=== PATIENT | male | born 1950 | race Caucasian/White ===

== ENCOUNTER 2016-10-03 14:10 | Emergency (ER) | payer OTHER ==
[~2016-10-03] VITALS: Ht 177.8 cm; Wt 118.6 kg
[~2016-10-03 14:10] MED LIST: ASPI81TA28 PO; ATOR-26 PO; CLOP1TAB15 PO; HYDR25TA5 PO; LISI40TA PO; SERT50TA PO
[2016-10-03 14:20] VITALS: TEMP 36.5; Ht 177.8 cm; Wt 118.6 kg
--- NOTE | 2016-10-03 14:37 | EMERGENCY ROOM VISIT NOTE ---
History Report prepared by Jade: Kishore Leyva Under the Supervision of: Dr. Horacio Boss D.O. First contact with patient: 14:22 Chief Complaint: SWELLING TO EXTREMITY Stated Complaint: SWELLING IN LEFT ANKLE History of Present Illness The patient is a 66 year old male who presents to the Emergency Room with complaints of worsening swelling of the left ankle beginning 3-4 days prior to arrival. He currently rates her discomfort as a 6/10 in severity. The patient associates an itching rash on his right lower leg with today's symptoms. He notes he has a history of cellulitis and a blood clot in the left leg, but the cause of the clot was unknown. The patient states he experienced similar symptoms in the past, when he had cellulitis. He notes he was seen by [facility] and was referred to the ED for an ultrasound. The patient states he has a cardiac stent after a previous heart attack three years ago. He notes he takes a low dose of aspirin every day. The patient also states he fractured his left ankle twenty years ago. He denies a fever, chills, chest pain, shortness of breath, nausea, vomiting, and tobacco or alcohol use. 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 A total of 10 systems reviewed and were otherwise negative. Past Medical & Surgical Medical Problems: (1) Asthma (2) Bronchitis (3) Cellulitis of left lower leg (4) DVT (deep venous thrombosis) (5) Heart attack (6) Heart disease (7) Hypertension Surgical Problems: (1) H/O heart artery stent Family History Cancer Diabetes mellitus Lung disease Social History Smoking Status: Never Smoker Drug Use: none Marital Status: Occupation Status: employed Current/Historical Medications Scheduled Aspirin (Aspirin Ec), 81 MG PO DAILY Atorvastatin (Lipitor), 80 MG PO DAILY Carvedilol (Carvedilol), 1 TAB PO DAILY Cephalexin Monohydrate (Keflex), 500 MG PO QID Ferrous Sulfate (Kp Ferrous Sulfate), 1 TAB PO BID Folic Acid (Folvite), 1 MG PO DAILY Hydrochlorothiazide (Hydrochlorothiazide), 25 MG PO DAILY Lisinopril (Zestril), 40 MG PO DAILY Sertraline (Zoloft), 50 MG PO DAILY Sulfa/Trimethoprim (Bactrim Ds 800MG/160MG), 1 TAB PO BID Allergies Coded Allergies: Penicillins (Verified Allergy, Unknown, UNKNOWN, 10/03/16) Physical Exam Vital Signs Date Time Temp Pulse Resp B/P Pulse Ox O2 Delivery O2 Flow Rate FiO2 10/03/16 16:35 91 18 177/107 97 10/03/16 14:20 36.5 98 18 168/98 95 Room Air Physical Exam GENERAL: Patient is awake, alert, and in no acute distress. Patient is resting comfortably and showing no signs of anxiety EYES: The conjunctivae are clear. The pupils are round and reactive. EARS, NOSE, MOUTH AND THROAT: The nose is without any evidence of any deformity. Mucous membranes are moist tongue is midline NECK: The neck is nontender and supple. RESPIRATORY: Normal respiratory effort is noted there is no evidence of wheezing rhonchi or rales CARDIOVASCULAR: Regular rate and rhythm noted there no murmurs rubs or gallops normal S1 normal S2 GASTROINTESTINAL: The abdomen is soft. Bowel sounds are present in all quadrants. Abdomen is nontender MUSCULOSKELETAL/EXTREMITIES: There is no evidence of gross deformity full range of motion is noted in the hips and shoulders SKIN: Erythema and swelling to the left leg. There was calf tenderness noted in the left leg. Pulses symmetric in lower extremities. Skin is warm and dry. NEUROLOGIC: Patient is awake alert and oriented x3. Medical Decision & Procedures ER Provider Diagnostic Interpretation: US results as stated below per interpretation by me and the radiologist. LEFT LOWER EXTREMITY VENOUS DOPPLER CLINICAL HISTORY: Left lower extremity swelling. COMPARISON STUDY: Left lower extremity venous April 17, 2015. TECHNIQUE: Sonography of the deep venous system of the left lower extremity was performed. Compression and augmentation were evaluated. FINDINGS: There is linear echogenic thrombus within the left superficial femoral vein as well as wall thickening of the left popliteal vein. Similar findings were shown on exam of April 17, 2015. IMPRESSION: 1. No evidence of acute deep venous thrombus within the left lower extremity. 2. 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 Electronically signed by: Jeff Bolaños M.D. 10/03/2016 4:04 PM Laboratory Results 10/03/16 14:40 Red Blood Count 5.06, Mean Corpuscular Volume 78.9, Mean Corpuscular Hemoglobin 26.7, Mean Corpuscular Hemoglobin Concent 33.8, Mean Platelet Volume 9.0, Neutrophils (%) (Auto) 63.4, Lymphocytes (%) (Auto) 24.6, Monocytes (%) (Auto) 8.8, Eosinophils (%) (Auto) 2.3, Basophils (%) (Auto) 0.3, Neutrophils # (Auto) 6.15, Lymphocytes # (Auto) 2.39, Monocytes # (Auto) 0.85, Eosinophils # (Auto) 0.22, Basophils # (Auto) 0.03 10/03/16 14:40 Test 10/03/16 14:40 White Blood Count 9.70 K/uL (4.8-10.8) Red Blood Count 5.06 M/uL (4.7-6.1) Hemoglobin 13.5 g/dL (14.0-18.0) Hematocrit 39.9 % (42-52) Mean Corpuscular Volume 78.9 fL (80-100) Mean Corpuscular Hemoglobin 26.7 pg (25-34) Mean Corpuscular Hemoglobin Concent 33.8 g/dl (32-36) Platelet Count 215 K/uL (130-400) Mean Platelet Volume 9.0 fL (7.4-10.4) Neutrophils (%) (Auto) 63.4 % Lymphocytes (%) (Auto) 24.6 % Monocytes (%) (Auto) 8.8 % Eosinophils (%) (Auto) 2.3 % Basophils (%) (Auto) 0.3 % Neutrophils # (Auto) 6.15 K/uL (1.4-6.5) Lymphocytes # (Auto) 2.39 K/uL (1.2-3.4) Monocytes # (Auto) 0.85 K/uL (0.11-0.59) Eosinophils # (Auto) 0.22 K/uL (0-0.5) Basophils # (Auto) 0.03 K/uL (0-0.2) RDW Standard Deviation 46.6 fL (36.4-46.3) RDW Coefficient of Variation 16.3 % (11.5-14.5) Immature Granulocyte % (Auto) 0.6 % Immature Granulocyte # (Auto) 0.06 K/uL (0.00-0.02) Prothrombin Time 11.4 SECONDS (9.0-12.0) Prothromb Time International Ratio 1.1 (0.9-1.1) Activated Partial Thromboplast Time 27.1 SECONDS (21.0-31.0) Partial Thromboplastin Ratio 1.0 Anion Gap 3.0 mmol/L (3-11) Est Creatinine Clear Calc Drug Dose 85.2 ml/min Estimated GFR () 80.6 Estimated GFR (Non- 69.6 BUN/Creatinine Ratio 17.4 (10-20) Calcium Level 9.1 mg/dl (8.5-10.1) Total Bilirubin 0.4 mg/dl (0.2-1) Direct Bilirubin < 0.1 mg/dl (0-0.2) Aspartate Amino Transf (AST/SGOT) 16 U/L (15-37) Alanine Aminotransferase (ALT/SGPT) 37 U/L (12-78) Alkaline Phosphatase 55 U/L (45-117) Total Protein 7.8 gm/dl (6.4-8.2) Albumin 4.1 gm/dl (3.4-5.0) Laboratory results per my review. Medications Administered Medications (Trade) Dose Ordered Sig/Keenan Route Start Time Stop Time Status Last Admin Dose Admin Trimethoprim/ Sulfamethoxazole (Septra Ds 800/ 160MG Tab) 1 tab NOW STAT PO 10/03/16 16:14 10/03/16 16:16 DC 10/03/16 16:27 1 TAB Cephalexin Monohydrate (Keflex Cap) 500 mg NOW ONCE PO 10/03/16 16:15 10/03/16 16:16 DC 10/03/16 16:28 500 MG ED Course 1423: The patient was evaluated in room C2B. A complete history and physical examination were performed. 1614: Ordered Trimethoprim/Sulfamethoxazole 1 tab PO. 1615: Ordered Keflex Cap 500 mg PO. 1617: Upon reevaluation, the patient is doing well. I discussed the results and treatment plan with him. He verbalized agreement of the treatment plan. The patient was discharged home. Medical Decision Differential diagnosis: Etiologies such as DVT, musculoskeletal, infection, joint effusion, trauma, lymphedema, idiopathic, CHF, as well as others were entertained.. The patient is a 66-year-old male who presented to the emergency department for an evaluation of left lower extremity swelling. The patient noticed erythema. He thought it could be consistent with cellulitis but he has a history of DVT. The patient's ultrasound did not show an acute DVT but did show some areas of chronic DVT. At this time I do not feel he would benefit from restarting anticoagulation but I did start him on a course of antibiotics for cellulitis. He was encouraged to keep the leg elevated as much as possible. He was also encouraged to have a repeat ultrasound in 5-7 days if symptoms do not improve. Otherwise she was encouraged to return to the emergency department immediately if symptoms worsen or he develops other symptoms such as shortness of breath or severe chest pain. Impression Primary Impression: Cellulitis of left lower extremity Scribe Attestation The scribe's documentation has been prepared under my direction and personally reviewed by me in its entirety. I confirm that the note above accurately reflects all work, treatment, procedures, and medical decision making performed by me. Departure Information Dispostion Home / Self-Care Prescriptions Cephalexin Monohydrate (KEFLEX) 500 Mg Cap 500 MG PO QID, #28 CAP Prov: Horacio Boss, DO 10/03/16 Sulfa/Trimethoprim (Bactrim Ds 800MG/160MG) Tab 1 TAB PO BID, #14 TAB Prov: Horacio Boss, DO 10/03/16 Referrals Krish Nagel M.D. (PCP) Forms HOME CARE DOCUMENTATION FORM, IMPORTANT VISIT INFORMATION, WORK / SCHOOL INSTRUCTIONS Patient Instructions Cellulitis Raul, My [facility] Additional Instructions Keep your leg elevated as much as possible. Call your family to schedule a follow-up appointment. Continue all medications as prescribed. I would recommend a repeat ultrasound in 5-7 days if symptoms do not improve.
[2016-10-03 14:54] LABS: BASO % 0.3 %; BASO ABS # 0.03 K/uL (0-0.2); COMPLETE YES; EOS % 2.3 %; HEMATOCRIT 39.9 % (42-52); IG% 0.6 %; LYMPH % 24.6 %; LYMPH ABS # 2.39 K/uL (1.2-3.4); MEAN CELL VOLUME 78.9 fL (80-100); MEAN CORPUSCULAR HEMOGLOBIN 26.7 pg (25-34); MEAN CORPUSCULAR HGB CONC 33.8 g/dl (32-36); MONO % 8.8 %; NEUT % 63.4 %; PLATELET COUNT 215 K/uL (130-400); RED BLOOD COUNT 5.06 M/uL (4.7-6.1)
[2016-10-03] MEDS ORDERED: CRG25 PO (14:54)
[2016-10-03] MEDS ORDERED: FOLI1TAB7 PO (14:56)
[2016-10-03] MEDS ORDERED: FERR1TAB13 PO (14:57)
[2016-10-03 15:10] LABS: INR 1.1 (0.9-1.1); PROTHROMBIN TIME (PATIENT) 11.4 SECONDS (9.0-12.0)
[2016-10-03 15:12] LABS: ALT/SGPT 37 U/L (12-78); AST/SGOT 16 U/L (15-37); BLOOD UREA NITROGEN 19 mg/dl (7-18); BUN/CREATININE RATIO 17.4 (10-20); CALCIUM 9.1 mg/dl (8.5-10.1); CARBON DIOXIDE 31 mmol/L (21-32); CHLORIDE 107 mmol/L (98-107); GLUCOSE 90 mg/dl (70-99); POTASSIUM 3.8 mmol/L (3.5-5.1); SODIUM 141 mmol/L (136-145)
[2016-10-03 15:15] LABS: ALKALINE PHOSPHATASE 55 U/L (45-117)
--- NOTE | 2016-10-03 16:05 | DIAGNOSTIC IMAGING REPORT ---
LEFT LOWER EXTREMITY VENOUS DOPPLER CLINICAL HISTORY: Left lower extremity swelling. COMPARISON STUDY: Left lower extremity venous April 17, 2015. TECHNIQUE: Sonography of the deep venous system of the left lower extremity was performed. Compression and augmentation were evaluated. FINDINGS: There is linear echogenic thrombus within the left superficial femoral vein as well as wall thickening of the left popliteal vein. Similar findings were shown on exam of April 17, 2015. IMPRESSION: 1. No evidence of acute deep venous thrombus within the left lower extremity. 2. 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 Electronically signed by: Jeff Bolaños M.D. 10/03/2016 4:04 PM Dictated Date/Time: 10/03/2016 4:02 PM
[2016-10-03] MEDS ORDERED: SULFAMETHOXAZOLE/TRIMETHOPRIM DS 800/160MG TAB PO STA (16:14)
[2016-10-03] MEDS ORDERED: CEPHALEXIN MONOHYDRATE 250 MG CAP PO ONE (16:15)
[2016-10-03] MEDS ORDERED: CEPH500C2 PO (16:20)
[2016-10-03] MEDS ORDERED: SULF800T23 PO (16:20)
[2016-10-03 16:35] VITALS: BP 177/107; PULSE 91; O2SAT 97
[2017-06-01] MEDS ORDERED: NTRGSL/4 UT (08:08)
== END 2016-10-03 16:38 | disposition home or self-care (01) ==
LOC: C.EDB 14:11 → C.EDC 16:38
DX: L03.116 Cellulitis of left lower limb (principal); J45.909 Unspecified asthma, uncomplicated; I10 Essential (primary) hypertension; I25.2 Old myocardial infarction; Z83.3 Family history of diabetes mellitus; Z79.82 Long term (current) use of aspirin

== ENCOUNTER → 2016-12-02 | Outpatient (CLI) | payer OTHER ==
[~2016-12-02] MED LIST changes: +CEPH500C2 PO; -CLOP1TAB15 PO; +CRG25 PO; +FERR1TAB13 PO; +FOLI1TAB7 PO; +NTRGSL/4 UT; +SULF800T23 PO
[2016-12-02 12:23] LABS: BASO % 0.5 %; BASO ABS # 0.03 K/uL (0-0.2); COMPLETE YES; EOS % 4.2 %; HEMATOCRIT 41.1 % (42-52); IG% 0.2 %; LYMPH % 28.7 %; LYMPH ABS # 1.84 K/uL (1.2-3.4); MEAN CELL VOLUME 85.3 fL (80-100); MEAN CORPUSCULAR HEMOGLOBIN 27.6 pg (25-34); MEAN CORPUSCULAR HGB CONC 32.4 g/dl (32-36); MEAN PLATELET VOLUME 10.6 fL (7.4-10.4); MONO % 16.2 %; NEUT % 50.2 %; PLATELET COUNT 254 K/uL (130-400); RED BLOOD COUNT 4.82 M/uL (4.7-6.1); WHITE BLOOD COUNT 6.41 K/uL (4.8-10.8)
[2016-12-02 12:44] LABS: ESTIMATED AVERAGE GLUCOSE 120 mg/dl; HA1C FLAG Normal (Normal)
[2016-12-02 12:45] LABS: PROSTATE SPECIFIC ANTIGEN 2.11 ng/ml (0.000-4.000)
== END | disposition home or self-care (01) ==
LOC: C.LABBFT 07:48
PROVIDERS: ATTEND Internal Medicine
DX: Z12.5 Encounter for screening for malignant neoplasm of prostate (principal); R73.09 Other abnormal glucose; D64.9 Anemia, unspecified

== ENCOUNTER 2017-02-04 10:45 | Inpatient (IN) | payer OTHER ==
[~2017-02-04] VITALS: Ht 177.8 cm; Wt 119.0 kg
[~2017-02-04 10:45] MED LIST changes: -NTRGSL/4 UT
[2017-02-04 11:34] LABS: BASO % 0.1 %; BASO ABS # 0.03 K/uL (0-0.2); COMPLETE YES; EOS % 0.1 %; HEMATOCRIT 38.9 % (42-52); IG% 0.3 %; LYMPH % 12.8 %; LYMPH ABS # 2.76 K/uL (1.2-3.4); MEAN CELL VOLUME 82.1 fL (80-100); MEAN CORPUSCULAR HEMOGLOBIN 28.7 pg (25-34); MEAN PLATELET VOLUME 9.1 fL (7.4-10.4); NEUT % 79.7 %; PLATELET COUNT 227 K/uL (130-400); RED BLOOD COUNT 4.74 M/uL (4.7-6.1); WHITE BLOOD COUNT 21.55 K/uL (4.8-10.8)
[2017-02-04 11:41] LABS: ISTAT CREATININE 1.2 mg/dl (0.6-1.3); ISTAT HEMOGLOBIN 13.9 g/dl (14.0-18.0); ISTAT IONIZED CALCIUM 1.17 mmol/l (1.12-1.32)
[2017-02-04] MEDS ORDERED: OPTIRAY 320 IV PRN (11:45)
[2017-02-04 11:51] LABS: BUN/CREATININE RATIO 15.6 (10-20); CALCIUM 9.2 mg/dl (8.5-10.1); CREATININE 1.4 mg/dl (0.60-1.40); POTASSIUM 3.4 mmol/L (3.5-5.1)
--- NOTE | 2017-02-04 12:03 | DIAGNOSTIC IMAGING REPORT ---
ADDENDUM CORRECTION On further evaluation, multiple small bowel diverticula are noted including in the region of the previously described in the right anterior mid abdomen. This is consistent with diverticulitis of the small bowel with contained perforation. The report will be called/faxed according to standard departmental protocol. Electronically signed by: Junito Weinstein M.D. 02/04/2017 12:09 PM Dictated Date/Time: 02/04/2017 12:06 PM ADDENDUM 4. Hyperdense lesion in the left kidney. This may represent a hemorrhagic or pertinacious cysts, however, an enhancing lesion cannot be excluded. Further evaluation with ultrasound could be considered if clinically indicated. Electronically signed by: Junito Weinstein M.D. 02/04/2017 12:04 PM Dictated Date/Time: 02/04/2017 12:04 PM ORIGINAL REPORT ABD/PELVIS IV CONTRAST ONLY CLINICAL HISTORY: 67 years-old Male presenting with lower abdominal pain, fevers, nausea, h/o diverticulitis. TECHNIQUE: Multidetector CT of the abdomen and pelvis was performed after the administration of intravenous contrast. IV contrast: 119 mL of Optiray 320. A dose lowering technique was used consistent with the principles of ALARA (as low as reasonably achievable). COMPARISON: None. CT DOSE (mGy.cm): The estimated cumulative dose is 1091.74 mGycm. FINDINGS: Lift [employer] topogram: Cholecystectomy clips noted. Lung bases: Lung bases clear. No pericardial or pleural effusion. Liver: Somewhat macronodular morphology with expansion of the fat within the fissure and gallbladder fossa. Well-defined hypodensity in the right hepatic lobe likely hepatic cyst or hamartoma. Patent hepatic vasculature. Biliary: No intrahepatic or extrahepatic biliary ductal dilatation. Gallbladder surgically absent. Pancreas: Moderate parenchymal atrophy with scattered coarse parenchymal calcifications may suggest a history of chronic pancreatitis. Spleen: Normal. Adrenal glands: Normal. Kidneys and ureters: No nephrolithiasis. No hydronephrosis. Focal cortical irregularity with an associated relatively hypodense lesion along the posterior aspect of the interpolar region of the left kidney is not consistent with a simple cyst. Ureters normal. Gastrointestinal tract: Proximal sigmoid diverticulosis. No evidence of diverticulitis. Normal appendix. Focal mesenteric inflammatory change in the region of the distal ileum in the anterior right mid abdomen with apparent foci of extraluminal gas (series 2 image 51). This is immediately adjacent to the cecum. Both the adjacent small bowel loops and cecum do not demonstrate wall thickening or significant evidence of inflammation. Apparent intramural fat deposition within the cecum and terminal ileum, nonspecific but possibly indicating chronic inflammation. Two duodenal diverticula noted, one in the region of the pancreatic head and a second at the junction of the third and fourth portion of the duodenum. No bowel obstruction. Peritoneal cavity: Extraluminal gas appears isolated to the mesentery in the right mid abdomen. No lolita free intraperitoneal gas. Bladder: Incompletely evaluated secondary to underdistention. Pelvic organs: Prostate enlargement likely secondary to benign prostatic hyperplasia. Vasculature: Atherosclerosis of the normal caliber abdominal aorta. IVC patent. Lymph nodes: No enlarged lymph nodes in the abdomen or pelvis. Abdominal wall: Normal. Musculoskeletal: Degenerative changes of the spine. IMPRESSION: 1. Focal perienteric inflammatory change with apparent extraluminal gas in the mesentery of the distal ileum located in the right anterior mid abdomen. This may represent a contained perforation. No lolita free intraperitoneal gas. No significant diverticula are noted in this region, and no significant inflammatory change of the adjacent small bowel this present. This is of uncertain etiology. Evaluation is somewhat limited given the absence of oral contrast. Surgical consultation and close clinical and imaging follow-up recommended. 2. Possible chronic inflammatory changes of the cecum and terminal ileum. 3. Sigmoid diverticulosis. The report will be called/faxed according to standard departmental protocol. Electronically signed by: Junito Weinstein M.D. 02/04/2017 12:02 PM Dictated Date/Time: 02/04/2017 11:51 AM
[2017-02-04] MEDS ORDERED: CEFEPIME IV 2000 MG in DEXTROSE 5% 100ML IV ONE (12:30)
[2017-02-04] MEDS ORDERED: METRONIDAZOLE 500MG / NSS IV ONE (12:30)
[2017-02-04] MEDS ORDERED: ONDANSETRON INJ 2 MG/ML 2 ML VIAL IV PRN (15:45)
[2017-02-04] MEDS ORDERED: ACETAMINOPHEN 325 MG TAB PO PRN (15:45)
[2017-02-04] MEDS ORDERED: HydrALAZINE HCL 20 MG/ML VIAL IV. PRN (15:45)
--- NOTE | 2017-02-04 15:47 | EMERGENCY ROOM VISIT NOTE ---
History Report prepared by Jade: Tonja Cazares Under the Supervision of: Dr. Jayesh Judd M.D. First contact with patient: 10:53 Chief Complaint: ABDOMINAL PAIN Stated Complaint: STOMACH PAIN Nursing Triage Summary: Pt reports lower abd pain that started yesterday. Diarrhea. Pt also reports mid back pain, h/a and diaphoresis. Pt reports hx of diverticulitis. History of Present Illness The patient is a 67 year old male who presents to the Emergency Room with complaints of persistent lower abdominal pain starting yesterday. The patient has a history of diverticulitis. He was not doing anything when the pain started. He has never experienced this pain before. He has not taken any medications for his pain. He reports some black diarrhea, fever, and headache. He denies any rash, bloody stools, chest pain, SOB, nausea, or vomiting. He has had a colonoscopy in the past. He denies any history of kidney problems. He has had a cholecystectomy. Source of History: patient Onset: yesterday Position: abdomen (lower) Quality: other (pain) Timing: other (persistent) Associated Symptoms: + fevers, + headache, + diarrhea, No chest pain, No SOB , No nausea, No vomiting, No hematochezia, No rash Review of Systems See HPI for pertinent positives & negatives. A total of 10 systems reviewed and were otherwise negative. Past Medical & Surgical Medical Problems: (1) Asthma (2) Bronchitis (3) Cellulitis of left lower leg (4) Diverticulitis (5) DVT (deep venous thrombosis) (6) Heart attack (7) Heart disease (8) Hypertension Surgical Problems: (1) H/O heart artery stent Family History Cancer Diabetes mellitus Lung disease Social History Smoking Status: Never Smoker Drug Use: none Marital Status: Occupation Status: employed Current/Historical Medications Scheduled Aspirin (Aspirin Ec), 81 MG PO HS Atorvastatin (Lipitor), 80 MG PO HS Carvedilol (Carvedilol), 1 TAB PO HS Ferrous Sulfate (Kp Ferrous Sulfate), 1 TAB PO BID Folic Acid (Folvite), 1 MG PO HS Hydrochlorothiazide (Hydrochlorothiazide), 25 MG PO HS Lisinopril (Zestril), 40 MG PO HS Sertraline (Zoloft), 50 MG PO HS Allergies Coded Allergies: Penicillins (Verified Allergy, Unknown, UNKNOWN, 02/04/17) Physical Exam Vital Signs Date Time Temp Pulse Resp B/P (MAP) Pulse Ox O2 Delivery O2 Flow Rate FiO2 02/04/17 16:10 82 18 156/99 98 Room Air 02/04/17 14:13 79 20 112/73 96 Room Air 02/04/17 12:30 84 20 162/92 99 Room Air 02/04/17 10:49 36.6 90 18 140/86 95 Room Air Physical Exam GENERAL: Patient is uncomfortable appearing and in mild distress. HEENT: No acute trauma, normocephalic atraumatic, mucous membranes moist, no nasal congestion, no scleral icterus. NECK: No stridor, no adenopathy, no meningismus, trachea is midline. LUNGS: No dyspnea. Clear to auscultation and equal bilaterally. No wheeze, no rhonchi. HEART: Regular rate and rhythm. No murmurs, rubs, gallops appreciated. ABDOMEN: Soft, diffuse lower abdominal tenderness to palpation, bowel sounds positive, no masses appreciated, no peritonitis. BACK: No midline tenderness, no CVA tenderness EXTREMITIES: Normal motion all extremities, no cyanosis, no edema. NEUROLOGIC: Alert and oriented, no acute motor or sensory deficits, no focal weakness, cranial nerves grossly intact. SKIN: No rash, no jaundice, no diaphoresis. Medical Decision & Procedures ER Provider Diagnostic Interpretation: Radiology results and stated below per my review and radiologist interpretation: ADDENDUM CORRECTION On further evaluation, multiple small bowel diverticula are noted including in the region of the previously described in the right anterior mid abdomen. This is consistent with diverticulitis of the small bowel with contained perforation. The report will be called/faxed according to standard departmental protocol. Electronically signed by: Junito Weinstein M.D. 02/04/2017 12:09 PM Dictated Date/Time: 02/04/2017 12:06 PM ADDENDUM 4. Hyperdense lesion in the left kidney. This may represent a hemorrhagic or pertinacious cysts, however, an enhancing lesion cannot be excluded. Further evaluation with ultrasound could be considered if clinically indicated. Electronically signed by: Junito Weinstein M.D. 02/04/2017 12:04 PM Dictated Date/Time: 02/04/2017 12:04 PM ORIGINAL REPORT ABD/PELVIS IV CONTRAST ONLY CLINICAL HISTORY: 67 years-old Male presenting with lower abdominal pain, fevers, nausea, h/o diverticulitis. TECHNIQUE: Multidetector CT of the abdomen and pelvis was performed after the administration of intravenous contrast. IV contrast: 119 mL of Optiray 320. A dose lowering technique was used consistent with the principles of ALARA (as low as reasonably achievable). COMPARISON: None. CT DOSE (mGy.cm): The estimated cumulative dose is 1091.74 mGycm. FINDINGS: Penetration Tester topogram: Cholecystectomy clips noted. Lung bases: Lung bases clear. No pericardial or pleural effusion. Liver: Somewhat macronodular morphology with expansion of the fat within the fissure and gallbladder fossa. Well-defined hypodensity in the right hepatic lobe likely hepatic cyst or hamartoma. Patent hepatic vasculature. Biliary: No intrahepatic or extrahepatic biliary ductal dilatation. Gallbladder surgically absent. Pancreas: Moderate parenchymal atrophy with scattered coarse parenchymal calcifications may suggest a history of chronic pancreatitis. Spleen: Normal. Adrenal glands: Normal. Kidneys and ureters: No nephrolithiasis. No hydronephrosis. Focal cortical irregularity with an associated relatively hypodense lesion along the posterior aspect of the interpolar region of the left kidney is not consistent with a simple cyst. Ureters normal. Gastrointestinal tract: Proximal sigmoid diverticulosis. No evidence of diverticulitis. Normal appendix. Focal mesenteric inflammatory change in the region of the distal ileum in the anterior right mid abdomen with apparent foci of extraluminal gas (series 2 image 51). This is immediately adjacent to the cecum. Both the adjacent small bowel loops and cecum do not demonstrate wall thickening or significant evidence of inflammation. Apparent intramural fat deposition within the cecum and terminal ileum, nonspecific but possibly indicating chronic inflammation. Two duodenal diverticula noted, one in the region of the pancreatic head and a second at the junction of the third and fourth portion of the duodenum. No bowel obstruction. Peritoneal cavity: Extraluminal gas appears isolated to the mesentery in the right mid abdomen. No lolita free intraperitoneal gas. Bladder: Incompletely evaluated secondary to underdistention. Pelvic organs: Prostate enlargement likely secondary to benign prostatic hyperplasia. Vasculature: Atherosclerosis of the normal caliber abdominal aorta. IVC patent. Lymph nodes: No enlarged lymph nodes in the abdomen or pelvis. Abdominal wall: Normal. Musculoskeletal: Degenerative changes of the spine. IMPRESSION: 1. Focal perienteric inflammatory change with apparent extraluminal gas in the mesentery of the distal ileum located in the right anterior mid abdomen. This may represent a contained perforation. No lolita free intraperitoneal gas. No significant diverticula are noted in this region, and no significant inflammatory change of the adjacent small bowel this present. This is of uncertain etiology. Evaluation is somewhat limited given the absence of oral contrast. Surgical consultation and close clinical and imaging follow-up recommended. 2. Possible chronic inflammatory changes of the cecum and terminal ileum. 3. Sigmoid diverticulosis. The report will be called/faxed according to standard departmental protocol. Electronically signed by: Junito Weinstein M.D. 02/04/2017 12:02 PM Dictated Date/Time: 02/04/2017 11:51 AM Laboratory Results 02/04/17 11:10 Red Blood Count 4.74, Mean Corpuscular Volume 82.1, Mean Corpuscular Hemoglobin 28.7, Mean Corpuscular Hemoglobin Concent 35.0, Mean Platelet Volume 9.1, Neutrophils (%) (Auto) 79.7, Lymphocytes (%) (Auto) 12.8, Monocytes (%) (Auto) 7.0, Eosinophils (%) (Auto) 0.1, Basophils (%) (Auto) 0.1, Neutrophils # (Auto) 17.15, Lymphocytes # (Auto) 2.76, Monocytes # (Auto) 1.51, Eosinophils # (Auto) 0.03, Basophils # (Auto) 0.03 02/04/17 11:10 Test 02/04/17 00:00 02/04/17 11:10 02/04/17 11:18 Prothrombin Time 13.5 SECONDS (9.0-12.0) Prothromb Time International Ratio 1.3 (0.9-1.1) White Blood Count 21.55 K/uL (4.8-10.8) Red Blood Count 4.74 M/uL (4.7-6.1) Hemoglobin 13.6 g/dL (14.0-18.0) Hematocrit 38.9 % (42-52) Mean Corpuscular Volume 82.1 fL (80-100) Mean Corpuscular Hemoglobin 28.7 pg (25-34) Mean Corpuscular Hemoglobin Concent 35.0 g/dl (32-36) Platelet Count 227 K/uL (130-400) Mean Platelet Volume 9.1 fL (7.4-10.4) Neutrophils (%) (Auto) 79.7 % Lymphocytes (%) (Auto) 12.8 % Monocytes (%) (Auto) 7.0 % Eosinophils (%) (Auto) 0.1 % Basophils (%) (Auto) 0.1 % Neutrophils # (Auto) 17.15 K/uL (1.4-6.5) Lymphocytes # (Auto) 2.76 K/uL (1.2-3.4) Monocytes # (Auto) 1.51 K/uL (0.11-0.59) Eosinophils # (Auto) 0.03 K/uL (0-0.5) Basophils # (Auto) 0.03 K/uL (0-0.2) RDW Standard Deviation 43.8 fL (36.4-46.3) RDW Coefficient of Variation 14.7 % (11.5-14.5) Immature Granulocyte % (Auto) 0.3 % Immature Granulocyte # (Auto) 0.07 K/uL (0.00-0.02) Est Creatinine Clear Calc Drug Dose 66.1 ml/min Estimated GFR () 59.8 Estimated GFR (Non- 51.6 BUN/Creatinine Ratio 15.6 (10-20) Calcium Level 9.2 mg/dl (8.5-10.1) Total Bilirubin 0.9 mg/dl (0.2-1) Direct Bilirubin 0.2 mg/dl (0-0.2) Aspartate Amino Transf (AST/SGOT) 16 U/L (15-37) Alanine Aminotransferase (ALT/SGPT) 32 U/L (12-78) Alkaline Phosphatase 49 U/L (45-117) Total Protein 7.5 gm/dl (6.4-8.2) Albumin 3.6 gm/dl (3.4-5.0) Lipase 81 U/L (73-393) Bedside Hemoglobin 13.9 g/dl (14.0-18.0) Bedside Hematocrit 41 % (42-52) Bedside Sodium 136 mEq/L (135-144) Bedside Potassium 3.4 mEq/L (3.3-5.0) Bedside Chloride 99 mEq/L (101-112) Bedside Total CO2 24 mEq/l (24-31) Anion Gap 17.0 mmol/L (16-25) Bedside Blood Urea Nitrogen 22 mg/dl (7-18) Bedside Creatinine 1.2 mg/dl (0.6-1.3) Bedside Glucose (other) 109 mg/dl (70-99) Bedside Ionized Calcium (Bailey) 1.17 mmol/l (1.12-1.32) Laboratory results as reviewed by me. Medications Administered Medications (Trade) Dose Ordered Sig/Keenan Route Start Time Stop Time Status Last Admin Dose Admin Cefepime HCl 2000 mg/Dextrose 112.5 ml @ 225 mls/hr NOW ONCE IV 02/04/17 12:30 02/04/17 12:59 DC 02/04/17 12:29 225 MLS/HR Metronidazole 500 mg/Prmx 100 ml @ 100 mls/hr NOW ONCE IV 02/04/17 12:30 02/04/17 13:29 DC 02/04/17 12:29 100 MLS/HR ECG Indication: abdominal pain Rate (beats per minute): 82 Rhythm: normal sinus Findings: no acute ischemic change, no ectopy ED Course 1056: The patient was evaluated in room C9. A complete history and physical exam was performed. 1216: I discussed the patient's case with Dr. Newton, [facility]. He is in the OR and will be down NEM[facility]. 1218: I reevaluated the patient. I updated him on the results. He would not like any pain medications. 1230: Metronidazole 500 mg/Prmx 100 ml @ 100 mls/hr IV, Cefepime HCl 2000 mg/ Dextrose 112.5 ml @ 225 mls/hr IV. 1327: I reevaluated the patient. He is comfortable and waiting for surgery. 1452: I spoke with Dr. Newton. He has evaluated the patient. He recommends admission for IV antibiotics. 1455: Upon reevaluation, the patient is stable. I discussed results and treatment plan with the patient. He verbalized understanding and agreement with the treatment plan. The patient will be evaluated for further management. 1542: I discussed the patient's case with Dr. Charles, [facility] hospitalist. The patient will be evaluated for further treatment and disposition. Medical Decision Differential: Appendicitis, Diverticulitis, PUD/Gastritis, Biliary Pathology, UTI, Pyelonephritis, Renal Colic, Bowel Obstruction, Aortic Pathology, Acute Coronary Syndrome, amongst other pathologies entertained. 67 yr old male with bilateral lower abdominal pain bringing him in to ED. Minimal distress and declining pain mediations. Exam without peritonitis. He is not septic though WBC is 21. CT abdopelv consistent with perforated bowel of uncertain etiology. Surgery down to evaluation and request inpatient admission to hospitalist with IV abx for now. Patient stable on repeat evaluations. Medication Reconcilliation Current Medication List: was personally reviewed by me Blood Pressure Screening Patient's blood pressure: Normal blood pressure Blood pressure disposition: Did not require urgent referral Consults Time Called: 1208 Consulting Physician: Dr. Newton, [facility] Returned Call: [phone] I discussed the patient's case with him. He is in the OR and will be down NEMES[place]. Additional Consults: Time Called: 1455 Consulted Physician: Dr. Charles, [facility] hospitalist Returned Call: [phone] Additional Comments: Discussed the patient's case. The patient will be evaluated for further treatment and disposition. Impression Primary Impression: Perforated abdominal viscus Scribe Attestation The scribe's documentation has been prepared under my direction and personally reviewed by me in its entirety. I confirm that the note above accurately reflects all work, treatment, procedures, and medical decision making performed by me. Departure Information Dispostion Being Evaluated By Hospitalist Referrals Krish Nagel M.D. (PCP) Patient Instructions [facility]
--- NOTE | 2017-02-04 16:14 | Medical Student: [facility] ---
Med Student History & Physical Date & Time of Service: Feb 04, 2017 at 16:04 Chief Complaint: Stomach Pain Primary Care Physician: Krish Nagel M.D. History of Present Illness Source: patient, hospital records Mr. Davidson is a 67yo male with a history of OH s/p stenting, LLE DVT off anticoagulation, and diverticulitis who presented to the ED with a 1-day history of lower abdominal pain and diarrhea. Regarding his pain it is located across the lower abdomen and is constant 3/10. It is exacerbated with movement. He is able to pass gas. He has had 2 episodes of diarrhea, most recently this AM. He has not noted any lolita blood in his stool though he reports that his stool is normally black due to his iron supplements. His last colonoscopy was in 2013 at [facility] and was positive for polyps. He has a repeat colonoscopy scheduled for June 2017. Denies fever, chills, headache, dizziness, lightheadedness, cp, sob, nausea, vomiting, hematuria, hematochezia, calf pain. Past Medical/Surgical History Medical Problems: (1) Bronchitis Status: Resolved (2) Cellulitis of left lower extremity Status: Acute (3) Cellulitis of left lower leg Status: Resolved (4) DVT (deep venous thrombosis) Status: Resolved (5) Heart attack Status: Resolved (6) Perforated abdominal viscus Status: Acute Surgical Problems: (1) H/O heart artery stent Status: Resolved Family History pancreatic cancer (father) coronary artery disease diabetes Social History Smoking Status: Never Smoker Alcohol Use: occasionally Drug Use: none Marital Status: Housing status: lives with significant other Occupational Status: employed Allergies Coded Allergies: Penicillins (Verified Allergy, Unknown, UNKNOWN, 02/04/17) Medications Aspirin (Aspirin Ec), 81 MG PO HS Atorvastatin (Lipitor), 80 MG PO HS Carvedilol (Carvedilol), 1 TAB PO HS Ferrous Sulfate (Kp Ferrous Sulfate), 1 TAB PO BID Folic Acid (Folvite), 1 MG PO HS Hydrochlorothiazide (Hydrochlorothiazide), 25 MG PO HS Lisinopril (Zestril), 40 MG PO HS Sertraline (Zoloft), 50 MG PO HS Review of Systems Constitutional: No fever, No chills Eyes: No worsening of vision, No diplopia ENT: No hearing loss, No sore throat, No trouble swallowing Respiratory: No cough, No wheezing, No shortness of breath Cardiovascular: No chest pain, No palpitations Abdomen: + diarrhea, No pain, No nausea, No vomiting Musculoskeletal: No joint pain, No calf pain Neurologic: No paralysis, No weakness, No numbness/tingling Physical Exam Vital Signs (24 Hours) Date Time Temp Pulse Resp B/P (MAP) Pulse Ox O2 Delivery O2 Flow Rate FiO2 02/04/17 14:13 79 20 112/73 96 Room Air 02/04/17 12:30 84 20 162/92 99 Room Air 02/04/17 10:49 36.6 90 18 140/86 95 Room Air General Appearance: + mild distress, + obese Head: normocephalic, atraumatic Eyes: normal inspection, PERRL, EOMI ENT: normal ENT inspection, hearing grossly normal, pharynx normal Neck: supple, no adenopathy, no carotid bruits Respiratory/Chest: lungs clear, normal breath sounds, no respiratory distress, no accessory muscle use Cardiovascular: regular rate, rhythm, no gallop, no murmur, normal peripheral pulses Abdomen/GI: + tenderness (to palpation RLQ and LLQ), + abnormal bowel sounds ( hypoactive) Extremities/Musculoskelatal: no calf tenderness, normal capillary refill, + pedal edema (L>R foot edema) 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, no motor/sensory deficits, alert, oriented x 3 Diagnostics Laboratory Results Results Past 24 Hours Test 02/04/17 11:10 02/04/17 11:18 Range/Units White Blood Count 21.55 4.8-10.8 K/uL Red Blood Count 4.74 4.7-6.1 M/uL Hemoglobin 13.6 14.0-18.0 g/dL Hematocrit 38.9 42-52 % Mean Corpuscular Volume 82.1 80-100 fL Mean Corpuscular Hemoglobin 28.7 25-34 pg Mean Corpuscular Hemoglobin Concent 35.0 32-36 g/dl Platelet Count 227 130-400 K/uL Mean Platelet Volume 9.1 7.4-10.4 fL Neutrophils (%) (Auto) 79.7 % Lymphocytes (%) (Auto) 12.8 % Monocytes (%) (Auto) 7.0 % Eosinophils (%) (Auto) 0.1 % Basophils (%) (Auto) 0.1 % Neutrophils # (Auto) 17.15 1.4-6.5 K/uL Lymphocytes # (Auto) 2.76 1.2-3.4 K/uL Monocytes # (Auto) 1.51 0.11-0.59 K/uL Eosinophils # (Auto) 0.03 0-0.5 K/uL Basophils # (Auto) 0.03 0-0.2 K/uL RDW Standard Deviation 43.8 36.4-46.3 fL RDW Coefficient of Variation 14.7 11.5-14.5 % Immature Granulocyte % (Auto) 0.3 % Immature Granulocyte # (Auto) 0.07 0.00-0.02 K/uL Sodium Level 137 136-145 mmol/L Potassium Level 3.4 3.5-5.1 mmol/L Chloride Level 102 98-107 mmol/L Carbon Dioxide Level 27 21-32 mmol/L Anion Gap 8.0 17.0 16-25 mmol/L Blood Urea Nitrogen 22 7-18 mg/dl Creatinine 1.40 0.60-1.40 mg/dl Est Creatinine Clear Calc Drug Dose 66.1 ml/min Estimated GFR () 59.8 Estimated GFR (Non- 51.6 BUN/Creatinine Ratio 15.6 10-20 Random Glucose 104 70-99 mg/dl Calcium Level 9.2 8.5-10.1 mg/dl Total Bilirubin 0.9 0.2-1 mg/dl Direct Bilirubin 0.2 0-0.2 mg/dl Aspartate Amino Transf (AST/SGOT) 16 15-37 U/L Alanine Aminotransferase (ALT/SGPT) 32 12-78 U/L Alkaline Phosphatase 49 45-117 U/L Total Protein 7.5 6.4-8.2 gm/dl Albumin 3.6 3.4-5.0 gm/dl Lipase 81 73-393 U/L Bedside Hemoglobin 13.9 14.0-18.0 g/dl Bedside Hematocrit 41 42-52 % Bedside Sodium 136 135-144 mEq/L Bedside Potassium 3.4 3.3-5.0 mEq/L Bedside Chloride 99 101-112 mEq/L Bedside Total CO2 24 24-31 mEq/l Bedside Blood Urea Nitrogen 22 7-18 mg/dl Bedside Creatinine 1.2 0.6-1.3 mg/dl Bedside Glucose (other) 109 70-99 mg/dl Bedside Ionized Calcium (Bailey) 1.17 1.12-1.32 mmol/l Diagnostic Radiology ADDENDUM CORRECTION On further evaluation, multiple small bowel diverticula are noted including in the region of the previously described in the right anterior mid abdomen. This is consistent with diverticulitis of the small bowel with contained perforation. The report will be called/faxed according to standard departmental protocol. Electronically signed by: Junito Weinstein M.D. 02/04/2017 12:09 PM Dictated Date/Time: 02/04/2017 12:06 PM ADDENDUM 4. Hyperdense lesion in the left kidney. This may represent a hemorrhagic or pertinacious cysts, however, an enhancing lesion cannot be excluded. Further evaluation with ultrasound could be considered if clinically indicated. Electronically signed by: Junito Weinstein M.D. 02/04/2017 12:04 PM Dictated Date/Time: 02/04/2017 12:04 PM ORIGINAL REPORT ABD/PELVIS IV CONTRAST ONLY CLINICAL HISTORY: 67 years-old Male presenting with lower abdominal pain, fevers, nausea, h/o diverticulitis. TECHNIQUE: Multidetector CT of the abdomen and pelvis was performed after the administration of intravenous contrast. IV contrast: 119 mL of Optiray 320. A dose lowering technique was used consistent with the principles of ALARA (as low as reasonably achievable). COMPARISON: None. CT DOSE (mGy.cm): The estimated cumulative dose is 1091.74 mGycm. 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 Lung bases: Lung bases clear. No pericardial or pleural effusion. Liver: Somewhat macronodular morphology with expansion of the fat within the fissure and gallbladder fossa. Well-defined hypodensity in the right hepatic lobe likely hepatic cyst or hamartoma. Patent hepatic vasculature. Biliary: No intrahepatic or extrahepatic biliary ductal dilatation. Gallbladder surgically absent. Pancreas: Moderate parenchymal atrophy with scattered coarse parenchymal calcifications may suggest a history of chronic pancreatitis. Spleen: Normal. Adrenal glands: Normal. Kidneys and ureters: No nephrolithiasis. No hydronephrosis. Focal cortical irregularity with an associated relatively hypodense lesion along the posterior aspect of the interpolar region of the left kidney is not consistent with a simple cyst. Ureters normal. Gastrointestinal tract: Proximal sigmoid diverticulosis. No evidence of diverticulitis. Normal appendix. Focal mesenteric inflammatory change in the region of the distal ileum in the anterior right mid abdomen with apparent foci of extraluminal gas (series 2 image 51). This is immediately adjacent to the cecum. Both the adjacent small bowel loops and cecum do not demonstrate wall thickening or significant evidence of inflammation. Apparent intramural fat deposition within the cecum and terminal ileum, nonspecific but possibly indicating chronic inflammation. Two duodenal diverticula noted, one in the region of the pancreatic head and a second at the junction of the third and fourth portion of the duodenum. No bowel obstruction. Peritoneal cavity: Extraluminal gas appears isolated to the mesentery in the right mid abdomen. No lolita free intraperitoneal gas. Bladder: Incompletely evaluated secondary to underdistention. Pelvic organs: Prostate enlargement likely secondary to benign prostatic hyperplasia. Vasculature: Atherosclerosis of the normal caliber abdominal aorta. IVC patent. Lymph nodes: No enlarged lymph nodes in the abdomen or pelvis. Abdominal wall: Normal. Musculoskeletal: Degenerative changes of the spine. IMPRESSION: 1. Focal perienteric inflammatory change with apparent extraluminal gas in the mesentery of the distal ileum located in the right anterior mid abdomen. This may represent a contained perforation. No lolita free intraperitoneal gas. No significant diverticula are noted in this region, and no significant inflammatory change of the adjacent small bowel this present. This is of uncertain etiology. Evaluation is somewhat limited given the absence of oral contrast. Surgical consultation and close clinical and imaging follow-up recommended. 2. Possible chronic inflammatory changes of the cecum and terminal ileum. 3. Sigmoid diverticulosis. The report will be called/faxed according to standard departmental protocol. Electronically signed by: Junito Weinstein M.D. 02/04/2017 12:02 PM Dictated Date/Time: 02/04/2017 11:51 AM Impression Assessment and Plan This is a 67yo male with a history of OH s/p stent, LLE DVT off anticoagulation , and diverticulitis who presented to the ED with a 1-day history of lower abdominal pain and diarrhea. CT abdomen showed diverticulosis of the terminal ileum and a contained perforation of the sigmoid colon. No ileus. Patient was seen by surgery and the patient will be treated non-operatively. The patient will be admitted to med/surg for IV antibiotic therapy. Plan: Precautions: NPO 1. Diverticulosis with contained perforation of sigmoid colon -admit to med/surg -vitals qshift -OOB as tolerated -NPO today, reassess tomorrow AM -IV cipro/flagyl [id number] -IV D5 1/2 NS @ 125mls/hr -PRN acetaminophen 650mg PO q4h prn pain -AM CBC w/ diff -AM partial renal panel -AM magnesium level 2. CAD s/p stent -HOLD ASA 81mg PO HS -continue home atorvastatin 80mg PO HS -continue home carvedilol 25mg PO BID 3. HTN -HOLD home HCTZ 25mg PO HS -continue home lisinopril 40mg PO HS 4. Depression -continue home sertraline 50mg PO HS 5. FEN/GI -continue home folic acid 1mg PO daily -continue home ferrous sulfate 325 PO BID 6. Diet -keep NPO overnight in case of surgery 7. DVT prophylaxis -heparin 5000U SQ q12h -SCD 8. Disposition -Location: home -Date: TBD Level of Care Med/Surg DVT Prophylaxis unfractionated heparin SQ
--- NOTE | 2017-02-04 16:15 | History and Physical ---
History & Physical Date & Time of Service: Feb 04, 2017 at 16:07 Chief Complaint: Stomach Pain Primary Care Physician: Krish Nagel M.D. History of Present Illness Source: patient, hospital records This patient is a pleasant 67-year-old male that presents emergency department complaining of abdominal pain and diarrhea that started yesterday. The abdominal pain has been diffusely across his lower abdomen and constant. He denies any nausea or vomiting. No bright red blood in his stools. He says that he typically has dark stool because he takes iron. His last colonoscopy was in 2013 and showed polyps. He is unsure if he has had diverticulosis. CT scan in the emergency department is consistent with small bowel diverticulitis with a contained perforation. Past Medical/Surgical History Medical Problems: (1) Asthma Status: Chronic (2) Bronchitis Status: Resolved (3) Cellulitis of left lower leg Status: Resolved (4) DVT (deep venous thrombosis) Status: Resolved (5) Heart attack Status: Resolved (6) Heart disease Status: Chronic (7) Hypertension Status: Chronic Surgical Problems: (1) H/O heart artery stent Status: Resolved Family History Cancer Diabetes mellitus Lung disease Social History Smoking Status: Never Smoker Smokeless Tobacco Use: No Alcohol Use: none Drug Use: none Marital Status: Housing status: lives alone Occupational Status: employed Immunizations History of Influenza Vaccine: Unknown History of Tetanus Vaccine?: Unknown History of Pneumococcal: Unknown History of Hepatitis B Vaccine: Unknown Multi-Drug Resistant Organisms History of MDRO: No Allergies Coded Allergies: Penicillins (Verified Allergy, Unknown, UNKNOWN, 02/04/17) Home Medications Scheduled Aspirin (Aspirin Ec), 81 MG PO HS Atorvastatin (Lipitor), 80 MG PO HS Carvedilol (Carvedilol), 1 TAB PO HS Ferrous Sulfate (Kp Ferrous Sulfate), 1 TAB PO BID Folic Acid (Folvite), 1 MG PO HS Hydrochlorothiazide (Hydrochlorothiazide), 25 MG PO HS Lisinopril (Zestril), 40 MG PO HS Sertraline (Zoloft), 50 MG PO HS Review of Systems 10 system review performed and negative unless noted in HPI or below Physical Exam Vital Signs Date Time Temp Pulse Resp B/P (MAP) Pulse Ox O2 Delivery O2 Flow Rate FiO2 02/04/17 14:13 79 20 112/73 96 Room Air 02/04/17 12:30 84 20 162/92 99 Room Air 02/04/17 10:49 36.6 90 18 140/86 95 Room Air General Appearance: no apparent distress Head: normocephalic Eyes: EOMI Neck: no JVD Respiratory/Chest: normal breath sounds Cardiovascular: regular rate, rhythm Abdomen/GI: + tenderness (tenderness to palpation in the right lower and left lower quadrants.), + pertinent finding (fairly distended. Bowel sounds hypoactive. No guarding or rebound tenderness.) Extremities/Musculoskelatal: + pertinent finding (trace edema in the left lower extremity. No calf tenderness.) Neurologic/Psych: no motor/sensory deficits, oriented x 3 Skin: warm/dry Diagnostics Laboratory Results Results Past 24 Hours Test 02/04/17 11:10 02/04/17 11:18 Range/Units White Blood Count 21.55 4.8-10.8 K/uL Red Blood Count 4.74 4.7-6.1 M/uL Hemoglobin 13.6 14.0-18.0 g/dL Hematocrit 38.9 42-52 % Mean Corpuscular Volume 82.1 80-100 fL Mean Corpuscular Hemoglobin 28.7 25-34 pg Mean Corpuscular Hemoglobin Concent 35.0 32-36 g/dl Platelet Count 227 130-400 K/uL Mean Platelet Volume 9.1 7.4-10.4 fL Neutrophils (%) (Auto) 79.7 % Lymphocytes (%) (Auto) 12.8 % Monocytes (%) (Auto) 7.0 % Eosinophils (%) (Auto) 0.1 % Basophils (%) (Auto) 0.1 % Neutrophils # (Auto) 17.15 1.4-6.5 K/uL Lymphocytes # (Auto) 2.76 1.2-3.4 K/uL Monocytes # (Auto) 1.51 0.11-0.59 K/uL Eosinophils # (Auto) 0.03 0-0.5 K/uL Basophils # (Auto) 0.03 0-0.2 K/uL RDW Standard Deviation 43.8 36.4-46.3 fL RDW Coefficient of Variation 14.7 11.5-14.5 % Immature Granulocyte % (Auto) 0.3 % Immature Granulocyte # (Auto) 0.07 0.00-0.02 K/uL Sodium Level 137 136-145 mmol/L Potassium Level 3.4 3.5-5.1 mmol/L Chloride Level 102 98-107 mmol/L Carbon Dioxide Level 27 21-32 mmol/L Anion Gap 8.0 17.0 16-25 mmol/L Blood Urea Nitrogen 22 7-18 mg/dl Creatinine 1.40 0.60-1.40 mg/dl Est Creatinine Clear Calc Drug Dose 66.1 ml/min Estimated GFR () 59.8 Estimated GFR (Non- 51.6 BUN/Creatinine Ratio 15.6 10-20 Random Glucose 104 70-99 mg/dl Calcium Level 9.2 8.5-10.1 mg/dl Total Bilirubin 0.9 0.2-1 mg/dl Direct Bilirubin 0.2 0-0.2 mg/dl Aspartate Amino Transf (AST/SGOT) 16 15-37 U/L Alanine Aminotransferase (ALT/SGPT) 32 12-78 U/L Alkaline Phosphatase 49 45-117 U/L Total Protein 7.5 6.4-8.2 gm/dl Albumin 3.6 3.4-5.0 gm/dl Lipase 81 73-393 U/L Bedside Hemoglobin 13.9 14.0-18.0 g/dl Bedside Hematocrit 41 42-52 % Bedside Sodium 136 135-144 mEq/L Bedside Potassium 3.4 3.3-5.0 mEq/L Bedside Chloride 99 101-112 mEq/L Bedside Total CO2 24 24-31 mEq/l Bedside Blood Urea Nitrogen 22 7-18 mg/dl Bedside Creatinine 1.2 0.6-1.3 mg/dl Bedside Glucose (other) 109 70-99 mg/dl Bedside Ionized Calcium (Bailey) 1.17 1.12-1.32 mmol/l Diagnostic Radiology Patient Name: STANLEY IRVIN III Unit Number: [id number] Dictated: 02/04/171205 Transcribed: 02/04/171205 PBS Printed Date/Time: [~ rep prt dt]/[~ rep prt tm] [~ rep ct labl] - [~ rep ct ivnm] [facility] [place] [address] Dictated: 02/04/171205 Transcribed: 02/04/171205 PBS Printed Date/Time: [~ rep prt dt]/[~ rep prt tm] [~ rep ct labl] - [~ rep ct ivnm] Patient: STANLEY IRVIN III Address1: [address] [facility] Rec: [id number] Address2: Acct ID: [id number] [facility] Zip: [place] [id number] Date: 1950 Sex: M Room/Bed: Ref Phy: Krish Nagel M.D. SC: CHRISTA Att Phy: Report #: [id number] Blanca Phy: Krish Nagel M.D. Test: APIV Admit Phy: Meat Stuffer: SILVANO Interpreting Phy: Junito Weinstein MD Diagnosis: STOMACH PAIN Ordering Phy: Jayesh Judd M.D. Service Date: 02/04/17 Admit Date: 02/04/17 MNE: [id number] CONF: DICTATED BY: Junito Weinstein MD]] CC: Krish Nagel M.D. McKinley, Daniel F., M.D. Endcc: [~ rep ct add3]] ADDENDUM CORRECTION On further evaluation, multiple small bowel diverticula are noted including in the region of the previously described in the right anterior mid abdomen. This is consistent with diverticulitis of the small bowel with contained perforation. The report will be called/faxed according to standard departmental protocol. Electronically signed by: Junito Weinstein M.D. 02/04/2017 12:09 PM Dictated Date/Time: 02/04/2017 12:06 PM ADDENDUM 4. Hyperdense lesion in the left kidney. This may represent a hemorrhagic or pertinacious cysts, however, an enhancing lesion cannot be excluded. Further evaluation with ultrasound could be considered if clinically indicated. Electronically signed by: Junito Weinstein M.D. 02/04/2017 12:04 PM Dictated Date/Time: 02/04/2017 12:04 PM ORIGINAL REPORT ABD/PELVIS IV CONTRAST ONLY CLINICAL HISTORY: 67 years-old Male presenting with lower abdominal pain, fevers, nausea, h/o diverticulitis. TECHNIQUE: Multidetector CT of the abdomen and pelvis was performed after the administration of intravenous contrast. IV contrast: 119 mL of Optiray 320. A dose lowering technique was used consistent with the principles of ALARA (as low as reasonably achievable). COMPARISON: None. CT DOSE (mGy.cm): The estimated cumulative dose is 1091.74 mGycm. FINDINGS: Manager Mass topogram: Cholecystectomy clips noted. Lung bases: Lung bases clear. No pericardial or pleural effusion. Liver: Somewhat macronodular morphology with expansion of the fat within the fissure and gallbladder fossa. Well-defined hypodensity in the right hepatic lobe likely hepatic cyst or hamartoma. Patent hepatic vasculature. Biliary: No intrahepatic or extrahepatic biliary ductal dilatation. Gallbladder surgically absent. Pancreas: Moderate parenchymal atrophy with scattered coarse parenchymal calcifications may suggest a history of chronic pancreatitis. Spleen: Normal. Adrenal glands: Normal. Kidneys and ureters: No nephrolithiasis. No hydronephrosis. Focal cortical irregularity with an associated relatively hypodense lesion along the posterior aspect of the interpolar region of the left kidney is not consistent with a simple cyst. Ureters normal. Gastrointestinal tract: Proximal sigmoid diverticulosis. No evidence of diverticulitis. Normal appendix. Focal mesenteric inflammatory change in the region of the distal ileum in the anterior right mid abdomen with apparent foci of extraluminal gas (series 2 image 51). This is immediately adjacent to the cecum. Both the adjacent small bowel loops and cecum do not demonstrate wall thickening or significant evidence of inflammation. Apparent intramural fat deposition within the cecum and terminal ileum, nonspecific but possibly indicating chronic inflammation. Two duodenal diverticula noted, one in the region of the pancreatic head and a second at the junction of the third and fourth portion of the duodenum. No bowel obstruction. Peritoneal cavity: Extraluminal gas appears isolated to the mesentery in the right mid abdomen. No lolita free intraperitoneal gas. Bladder: Incompletely evaluated secondary to underdistention. Pelvic organs: Prostate enlargement likely secondary to benign prostatic hyperplasia. Vasculature: Atherosclerosis of the normal caliber abdominal aorta. IVC patent. Lymph nodes: No enlarged lymph nodes in the abdomen or pelvis. Abdominal wall: Normal. Musculoskeletal: Degenerative changes of the spine. IMPRESSION: 1. Focal perienteric inflammatory change with apparent extraluminal gas in the mesentery of the distal ileum located in the right anterior mid abdomen. This may represent a contained perforation. No lolita free intraperitoneal gas. No significant diverticula are noted in this region, and no significant inflammatory change of the adjacent small bowel this present. This is of uncertain etiology. Evaluation is somewhat limited given the absence of oral contrast. Surgical consultation and close clinical and imaging follow-up recommended. 2. Possible chronic inflammatory changes of the cecum and terminal ileum. 3. Sigmoid diverticulosis. The report will be called/faxed according to standard departmental protocol. Electronically signed by: Junito Weinstein M.D. 02/04/2017 12:02 PM Dictated Date/Time: 02/04/2017 11:51 AM The status of this report is Signed. Draft = Not yet reviewed or approved by Radiologist. Signed = Reviewed and approved by Radiologist. <AttendingPhy></AttendingPhy> <FamilyPhy>Krish Nagel M.D.</FamilyPhy > <PrimaryPhy>Krish Nagel M.D.</PrimaryPhy> <UnitNumber>[id number]</ UnitNumber> <VisitNumber>[id number]</VisitNumber> <PatientName>STANLEY IRVIN III< /PatientName> <DateOfBirth>1950</DateOfBirth> <Location>[facility]</Location> < ServiceDate>02/04/17</ServiceDate> <MNE>ESINDI</MNE> <OrderingPhy>Jayesh Judd M.D.</OrderingPhy> <OrderingPhyMNE>f rep ord dr jose</OrderingPhyMNE> < DictatingPhyMNE>f rep dict dr jose</DictatingPhyMNE> <CCListMNE>f rep ct damon</ CCListMNE> <AdmittingPhyMNE>f pt admit dr jose</AdmittingPhyMNE> <AttendingPhyMNE >f pt attend dr jose</AttendingPhyMNE> <ConsultingPhyMNE>f pt consult dr jose</ConsultingPhyMNE> <FamilyPhyMNE>f pt fam dr jose</FamilyPhyMNE> <OtherPhyMNE>f pt other dr jose</OtherPhyMNE> < PrimaryPhyMNE>f pt prim care dr jose</PrimaryPhyMNE> <ReferringPhyMNE>f pt referring dr jose</ReferringPhyMNE> Impression Assessment and Plan 67-year-old male presented to the ED with lower abdominal pain and diarrhea that started yesterday. CT CAT scan consistent with small bowel diverticulitis with contained perforation. Small bowel diverticulitis-seen by general surgery in the emergency department. No surgical intervention at this time. -Admit to medical floor -NPO -General surgery consult -IVF -Cipro and Flagyl IV -Serial abdominal exams CAD s/p DC and stent/HTN -Continue carvedilol 25 mg twice daily, atorvastatin 80 mg daily, lisinopril 40 mg daily. Hold ASA in case of need for OR -Hold hydrochlorothiazide DVT prophylaxis -Heparin 5000 u subQ BID -TEDS, SCDs CODE STATUS -LEVEL I FULL CODE Attending Addendum: I have physically seen and examined this patient, have directed the physician assistants medical activities, and agree with the H&P as noted above with the following exceptions: NONE The patient is awake, well-developed and adequately nourished, alert and oriented 3, normocephalic and atraumatic, lying in bed and in no acute distress. HEENT--PERRL, EOMI, mucous membranes and oropharynx dry. Neck--supple, no JVD or bruits, thyroid normal, trachea midline, no adenopathy. Heart--normal S1 and S2, no extra beats, no murmurs, rubs or gallops. Lungs--clear bilaterally with good air movement, no respiratory distress, no accessory muscle use. Abdomen--decreased bowel sounds and soft, right lower quadrant tenderness. Mildly distended, no hernias or masses, no organomegaly. Extremities--no cyanosis, clubbing. Trace to 1+ bilateral pretibial and pedal pitting edema. There are good distal pulses b/l. Dermatologic--normal skin turgor, normal color, warm and dry, no abnormal lymph nodes, no rash. Neurologic--cranial nerves II through XII grossly intact, motor and sensory examination normal. Rheumatologic--normal range of motion. Psychiatric--normal affect. Assessment and Plan: 1. Small bowel diverticulitis with contained perforation-- Admit to the medical surgical floor with nothing by mouth status. Cipro 400 mg IV every 12 hours and Flagyl 500 mg IV every 8 hours. Normal saline with KCl 20 mEq at 125 ML's per hour. Follow serial CBC with differential, chemistry profile and magnesium levels. Gen. dental surgery doctor saw the patient in the emergency department and has decided that no surgical intervention is immediately needed. 2. CAD/history of DC/coronary artery stents/hypertension--continue carvedilol 25 mg by mouth twice a day and lisinopril 40 mg by mouth daily. Hold aspirin and HCTZ. Level of Care Med/Surg Advanced Directives Existing Advance Directive: No Existing Living Will: No Existing Power of Systems Lead: No Resuscitation Status FULL RESUSCITATION VTE Prophylaxis VTE Risk Assessment Done? Y/N: Yes Risk Level: Low Given or contraindicated: Unfractionated heparin SQ, T.E.D. Stockings, SCD's Social Service Consult None Apply
[2017-02-04 17:00] VITALS: O2SAT 96
[2017-02-04 17:06] LABS: INR 1.3 (0.9-1.1); PROTHROMBIN TIME (PATIENT) 13.5 SECONDS (9.0-12.0)
--- NOTE | 2017-02-04 17:22 | Surgery Consultation ---
Consultation Date of Consultation: Feb 04, 2017. Attending Physician: Rosalio Charles M.D. Reason for Consultation: Abdominal pain History of Present Illness This is a 67-year-old male who presented to the emergency room with persistent abdominal pain that began last night. The onset of the discomfort was acute. He is never had pain like this before. It was initially throughout most of his abdomen but the right lower quadrant does predominate. He's had no fever but he had broken into a cold sweat. He has no nausea or vomiting. His bowels have been moving regularly only does have some diarrhea. There is no melena or hematochezia. He has no dysuria or hematuria. The pain is mild to moderate. It is not exacerbated by motion. Past Medical/Surgical History Medical Problems: (1) Cellulitis of left lower extremity Status: Acute (2) Perforated abdominal viscus Status: Acute PMH: Hypercholesterolemia CAD MS S/P stent placement 3 years ago on ASA HTN PSH: T@A Ankle surgery Family History Cancer Diabetes mellitus Lung disease Social History Smoking Status: Never Smoker Smokeless Tobacco Use: No Alcohol Use: occasionally Drug Use: none Marital Status: Occupation Status: employed Allergies Coded Allergies: Penicillins (Verified Allergy, Unknown, UNKNOWN, 02/04/17) Home Medications Scheduled Aspirin (Aspirin Ec), 81 MG PO HS Atorvastatin (Lipitor), 80 MG PO HS Carvedilol (Carvedilol), 1 TAB PO HS Ferrous Sulfate (Kp Ferrous Sulfate), 1 TAB PO BID Folic Acid (Folvite), 1 MG PO HS Hydrochlorothiazide (Hydrochlorothiazide), 25 MG PO HS Lisinopril (Zestril), 40 MG PO HS Sertraline (Zoloft), 50 MG PO HS Current Inpatient Medications Current Inpatient Medications Medications (Trade) Dose Ordered Sig/Keenan Route Start Time Stop Time Status Last Admin Dose Admin Ioversol (Optiray 320) 111 ml UD PRN IV 02/04/17 11:45 02/08/17 11:44 Ciprofloxacin/ Dextrose 400 mg/ Prmx 200 ml @ 100 mls/hr Q12 IV 02/04/17 21:00 02/14/17 20:59 UNV Metronidazole 500 mg/Prmx 100 ml @ 100 mls/hr Q8H IV 02/04/17 20:00 02/14/17 19:59 UNV Potassium Chloride/Sodium Chloride 1,000 ml @ 125 mls/hr Q8H IV 02/04/17 15:45 03/06/17 15:44 UNV Acetaminophen (Tylenol Tab) 650 mg Q4H PRN PO 02/04/17 15:45 03/06/17 15:44 Ondansetron HCl (Zofran Inj) 4 mg Q6H PRN IV 02/04/17 15:45 03/06/17 15:44 Heparin Sodium (Porcine) (Heparin Sq 5000 Unit/0.5ml) 5,000 unit Q12H SQ 02/04/17 15:45 03/06/17 15:44 UNV Atorvastatin Calcium (Lipitor Tab) 80 mg HS PO 02/04/17 21:00 03/06/17 20:59 Carvedilol (Coreg Tab) 25 mg HS PO 02/04/17 21:00 03/06/17 20:59 Folic Acid (Folvite Tab) 1 mg HS PO 02/04/17 21:00 03/06/17 20:59 Lisinopril (Zestril Tab) 40 mg HS PO 02/04/17 21:00 03/06/17 20:59 Sertraline HCl (Zoloft Tab) 50 mg HS PO 02/04/17 21:00 03/06/17 20:59 Hydralazine HCl (HydrALAZINE INJ) 10 mg Q6H PRN IV. 02/04/17 15:45 03/06/17 15:44 Morphine Sulfate (MoRPHine SULFATE INJ) 4 mg Q2H PRN IV 02/04/17 15:45 02/18/17 15:44 Review of Systems Constitutional: + chills Respiratory: No cough, No sputum Cardiovascular: No chest pain Abdomen: + problem reported (as per HPI) Genitourinary - Male: + problem reported (as per HPI) Endocrine: No fatigue Integumentary: No rash Physical Exam Date Time Temp Pulse Resp B/P (MAP) Pulse Ox O2 Delivery O2 Flow Rate FiO2 02/04/17 16:10 82 18 156/99 98 Room Air 02/04/17 14:13 79 20 112/73 96 Room Air 02/04/17 12:30 84 20 162/92 99 Room Air 02/04/17 10:49 36.6 90 18 140/86 95 Room Air General Appearance: no apparent distress, + obese Head: normocephalic Neck: supple, no adenopathy Respiratory/Chest: chest non-tender, lungs clear Abdomen/GI: normal bowel sounds, + tenderness (right side, lower > upper) Back: normal inspection, no CVA tenderness Skin: normal color Laboratory Results Last 24 Hours Test 02/04/17 00:00 02/04/17 11:10 02/04/17 11:18 Prothrombin Time 13.5 SECONDS Prothromb Time International Ratio 1.3 White Blood Count 21.55 K/uL Red Blood Count 4.74 M/uL Hemoglobin 13.6 g/dL Hematocrit 38.9 % Mean Corpuscular Volume 82.1 fL Mean Corpuscular Hemoglobin 28.7 pg Mean Corpuscular Hemoglobin Concent 35.0 g/dl Platelet Count 227 K/uL Mean Platelet Volume 9.1 fL Neutrophils (%) (Auto) 79.7 % Lymphocytes (%) (Auto) 12.8 % Monocytes (%) (Auto) 7.0 % Eosinophils (%) (Auto) 0.1 % Basophils (%) (Auto) 0.1 % Neutrophils # (Auto) 17.15 K/uL Lymphocytes # (Auto) 2.76 K/uL Monocytes # (Auto) 1.51 K/uL Eosinophils # (Auto) 0.03 K/uL Basophils # (Auto) 0.03 K/uL RDW Standard Deviation 43.8 fL RDW Coefficient of Variation 14.7 % Immature Granulocyte % (Auto) 0.3 % Immature Granulocyte # (Auto) 0.07 K/uL Sodium Level 137 mmol/L Potassium Level 3.4 mmol/L Chloride Level 102 mmol/L Carbon Dioxide Level 27 mmol/L Anion Gap 8.0 mmol/L 17.0 mmol/L Blood Urea Nitrogen 22 mg/dl Creatinine 1.40 mg/dl Est Creatinine Clear Calc Drug Dose 66.1 ml/min Estimated GFR () 59.8 Estimated GFR (Non- 51.6 BUN/Creatinine Ratio 15.6 Random Glucose 104 mg/dl Calcium Level 9.2 mg/dl Total Bilirubin 0.9 mg/dl Direct Bilirubin 0.2 mg/dl Aspartate Amino Transf (AST/SGOT) 16 U/L Alanine Aminotransferase (ALT/SGPT) 32 U/L Alkaline Phosphatase 49 U/L Total Protein 7.5 gm/dl Albumin 3.6 gm/dl Lipase 81 U/L Bedside Hemoglobin 13.9 g/dl Bedside Hematocrit 41 % Bedside Sodium 136 mEq/L Bedside Potassium 3.4 mEq/L Bedside Chloride 99 mEq/L Bedside Total CO2 24 mEq/l Bedside Blood Urea Nitrogen 22 mg/dl Bedside Creatinine 1.2 mg/dl Bedside Glucose (other) 109 mg/dl Bedside Ionized Calcium (Bailey) 1.17 mmol/l ADDENDUM CORRECTION On further evaluation, multiple small bowel diverticula are noted including in the region of the previously described in the right anterior mid abdomen. This is consistent with diverticulitis of the small bowel with contained perforation. The report will be called/faxed according to standard departmental protocol. Electronically signed by: Junito Weinstein M.D. 02/04/2017 12:09 PM Dictated Date/Time: 02/04/2017 12:06 PM ADDENDUM 4. Hyperdense lesion in the left kidney. This may represent a hemorrhagic or pertinacious cysts, however, an enhancing lesion cannot be excluded. Further evaluation with ultrasound could be considered if clinically indicated. Electronically signed by: Junito Weinstein M.D. 02/04/2017 12:04 PM Dictated Date/Time: 02/04/2017 12:04 PM ORIGINAL REPORT ABD/PELVIS IV CONTRAST ONLY CLINICAL HISTORY: 67 years-old Male presenting with lower abdominal pain, fevers, nausea, h/o diverticulitis. TECHNIQUE: Multidetector CT of the abdomen and pelvis was performed after the administration of intravenous contrast. IV contrast: 119 mL of Optiray 320. A dose lowering technique was used consistent with the principles of ALARA (as low as reasonably achievable). COMPARISON: None. CT DOSE (mGy.cm): The estimated cumulative dose is 1091.74 mGycm. 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 Lung bases: Lung bases clear. No pericardial or pleural effusion. Liver: Somewhat macronodular morphology with expansion of the fat within the fissure and gallbladder fossa. Well-defined hypodensity in the right hepatic lobe likely hepatic cyst or hamartoma. Patent hepatic vasculature. Biliary: No intrahepatic or extrahepatic biliary ductal dilatation. Gallbladder surgically absent. Pancreas: Moderate parenchymal atrophy with scattered coarse parenchymal calcifications may suggest a history of chronic pancreatitis. Spleen: Normal. Adrenal glands: Normal. Kidneys and ureters: No nephrolithiasis. No hydronephrosis. Focal cortical irregularity with an associated relatively hypodense lesion along the posterior aspect of the interpolar region of the left kidney is not consistent with a simple cyst. Ureters normal. Gastrointestinal tract: Proximal sigmoid diverticulosis. No evidence of diverticulitis. Normal appendix. Focal mesenteric inflammatory change in the region of the distal ileum in the anterior right mid abdomen with apparent foci of extraluminal gas (series 2 image 51). This is immediately adjacent to the cecum. Both the adjacent small bowel loops and cecum do not demonstrate wall thickening or significant evidence of inflammation. Apparent intramural fat deposition within the cecum and terminal ileum, nonspecific but possibly indicating chronic inflammation. Two duodenal diverticula noted, one in the region of the pancreatic head and a second at the junction of the third and fourth portion of the duodenum. No bowel obstruction. Peritoneal cavity: Extraluminal gas appears isolated to the mesentery in the right mid abdomen. No lloita free intraperitoneal gas. Bladder: Incompletely evaluated secondary to underdistention. Pelvic organs: Prostate enlargement likely secondary to benign prostatic hyperplasia. Vasculature: Atherosclerosis of the normal caliber abdominal aorta. IVC patent. Lymph nodes: No enlarged lymph nodes in the abdomen or pelvis. Abdominal wall: Normal. Musculoskeletal: Degenerative changes of the spine. IMPRESSION: 1. Focal perienteric inflammatory change with apparent extraluminal gas in the mesentery of the distal ileum located in the right anterior mid abdomen. This may represent a contained perforation. No lolita free intraperitoneal gas. No significant diverticula are noted in this region, and no significant inflammatory change of the adjacent small bowel this present. This is of uncertain etiology. Evaluation is somewhat limited given the absence of oral contrast. Surgical consultation and close clinical and imaging follow-up recommended. 2. Possible chronic inflammatory changes of the cecum and terminal ileum. 3. Sigmoid diverticulosis. The report will be called/faxed according to standard departmental protocol. Assessment & Plan This patient has abdominal pain with localized tenderness. There is no diffuse peritonitis. There is evidence of a possible contained leak in the mesentery near the terminal ileum. I would treat this conservatively at first with antibiotics. We'll keep him nothing by mouth. I will feel there is any need for immediate surgical intervention at this time. We will continue with serial exams and continuing evaluation. Agree with serial white blood cell count also to evaluate for efficacy of therapy. Thank you for allowing me to see this patient participate in his care
[2017-02-04 18:01] VITALS: BP 171/83; PULSE 92; TEMP 36.7; O2SAT 96; Ht 177.8 cm; Wt 119.0 kg
[2017-02-04] MEDS: NSS + 20MEQ KCL 1000ML 1,000 ML IV SCH (18:12)
[2017-02-04] MEDS: CIPROFLOXACIN / D5W 400 MG in PREMIXED IN D5W 200 ML IV SCH (18:12)
[2017-02-04] MEDS: MoRPHine SULFATE 4 MG/ML 1 ML CARP\\VIAL IV PRN (18:12)
[2017-02-04] MEDS: METRONIDAZOLE / NSS 500 MG in PREMIXED NSS 100 ML IV SCH (19:42)
[2017-02-04 19:48] VITALS: BP 145/79
[2017-02-04] MEDS: HEPARIN SOD 5000 UNIT/0.5 ML CARP SQ SCH (21:00)
[2017-02-04] MEDS ORDERED: CARVEDILOL 25 MG TAB PO SCH (21:00)
[2017-02-04] MEDS ORDERED: ATORVASTATIN 40 MG TAB PO SCH (21:00)
[2017-02-04] MEDS ORDERED: LISINOPRIL 40 MG TAB PO SCH (21:00)
[2017-02-04] MEDS: SERTRALINE HCL 50 MG TAB PO SCH (21:24)
[2017-02-04 21:57] LABS: URINE APPEARANCE CLEAR (CLEAR); URINE BILIRUBIN NEG (NEG); URINE COLOR DK YELLOW; URINE EPITHELIAL CELL AUTO 20-30 /lpf (0-5); URINE NITRITE NEG (NEG); URINE SPECIFIC GRAVITY > 1.045 (1.000-1.030); UROBILINOGEN NEG (NEG); ZZUR CULT IF INDIC CLEAN CATCH NO
[2017-02-04 21:58] LABS: MANUAL MICROSCOPIC REQUIRED? NO; REVIEW REQ? NO
[2017-02-04 23:43] VITALS: BP 117/77; PULSE 93; TEMP 36.3; O2SAT 92
[2017-02-05] VITALS (16 sets, daily range): BP systolic 76–145; BP diastolic 45–82; PULSE 60–73; TEMP 36.4–36.8; O2SAT 94–100
[2017-02-05] MEDS: NSS + 20MEQ KCL 1000ML 1,000 ML IV SCH ×2 (02:27→09:27)
[2017-02-05] MEDS: MoRPHine SULFATE 4 MG/ML 1 ML CARP\\VIAL IV PRN ×2 (02:30→18:30)
[2017-02-05] MEDS: METRONIDAZOLE / NSS 500 MG in PREMIXED NSS 100 ML IV SCH ×2 (04:04→11:32)
[2017-02-05 06:47] LABS: BASO % 0.1 %; BASO ABS # 0.02 K/uL (0-0.2); COMPLETE YES; EOS % 0.4 %; HEMATOCRIT 33.7 % (42-52); IG% 0.5 %; LYMPH % 10.2 %; LYMPH ABS # 1.86 K/uL (1.2-3.4); MEAN CELL VOLUME 83.8 fL (80-100); MEAN CORPUSCULAR HEMOGLOBIN 28.1 pg (25-34); MEAN CORPUSCULAR HGB CONC 33.5 g/dl (32-36); MEAN PLATELET VOLUME 9.1 fL (7.4-10.4); MONO % 7.8 %; PLATELET COUNT 209 K/uL (130-400); RED BLOOD COUNT 4.02 M/uL (4.7-6.1)
[2017-02-05 07:21] LABS: BUN/CREATININE RATIO 8.7 (10-20); CALCIUM 8.5 mg/dl (8.5-10.1); CREATININE 2.8 mg/dl (0.60-1.40); MAGNESIUM 1.3 mg/dl (1.8-2.4); POTASSIUM 3.7 mmol/L (3.5-5.1)
--- NOTE | 2017-02-05 07:26 | Surgery Progress Note ---
Surgery Progress Note Date of Service Feb 05, 2017. Subjective + bowel movement (diarrhea), No nausea, No vomiting Feels better Martine pain Objective Vital Signs: Date Time Temp Pulse Resp B/P (MAP) Pulse Ox O2 Delivery O2 Flow Rate FiO2 02/05/17 00:00 Room Air 02/04/17 23:43 36.3 93 18 117/77 (90) 92 Room Air 02/04/17 19:48 145/79 (101) 02/04/17 18:01 36.7 92 18 171/83 96 Room Air 02/04/17 17:00 96 Room Air 02/04/17 16:10 82 18 156/99 98 Room Air 02/04/17 14:13 79 20 112/73 96 Room Air 02/04/17 12:30 84 20 162/92 99 Room Air 02/04/17 10:49 36.6 90 18 140/86 95 Room Air Abdomen: normal bowel sounds, non distended, soft, + tenderness (Much less ) Laboratory Results: Results Past 24 Hours Test 02/04/17 11:10 02/04/17 11:18 02/04/17 21:20 02/05/17 05:59 Range/Units White Blood Count 21.55 18.30 4.8-10.8 K/uL Red Blood Count 4.74 4.02 4.7-6.1 M/uL Hemoglobin 13.6 11.3 14.0-18.0 g/dL Hematocrit 38.9 33.7 42-52 % Mean Corpuscular Volume 82.1 83.8 80-100 fL Mean Corpuscular Hemoglobin 28.7 28.1 25-34 pg Mean Corpuscular Hemoglobin Concent 35.0 33.5 32-36 g/dl Platelet Count 227 209 130-400 K/uL Mean Platelet Volume 9.1 9.1 7.4-10.4 fL Neutrophils (%) (Auto) 79.7 81.0 % Lymphocytes (%) (Auto) 12.8 10.2 % Monocytes (%) (Auto) 7.0 7.8 % Eosinophils (%) (Auto) 0.1 0.4 % Basophils (%) (Auto) 0.1 0.1 % Neutrophils # (Auto) 17.15 14.84 1.4-6.5 K/uL Lymphocytes # (Auto) 2.76 1.86 1.2-3.4 K/uL Monocytes # (Auto) 1.51 1.42 0.11-0.59 K/uL Eosinophils # (Auto) 0.03 0.07 0-0.5 K/uL Basophils # (Auto) 0.03 0.02 0-0.2 K/uL RDW Standard Deviation 43.8 47.3 36.4-46.3 fL RDW Coefficient of Variation 14.7 15.3 11.5-14.5 % Immature Granulocyte % (Auto) 0.3 0.5 % Immature Granulocyte # (Auto) 0.07 0.09 0.00-0.02 K/uL Sodium Level 137 138 136-145 mmol/L Potassium Level 3.4 3.7 3.5-5.1 mmol/L Chloride Level 102 103 98-107 mmol/L Carbon Dioxide Level 27 27 21-32 mmol/L Anion Gap 8.0 17.0 8.0 3-11 mmol/L Blood Urea Nitrogen 22 24 7-18 mg/dl Creatinine 1.40 2.80 0.60-1.40 mg/dl Est Creatinine Clear Calc Drug Dose 66.1 32.4 ml/min Estimated GFR () 59.8 25.9 Estimated GFR (Non- 51.6 22.3 BUN/Creatinine Ratio 15.6 8.7 10-20 Random Glucose 104 124 70-99 mg/dl Calcium Level 9.2 8.5 8.5-10.1 mg/dl Total Bilirubin 0.9 0.2-1 mg/dl Direct Bilirubin 0.2 0-0.2 mg/dl Aspartate Amino Transf (AST/SGOT) 16 15-37 U/L Alanine Aminotransferase (ALT/SGPT) 32 12-78 U/L Alkaline Phosphatase 49 45-117 U/L Total Protein 7.5 6.4-8.2 gm/dl Albumin 3.6 3.4-5.0 gm/dl Lipase 81 73-393 U/L Hepatitis C Antibody Screen NEG NEG Bedside Hemoglobin 13.9 14.0-18.0 g/dl Bedside Hematocrit 41 42-52 % Bedside Sodium 136 135-144 mEq/L Bedside Potassium 3.4 3.3-5.0 mEq/L Bedside Chloride 99 101-112 mEq/L Bedside Total CO2 24 24-31 mEq/l Bedside Blood Urea Nitrogen 22 7-18 mg/dl Bedside Creatinine 1.2 0.6-1.3 mg/dl Bedside Glucose (other) 109 70-99 mg/dl Bedside Ionized Calcium (Bailey) 1.17 1.12-1.32 mmol/l Urine Color DK YELLOW Urine Appearance CLEAR CLEAR Urine pH 5.0 4.5-7.5 Urine Specific Klemme > 1.045 1.000-1.030 Urine Protein 2+ NEG Urine Glucose (UA) NEG NEG Urine Ketones NEG NEG Urine Occult Blood TRACE NEG Urine Nitrite NEG NEG Urine Bilirubin NEG NEG Urine Urobilinogen NEG NEG Urine Leukocyte Esterase NEG NEG Urine WBC (Auto) 1-5 0-5 /hpf Urine RBC (Auto) 0-4 0-4 /hpf Urine Hyaline Casts (Auto) 1-5 0-5 /lpf Urine Epithelial Cells (Auto) 20-30 0-5 /lpf Urine Bacteria (Auto) NEG NEG Magnesium Level 1.3 1.8-2.4 mg/dl Assessment & Plan Possible small bowel diverticulitis with contained perforation Much improved today No peritonitis Continue IV antibiotics for at least one more day Continue conservative management
[2017-02-05] MEDS: CIPROFLOXACIN / D5W 400 MG in PREMIXED IN D5W 200 ML IV SCH (09:05)
[2017-02-05] MEDS: HEPARIN SOD 5000 UNIT/0.5 ML CARP SQ SCH ×2 (09:22→22:26)
[2017-02-05] MEDS ORDERED: SODIUM CHLORIDE 0.9% 1000ML 1,000 ML IV SCH ×3 (09:30→11:45)
[2017-02-05] MEDS ORDERED: GLUCAGON IV STA (10:14)
[2017-02-05] MEDS ORDERED: MAGNESIUM SULFATE 1GM / D5W 1 GM in PREMIXED IN D5W 100 ML IV ONE (10:15)
[2017-02-05] MEDS ORDERED: NOREPINEPHRINE BIT INJ 8 MG in DEXTROSE 5% 500ML 500 ML IV PRN (11:42)
[2017-02-05] MEDS ORDERED: VANCOMYCIN CONSULT ACTIVE PRN (12:15)
[2017-02-05] MEDS ORDERED: NORMOSOL R 1,000 ML IV SCH (12:15)
[2017-02-05] MEDS ORDERED: VANCOMYCIN INJ 2,000 MG in SODIUM CHLORIDE 0.9% 500ML 500 ML IV ONE (12:30)
[2017-02-05] MEDS: MAGNESIUM SULFATE 1GM / D5W 1 GM in PREMIXED IN D5W 100 ML IV SCH ×3 (12:32→15:13)
[2017-02-05 12:39] LABS: BASO % 0.1 %; BASO ABS # 0.02 K/uL (0-0.2); COMPLETE YES; EOS % 0.4 %; HEMATOCRIT 31.9 % (42-52); IG% 0.5 %; LYMPH % 10.1 %; LYMPH ABS # 1.63 K/uL (1.2-3.4); MEAN CELL VOLUME 83.9 fL (80-100); MEAN CORPUSCULAR HEMOGLOBIN 28.2 pg (25-34); MEAN CORPUSCULAR HGB CONC 33.5 g/dl (32-36); MEAN PLATELET VOLUME 8.9 fL (7.4-10.4); MONO % 7.9 %; PLATELET COUNT 178 K/uL (130-400); WHITE BLOOD COUNT 16.19 K/uL (4.8-10.8)
[2017-02-05 12:41] LABS: VEN BLOOD GAS BASE EXCESS -3.9 mEq/L; VENOUS BLOOD GAS PCO2 52 mmHg (38.0-50.0); VENOUS BLOOD GAS PO2 20 mmHg
[2017-02-05 12:43] LABS: VEN BLD GAS O2 SATURATION < 60.0 %
[2017-02-05 12:53] LABS: INR 1.1 (0.9-1.1); PARTIAL THROMBOPLASTIN RATIO 1.3; PROTHROMBIN TIME (PATIENT) 12.1 SECONDS (9.0-12.0)
[2017-02-05 13:03] LABS: BUN/CREATININE RATIO 10.1 (10-20); CALCIUM 8.1 mg/dl (8.5-10.1); POTASSIUM 3.6 mmol/L (3.5-5.1)
[2017-02-05 13:15] LABS: THYROID STIMULATING HORMONE 1.41 uIu/ml (0.300-4.500)
[2017-02-05] MEDS: ERTAPENEM IV 1 GM in SODIUM CHLOR 0.9% AD-VAN 50ML 50 ML IV SCH (13:36)
[2017-02-05] MEDS ORDERED: CASPOFUNGIN INJ 70 MG in SODIUM CHLORIDE 0.9% 250ML 250 ML IV ONE (14:30)
[2017-02-05] MEDS ORDERED: LIDOCAINE HCL 2% 2 ML VIAL (20MG/ML) ONE (14:53)
[2017-02-05] MEDS ORDERED: ONDANSETRON INJ 2 MG/ML 2 ML VIAL ONE (14:53)
[2017-02-05] MEDS ORDERED: GLYCOPYRROLATE INJ 0.2 MG/ML VIAL ONE (14:53)
[2017-02-05] MEDS ORDERED: MIDAZOLAM HCL 1 MG/ML 2ML VIAL ONE (14:53)
[2017-02-05] MEDS ORDERED: NEOSTIGMINE METHYLSULFATE 5 MG/5 ML SYR ONE (14:53)
[2017-02-05] MEDS ORDERED: DEXAMETHASONE SOD INJ 4 MG/ML VIAL ONE (14:53)
[2017-02-05] MEDS ORDERED: FENTANYL CITRATE INJ 50 MCG/1 ML 2 ML VIAL ONE (14:53)
[2017-02-05] MEDS ORDERED: PROPOFOL IV EMULSION 10 MG/ML 20 ML VIAL IV ONE (14:53)
[2017-02-05] MEDS ORDERED: ROCURONIUM BROMIDE 10 MG/ML 5 ML VIAL ONE (14:53)
--- NOTE | 2017-02-05 15:19 | Critical Care Consultation ---
Critical Care Consultation Date of Consultation: Feb 05, 2017. Attending Physician: Mike Garcia MD Reason for Consultation: Diverticulitis with perforation, perforated viscus, MARK, Severe Sepsis History of Present Illness Patient is a 67-year-old male who was admitted to our facility on 02/04 for acute diverticulitis with walled off perforation. The patient was admitted to [facility] to receive IV Cipro and Flagyl with close monitoring for possible need for surgical intervention. Reportedly, the patient was doing well overnight, however this morning, the patient became hypotensive. He had blood pressures in the 70s. He was provided glucagon for possible antihypertensive reaction. In addition, his creatinine did increase from 1.8 to 2.8 overnight. He has had decreased urine output as well. The patient's white blood cell count has decreased. Overall, the patient reports feeling much better and has had decreased abdominal pain since admission. He is brought to the ICU for further evaluation and management. Patient reports that he was enjoying his typical state of good health until Wednesday. He noticed that he developed some pain in the RIGHT lower quadrant. Yesterday, he presented to the emergency department after having worsening abdominal discomfort. He was found to have diverticulitis with perforation. Surgery was consult and conservative management with intravenous antibiotics for maximization was instituted. Patient reports that he had no issues over the night. He reports abdominal pain has greatly decreased. He describes pain and tenderness to palpation in the RIGHT lower quadrant rates his current discomfort a 2/10. He reports the last time he has urinated was yesterday. He has had nothing by mouth for possible impending surgery. He has had diarrhea since admission with multiple bowel movements. The patient reports a mild frontal headache which is not the worse headache of his life. He denies any dizziness, lightheadedness, blurry vision, double vision, slurred speech, facial droop, unilateral weakness/numbness, chest pain, palpitations, shortness of breath, nausea, vomiting, hematochezia, melena, hematuria, or dysuria. He reports a significant past medical history of hypertension, ID with subsequent PTCA with stenting 1. He also reports hypertension and remote history of DVT and lower externally cellulitis. The patient reports approximately one daily beer. He reports a remote history of smoking. He denies any other illicit drug use. The patient lives at home alone. He is from his . His daughter lives locally. Past Medical/Surgical History Hypertension Hyperlipidemia ID PTCA with stenting History of DVT Lower extremity cellulitis Family History Cancer Diabetes mellitus Lung disease Social History Smoking Status: Former Smoker Smokeless Tobacco Use: No Alcohol Use: occasionally Drug Use: none Marital Status: single, Occupation Status: employed Allergies Coded Allergies: Penicillins (Verified Allergy, Unknown, UNKNOWN, 02/04/17) Home Medications Scheduled Aspirin (Aspirin Ec), 81 MG PO HS Atorvastatin (Lipitor), 80 MG PO HS Carvedilol (Carvedilol), 1 TAB PO HS Ferrous Sulfate (Kp Ferrous Sulfate), 1 TAB PO BID Folic Acid (Folvite), 1 MG PO HS Hydrochlorothiazide (Hydrochlorothiazide), 25 MG PO HS Lisinopril (Zestril), 40 MG PO HS Sertraline (Zoloft), 50 MG PO HS Current Inpatient Medications Current Inpatient Medications Medications (Trade) Dose Ordered Sig/Ke[place] Route Start Time Stop Time Status Last Admin Dose Admin Acetaminophen (Tylenol Tab) 650 mg Q4H PRN PO 02/04/17 15:45 03/06/17 15:44 Ondansetron HCl (Zofran Inj) 4 mg Q6H PRN IV 02/04/17 15:45 03/06/17 15:44 Heparin Sodium (Porcine) (Heparin Sq 5000 Unit/0.5ml) 5,000 unit Q12 SQ 02/04/17 21:00 03/06/17 20:59 02/05/17 09:22 5,000 UNIT Atorvastatin Calcium (Lipitor Tab) 80 mg HS PO 02/04/17 21:00 03/06/17 20:59 02/04/17 21:24 80 MG Folic Acid (Folvite Tab) 1 mg HS PO 02/04/17 21:00 03/06/17 20:59 02/04/17 21:24 1 MG Sertraline HCl (Zoloft Tab) 50 mg HS PO 02/04/17 21:00 03/06/17 20:59 02/04/17 21:24 50 MG Morphine Sulfate (MoRPHine SULFATE INJ) 4 mg Q2H PRN IV 02/04/17 15:45 02/18/17 15:44 02/05/17 02:30 4 MG Ertapenem 1 gm/ Sodium Chloride 50 ml @ 120 mls/hr Q24H IV 02/05/17 11:45 02/15/17 11:44 UNV Vancomycin HCl 2000 mg/Sodium Chloride 540 ml @ 200 mls/hr NOW ONCE IV 02/05/17 12:30 02/05/17 15:11 Norepinephrine Bitartrate 8 mg/ Dextrose 508 ml @ 0 mls/hr Q0M PRN IV 02/05/17 11:42 03/07/17 11:41 Pantoprazole Sodium 40 mg/ Syringe 10 ml @ 5 mls/min DAILY IV 02/06/17 09:00 03/08/17 08:59 Magnesium Sulfate 1 gm/Prmx 100 ml @ 100 mls/hr Q1H IV 02/05/17 12:45 02/05/17 15:44 02/05/17 12:32 100 MLS/HR Parenteral Electrolyte Solution 1,000 ml @ 100 mls/hr Q10H IV 02/05/17 12:15 03/07/17 12:14 02/05/17 12:32 100 MLS/HR Vancomycin HCl (Consult) 1 ea UD PRN N/A 02/05/17 12:15 03/07/17 12:14 Review of Systems A complete 10-point Review of Systems was discussed with the patient, with pertinent positives and negatives listed in the History of Present Illness. All remaining Review of Systems questions can be considered negative unless otherwise specified. Physical Exam Date Time Temp Pulse Resp B/P (MAP) Pulse Ox O2 Delivery O2 Flow Rate FiO2 02/05/17 11:42 36.4 63 18 94 02/05/17 11:31 85/49 (61) 02/05/17 10:35 71 145/82 (103) 02/05/17 10:00 89/52 (64) 02/05/17 09:10 80/48 (59) 76/48 (57) 02/05/17 08:32 36.5 60 18 88/57 (67) 99 Room Air 02/05/17 07:10 Room Air 02/05/17 00:00 Room Air 02/04/17 23:43 36.3 93 18 117/77 (90) 92 Room Air 02/04/17 19:48 145/79 (101) 02/04/17 18:01 36.7 92 18 171/83 96 Room Air 02/04/17 17:00 96 Room Air 02/04/17 16:10 82 18 156/99 98 Room Air 02/04/17 14:13 79 20 112/73 96 Room Air VITAL SIGNS - Vital signs and nursing notes were reviewed. GENERAL - 67-year-old male appearing his stated age who is in no acute distress. Communicates well with provider and answers questions appropriately. HEAD - NC/AT. EYES - PERRL with EOMI bilaterally. Sclera anicteric. Palpebral conjunctiva pink and moist with no injection noted. EARS - No deformities of external structures noted on gross examination bilaterally. No pain elicited with palpation of the tragus bilaterally. External auditory canals without discharge or otorrhea. NOSE - Midline and without cyanosis. No epistaxis or purulent drainage noted. Septum midline without deviation or septal hematoma noted. MOUTH/OROPHARYNX - Without perioral cyanosis. Buccal mucosa pink and dry and without leukoplakia. Tongue midline with equal elevation of palate bilaterally. No tonsillar hypertrophy, erythema, or exudates noted. NECK - Neck with FROM. Supple to palpation. No nuchal rigidity. LUNGS - Chest wall symmetric without accessory muscle use, intercostals retractions, or central cyanosis. Normal vesicular breath sounds CTA B/L. No wheezes, rales, or rhonchi appreciated. CARDIAC - RRR with S1/S2. No murmur, rubs, or gallops appreciated. ABDOMEN - Abdominal contour protuberant and without pulsations or visible masses. BS hypoactive all four quadrants. Moderate tenderness to palpation appreciated in the RIGHT lower quadrat. Tympanic to percussion throughout. No Rebound Tenderness. Negative Rovsing's. Negative Trejo's. No palpable masses, hepatosplenomegaly, or ascites noted. EXTREMITIES - No clubbing or peripheral cyanosis. No pretibial edema present. +3 /5 radial and dorsalis pedis pulses palpated throughout. PSYCH - A&Ox3 and cooperates fully with examiner. Pt is very pleasant and interacts well with examiner. Laboratory Results Last 24 Hours Test 02/04/17 21:20 02/05/17 05:59 02/05/17 10:32 02/05/17 12:23 Urine Color DK YELLOW Urine Appearance CLEAR Urine pH 5.0 Urine Specific [place] > 1.045 Urine Protein 2+ Urine Glucose (UA) NEG Urine Ketones NEG Urine Occult Blood TRACE Urine Nitrite NEG Urine Bilirubin NEG Urine Urobilinogen NEG Urine Leukocyte Esterase NEG Urine WBC (Auto) 1-5 /hpf Urine RBC (Auto) 0-4 /hpf Urine Hyaline Casts (Auto) 1-5 /lpf Urine Epithelial Cells (Auto) 20-30 /lpf Urine Bacteria (Auto) NEG White Blood Count 18.30 K/uL Red Blood Count 4.02 M/uL Hemoglobin 11.3 g/dL Hematocrit 33.7 % Mean Corpuscular Volume 83.8 fL Mean Corpuscular Hemoglobin 28.1 pg Mean Corpuscular Hemoglobin Concent 33.5 g/dl Platelet Count 209 K/uL Mean Platelet Volume 9.1 fL Neutrophils (%) (Auto) 81.0 % Lymphocytes (%) (Auto) 10.2 % Monocytes (%) (Auto) 7.8 % Eosinophils (%) (Auto) 0.4 % Basophils (%) (Auto) 0.1 % Neutrophils # (Auto) 14.84 K/uL Lymphocytes # (Auto) 1.86 K/uL Monocytes # (Auto) 1.42 K/uL Eosinophils # (Auto) 0.07 K/uL Basophils # (Auto) 0.02 K/uL RDW Standard Deviation 47.3 fL RDW Coefficient of Variation 15.3 % Immature Granulocyte % (Auto) 0.5 % Immature Granulocyte # (Auto) 0.09 K/uL Sodium Level 138 mmol/L Potassium Level 3.7 mmol/L Chloride Level 103 mmol/L Carbon Dioxide Level 27 mmol/L Anion Gap 8.0 mmol/L Blood Urea Nitrogen 24 mg/dl Creatinine 2.80 mg/dl Est Creatinine Clear Calc Drug Dose 32.4 ml/min Estimated GFR () 25.9 Estimated GFR (Non- 22.3 BUN/Creatinine Ratio 8.7 Random Glucose 124 mg/dl Calcium Level 8.5 mg/dl Magnesium Level 1.3 mg/dl Lactic Acid Level 1.7 mmol/L Test 02/05/17 12:24 02/05/17 12:29 White Blood Count 16.19 K/uL Red Blood Count 3.80 M/uL Hemoglobin 10.7 g/dL Hematocrit 31.9 % Mean Corpuscular Volume 83.9 fL Mean Corpuscular Hemoglobin 28.2 pg Mean Corpuscular Hemoglobin Concent 33.5 g/dl Platelet Count 178 K/uL Mean Platelet Volume 8.9 fL Neutrophils (%) (Auto) 81.0 % Lymphocytes (%) (Auto) 10.1 % Monocytes (%) (Auto) 7.9 % Eosinophils (%) (Auto) 0.4 % Basophils (%) (Auto) 0.1 % Neutrophils # (Auto) 13.11 K/uL Lymphocytes # (Auto) 1.63 K/uL Monocytes # (Auto) 1.28 K/uL Eosinophils # (Auto) 0.07 K/uL Basophils # (Auto) 0.02 K/uL RDW Standard Deviation 48.3 fL RDW Coefficient of Variation 15.6 % Immature Granulocyte % (Auto) 0.5 % Immature Granulocyte # (Auto) 0.08 K/uL Venous Blood pH 7.27 Venous Blood Partial Pressure CO2 52 mmHg Venous Blood Partial Pressure O2 20 mmHg Venous Blood HCO3 23 mmol/L Venous Blood Oxygen Saturation < 60.0 % Venous Blood Base Excess -3.9 mEq/L Prothrombin Time 12.1 SECONDS Prothromb Time International Ratio 1.1 Activated Partial Thromboplast Time 34.6 SECONDS Partial Thromboplastin Ratio 1.3 Ionized Calcium 1.07 mmol/l Diagnostic Results Radiological imaging and reports were reviewed by myself. Radiologist's Interpretation as follows: ADDENDUM CORRECTION On further evaluation, multiple small bowel diverticula are noted including in the region of the previously described in the right anterior mid abdomen. This is consistent with diverticulitis of the small bowel with contained perforation. The report will be called/faxed according to standard departmental protocol. Electronically signed by: Junito Weinstein M.D. 02/04/2017 12:09 PM Dictated Date/Time: 02/04/2017 12:06 PM ADDENDUM 4. Hyperdense lesion in the left kidney. This may represent a hemorrhagic or pertinacious cysts, however, an enhancing lesion cannot be excluded. Further evaluation with ultrasound could be considered if clinically indicated. Electronically signed by: Junito Weinstein M.D. 02/04/2017 12:04 PM Dictated Date/Time: 02/04/2017 12:04 PM ORIGINAL REPORT ABD/PELVIS IV CONTRAST ONLY CLINICAL HISTORY: 67 years-old Male presenting with lower abdominal pain, fevers, nausea, h/o diverticulitis. TECHNIQUE: Multidetector CT of the abdomen and pelvis was performed after the administration of intravenous contrast. IV contrast: 119 mL of Optiray 320. A dose lowering technique was used consistent with the principles of ALARA (as low as reasonably achievable). COMPARISON: None. CT DOSE (mGy.cm): The estimated cumulative dose is 1091.74 mGycm. FINDINGS: Psychiatric Registered Nurse topogram: Cholecystectomy clips noted. Lung bases: Lung bases clear. No pericardial or pleural effusion. Liver: Somewhat macronodular morphology with expansion of the fat within the fissure and gallbladder fossa. Well-defined hypodensity in the right hepatic lobe likely hepatic cyst or hamartoma. Patent hepatic vasculature. Biliary: No intrahepatic or extrahepatic biliary ductal dilatation. Gallbladder surgically absent. Pancreas: Moderate parenchymal atrophy with scattered coarse parenchymal calcifications may suggest a history of chronic pancreatitis. Spleen: Normal. Adrenal glands: Normal. Kidneys and ureters: No nephrolithiasis. No hydronephrosis. Focal cortical irregularity with an associated relatively hypodense lesion along the posterior aspect of the interpolar region of the left kidney is not consistent with a simple cyst. Ureters normal. Gastrointestinal tract: Proximal sigmoid diverticulosis. No evidence of diverticulitis. Normal appendix. Focal mesenteric inflammatory change in the region of the distal ileum in the anterior right mid abdomen with apparent foci of extraluminal gas (series 2 image 51). This is immediately adjacent to the cecum. Both the adjacent small bowel loops and cecum do not demonstrate wall thickening or significant evidence of inflammation. Apparent intramural fat deposition within the cecum and terminal ileum, nonspecific but possibly indicating chronic inflammation. Two duodenal diverticula noted, one in the region of the pancreatic head and a second at the junction of the third and fourth portion of the duodenum. No bowel obstruction. Peritoneal cavity: Extraluminal gas appears isolated to the mesentery in the right mid abdomen. No lolita free intraperitoneal gas. Bladder: Incompletely evaluated secondary to underdistention. Pelvic organs: Prostate enlargement likely secondary to benign prostatic hyperplasia. Vasculature: Atherosclerosis of the normal caliber abdominal aorta. IVC patent. Lymph nodes: No enlarged lymph nodes in the abdomen or pelvis. Abdominal wall: Normal. Musculoskeletal: Degenerative changes of the spine. IMPRESSION: 1. Focal perienteric inflammatory change with apparent extraluminal gas in the mesentery of the distal ileum located in the right anterior mid abdomen. This may represent a contained perforation. No lolita free intraperitoneal gas. No significant diverticula are noted in this region, and no significant inflammatory change of the adjacent small bowel this present. This is of uncertain etiology. Evaluation is somewhat limited given the absence of oral contrast. Surgical consultation and close clinical and imaging follow-up recommended. 2. Possible chronic inflammatory changes of the cecum and terminal ileum. 3. Sigmoid diverticulosis. The report will be called/faxed according to standard departmental protocol. Assessment & Plan (1) MARK (acute kidney injury) (2) Hypotension (3) Severe sepsis (4) Perforated abdominal viscus (5) Diverticulitis Reason Critically Ill: Severe sepsis in the setting of perforated diverticulitis with abscess. MARK. Hypotension. Neuro - * Alert and oriented and without complaints of pain. * Address pain issues with morphine as scheduled. Cardiac - * History of ID. * PTCA w/ stenting to unknown vessel performed in [place] while visiting his sister. No reported complications since. He does follow [place] [facility] [place]. He is uncertain of his last Echo or results. No complaints of chest pain during this visit. * Hypertension. * Hold antihypertensive medications at this point until hypotension resolves. Reassess medications pending reassessment of renal function. * Monitor on telemetry throughout stay in ICU. * EKGs for complaints of chest pain. * Echo ordered at this time to assess cardiac status in the setting of hypotension and sepsis. * Hypotension. * Responded to IVF. * Add pressors if worsen. Respiratory - * No history of pulmonary disease. * Monitor pulse oximetry throughout intensive care stay. * Reassess after general anesthesia postoperatively. GI - * Diverticulitis of the distal small bowel with abscess formation and perforation. Extraluminal free air appreciated. * Initially managed with Intermedics alone. Patient developed acute kidney injury as well as hypotension. This is certainly concerning for severe sepsis in the setting of known source of infection. * In consultation with general surgery, the patient will be taken emergently to the operating room for surgical intervention. * Antibiotics have been broadened. * Appreciate General Surgery Consultation. RENAL/LYTES - * Acute kidney injury - Worsening renal function overnight despite IV fluids in the setting of no history of chronic kidney disease. * Discontinue renal toxic medications. * UA eosinophil pending. * Urine lytes pending. * Continue IVF - Normosol 100 mL/hr - * Khan Catheter in place for close monitoring of I&Os ENDO - * BSGs per protocol. * ISS if needed. HEME - * Stable H&H. * Continue to monitor. * Patient Type & Crossed prior to Surgery. ID - * Improving leukocytosis in the setting of intra-abdominal abscess with perforation formation. * Lactic acid found to be 1.3. * Procalcitonin elevated at 13.01 * Aggressive IV Antibiotics * Adding Vancomycin, Ertapenem, and Caspofungin. LINES/IV ACCESS - * PIVs x2 intact. * Khan Catheter in placed. * CVL/Arterial Line consents signed on the chart. DVT PROPHYLAXIS - * Will add 5,000 U Heparin SQ tid. Patient with history of LLE DVT. * Will add SCDs. I have personally spent 45 minutes of critical care time in the direct management of this patient. This is a life/limb threatening event. This includes time spent evaluating patient, direct bedside care, chart review, placing orders, interpretation of diagnostic studies, discussion with consultants, patient, and family members, as well as other required patient management activities. This time is exclusive of all separately billable procedures, and teaching time and separate from and in addition to any other critical care service time. Thank you for this consultation allow us to be part of this patient's care. Please refer to my attending physician's documentation for any further recommendations. I have personally evaluated and examined this patient. I agree with assessment and plan of Shania Carr PA-C. Discussed surgical findings with Dr. Figueroa, concern for possible Crohns disease. Will start steroids 40mg for 5 days. Problem Qualifiers (1) Hypotension: Hypotension type: unspecified hypotension type Qualified Codes: I95.9 - Hypotension, unspecified (2) Diverticulitis: Diverticulitis site: large intestine Diverticulitis bleeding: without bleeding Diverticulitis complication: with perforation and abscess Qualified Codes: K57.20 - Diverticulitis of large intestine with perforation and abscess without bleeding
--- NOTE | 2017-02-05 15:28 | Pharmacy Progress Note ---
Pharmacy Antibiotic Consult Date of Service: Feb 05, 2017. Pharmacy Dosing Scope Pharmacy is consulted to initiate Vancomycin IV dosing therapy, order appropriate labs and adjust drug dose/frequency. Subjective The patient is a 67 year old male admitted on Feb 04, 2017 at 16:21. Objective Height (Feet): 5 Height (Inches): 10.00 Weight (Kilograms): 114.400 Lab Results (24hrs): Test 02/04/17 21:20 02/05/17 05:59 02/05/17 10:32 02/05/17 12:23 Urine Color DK YELLOW Urine Appearance CLEAR (CLEAR) Urine pH 5.0 (4.5-7.5) Urine Specific [place] > 1.045 (1.000-1.030) Urine Protein 2+ (NEG) Urine Glucose (UA) NEG (NEG) Urine Ketones NEG (NEG) Urine Occult Blood TRACE (NEG) Urine Nitrite NEG (NEG) Urine Bilirubin NEG (NEG) Urine Urobilinogen NEG (NEG) Urine Leukocyte Esterase NEG (NEG) Urine WBC (Auto) 1-5 /hpf (0-5) Urine RBC (Auto) 0-4 /hpf (0-4) Urine Hyaline Casts (Auto) 1-5 /lpf (0-5) Urine Epithelial Cells (Auto) 20-30 /lpf (0-5) Urine Bacteria (Auto) NEG (NEG) White Blood Count 18.30 K/uL (4.8-10.8) Red Blood Count 4.02 M/uL (4.7-6.1) Hemoglobin 11.3 g/dL (14.0-18.0) Hematocrit 33.7 % (42-52) Mean Corpuscular Volume 83.8 fL (80-100) Mean Corpuscular Hemoglobin 28.1 pg (25-34) Mean Corpuscular Hemoglobin Concent 33.5 g/dl (32-36) Platelet Count 209 K/uL (130-400) Mean Platelet Volume 9.1 fL (7.4-10.4) Neutrophils (%) (Auto) 81.0 % Lymphocytes (%) (Auto) 10.2 % Monocytes (%) (Auto) 7.8 % Eosinophils (%) (Auto) 0.4 % Basophils (%) (Auto) 0.1 % Neutrophils # (Auto) 14.84 K/uL (1.4-6.5) Lymphocytes # (Auto) 1.86 K/uL (1.2-3.4) Monocytes # (Auto) 1.42 K/uL (0.11-0.59) Eosinophils # (Auto) 0.07 K/uL (0-0.5) Basophils # (Auto) 0.02 K/uL (0-0.2) RDW Standard Deviation 47.3 fL (36.4-46.3) RDW Coefficient of Variation 15.3 % (11.5-14.5) Immature Granulocyte % (Auto) 0.5 % Immature Granulocyte # (Auto) 0.09 K/uL (0.00-0.02) Sodium Level 138 mmol/L (136-145) 136 mmol/L (136-145) Potassium Level 3.7 mmol/L (3.5-5.1) 3.6 mmol/L (3.5-5.1) Chloride Level 103 mmol/L (98-107) 104 mmol/L (98-107) Carbon Dioxide Level 27 mmol/L (21-32) 26 mmol/L (21-32) Anion Gap 8.0 mmol/L (3-11) 6.0 mmol/L (3-11) Blood Urea Nitrogen 24 mg/dl (7-18) 30 mg/dl (7-18) Creatinine 2.80 mg/dl (0.60-1.40) 3.00 mg/dl (0.60-1.40) Est Creatinine Clear Calc Drug Dose 32.4 ml/min 30.3 ml/min Estimated GFR () 25.9 23.8 Estimated GFR (Non- 22.3 20.5 BUN/Creatinine Ratio 8.7 (10-20) 10.1 (10-20) Random Glucose 124 mg/dl (70-99) 145 mg/dl (70-99) Calcium Level 8.5 mg/dl (8.5-10.1) 8.1 mg/dl (8.5-10.1) Magnesium Level 1.3 mg/dl (1.8-2.4) Lactic Acid Level 1.7 mmol/L (0.4-2.0) Procalcitonin 13.01 ng/ml (0-0.5) Random Cortisol 34.66 mcg/dl Test 02/05/17 12:24 02/05/17 12:29 02/05/17 13:00 White Blood Count 16.19 K/uL (4.8-10.8) Red Blood Count 3.80 M/uL (4.7-6.1) Hemoglobin 10.7 g/dL (14.0-18.0) Hematocrit 31.9 % (42-52) Mean Corpuscular Volume 83.9 fL (80-100) Mean Corpuscular Hemoglobin 28.2 pg (25-34) Mean Corpuscular Hemoglobin Concent 33.5 g/dl (32-36) Platelet Count 178 K/uL (130-400) Mean Platelet Volume 8.9 fL (7.4-10.4) Neutrophils (%) (Auto) 81.0 % Lymphocytes (%) (Auto) 10.1 % Monocytes (%) (Auto) 7.9 % Eosinophils (%) (Auto) 0.4 % Basophils (%) (Auto) 0.1 % Neutrophils # (Auto) 13.11 K/uL (1.4-6.5) Lymphocytes # (Auto) 1.63 K/uL (1.2-3.4) Monocytes # (Auto) 1.28 K/uL (0.11-0.59) Eosinophils # (Auto) 0.07 K/uL (0-0.5) Basophils # (Auto) 0.02 K/uL (0-0.2) RDW Standard Deviation 48.3 fL (36.4-46.3) RDW Coefficient of Variation 15.6 % (11.5-14.5) Immature Granulocyte % (Auto) 0.5 % Immature Granulocyte # (Auto) 0.08 K/uL (0.00-0.02) Venous Blood pH 7.27 (7.36-7.41) Venous Blood Partial Pressure CO2 52 mmHg (38.0-50.0) Venous Blood Partial Pressure O2 20 mmHg Venous Blood HCO3 23 mmol/L Venous Blood Oxygen Saturation < 60.0 % Venous Blood Base Excess -3.9 mEq/L Lactic Acid Level 1.3 mmol/L (0.4-2.0) Prothrombin Time 12.1 SECONDS (9.0-12.0) Prothromb Time International Ratio 1.1 (0.9-1.1) Activated Partial Thromboplast Time 34.6 SECONDS (21.0-31.0) Partial Thromboplastin Ratio 1.3 Ionized Calcium 1.07 mmol/l (1.12-1.32) Thyroid Stimulating Hormone (TSH) 1.410 uIu/ml (0.300-4.500) Free Thyroxine 1.14 ng/dl (0.80-1.60) Free Triiodothyronine 2.84 pg/ml (2.30-4.20) Urine Random Sodium 21 mEq/L Urine Random Potassium 54.3 mEq/L Urine Random Chloride 45 mEq/L Micro Results: Item Value Date Time MRSA DNA Surveillance Screen Received 02/05/17 1300 Nasal Pending Blood Culture Received 02/05/17 1032 Blood Pending Blood Culture Received 02/05/17 1023 Blood Pending Assessment & Plan ASSESSMENT: * Mr Davidson is a 67yo male admitted with persistent abdominal pain. Possible small bowel diverticulitis with contained perforation. * Patient required transfer to ICU today 2/2 hypotension. * Antibiotics escalated upon transfer to provide broad-spectrum coverage. * Patient is afebrile, procalcitonin 13.01, WBC 16.2, lactic acid 1.7, BP 76/48 (responded to glucagon for ?beta-dave toxicity) PLAN: Vancomycin * Loading dose: Vancomycin 2000 mg IV X 1 dose * Will evaluate random level w/ am labs tomorrow to determine further dosing, in the setting of MARK * SCr 1.4 --> 2.8 --> 3.0 since admission * Goal trough level estimate: between 15 - 20 mcg/mL. Ertapenem 1gm IV q24h Caspofungin 70mg IV x1 dose, then 50mg IV q24h (Pt rec'd Cipro/Flagyl IV 02/04, 02/05) Pharmacy will continue to follow and will adjust dose/frequency as necessary. Thank you
--- NOTE | 2017-02-05 15:33 | History & Physical Bridge Note ---
H&P Re-Evaluation Bridge Note: I have examined the patient, reviewed the History & Physical and in the interval since the performance of the History & Physical I have noted the following changes of clinical significance: Called by Dr. Henning from ICU with pt status change. he has no new abdominal complaints but became hypotensive in the 70's/80's systolic, BUN increased to 3, urine op decreased as well...he felt pt was likely becoming septic and felt the OR would be necessary. I evaluated the pt. abdomen soft with R mid-abdominal tenderness. BP improved with fluids but urine op still down. discussed options with pt and his daughter. discussed options /risks ( bleeding/infection/dvt/pe/mi/leaks/ strictures/colostomy etc...). everyone agrees ex-lap would be the wisest option. will proceed yulissa. ECHO just completed shows EF of 55%. questions answered.
--- NOTE | 2017-02-05 15:56 | ECHOCARDIOGRAM REPORT ---
*NOTICE TO RECEIVING CONSTITUTION PARTY AGENCY This information is strictly Confidential and protected under [place] law. [place] law prohibits you from making any further disclosure of this information unless further disclosure is expressly permitted by the written consent of the person to whom it pertains or is authorized by law. A general authorization for the release of medical or other information is not sufficient for this purpose. Hospital accepts no responsibility if the information is made available to any other person, INCLUDING THE PATIENT. Interpretation Summary * Name: STANLEY IRVIN III Study Date: 02/05/2017 02:41 PM BP: 85/49 mmHg * Patient Location: .[facility]CCUP[facility]ER[facility]NA[facility]\S\W350\S\2 HR: 59 * : 1950 (M/d/yyy) Gender: Male Height: 70 in * Age: 67 yrs Ethnicity: CA Weight: 252 lb * Ordering Physician: Jorje Carr * Referring Physician: SASHA * Performed By: Seble Ash RDCS * * Reason For Study: ISCHEMIC CARDIOMYOPATHY * BSA: 2.3 m2 * -- Conclusions -- * 1. Technically limited study despite use of Definity ultrasound contrast. * 2. Normal LV size and wall thickness. * 3. Normal LV systolic function. LVEF 50-55%. Apical septal akinesis. * 4. Normal RV size and function. * 5. No significant valvular pathology. * 6. Normal estimated RA and PA pressures. * 7. No prior studies for comparison. Procedure Details * A contrast injection of Definity was performed to improve assessment of LV function. * Contrast was injected into an intravenous site in the right arm. * One vial of Definity ultrasound contrast was diluted in normal saline to a total volume of 10 ml. A total of '2' ml of solution was administered during imaging. * Lot # [id number] of Definity utilized for procedure. * Expiration date FEB 19. * The attending nurse who injected the contrast agent was SAMM LUJAN. Left Ventricle * The left ventricle is grossly normal size. * There is normal left ventricular wall thickness. * Ejection Fraction = 50-55%. * Apical septal akinesis Right Ventricle * The right ventricle is grossly normal size. * The right ventricular systolic function is normal as assessed by tricuspid annular plane systolic excursion (TAPSE) (normal >1.5 cm). Atria * The left atrial size is normal. * Right atrial size is normal. Mitral Valve * The mitral valve is grossly normal. * There is no mitral valve stenosis. * Significant mitral regurgitation is absent. Tricuspid Valve * There is trace tricuspid regurgitation. Aortic Valve * The aortic valve is trileaflet. * The aortic valve opens well. * No hemodynamically significant valvular aortic stenosis. * There is no significant aortic regurgitation. Pulmonic Valve * The pulmonary valve is inadequately visualized, but the Doppler data is adequate for interpretation. * Pulmonic stenosis is absent. * There is no significant pulmonary regurgitation. Great Vessels * The aortic root and proximal ascending aorta are normal sized. Pericardium/Pleural * There is no pericardial effusion. Great Vessels * There is no evidence of pulmonary hypertension. The PA systolic pressure is less than 36 mmHg. * Normal inferior vena cava size and collapsability with sniff indicates a normal right atrial pressure of 3 mmHg MMode 2D Measurements and Calculations IVSd 1.1 cm IVSs 1.7 cm LVIDd 5.6 cm LVIDs 4.1 cm LVPWd 1.0 cm LVPWs 1.4 cm IVS/LVPW 1.0 FS 25.9 % EDV(Teich) 152.4 ml ESV(Teich) 75.6 ml EF(Teich) 50.4 % EDV(cubed) 173.8 ml ESV(cubed) 70.6 ml EF(cubed) 59.4 % % IVS thick 59.8 % % LVPW thick 32.3 % LV mass(C)d 233.8 grams LV mass(C)dI 101.5 grams/m\S\2 LV mass(C)s 253.8 grams LV mass(C)sI 110.2 grams/m\S\2 SV(Teich) 76.8 ml SI(Teich) 33.4 ml/m\S\2 SV(cubed) 103.2 ml SI(cubed) 44.8 ml/m\S\2 LVAd ap4 27.5 cm\S\2 LVLd ap4 8.2 cm EDV(MOD-sp4) 72.9 ml EDV(sp4-el) 77.6 ml LVAs ap4 17.8 cm\S\2 LVLs ap4 7.0 cm ESV(MOD-sp4) 36.0 ml ESV(sp4-el) 38.3 ml EF(MOD-sp4) 50.6 % EF(sp4-el) 50.7 % LVAd ap2 29.3 cm\S\2 LVLd ap2 8.1 cm EDV(MOD-sp2) 85.8 ml EDV(sp2-el) 89.8 ml LVAs ap2 19.3 cm\S\2 LVLs ap2 8.0 cm ESV(MOD-sp2) 37.2 ml ESV(sp2-el) 39.7 ml EF(MOD-sp2) 56.6 % EF(sp2-el) 55.8 % LVLd %diff -1.29 % EDV(MOD-bp) 80.3 ml LVLs %diff 12.6 % ESV(MOD-bp) 38.9 ml EF(MOD-bp) 51.6 % SV(MOD-sp4) 36.9 ml SI(MOD-sp4) 16.0 ml/m\S\2 SV(MOD-sp2) 48.6 ml SI(MOD-sp2) 21.1 ml/m\S\2 SV(MOD-bp) 41.4 ml SI(MOD-bp) 18.0 ml/m\S\2 SV(sp4-el) 39.3 ml SI(sp4-el) 17.1 ml/m\S\2 SV(sp2-el) 50.1 ml SI(sp2-el) 21.8 ml/m\S\2 Doppler Measurements and Calculations MV E max mandy 95.6 cm/sec MV A max mandy 58.7 cm/sec MV E/A 1.6 MV dec time 0.25 sec Ao V2 max 175.5 cm/sec Ao max PG 12.3 mmHg Ao max PG (full) 8.2 mmHg LV V1 max PG 4.1 mmHg LV V1 max 101.4 cm/sec TR max mandy 234.1 cm/sec
[2017-02-05] MEDS ORDERED: ALBUMIN HUMAN 5% 12.5 GM/250 ML VIAL IV ONE (16:02)
[2017-02-05] MEDS ORDERED: HYDROmorphone INJ 1 MG/ML SYR IV PRN (16:30)
[2017-02-05] MEDS ORDERED: EpHEDrine SULFATE INJ 50 MG/ML AMP IV PRN (16:30)
[2017-02-05] MEDS ORDERED: FENTANYL CITRATE INJ 50 MCG/1 ML 2 ML VIAL IV PRN (16:30)
[2017-02-05] MEDS ORDERED: ATROPINE SULFATE 0.1 MG/ML 5ML SYR IV PRN (16:30)
[2017-02-05] MEDS ORDERED: ONDANSETRON INJ 2 MG/ML 2 ML VIAL IV PRN (16:30)
[2017-02-05] MEDS ORDERED: PHENYLEPHRINE 100MCG/ML 5ML SYR ONE (16:41)
[2017-02-05] MEDS ORDERED: VASOPRESSIN 20 UNIT/ML VIAL ONE (16:41)
[2017-02-05] MEDS ORDERED: EpHEDrine SULFATE 50MG/5ML SYR ONE (16:41)
--- NOTE | 2017-02-05 17:00 | [facility] Operative Report ---
Operative Report Operative Date Feb 05, 2017. Pre-Operative Diagnosis Perforated small bowel Post-Operative Diagnosis Same with small bowel inflammation, suspect crohn's Procedure(s) Performed Exploratory Laparotomy -Partial Small Bowel Resection Surgeon Dr Figueroa Manager Risk Surgeon(s) Uriel Roberts PA-C Estimated Blood Loss 10ML Findings contained small bowel perforation with diffuse mesenteric thickening/fat wrapping c/w crohn's disease. Specimens Culture and sensitivity #1 abdominal fluid for culture, sensitivity, aerobic, anaerobic and gram stain A. Portion of small bowel Anesthesia get Complication(s) None Disposition Surgical ICU Description of Procedure After informed consent was obtained the patient was brought directly from the intensive care unit to the operating suite. He was placed in the supine position with the arms extended. After successful intubation the abdomen was shaved sterilely prepped and draped in usual fashion. A midline incision was made from just above the umbilicus down around the umbilicus with a 10 blade scalpel. This was carried down through the soft tissue using electrocautery. Anterior rectus fascia was opened in the midline with electrocautery. Hemostats were used to elevate peritoneum which was then divided with Metzenbaum scissor. I Then used scalpel to open the incision to both poles. Once in the abdomen there was a small amount of murky fluid but there was not gross contamination. There was no foul smell and no feculent material. We did immediately find an inflamed ball of small bowel in the right mid abdomen. Appeared to have a contained perforation with a likely abscess in the mesentery. There is also some ischemia associated with the segment of bowel. There was some wrapping of the mesentery in that entire area that was thickened. However we were able to finger fractionate this. There is also a small area proximal to the perforation which appeared to be a small bowel stricture. The mesentery of the small bowel in general was thicker than normal and there was diffuse fat- wrapping that we see with Crohn's disease. We did run the small bowel from the ligament of Treitz all the way to the cecum. Appendix looked normal. Cecum was slightly thickened but not impressively so. No other abnormalities were identified. We transected the small bowel proximal to the previously mentioned stricture with a IRASEMA 60 millimeter rivas stapler. We transected in similar fashion with the same stapler distal to the inflamed area. Then used the LigaSure device to take down the mesentery and a portion small bowel passed off. We then performed a [id number]-yv-ossq anastomosis again with a rivas linear stapler 60 mm. We then closed the common enterotomy with a IRASEMA linear stapler as well. 3-0 silk sutures were used to oversew the staple lines in Lembert fashion. The mesentery was closed using 0 Vicryl in simple interrupted fashion. Then thoroughly irrigated the wound. I forgot to mention prior to doing the resection that we did culture some of the fluid. There was adequate hemostasis at the end of the procedure. I saw no other gross abnormalities. We irrigated the wound a final time. Because there was no gross contamination I did not see the need for any drain. We then closed the fascia starting at either pole with #1 PDS running them and securing them together in the midline. Soft tissue was irrigated and skin was closed using skin gurdeep. Silver dressing was applied. The patient was awakened extubated and transferred to intensive intensive care unit in guarded condition I attest to the content of the Intraoperative Record and any orders documented therein. Any exceptions are noted below.
[2017-02-05] MEDS ORDERED: NURSING VERBAL MED ORDER ONE (17:45)
--- NOTE | 2017-02-05 18:05 | Anesthesiology Progress Note ---
Anesthesia Post Op Note Date & Time Feb 05, 2017 at 18:05 Vital Signs Pain Intensity: 0 Vital Signs Past 12 Hours Date Time Temp Pulse Resp B/P (MAP) Pulse Ox O2 Delivery O2 Flow Rate FiO2 02/05/17 17:50 36.6 62 20 106/52 98 Nasal Cannula 4 02/05/17 17:47 61 15 02/05/17 17:47 61 15 95 02/05/17 17:46 106/52 02/05/17 17:42 61 16 95 02/05/17 17:42 61 16 02/05/17 17:41 100/51 02/05/17 17:37 68 14 02/05/17 17:37 68 14 95 02/05/17 17:36 115/51 02/05/17 17:32 71 19 98 02/05/17 17:32 69 19 02/05/17 17:31 99/47 02/05/17 17:27 62 17 02/05/17 17:27 62 17 98 02/05/17 17:25 112/54 02/05/17 17:22 68 16 02/05/17 17:22 66 16 100 02/05/17 17:21 92/58 02/05/17 17:20 64 18 98 02/05/17 17:20 64 18 02/05/17 17:16 116/45 02/05/17 17:15 67 19 100 02/05/17 17:15 69 19 02/05/17 17:10 36.2 70 20 111/42 98 Mask 15 02/05/17 17:10 65 17 111/42 97 02/05/17 17:10 65 17 02/05/17 12:00 Room Air 02/05/17 11:42 36.4 63 18 94 02/05/17 11:31 85/49 (61) 02/05/17 10:35 71 145/82 (103) 02/05/17 10:00 89/52 (64) 02/05/17 09:10 80/48 (59) 76/48 (57) 02/05/17 08:32 36.5 60 18 88/57 (67) 99 Room Air 02/05/17 07:10 Room Air Notes Mental Status: alert / awake / arousable, participated in evaluation Pt Amnestic to Procedure: Yes Nausea / Vomiting: adequately controlled Pain: adequately controlled Airway Patency, RR, SpO2: stable & adequate BP & HR: stable & adequate Hydration State: stable & adequate Anesthetic Complications: no major complications apparent
[2017-02-05] MEDS: ACETAMINOPHEN IV 1,000 MG in EMPTY BAG 0 ML IV SCH (18:29)
[2017-02-05] MEDS: NORMOSOL R 1,000 ML IV SCH (18:29)
[2017-02-05] MEDS: SERTRALINE HCL 50 MG TAB PO SCH (21:00)
--- NOTE | 2017-02-05 21:13 | Progress Note ---
Subjective Date of Service: Feb 05, 2017. Subjective Pt evaluation today including: conversation w/ patient, conversation w/ family (daughter, by phone), physical exam, chart review, lab review, review of studies (CT abd/pelvis, echo), conversation w/ customer care consultant (critical care), review of inpatient medication list Pain: abdomen PO Intake: npo I was called early this AM by staff that patient was hypotensive. I gave verbal order for NS bolus of 1 liter. Staff also informed me that he had very poor urine output overnight. Bladder scan showed <50cc apparently. Upon my arrival the patient was receiving his NS bolus; about 1/2 way through such there was no improvement in his BP. He reported that he felt better than yesterday but still had nausea. Diarrhea was improved. No emesis. No chest pain. No dyspnea. He complained of being thirsty. Records reviewed/med list reviewed - received lisinopril yesterday as well as coreg. Gave 2mg of glucagon in hopes of reversing his beta dave. He had a transient improvement in HR to about 70 and BP to about 140. He quickly became hypotensive again and 2nd saline bolus given. At that time blood cx's were obtained, lactate was ordered, and I contacted Dr. Henning from ICU about transferring Mr. Davidson. Antibiotics then changed to ertapenem and vancomycin. Problem List Medical Problems: (1) Cellulitis of left lower extremity Status: Acute (2) Perforated abdominal viscus Status: Acute Review of Systems Constitutional: No fever, No chills Respiratory: No shortness of breath Cardiac: No chest pain, No orthopnea Abdomen: + pain, + nausea, No vomiting, No diarrhea, No GI bleeding Objective Vital Signs Date Time Temp Pulse Resp B/P (MAP) Pulse Ox O2 Delivery O2 Flow Rate FiO2 02/05/17 11:31 85/49 (61) 02/05/17 10:35 71 145/82 (103) 02/05/17 10:00 89/52 (64) 02/05/17 09:10 80/48 (59) 76/48 (57) 02/05/17 08:32 36.5 60 18 88/57 (67) 99 Room Air 02/05/17 07:10 Room Air 02/05/17 00:00 Room Air 02/04/17 23:43 36.3 93 18 117/77 (90) 92 Room Air 02/04/17 19:48 145/79 (101) 02/04/17 18:01 36.7 92 18 171/83 96 Room Air 02/04/17 17:00 96 Room Air 02/04/17 16:10 82 18 156/99 98 Room Air 02/04/17 14:13 79 20 112/73 96 Room Air 02/04/17 12:30 84 20 162/92 99 Room Air Physical Exam General Appearance: no apparent distress (but looked ill) ENT: + pertinent finding (MM dry) Neck: no JVD Respiratory/Chest: lungs clear, no respiratory distress, no accessory muscle use Cardiovascular: regular rate, rhythm, no gallop, no murmur Abdomen: normal bowel sounds, no organomegaly, + distended, + tenderness Extremities: no pedal edema Neurologic/Psychiatric: alert, oriented x 3 Skin: + pallor Laboratory Results Last 24 Hours Test 02/04/17 21:20 02/05/17 05:59 02/05/17 10:32 Urine Color DK YELLOW Urine Appearance CLEAR Urine pH 5.0 Urine Specific [place] > 1.045 Urine Protein 2+ Urine Glucose (UA) NEG Urine Ketones NEG Urine Occult Blood TRACE Urine Nitrite NEG Urine Bilirubin NEG Urine Urobilinogen NEG Urine Leukocyte Esterase NEG Urine WBC (Auto) 1-5 /hpf Urine RBC (Auto) 0-4 /hpf Urine Hyaline Casts (Auto) 1-5 /lpf Urine Epithelial Cells (Auto) 20-30 /lpf Urine Bacteria (Auto) NEG White Blood Count 18.30 K/uL Red Blood Count 4.02 M/uL Hemoglobin 11.3 g/dL Hematocrit 33.7 % Mean Corpuscular Volume 83.8 fL Mean Corpuscular Hemoglobin 28.1 pg Mean Corpuscular Hemoglobin Concent 33.5 g/dl Platelet Count 209 K/uL Mean Platelet Volume 9.1 fL Neutrophils (%) (Auto) 81.0 % Lymphocytes (%) (Auto) 10.2 % Monocytes (%) (Auto) 7.8 % Eosinophils (%) (Auto) 0.4 % Basophils (%) (Auto) 0.1 % Neutrophils # (Auto) 14.84 K/uL Lymphocytes # (Auto) 1.86 K/uL Monocytes # (Auto) 1.42 K/uL Eosinophils # (Auto) 0.07 K/uL Basophils # (Auto) 0.02 K/uL RDW Standard Deviation 47.3 fL RDW Coefficient of Variation 15.3 % Immature Granulocyte % (Auto) 0.5 % Immature Granulocyte # (Auto) 0.09 K/uL Sodium Level 138 mmol/L Potassium Level 3.7 mmol/L Chloride Level 103 mmol/L Carbon Dioxide Level 27 mmol/L Anion Gap 8.0 mmol/L Blood Urea Nitrogen 24 mg/dl Creatinine 2.80 mg/dl Est Creatinine Clear Calc Drug Dose 32.4 ml/min Estimated GFR () 25.9 Estimated GFR (Non- 22.3 BUN/Creatinine Ratio 8.7 Random Glucose 124 mg/dl Calcium Level 8.5 mg/dl Magnesium Level 1.3 mg/dl Lactic Acid Level 1.7 mmol/L Assessment and Plan 67yo male: 1. shock, 2nd to abdominal sepsis from presumed diverticulitis with contained perforation (later found to be possible Crohn's with small bowel contained perforation); cannot rule out hypovolemic shock from severe dehydration; cannot rule out component of iatrogenic from BP meds - s/p fluid resuscitation this am. Defer ongoing management to critical care attending. Cardiogenic shock and adrenal insuff ruled out. Appreciate critical care team assistance. 2. suspected small bowel diverticulitis with contained perforation, s/p ex lap today done emergently by Dr. Fgiueroa - op report reviewed - grossly this may be Crohn's Disease. Appreciate surgical assistance. 3. acute kidney injury with oliguria - suspect sepsis-associated ATN - serial BMP, nephrology consultation if not improving with resuscitation and supportive care. 4. HTN - hold all BP meds. 5. h/o CAD - no ischemic symptoms at this time. 6. hyperlipidemia - hold statin. 7. DVT proph - heparin SC. 8. FEN - repeat BMP, lytes in am; fluid management per surgery/critical care. 9. asthma - controlled/not active at this time. 10. h/o DVT - noted. DVT proph, chemical means, to begin post-op if ok with gen surg. daughter updated by critical care MD and general surgery MD prior to his operation total critical care time this AM - about [address] [facility] stay due to: abnormal vital signs, inadequate po fluid intake, inadequate oral pain control, voiding difficulties, multiple IV medications needed
[2017-02-05] MEDS: METHYLPREDNISOLONE IV 15 MG in SYRINGE 0 ML IV SCH (22:30)
[2017-02-06] VITALS (20 sets, daily range): BP systolic 111–175; BP diastolic 62–87; PULSE 65–85; TEMP 36.4–36.7; O2SAT 91–97
[2017-02-06] MEDS: NORMOSOL R 1,000 ML IV SCH ×3 (00:22→18:25)
[2017-02-06] MEDS: ACETAMINOPHEN IV 1,000 MG in EMPTY BAG 0 ML IV SCH ×2 (02:21→09:04)
[2017-02-06] MEDS: MoRPHine SULFATE 4 MG/ML 1 ML CARP\\VIAL IV PRN (02:22)
[2017-02-06] MEDS ORDERED: FoLIC ACID INJ 1 MG in SYRINGE 9.8 ML IV ONE (03:00)
[2017-02-06] MEDS: HEPARIN SOD 5000 UNIT/0.5 ML CARP SQ SCH ×3 (05:48→21:54)
[2017-02-06 06:02] LABS: BASO % 0.1 %; BASO ABS # 0.01 K/uL (0-0.2); COMPLETE YES; HEMATOCRIT 34.7 % (42-52); IG% 0.3 %; LYMPH % 4.6 %; LYMPH ABS # 0.76 K/uL (1.2-3.4); MEAN CORPUSCULAR HEMOGLOBIN 28.2 pg (25-34); MEAN PLATELET VOLUME 9.3 fL (7.4-10.4); MONO % 4.4 %; NEUT % 90.6 %; PLATELET COUNT 197 K/uL (130-400); RED BLOOD COUNT 4.18 M/uL (4.7-6.1); WHITE BLOOD COUNT 16.35 K/uL (4.8-10.8)
[2017-02-06 06:43] LABS: BUN/CREATININE RATIO 16.9 (10-20); CALCIUM 7.7 mg/dl (8.5-10.1); CREATININE 1.7 mg/dl (0.60-1.40); MAGNESIUM 2.4 mg/dl (1.8-2.4); PHOSPHORUS 3.7 mg/dl (2.5-4.9); POTASSIUM 3.6 mmol/L (3.5-5.1)
[2017-02-06] MEDS: METHYLPREDNISOLONE IV 15 MG in SYRINGE 0 ML IV SCH ×2 (09:03→21:51)
[2017-02-06] MEDS: PANTOprazole INJ 40 MG in SYRINGE 0 ML IV SCH (09:03)
[2017-02-06] MEDS: POTASSIUM CHLR 10 MEQ / WTR 10 MEQ in PREMIXED WATER 100 ML IV SCH ×2 (11:05→11:43)
[2017-02-06] MEDS: CARVEDILOL 25 MG TAB PO SCH (11:05)
[2017-02-06] MEDS ORDERED: METOPROLOL TARTRATE 1 MG/ML VIAL IV. SCH (12:00)
[2017-02-06] MEDS: VANCOMYCIN INJ 1,500 MG in SODIUM CHLORIDE 0.9% 500ML 500 ML IV SCH ×2 (12:18→13:51)
--- NOTE | 2017-02-06 12:58 | Critical Care Progress Note ---
Critical Care Progress Note Date of Service Feb 06, 2017. ICU Day ICU Day Number: [address] Henning Subjective NO acute events overnight. He denies abdominal pain, n/v , fevers, chills. Objective GENERAL: alert, well no distress, non-toxic EYE EXAM: normal conjunctiva, PERRL and EOM's grossly intact NECK: supple, no nuchal rigidity, no adenopathy, non-tender LUNGS: Clear to auscultation. Normal chest wall mechanics HEART: no murmurs, S1 normal and S2 normal ABDOMEN TTP at incision, bandage in place no masses, no rebound or guarding. SKIN: no rashes and no bruising UPPER EXTREMITIES: upper extremities are grossly normal. LOWER EXTREMITIES: No pitting edema. NEURO EXAM: Normal sensorium, cranial nerves II-XII grossly intact, normal speech, no gross weakness of arms, no gross weakness of legs. Current SOFA Score SOFA Score Response (Comments) Value SaO2 / FIO2 221 - 301 1 Platelets (x10) < 150 1 Bilirubin (mg/dL) < 1.2 0 [place] Coma Score 15 0 Level of Hypotension No Hypotension 0 Creatinine (mg/dL) 1.2 - 1.9 1 Total 3 Assessment & Plan 67 yo M w/ hx of Diverticulitis complicated by bowel perforation admitted with severe sepsis in the setting of perforation [employer] TOOL/Neuro: GCS:15 Pain control: Tylenol q8 IV prn Respiratory: -Saturating well on 4 L NC -Encourage Incentive Spirometry Cardiovascular: Hx of ID s/p PTCA stenting, HTN, Hypotension CV drips: Not on vasoactive medications ECHO: Echo dated 02/05/17: Normal LV systolic function. LVEF 50-55% Normal LV size and wall thickness Normal RV size and function Fluids/Renal: MARK Cr improved with IV fluid IV Fluids: Fluids from intravenous medications Net Urine: Increased output today, aching at least half mL per kilo per hour Khan: Present GI/Nutrition: Diverticulitis of distal small bowel, with abscess formation with perforation s/p Small bowel resection progressing well Feeding: Start Clear liquid diet Prophylaxis: On PPI Endocrine: Last 24 hour glucose: Ranging 110's to 120's Hematology: Hemoglobin 11.8 DVT prophylaxis: Heparin 5000 3 times a day Infectious Disease/Immunology: Tmax: 36.5 CV Lines (date): Antimicrobials: day 2 Vancomycin Ertapenem Caspofungin Blood cx pending Fungal cx pending MRSA swab neg Cultures: Blood: No growth Disposition: Patient stable for transfer to floor Resident Physician Supervision Note: Dr. Roxanne Ann was resident physician during care of patient. I separately evaluated patient and did history and exam. I discussed the case with the resident and generally agree with the findings and plan. Significant improvement. Pathology pending, on steroids for possible crohns disease. D/W Dr. Garcia. Documented By: Bj Henning DO Consults & Procedures Consultants: N/A Procedures: Ex Lap, Small bowel resection Data Medications: Current Inpatient Medications Medications (Trade) Dose Ordered Sig/Keenan Route Start Time Stop Time Status Last Admin Dose Admin Ondansetron HCl (Zofran Inj) 4 mg Q6H PRN IV 02/04/17 15:45 03/06/17 15:44 Sertraline HCl (Zoloft Tab) 50 mg HS PO 02/04/17 21:00 03/06/17 20:59 02/04/17 21:24 50 MG Ertapenem 1 gm/ Sodium Chloride 50 ml @ 120 mls/hr Q24H IV 02/05/17 14:00 02/15/17 13:59 02/05/17 13:36 120 MLS/HR Norepinephrine Bitartrate 8 mg/ Dextrose 508 ml @ 0 mls/hr Q0M PRN IV 02/05/17 11:42 03/07/17 11:41 Pantoprazole Sodium 40 mg/ Syringe 10 ml @ 5 mls/min DAILY IV 02/06/17 09:00 03/08/17 08:59 02/06/17 09:03 5 MLS/MIN Vancomycin HCl (Consult) 1 ea UD PRN N/A 02/05/17 12:15 03/07/17 12:14 Caspofungin 50 mg/ Sodium Chloride 260 ml @ 250 mls/hr Q24H IV 02/06/17 14:00 03/08/17 13:59 Acetaminophen 100 ml @ 400 mls/hr Q8H PRN IV 02/06/17 18:00 03/08/17 17:59 Morphine Sulfate (MoRPHine SULFATE INJ) 4 mg Q1H PRN IV 02/05/17 17:00 02/19/17 16:59 02/06/17 02:22 4 MG Parenteral Electrolyte Solution 1,000 ml @ 125 mls/hr Q8H IV 02/05/17 17:30 03/07/17 16:59 02/06/17 09:03 125 MLS/HR Heparin Sodium (Porcine) (Heparin Sq 5000 Unit/0.5ml) 5,000 unit Q8 SQ 02/05/17 22:00 03/08/17 21:59 02/06/17 05:48 5,000 UNIT Methylprednisolone Sodium Succinate 15 mg/Syringe 0.375 ml @ 1.5 mls/min BID@0900,2100 IV 02/05/17 21:00 02/10/17 09:01 02/06/17 09:03 1.5 MLS/MIN Folic Acid 1 mg/ Syringe 10 ml @ 5 mls/min HS IV 02/06/17 21:00 03/08/17 20:59 Carvedilol (Coreg Tab) 25 mg DAILY PO 02/06/17 10:30 03/08/17 10:29 02/06/17 11:05 25 MG Vancomycin HCl 1500 mg/Sodium Chloride 530 ml @ 200 mls/hr TODAY@1100 IV 02/06/17 11:00 02/06/17 16:00 Vancomycin HCl 1500 mg/Sodium Chloride 530 ml @ 200 mls/hr Q18H IV 02/07/17 06:00 02/17/17 05:59 Vital Signs: Date Time Temp Pulse Resp B/P (MAP) Pulse Ox O2 Delivery O2 Flow Rate FiO2 02/06/17 11:20 36.4 80 22 96 4.0 02/06/17 10:00 74 12 146/70 (95) 95 150/80 (103) 02/06/17 08:00 Nasal Cannula 4.0 02/06/17 08:00 36.4 81 20 156/79 (104) 95 02/06/17 06:00 78 16 143/72 (95) 94 02/06/17 06:00 78 16 (98) 94 143/72 02/06/17 05:00 80 10 141/67 (79) 94 132/75 02/06/17 04:00 83 13 123/66 (104) 93 137/76 02/06/17 04:00 36.5 83 13 123/66 (85) 93 02/06/17 04:00 Nasal Cannula 4.0 02/06/17 03:59 85 11 (94) 92 128/73 8/5/17 03:30 85 9 122/62 (82) 92 117/72 02/06/17 03:27 85 11 123/65 (90) 91 122/70 02/06/17 03:00 82 11 123/65 (78) 92 111/68 02/06/17 02:59 84 11 (83) 92 113/66 02/06/17 02:00 75 20 157/77 (99) 94 153/85 02/06/17 02:00 75 20 157/77 (103) 94 02/06/17 01:59 75 20 (114) 94 158/87 02/06/17 01:30 70 16 129/86 (100) 94 02/06/17 01:00 70 16 145/77 (99) 95 02/06/17 01:00 70 16 145/77 (89) 95 150/79 02/06/17 00:30 65 15 141/75 (97) 94 02/06/17 00:00 67 17 134/64 (87) 94 02/06/17 00:00 36.7 67 17 134/64 (93) 94 142/77 02/05/17 23:59 Nasal Cannula 4.0 02/05/17 22:00 65 15 118/58 (78) 96 136/71 (92) 02/05/17 21:30 64 13 103/67 (79) 97 02/05/17 21:00 63 13 108/56 (73) 98 126/66 (86) 02/05/17 20:30 69 11 109/57 (74) 96 02/05/17 20:00 36.4 73 12 116/57 (76) 96 131/69 (89) 02/05/17 20:00 Nasal Cannula 4.0 02/05/17 19:00 63 14 97/51 (66) 96 Nasal Cannula 4.0 02/05/17 18:00 36.8 60 17 115/54 (74) 95 Nasal Cannula 4.0 101/45 (63) 02/05/17 17:50 36.6 62 20 106/52 98 Nasal Cannula 4 02/05/17 17:47 61 15 02/05/17 17:47 61 15 95 02/05/17 17:46 106/52 02/05/17 17:42 61 16 95 02/05/17 17:42 61 16 8/4/17 17:41 100/51 02/05/17 17:37 68 14 02/05/17 17:37 68 14 95 02/05/17 17:36 115/51 02/05/17 17:32 71 19 98 02/05/17 17:32 69 19 02/05/17 17:31 99/47 02/05/17 17:27 62 17 02/05/17 17:27 62 17 98 02/05/17 17:25 112/54 02/05/17 17:22 68 16 02/05/17 17:22 66 16 100 02/05/17 17:21 92/58 02/05/17 17:20 64 18 98 02/05/17 17:20 64 18 02/05/17 17:16 116/45 02/05/17 17:15 67 19 100 02/05/17 17:15 69 19 02/05/17 17:10 36.2 70 20 111/42 98 Mask 15 02/05/17 17:10 65 17 111/42 97 02/05/17 17:10 65 17 02/05/17 16:00 95 Nasal Cannula 4.0 02/05/17 14:00 36.8 62 18 111/60 (77) 97 02/05/17 12:00 Room Air 02/05/17 12:00 36.8 62 18 125/62 (83) 100 Room Air Laboratory Results: Last 24 Hours Test 02/05/17 12:23 02/05/17 12:24 02/05/17 12:29 02/05/17 13:00 Sodium Level 136 mmol/L Potassium Level 3.6 mmol/L Chloride Level 104 mmol/L Carbon Dioxide Level 26 mmol/L Anion Gap 6.0 mmol/L Blood Urea Nitrogen 30 mg/dl Creatinine 3.00 mg/dl Est Creatinine Clear Calc Drug Dose 30.3 ml/min Estimated GFR () 23.8 Estimated GFR (Non- 20.5 BUN/Creatinine Ratio 10.1 Random Glucose 145 mg/dl Calcium Level 8.1 mg/dl Procalcitonin 13.01 ng/ml Random Cortisol 34.66 mcg/dl White Blood Count 16.19 K/uL Red Blood Count 3.80 M/uL Hemoglobin 10.7 g/dL Hematocrit 31.9 % Mean Corpuscular Volume 83.9 fL Mean Corpuscular Hemoglobin 28.2 pg Mean Corpuscular Hemoglobin Concent 33.5 g/dl Platelet Count 178 K/uL Mean Platelet Volume 8.9 fL Neutrophils (%) (Auto) 81.0 % Lymphocytes (%) (Auto) 10.1 % Monocytes (%) (Auto) 7.9 % Eosinophils (%) (Auto) 0.4 % Basophils (%) (Auto) 0.1 % Neutrophils # (Auto) 13.11 K/uL Lymphocytes # (Auto) 1.63 K/uL Monocytes # (Auto) 1.28 K/uL Eosinophils # (Auto) 0.07 K/uL Basophils # (Auto) 0.02 K/uL RDW Standard Deviation 48.3 fL RDW Coefficient of Variation 15.6 % Immature Granulocyte % (Auto) 0.5 % Immature Granulocyte # (Auto) 0.08 K/uL Venous Blood pH 7.27 Venous Blood Partial Pressure CO2 52 mmHg Venous Blood Partial Pressure O2 20 mmHg Venous Blood HCO3 23 mmol/L Venous Blood Oxygen Saturation < 60.0 % Venous Blood Base Excess -3.9 mEq/L Lactic Acid Level 1.3 mmol/L Prothrombin Time 12.1 SECONDS Prothromb Time International Ratio 1.1 Activated Partial Thromboplast Time 34.6 SECONDS Partial Thromboplastin Ratio 1.3 Ionized Calcium 1.07 mmol/l Thyroid Stimulating Hormone (TSH) 1.410 uIu/ml Free Thyroxine 1.14 ng/dl Free Triiodothyronine 2.84 pg/ml Urine Random Sodium 21 mEq/L Urine Random Potassium 54.3 mEq/L Urine Random Chloride 45 mEq/L Test 02/05/17 18:05 02/05/17 18:46 02/06/17 00:39 02/06/17 05:14 Bedside Glucose 113 mg/dl 113 mg/dl White Blood Count 16.35 K/uL Red Blood Count 4.18 M/uL Hemoglobin 11.8 g/dL Hematocrit 34.7 % Mean Corpuscular Volume 83.0 fL Mean Corpuscular Hemoglobin 28.2 pg Mean Corpuscular Hemoglobin Concent 34.0 g/dl Platelet Count 197 K/uL Mean Platelet Volume 9.3 fL Neutrophils (%) (Auto) 90.6 % Lymphocytes (%) (Auto) 4.6 % Monocytes (%) (Auto) 4.4 % Eosinophils (%) (Auto) 0.0 % Basophils (%) (Auto) 0.1 % Neutrophils # (Auto) 14.81 K/uL Lymphocytes # (Auto) 0.76 K/uL Monocytes # (Auto) 0.72 K/uL Eosinophils # (Auto) 0.00 K/uL Basophils # (Auto) 0.01 K/uL RDW Standard Deviation 46.7 fL RDW Coefficient of Variation 15.3 % Immature Granulocyte % (Auto) 0.3 % Immature Granulocyte # (Auto) 0.05 K/uL Sodium Level 138 mmol/L Potassium Level 3.6 mmol/L Chloride Level 106 mmol/L Carbon Dioxide Level 21 mmol/L Anion Gap 11.0 mmol/L Blood Urea Nitrogen 29 mg/dl Creatinine 1.70 mg/dl Est Creatinine Clear Calc Drug Dose 54.5 ml/min Estimated GFR () 47.3 Estimated GFR (Non- 40.8 BUN/Creatinine Ratio 16.9 Random Glucose 123 mg/dl Calcium Level 7.7 mg/dl Phosphorus Level 3.7 mg/dl Magnesium Level 2.4 mg/dl Random Vancomycin Level 13.3 mcg/ml Test 02/06/17 05:57 Bedside Glucose 117 mg/dl Resident Tracking Resident Involvement: Resident Care Provided Care Provided: Adult Hospital Medicine
--- NOTE | 2017-02-06 15:00 | Surgery Progress Note ---
Surgery Progress Note Date of Service Feb 06, 2017. Subjective Post OP Day: 1 + feeling well doing much better than yesterday. pain control adequate. Objective Vital Signs: Date Time Temp Pulse Resp B/P (MAP) Pulse Ox O2 Delivery O2 Flow Rate FiO2 02/06/17 11:30 36.4 73 20 149/79 (102) 95 Room Air 02/06/17 11:30 Room Air 02/06/17 11:20 36.4 80 22 96 4.0 02/06/17 10:00 74 12 146/70 (95) 95 150/80 (103) 02/06/17 08:00 Nasal Cannula 4.0 02/06/17 08:00 36.4 81 20 156/79 (104) 95 02/06/17 06:00 78 16 143/72 (95) 94 02/06/17 06:00 78 16 (98) 94 143/72 02/06/17 05:00 80 10 141/67 (79) 94 132/75 02/06/17 04:00 83 13 123/66 (104) 93 137/76 02/06/17 04:00 36.5 83 13 123/66 (85) 93 02/06/17 04:00 Nasal Cannula 4.0 02/06/17 03:59 85 11 (94) 92 128/73 02/06/17 03:30 85 9 122/62 (82) 92 117/72 02/06/17 03:27 85 11 123/65 (90) 91 122/70 02/06/17 03:00 82 11 123/65 (78) 92 111/68 02/06/17 02:59 84 11 (83) 92 113/66 02/06/17 02:00 75 20 157/77 (99) 94 153/85 02/06/17 02:00 75 20 157/77 (103) 94 02/06/17 01:59 75 20 (114) 94 158/87 02/06/17 01:30 70 16 129/86 (100) 94 02/06/17 01:00 70 16 145/77 (99) 95 02/06/17 01:00 70 16 145/77 (89) 95 150/79 02/06/17 00:30 65 15 141/75 (97) 94 02/06/17 00:00 67 17 134/64 (87) 94 02/06/17 00:00 36.7 67 17 134/64 (93) 94 142/77 02/05/17 23:59 Nasal Cannula 4.0 02/05/17 22:00 65 15 118/58 (78) 96 136/71 (92) 02/05/17 21:30 64 13 103/67 (79) 97 02/05/17 21:00 63 13 108/56 (73) 98 126/66 (86) 02/05/17 20:30 69 11 109/57 (74) 96 02/05/17 20:00 36.4 73 12 116/57 (76) 96 131/69 (89) 02/05/17 20:00 Nasal Cannula 4.0 02/05/17 19:00 63 14 97/51 (66) 96 Nasal Cannula 4.0 02/05/17 18:00 36.8 60 17 115/54 (74) 95 Nasal Cannula 4.0 101/45 (63) 02/05/17 17:50 36.6 62 20 106/52 98 Nasal Cannula 4 02/05/17 17:47 61 15 02/05/17 17:47 61 15 95 02/05/17 17:46 106/52 02/05/17 17:42 61 16 95 02/05/17 17:42 61 16 02/05/17 17:41 100/51 02/05/17 17:37 68 14 02/05/17 17:37 68 14 95 02/05/17 17:36 115/51 02/05/17 17:32 71 19 98 02/05/17 17:32 69 19 02/05/17 17:31 99/47 02/05/17 17:27 62 17 02/05/17 17:27 62 17 98 02/05/17 17:25 112/54 02/05/17 17:22 68 16 02/05/17 17:22 66 16 100 02/05/17 17:21 92/58 02/05/17 17:20 64 18 98 02/05/17 17:20 64 18 02/05/17 17:16 116/45 02/05/17 17:15 67 19 100 02/05/17 17:15 69 19 02/05/17 17:10 36.2 70 20 111/42 98 Mask 15 8/4/17 17:10 65 17 111/42 97 02/05/17 17:10 65 17 02/05/17 16:00 95 Nasal Cannula 4.0 General Appearance: no apparent distress Respiratory/Chest: no respiratory distress, no accessory muscle use Abdomen: non distended, soft Incision(s): clean, dry, intact Laboratory Results: Results Past 24 Hours Test 02/05/17 18:05 02/05/17 18:46 02/06/17 00:39 02/06/17 05:14 Range/Units Bedside Glucose 113 113 70-99 mg/dl White Blood Count 16.35 4.8-10.8 K/uL Red Blood Count 4.18 4.7-6.1 M/uL Hemoglobin 11.8 14.0-18.0 g/dL Hematocrit 34.7 42-52 % Mean Corpuscular Volume 83.0 80-100 fL Mean Corpuscular Hemoglobin 28.2 25-34 pg Mean Corpuscular Hemoglobin Concent 34.0 32-36 g/dl Platelet Count 197 130-400 K/uL Mean Platelet Volume 9.3 7.4-10.4 fL Neutrophils (%) (Auto) 90.6 % Lymphocytes (%) (Auto) 4.6 % Monocytes (%) (Auto) 4.4 % Eosinophils (%) (Auto) 0.0 % Basophils (%) (Auto) 0.1 % Neutrophils # (Auto) 14.81 1.4-6.5 K/uL Lymphocytes # (Auto) 0.76 1.2-3.4 K/uL Monocytes # (Auto) 0.72 0.11-0.59 K/uL Eosinophils # (Auto) 0.00 0-0.5 K/uL Basophils # (Auto) 0.01 0-0.2 K/uL RDW Standard Deviation 46.7 36.4-46.3 fL RDW Coefficient of Variation 15.3 11.5-14.5 % Immature Granulocyte % (Auto) 0.3 % Immature Granulocyte # (Auto) 0.05 0.00-0.02 K/uL Sodium Level 138 136-145 mmol/L Potassium Level 3.6 3.5-5.1 mmol/L Chloride Level 106 98-107 mmol/L Carbon Dioxide Level 21 21-32 mmol/L Anion Gap 11.0 3-11 mmol/L Blood Urea Nitrogen 29 7-18 mg/dl Creatinine 1.70 0.60-1.40 mg/dl Est Creatinine Clear Calc Drug Dose 54.5 ml/min Estimated GFR () 47.3 Estimated GFR (Non- 40.8 BUN/Creatinine Ratio 16.9 10-20 Random Glucose 123 70-99 mg/dl Calcium Level 7.7 8.5-10.1 mg/dl Phosphorus Level 3.7 2.5-4.9 mg/dl Magnesium Level 2.4 1.8-2.4 mg/dl Random Vancomycin Level 13.3 mcg/ml Test 02/06/17 05:57 Range/Units Bedside Glucose 117 70-99 mg/dl Microbiology Results 02/05/17 Fungal Smear, Received Pending 02/05/17 Fungal Culture, Received Pending 02/05/17 Gram Stain - Final, Resulted 02/05/17 Bacterial Culture - Preliminary, Resulted PIN-POINT GROWTH PRESENT, REINCUBATING. Assessment & Plan POD 1 from small bowel resection looks much better today urine OP improved BP/HR improved labs all improved will start clears. increase activity
[2017-02-06] MEDS: CASPOFUNGIN INJ 50 MG in SODIUM CHLORIDE 0.9% 250ML 250 ML IV SCH (17:32)
[2017-02-06] MEDS ORDERED: ACETAMINOPHEN IV 100 ML IV PRN (18:00)
--- NOTE | 2017-02-06 20:06 | Progress Note ---
Subjective Date of Service: Feb 06, 2017. Subjective Pt evaluation today including: conversation w/ patient, conversation w/ family (daughter by phone), physical exam, chart review, lab review, conversation w/ websphere commerce consultant (critical care), review of inpatient medication list Pain: mild abdominal PO Intake: npo Voiding: walker catheter in place stable BPs overnight he reports feeling better than yesterday denies cp, sob, orthopnea no flatus yet tele stable UOP much improved Problem List Medical Problems: (1) MARK (acute kidney injury) Status: Acute (2) Cellulitis of left lower extremity Status: Acute (3) Diverticulitis Status: Acute (4) Perforated abdominal viscus Status: Acute (5) Severe sepsis Status: Acute Review of Systems Constitutional: No fever, No chills Respiratory: No cough Cardiac: No chest pain Abdomen: + see HPI, + pain Objective Vital Signs Date Time Temp Pulse Resp B/P (MAP) Pulse Ox O2 Delivery O2 Flow Rate FiO2 02/06/17 15:30 97 Room Air 02/06/17 15:18 36.4 66 18 133/77 (95) 97 Room Air 02/06/17 11:30 36.4 73 20 149/79 (102) 95 Room Air 02/06/17 11:30 Room Air 02/06/17 11:20 36.4 80 22 96 4.0 02/06/17 10:00 74 12 146/70 (95) 95 150/80 (103) 02/06/17 08:00 Nasal Cannula 4.0 02/06/17 08:00 36.4 81 20 156/79 (104) 95 02/06/17 06:00 78 16 143/72 (95) 94 02/06/17 06:00 78 16 (98) 94 143/72 02/06/17 05:00 80 10 141/67 (79) 94 132/75 02/06/17 04:00 83 13 123/66 (104) 93 137/76 02/06/17 04:00 36.5 83 13 123/66 (85) 93 02/06/17 04:00 Nasal Cannula 4.0 02/06/17 03:59 85 11 (94) 92 128/73 02/06/17 03:30 85 9 122/62 (82) 92 117/72 02/06/17 03:27 85 11 123/65 (90) 91 122/70 02/06/17 03:00 82 11 123/65 (78) 92 111/68 02/06/17 02:59 84 11 (83) 92 113/66 02/06/17 02:00 75 20 157/77 (99) 94 153/85 02/06/17 02:00 75 20 157/77 (103) 94 02/06/17 01:59 75 20 (114) 94 158/87 02/06/17 01:30 70 16 129/86 (100) 94 02/06/17 01:00 70 16 145/77 (99) 95 02/06/17 01:00 70 16 145/77 (89) 95 150/79 02/06/17 00:30 65 15 141/75 (97) 94 02/06/17 00:00 67 17 134/64 (87) 94 02/06/17 00:00 36.7 67 17 134/64 (93) 94 142/77 02/05/17 23:59 Nasal Cannula 4.0 02/05/17 22:00 65 15 118/58 (78) 96 136/71 (92) 02/05/17 21:30 64 13 103/67 (79) 97 02/05/17 21:00 63 13 108/56 (73) 98 126/66 (86) 02/05/17 20:30 69 11 109/57 (74) 96 02/05/17 20:00 36.4 73 12 116/57 (76) 96 131/69 (89) 02/05/17 20:00 Nasal Cannula 4.0 Physical Exam General Appearance: no apparent distress, + pertinent finding (looks much better than yesterday) ENT: pharynx normal (MMM) Neck: no JVD Respiratory/Chest: lungs clear, no respiratory distress, no accessory muscle use Cardiovascular: regular rate, rhythm, no gallop, no murmur Abdomen: no organomegaly, + abnormal bowel sounds (decreased), + distended, + tenderness (mild incisional tenderness) Extremities: no pedal edema Neurologic/Psychiatric: alert, oriented x 3 Laboratory Results Last 24 Hours Test 02/06/17 00:39 02/06/17 05:14 02/06/17 05:57 Bedside Glucose 113 mg/dl 117 mg/dl White Blood Count 16.35 K/uL Red Blood Count 4.18 M/uL Hemoglobin 11.8 g/dL Hematocrit 34.7 % Mean Corpuscular Volume 83.0 fL Mean Corpuscular Hemoglobin 28.2 pg Mean Corpuscular Hemoglobin Concent 34.0 g/dl Platelet Count 197 K/uL Mean Platelet Volume 9.3 fL Neutrophils (%) (Auto) 90.6 % Lymphocytes (%) (Auto) 4.6 % Monocytes (%) (Auto) 4.4 % Eosinophils (%) (Auto) 0.0 % Basophils (%) (Auto) 0.1 % Neutrophils # (Auto) 14.81 K/uL Lymphocytes # (Auto) 0.76 K/uL Monocytes # (Auto) 0.72 K/uL Eosinophils # (Auto) 0.00 K/uL Basophils # (Auto) 0.01 K/uL RDW Standard Deviation 46.7 fL RDW Coefficient of Variation 15.3 % Immature Granulocyte % (Auto) 0.3 % Immature Granulocyte # (Auto) 0.05 K/uL Sodium Level 138 mmol/L Potassium Level 3.6 mmol/L Chloride Level 106 mmol/L Carbon Dioxide Level 21 mmol/L Anion Gap 11.0 mmol/L Blood Urea Nitrogen 29 mg/dl Creatinine 1.70 mg/dl Est Creatinine Clear Calc Drug Dose 54.5 ml/min Estimated GFR () 47.3 Estimated GFR (Non- 40.8 BUN/Creatinine Ratio 16.9 Random Glucose 123 mg/dl Calcium Level 7.7 mg/dl Phosphorus Level 3.7 mg/dl Magnesium Level 2.4 mg/dl Random Vancomycin Level 13.3 mcg/ml Assessment and Plan 67yo male: 1. shock, 2nd to abdominal sepsis - resolved. 2. ileitis (?Crohn's) with contained perforation, s/p ex lap with ileal resection, POD#1 - doing well from surgical standpoint. Day #2 of ertapenem/vanco/caspofungin empirically until peritoneal fluid culture returns. Appreciate surgical assistance. 3. acute kidney injury with oliguria - suspect sepsis-associated ATN - improved; repeat BMP am. 4. HTN - resumed coreg. 5. h/o CAD - no ischemic symptoms at this time. 6. hyperlipidemia - hold statin. 7. DVT proph - heparin SC. 8. FEN - clear liquids per surgery, continue IVF, repeat BMP am. 9. asthma - controlled/not active at this time. 10. h/o DVT - noted. daughter updated by phone agree patient can leave ICU to surgical floor PT, OT consults Continued [facility] stay due to: inadequate po fluid intake, inadequate oral pain control, voiding difficulties, ambulation difficulties, multiple IV medications needed
[2017-02-06] MEDS: ERTAPENEM IV 1 GM in SODIUM CHLOR 0.9% AD-VAN 50ML 50 ML IV SCH (20:33)
[2017-02-06] MEDS: SERTRALINE HCL 50 MG TAB PO SCH (21:51)
[2017-02-06] MEDS: FoLIC ACID INJ 1 MG in SYRINGE 9.8 ML IV SCH (21:52)
[2017-02-07] VITALS (8 sets, daily range): BP systolic 127–171; BP diastolic 71–84; PULSE 67–92; TEMP 36.7; O2SAT 94–98
[2017-02-07] MEDS: HydrALAZINE HCL 20 MG/ML VIAL IV. PRN ×3 (00:27→23:29)
[2017-02-07] MEDS: NORMOSOL R 1,000 ML IV SCH ×2 (01:29→09:23)
[2017-02-07] MEDS: VANCOMYCIN INJ 1,500 MG in SODIUM CHLORIDE 0.9% 500ML 500 ML IV SCH (05:31)
[2017-02-07] MEDS: HEPARIN SOD 5000 UNIT/0.5 ML CARP SQ SCH ×3 (05:40→23:28)
[2017-02-07 06:26] LABS: BASO % 0.1 %; BASO ABS # 0.01 K/uL (0-0.2); COMPLETE YES; EOS % 0.1 %; HEMATOCRIT 36.7 % (42-52); LYMPH % 7.8 %; LYMPH ABS # 1.31 K/uL (1.2-3.4); MEAN CELL VOLUME 82.8 fL (80-100); MEAN CORPUSCULAR HGB CONC 33.8 g/dl (32-36); MEAN PLATELET VOLUME 9.1 fL (7.4-10.4); MONO % 6.8 %; NEUT % 84.2 %; PLATELET COUNT 263 K/uL (130-400); RED BLOOD COUNT 4.43 M/uL (4.7-6.1); WHITE BLOOD COUNT 16.81 K/uL (4.8-10.8)
[2017-02-07 07:00] LABS: BUN/CREATININE RATIO 19.7 (10-20); CALCIUM 8.5 mg/dl (8.5-10.1); CREATININE 1.3 mg/dl (0.60-1.40); POTASSIUM 3.8 mmol/L (3.5-5.1)
[2017-02-07] MEDS: CARVEDILOL 25 MG TAB PO SCH ×2 (07:49→21:51)
[2017-02-07] MEDS: PANTOprazole INJ 40 MG in SYRINGE 0 ML IV SCH (09:23)
[2017-02-07] MEDS: METHYLPREDNISOLONE IV 15 MG in SYRINGE 0 ML IV SCH ×2 (09:23→21:51)
--- NOTE | 2017-02-07 09:38 | Surgery Progress Note ---
Surgery Progress Note Date of Service Feb 07, 2017. Subjective Post OP Day: 2 + feeling well doing well. prior abdominal pain resolved. no bm yet. tolerating clears. Objective Vital Signs: Date Time Temp Pulse Resp B/P (MAP) Pulse Ox O2 Delivery O2 Flow Rate FiO2 02/07/17 07:46 36.7 91 20 155/80 (105) 97 Room Air 02/07/17 07:40 Room Air 02/07/17 03:45 92 161/84 (109) 02/07/17 00:15 Room Air 02/06/17 23:12 36.6 85 16 175/81 (112) 94 Room Air 02/06/17 15:30 97 Room Air 02/06/17 15:18 36.4 66 18 133/77 (95) 97 Room Air 02/06/17 11:30 36.4 73 20 149/79 (102) 95 Room Air 02/06/17 11:30 Room Air 02/06/17 11:20 36.4 80 22 96 4.0 02/06/17 10:00 74 12 146/70 (95) 95 150/80 (103) General Appearance: no apparent distress Respiratory/Chest: no respiratory distress, no accessory muscle use Abdomen: non tender, non distended, soft Incision(s): clean, dry, intact Laboratory Results: Results Past 24 Hours Test 02/07/17 06:01 Range/Units White Blood Count 16.81 4.8-10.8 K/uL Red Blood Count 4.43 4.7-6.1 M/uL Hemoglobin 12.4 14.0-18.0 g/dL Hematocrit 36.7 42-52 % Mean Corpuscular Volume 82.8 80-100 fL Mean Corpuscular Hemoglobin 28.0 25-34 pg Mean Corpuscular Hemoglobin Concent 33.8 32-36 g/dl Platelet Count 263 130-400 K/uL Mean Platelet Volume 9.1 7.4-10.4 fL Neutrophils (%) (Auto) 84.2 % Lymphocytes (%) (Auto) 7.8 % Monocytes (%) (Auto) 6.8 % Eosinophils (%) (Auto) 0.1 % Basophils (%) (Auto) 0.1 % Neutrophils # (Auto) 14.18 1.4-6.5 K/uL Lymphocytes # (Auto) 1.31 1.2-3.4 K/uL Monocytes # (Auto) 1.14 0.11-0.59 K/uL Eosinophils # (Auto) 0.01 0-0.5 K/uL Basophils # (Auto) 0.01 0-0.2 K/uL RDW Standard Deviation 46.1 36.4-46.3 fL RDW Coefficient of Variation 15.1 11.5-14.5 % Immature Granulocyte % (Auto) 1.0 % Immature Granulocyte # (Auto) 0.16 0.00-0.02 K/uL Sodium Level 138 136-145 mmol/L Potassium Level 3.8 3.5-5.1 mmol/L Chloride Level 105 98-107 mmol/L Carbon Dioxide Level 24 21-32 mmol/L Anion Gap 9.0 3-11 mmol/L Blood Urea Nitrogen 26 7-18 mg/dl Creatinine 1.30 0.60-1.40 mg/dl Est Creatinine Clear Calc Drug Dose 71.3 ml/min Estimated GFR () 65.4 Estimated GFR (Non- 56.5 BUN/Creatinine Ratio 19.7 10-20 Random Glucose 144 70-99 mg/dl Calcium Level 8.5 8.5-10.1 mg/dl Assessment & Plan 02/07/17 doing much better clinically will advance to full liquids awaiting bm wbc elevated but pt on steroids path pending. 02/06/17 POD 1 from small bowel resection looks much better today urine OP improved BP/HR improved labs all improved will start clears. increase activity POD 1 from small bowel resection looks much better today urine OP improved BP/HR improved labs all improved will start clears. increase activity
--- NOTE | 2017-02-07 12:26 | DIAGNOSTIC IMAGING REPORT ---
CHEST ONE VIEW PORTABLE HISTORY: Short of breath. eval for developing pulmonary edema COMPARISON: Chest 07/24/2013. FINDINGS: Low lung volumes. No pneumothorax. Stable blunting the right lateral costophrenic sulcus. No pleural effusions. The heart remains mildly enlarged. Mild central pulmonary vascular congestion without overt edema. No focal lung consolidations to suggest pneumonia. IMPRESSION: Cardiomegaly with mild central pulmonary vascular congestion without overt edema. Electronically signed by: Jian Denney M.D. 02/07/2017 12:24 PM Dictated Date/Time: 02/07/2017 12:23 PM
[2017-02-07] MEDS ORDERED: ALBUT/IPRATROP 3MG/0.5MG NEB 3 ML VIAL INH PRN (12:45)
[2017-02-07] MEDS ORDERED: FUROSEMIDE INJ 20 MG in SYRINGE 0 ML IV ONE (12:45)
[2017-02-07] MEDS: ALBUT/IPRATROP 3MG/0.5MG NEB 3 ML VIAL INH SCH ×3 (13:22→19:33)
--- NOTE | 2017-02-07 16:15 | Progress Note ---
Subjective Date of Service: Feb 07, 2017. Subjective Pt evaluation today including: conversation w/ patient, physical exam, chart review, lab review, review of studies (cxr), review of inpatient medication list Pain: scant abdominal discomfort; mainly just bloating PO Intake: tolerating diet thus far Voiding: walker catheter in place overnight the patient developed wheezing in the absence of cough he feels mildly dyspneic he states "I think it is my bronchitis" but typically has cough with such no flatus or bowel movement yet overall feeling MUCH better than previous Problem List Medical Problems: (1) MARK (acute kidney injury) Status: Acute (2) Cellulitis of left lower extremity Status: Acute (3) Diverticulitis Status: Acute (4) Perforated abdominal viscus Status: Acute (5) Severe sepsis Status: Acute Review of Systems Constitutional: No fever, No chills Respiratory: + wheezing, + dyspnea at rest, No cough, No sputum Cardiac: No chest pain Abdomen: No pain, No nausea, No vomiting, No diarrhea Objective Vital Signs Date Time Temp Pulse Resp B/P (MAP) Pulse Ox O2 Delivery O2 Flow Rate FiO2 02/07/17 15:29 36.7 68 18 127/71 (89) 98 Room Air 02/07/17 15:14 67 16 95 Room Air 02/07/17 13:22 68 16 95 Room Air 02/07/17 07:46 36.7 91 20 155/80 (105) 97 Room Air 02/07/17 07:40 Room Air 02/07/17 03:45 92 161/84 (109) 02/07/17 00:15 Room Air 02/06/17 23:12 36.6 85 16 175/81 (112) 94 Room Air Physical Exam General Appearance: + mild distress (tachypneic, audible wheezing, speech slightly pressured) ENT: pharynx normal (MMM) Neck: no JVD (nothing obvious/difficult to assess due to neck size) Respiratory/Chest: + respiratory distress, + wheezing (extensive b/l ) Cardiovascular: regular rate, rhythm, no gallop, no murmur Abdomen: non tender, no organomegaly, + abnormal bowel sounds (decreased), + distended, + pertinent finding (large dressing in place) Extremities: no pedal edema Neurologic/Psychiatric: alert, oriented x 3 Laboratory Results Last 24 Hours Test 02/07/17 06:01 White Blood Count 16.81 K/uL Red Blood Count 4.43 M/uL Hemoglobin 12.4 g/dL Hematocrit 36.7 % Mean Corpuscular Volume 82.8 fL Mean Corpuscular Hemoglobin 28.0 pg Mean Corpuscular Hemoglobin Concent 33.8 g/dl Platelet Count 263 K/uL Mean Platelet Volume 9.1 fL Neutrophils (%) (Auto) 84.2 % Lymphocytes (%) (Auto) 7.8 % Monocytes (%) (Auto) 6.8 % Eosinophils (%) (Auto) 0.1 % Basophils (%) (Auto) 0.1 % Neutrophils # (Auto) 14.18 K/uL Lymphocytes # (Auto) 1.31 K/uL Monocytes # (Auto) 1.14 K/uL Eosinophils # (Auto) 0.01 K/uL Basophils # (Auto) 0.01 K/uL RDW Standard Deviation 46.1 fL RDW Coefficient of Variation 15.1 % Immature Granulocyte % (Auto) 1.0 % Immature Granulocyte # (Auto) 0.16 K/uL Sodium Level 138 mmol/L Potassium Level 3.8 mmol/L Chloride Level 105 mmol/L Carbon Dioxide Level 24 mmol/L Anion Gap 9.0 mmol/L Blood Urea Nitrogen 26 mg/dl Creatinine 1.30 mg/dl Est Creatinine Clear Calc Drug Dose 71.3 ml/min Estimated GFR () 65.4 Estimated GFR (Non- 56.5 BUN/Creatinine Ratio 19.7 Random Glucose 144 mg/dl Calcium Level 8.5 mg/dl Assessment and Plan 67yo male: 1. shock, 2nd to abdominal sepsis - resolved. 2. ileitis (?Crohn's) with contained perforation, s/p ex lap with ileal resection, POD#2 - doing well from surgical standpoint. Day #3 of ertapenem/vanco/caspofungin empirically until peritoneal fluid culture returns. The culture thus far growing a GNR. Appreciate surgical assistance. 3. acute kidney injury with oliguria - suspect sepsis-associated ATN - resolved. 4. HTN - uncontrolled; resumed coreg but this was only once daily. Will increase to twice a day dosing. 5. h/o CAD - no ischemic symptoms at this time. 6. hyperlipidemia - hold statin. 7. DVT proph - heparin SC. 8. FEN - surgery again advanced diet today; lytes stable; d/c fluids (see below ). 9. asthma - with possible exacerbation - schedule nebs q6h. Pulmonary toilet. I think most of his wheezing may be "cardiac wheezing." (see below) The steroids he is currently on were begun in ICU for possible Crohn's. 10. h/o DVT - noted. 11. suspected acute diastolic CHF - echo this admission with EF 50-55%. thus likely diastolic in nature. stop fluids. lasix 20mg IV x 1 now. Better BP control. Follow UOP, weights, etc. repeat BMP, mag in am PT, OT consults appreciated Continued [facility] stay due to: inadequate po fluid intake, voiding difficulties, ambulation difficulties, multiple IV medications needed Discharge planning: uncertain
[2017-02-07] MEDS: ERTAPENEM IV 1 GM in SODIUM CHLOR 0.9% AD-VAN 50ML 50 ML IV SCH (16:26)
[2017-02-07] MEDS: CASPOFUNGIN INJ 50 MG in SODIUM CHLORIDE 0.9% 250ML 250 ML IV SCH (17:15)
[2017-02-07] MEDS: SERTRALINE HCL 50 MG TAB PO SCH (21:51)
[2017-02-07] MEDS: FoLIC ACID INJ 1 MG in SYRINGE 9.8 ML IV SCH (21:51)
[2017-02-07] MEDS ORDERED: VANCOMYCIN TROUGH SCH (23:30)
[2017-02-08] VITALS (9 sets, daily range): BP systolic 119–167; BP diastolic 68–85; PULSE 62–94; TEMP 36.3–36.9; O2SAT 92–96
[2017-02-08] MEDS: VANCOMYCIN INJ 1,500 MG in SODIUM CHLORIDE 0.9% 500ML 500 ML IV SCH (00:35)
--- NOTE | 2017-02-08 00:55 | Progress Note ---
Post ICU Progress Note Date & Time Feb 08, 2017 at 00:34 Vital Signs Vital Signs Past 12 Hours Date Time Temp Pulse Resp B/P (MAP) Pulse Ox O2 Delivery O2 Flow Rate FiO2 02/08/17 00:00 Room Air 02/07/17 22:50 36.7 71 20 171/84 (113) 98 Room Air 02/07/17 21:48 83 156/79 (104) 02/07/17 19:33 69 16 94 Room Air 02/07/17 15:40 Room Air 02/07/17 15:29 36.7 68 18 127/71 (89) 98 Room Air 02/07/17 15:14 67 16 95 Room Air 02/07/17 13:22 68 16 95 Room Air Notes Mental Status: alert / awake, participated in evaluation Nausea / Vomiting: adequately controlled Pain: adequately controlled Airway Patency, RR, SpO2: stable & adequate BP & HR: stable & adequate Jesi Davidson III is a 67yo male on February 04 for lower abdominal pain starting the day before that was updated by black diarrhea, mid back pain, headache and diaphoresis. Patient had a known history of diverticulitis. Patient underwent CT scan which demonstrated a focal perienteric inflammatory change with apparent extraluminal gas in the mesentery of the distal ileum located in the right anterior mid abdomen. In this general location it was no sign of lolita free intraperitoneal gas, significant diverticula, or inflammatory change. Patient was examined by Dr. Sixto Newton who felt that conservative treatment with antibiotics was first line. Patient was made nothing by mouth and was admitted to the MedSur unit. However, over the course of that evening into morning patient was noted to be hypotensive with systolic blood pressures in the 70s, decreased urinary output and increased creatinine. Dr. Figueroa, general surgery, at this time became involved and patient was consented for the operating room. There is suspicion of possible Crohn's. Patient underwent exploratory laparotomy with partial small bowel resection. Findings during the surgery were a contained small bowel perforation with diffuse mesenteric thickening/fat wrapping concerned with Crohn's disease. Patient return to the ICU for close monitoring, was placed on steroids for possible Crohn's disease and was made NPO. Patient was transferred from the ICU on postop day 1, February 06. Upon visiting the patient today, he is anxious about leaving. He feels that he has returned to his baseline and wishes to go home. Upon speaking with him, I get the general sense that this has more to do with his diet restriction. 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 He was in good spirits with me despite the irritants of his continued stay in the hospital. As of today's labs his acute kidney injury has resolved. He remains on clear liquids as he has had no flatulence or bowel movement. He has had return of bowel sounds and per medical record has been tolerating his diet. Patient with negative review of systems and no new acute findings on physical exam. Patient was saturating adequately on room air and appeared to be returning to his baseline of hypertension with recent blood pressure of 140's - 170's. He is afebrile and normal rhythm and rate. Patient is stable at this time. Consider outpatient follow up in 1 to 2 weeks after discharge: Dr. Krish Nagel Repeat imaging needed: Per general surgery Follow up cultures: Not indicated Reviewed progress notes, labs, and inpatient medication list Continue current management Additional recommendations: Not applicable No further critical care will sign off at this time; patient remains stable hemodynamically. Thank you for including us in the care of this patient and please feel free to reconsult as needed. Consults & Procedures Consultants: General surgery: Dr. Newton/ Dr. Figueroa Procedures: Ex Lap, Small bowel resection
[2017-02-08] MEDS: HydrALAZINE HCL 20 MG/ML VIAL IV. PRN (04:00)
[2017-02-08] MEDS: HEPARIN SOD 5000 UNIT/0.5 ML CARP SQ SCH ×3 (05:41→21:59)
[2017-02-08 07:06] LABS: BUN/CREATININE RATIO 26.1 (10-20); CREATININE 1.2 mg/dl (0.60-1.40); MAGNESIUM 2.1 mg/dl (1.8-2.4); POTASSIUM 3.5 mmol/L (3.5-5.1)
[2017-02-08] MEDS: ALBUT/IPRATROP 3MG/0.5MG NEB 3 ML VIAL INH SCH ×4 (07:12→20:00)
[2017-02-08] MEDS: METHYLPREDNISOLONE IV 15 MG in SYRINGE 0 ML IV SCH ×2 (08:32→21:55)
[2017-02-08] MEDS: PANTOprazole INJ 40 MG in SYRINGE 0 ML IV SCH (08:32)
[2017-02-08] MEDS: CARVEDILOL 25 MG TAB PO SCH ×2 (08:32→21:14)
--- NOTE | 2017-02-08 10:17 | Surgery Progress Note ---
Surgery Progress Note Date of Service Feb 08, 2017. Subjective Post OP Day: 4 + feeling well starting to get an appetite. denies pain. no nausea. no bm yet Objective Vital Signs: Date Time Temp Pulse Resp B/P (MAP) Pulse Ox O2 Delivery O2 Flow Rate FiO2 02/08/17 07:52 36.8 94 18 167/68 (101) 92 Room Air 02/08/17 07:50 Room Air 02/08/17 07:12 94 20 95 Room Air 02/08/17 03:58 88 164/85 (111) 02/08/17 00:00 Room Air 02/07/17 22:50 36.7 71 20 171/84 (113) 98 Room Air 02/07/17 21:48 83 156/79 (104) 02/07/17 19:33 69 16 94 Room Air 02/07/17 15:40 Room Air 02/07/17 15:29 36.7 68 18 127/71 (89) 98 Room Air 02/07/17 15:14 67 16 95 Room Air 02/07/17 13:22 68 16 95 Room Air General Appearance: no apparent distress Respiratory/Chest: no respiratory distress, no accessory muscle use Abdomen: non tender, non distended, soft Incision(s): clean, dry, intact, no erythema Laboratory Results: Results Past 24 Hours Test 02/07/17 23:47 02/08/17 06:05 Range/Units Vancomycin Level Trough 14.1 SEE COMMENT mcg/ml Sodium Level 139 136-145 mmol/L Potassium Level 3.5 3.5-5.1 mmol/L Chloride Level 105 98-107 mmol/L Carbon Dioxide Level 27 21-32 mmol/L Anion Gap 7.0 3-11 mmol/L Blood Urea Nitrogen 31 7-18 mg/dl Creatinine 1.20 0.60-1.40 mg/dl Est Creatinine Clear Calc Drug Dose 77.2 ml/min Estimated GFR () 72.1 Estimated GFR (Non- 62.2 BUN/Creatinine Ratio 26.1 10-20 Random Glucose 138 70-99 mg/dl Calcium Level 9.0 8.5-10.1 mg/dl Magnesium Level 2.1 1.8-2.4 mg/dl Assessment & Plan 02/08/17 doing well will slowly advance diet path pending. so far no post op issues. 02/07/17 doing much better clinically will advance to full liquids awaiting bm wbc elevated but pt on steroids path pending. 02/06/17 POD 1 from small bowel resection looks much better today urine OP improved BP/HR improved labs all improved will start clears. increase activity 02/07/17 doing much better clinically will advance to full liquids awaiting bm wbc elevated but pt on steroids path pending. 02/06/17 POD 1 from small bowel resection looks much better today urine OP improved BP/HR improved labs all improved will start clears. increase activity
[2017-02-08] MEDS: ERTAPENEM IV 1 GM in SODIUM CHLOR 0.9% AD-VAN 50ML 50 ML IV SCH (14:00)
--- NOTE | 2017-02-08 14:46 | Medical Student: [facility] ---
Med Student History & Physical Date & Time of Service: Feb 08, 2017 at 14:21 Chief Complaint: Diverticulitis Primary Care Physician: Krish Nagel M.D. History of Present Illness Source: patient Jesi is a 67 yo male with a history notable for asthma, prior UT, prior DVT and HTN who presented to the hospital last week for abdominal pain and loose stools. The pain is described as being diffuse across the lower abdomen and is constant. He denies n/v and constipation, denies blood in stool, denies watery stools, denies fevers, chills. When he was admitted, his WBC was 21.55 and he has been afebrile. Culture of peritoneal fluid grew Klebsiella. Past Medical/Surgical History Medical Problems: (1) MARK (acute kidney injury) Status: Acute (2) Bronchitis Status: Resolved (3) Cellulitis of left lower extremity Status: Acute (4) Cellulitis of left lower leg Status: Resolved (5) Diverticulitis Status: Acute (6) DVT (deep venous thrombosis) Status: Resolved (7) Heart attack Status: Resolved (8) Perforated abdominal viscus Status: Acute (9) Severe sepsis Status: Acute Surgical Problems: (1) H/O heart artery stent Status: Resolved Family History Diabetes Father: cancer (pancreatic) Mother: COPD Social History Smoking Status: Former Smoker Smokeless Tobacco Use: No Alcohol Use: none Drug Use: none Marital Status: single, Housing status: lives alone Occupational Status: employed Immunizations History of Influenza Vaccine: Unknown History of Tetanus Vaccine?: Unknown History of Pneumococcal: Unknown History of Hepatitis B Vaccine: Unknown Allergies Coded Allergies: Penicillins (Verified Allergy, Unknown, UNKNOWN, 02/04/17) Medications Aspirin (Aspirin Ec), 81 MG PO HS Atorvastatin (Lipitor), 80 MG PO HS Carvedilol (Carvedilol), 1 TAB PO HS Ferrous Sulfate (Kp Ferrous Sulfate), 1 TAB PO BID Folic Acid (Folvite), 1 MG PO HS Hydrochlorothiazide (Hydrochlorothiazide), 25 MG PO HS Lisinopril (Zestril), 40 MG PO HS Sertraline (Zoloft), 50 MG PO HS Review of Systems Constitutional: No fever, No chills, No sweats, No weight loss, No weakness, No fatigue, No problem reported Eyes: No worsening of vision, No eye pain, No redness, No discharge, No diplopia, No problem reported ENT: No hearing loss, No unusual epistaxis, No nasal symptoms, No sore throat, No tinnitus, No trouble swallowing, No problem reported Respiratory: + wheezing, No cough, No sputum, No shortness of breath, No dyspnea on exertion, No dyspnea at rest, No hemoptysis Cardiovascular: No chest pain, No orthopnea, No edema, No claudication, No palpitations, No problem reported Abdomen: + pain, + diarrhea, No nausea, No vomiting, No constipation, No GI bleeding Musculoskeletal: No joint pain, No muscle pain, No swelling, No calf pain, No problem reported Genitourinary - Male: No hematuria, No dysuria, No urinary frequency, No urinary urgency, No urinary hesitancy, No urinary retention, No urinary incontinence, No problem reported Neurologic: No memory loss, No paralysis, No weakness, No numbness/tingling, No vertigo, No balance problems, No problem reported Psychiatric: No depression symptoms, No anxiety, No insomnia, No problem reported Endocrine: No fatigue, No excessive thirst, No excessive urination, No problem reported Hematologic / Lymphatic: No abnormal bleeding/bruising, No clotting problems, No night sweats, No problem reported Physical Exam Vital Signs (24 Hours) Date Time Temp Pulse Resp B/P (MAP) Pulse Ox O2 Delivery O2 Flow Rate FiO2 02/08/17 11:09 67 16 96 Room Air 02/08/17 07:52 36.8 94 18 167/68 (101) 92 Room Air 02/08/17 07:50 Room Air 02/08/17 07:12 94 20 95 Room Air 02/08/17 03:58 88 164/85 (111) 02/08/17 00:00 Room Air 02/07/17 22:50 36.7 71 20 171/84 (113) 98 Room Air 02/07/17 21:48 83 156/79 (104) 02/07/17 19:33 69 16 94 Room Air 02/07/17 15:40 Room Air 02/07/17 15:29 36.7 68 18 127/71 (89) 98 Room Air 02/07/17 15:14 67 16 95 Room Air General Appearance: WD/WN, no apparent distress Head: normocephalic, atraumatic Eyes: sclerae normal ENT: hearing grossly normal Neck: supple, no JVD, no carotid bruits, trachea midline Respiratory/Chest: chest non-tender, lungs clear, no respiratory distress, no accessory muscle use, + wheezing (diffuse expiratory wheezing, loudest in right apex) Cardiovascular: regular rate, rhythm, no edema, no gallop, no JVD, no murmur, normal peripheral pulses Abdomen/GI: non tender, no organomegaly, no pulsatile mass, + abnormal bowel sounds (decreased bowel sounds), + distended (negative fluid wave, hyperresonant to percusion), + pertinent finding (Vertical, midline healing surgical incision, held closed with gurdeep) Neurologic/Psych: alert, normal mood/affect, oriented x 3 Diagnostics Laboratory Results Results Past 24 Hours Test 02/07/17 23:47 02/08/17 06:05 Range/Units Vancomycin Level Trough 14.1 SEE COMMENT mcg/ml Sodium Level 139 136-145 mmol/L Potassium Level 3.5 3.5-5.1 mmol/L Chloride Level 105 98-107 mmol/L Carbon Dioxide Level 27 21-32 mmol/L Anion Gap 7.0 3-11 mmol/L Blood Urea Nitrogen 31 7-18 mg/dl Creatinine 1.20 0.60-1.40 mg/dl Est Creatinine Clear Calc Drug Dose 77.2 ml/min Estimated GFR () 72.1 Estimated GFR (Non- 62.2 BUN/Creatinine Ratio 26.1 10-20 Random Glucose 138 70-99 mg/dl Calcium Level 9.0 8.5-10.1 mg/dl Magnesium Level 2.1 1.8-2.4 mg/dl Impression Assessment and Plan Jesi is a 67 yo male who presented with abdominal pain and diarrhea and was diagnosed with small bowel diverticulitis following CT of the abdomen. He underwent small bowel resection on 02/05 and is recovering well. WBC was elevated at 21.55 but has been trending down to 16.81 recently. He has been afebrile and today is being progressed to regular diet and tolerating well. When I spoke to him he appeared well and said he has not yet began to pass gas, but he is tolerating food well. Diverticulitis of small bowel: - Small bowel location is abnormal for diverticulitis, and rapid onset with no prior symptoms is abnormal for IBD. But should consider there being an underlying etiology such as IBD as the cause of this episode. - Advancing diet and tolerating well - No complaints of abdominal pain today - Recovering from surgery - Afebrile, WBC decreasing - Positive growth of Fleming-sensitive Klebsiella in peritoneal fluid - Being treated with vancomycin, caspofungin, and ertapenem - VBG showed pH of 7.27 and pCO2 of 52. - D/C current antibiotics and switch to Ciprofloxacin oral - Continue with progressing diet - Consult Surgical as needed - Daily CBC with differential - Methylprednisolone incase this is autoimmune flair up (i.e. IBD) Asthma: - Asymptomatic, but wheezing present on physical exam - Tolerating medications well - Continue with Duoneb treatments HTN: - Continues to be hypertensive - Continue with Carvedilol and hydralazine. - Consider adding lisinopril or other diuretic CAD: - Continue atorvastatin home medication Depression: - Continue home sertraline 50mg PO HS Anemia: - 12.4/36.7 most recently, asymptomatic - Continue home folic acid 1mg PO daily - Continue home ferrous sulfate 325 PO BID DVT prophylaxis: - Heparin 5000U SQ q12h - SCD Advanced Directives Existing Advance Directive: No Existing Living Will: No Existing Power of Recruitment And Outreach Assistant: No DVT Prophylaxis unfractionated heparin SQ
--- NOTE | 2017-02-08 15:09 | Progress Note ---
Subjective Date of Service: Feb 08, 2017. Subjective Pt evaluation today including: conversation w/ patient, physical exam, lab review, conversation w/ art sales consultant, review of inpatient medication list Pain: no pain today PO Intake: adequate, eating regular food Voiding: walker catheter in place (will be pulled today) passing flatus, no BM yet eating well, no N/V no dyspnea Problem List Medical Problems: (1) MARK (acute kidney injury) Status: Acute (2) Cellulitis of left lower extremity Status: Acute (3) Diverticulitis Status: Acute (4) Perforated abdominal viscus Status: Acute (5) Severe sepsis Status: Acute Review of Systems Constitutional: + weakness, + fatigue Abdomen: + constipation All Other Systems: Reviewed and Negative Medications Current Inpatient Medications Medications (Trade) Dose Ordered Sig/Keenan Route Start Time Stop Time Status Last Admin Dose Admin Ondansetron HCl (Zofran Inj) 4 mg Q6H PRN IV 02/04/17 15:45 03/06/17 15:44 Sertraline HCl (Zoloft Tab) 50 mg HS PO 02/04/17 21:00 03/06/17 20:59 02/07/17 21:51 50 MG Ertapenem 1 gm/ Sodium Chloride 50 ml @ 120 mls/hr Q24H IV 02/05/17 14:00 02/15/17 13:59 02/08/17 14:00 120 MLS/HR Pantoprazole Sodium 40 mg/ Syringe 10 ml @ 5 mls/min DAILY IV 02/06/17 09:00 03/08/17 08:59 02/08/17 08:32 5 MLS/MIN Morphine Sulfate (MoRPHine SULFATE INJ) 4 mg Q1H PRN IV 02/05/17 17:00 02/19/17 16:59 02/06/17 02:22 4 MG Heparin Sodium (Porcine) (Heparin Sq 5000 Unit/0.5ml) 5,000 unit Q8 SQ 02/05/17 22:00 03/08/17 21:59 02/08/17 14:42 5,000 UNIT Methylprednisolone Sodium Succinate 15 mg/Syringe 0.375 ml @ 1.5 mls/min BID@0900,2100 IV 02/05/17 21:00 02/10/17 09:01 02/08/17 08:32 1.5 MLS/MIN Folic Acid 1 mg/ Syringe 10 ml @ 5 mls/min HS IV 02/06/17 21:00 03/08/17 20:59 02/07/17 21:51 5 MLS/MIN Hydralazine HCl (HydrALAZINE INJ) 10 mg Q4H PRN IV. 02/07/17 00:15 03/09/17 00:14 02/08/17 04:00 10 MG Carvedilol (Coreg Tab) 25 mg BID PO 02/07/17 21:00 03/08/17 20:59 02/08/17 08:32 25 MG Albuterol/ Ipratropium (Duoneb) 3 ml QIDR INH 02/07/17 12:30 03/09/17 12:29 02/08/17 11:08 3 ML Albuterol/ Ipratropium (Duoneb) 3 ml Q2H PRN INH 02/07/17 12:45 03/09/17 12:44 Objective Vital Signs Date Time Temp Pulse Resp B/P (MAP) Pulse Ox O2 Delivery O2 Flow Rate FiO2 02/08/17 11:09 67 16 96 Room Air 02/08/17 07:52 36.8 94 18 167/68 (101) 92 Room Air 02/08/17 07:50 Room Air 02/08/17 07:12 94 20 95 Room Air 02/08/17 03:58 88 164/85 (111) 02/08/17 00:00 Room Air 02/07/17 22:50 36.7 71 20 171/84 (113) 98 Room Air 02/07/17 21:48 83 156/79 (104) 02/07/17 19:33 69 16 94 Room Air 02/07/17 15:40 Room Air 02/07/17 15:29 36.7 68 18 127/71 (89) 98 Room Air 02/07/17 15:14 67 16 95 Room Air Physical Exam General Appearance: WD/WN, no apparent distress Neck: supple, no adenopathy, no JVD, trachea midline Respiratory/Chest: chest non-tender, lungs clear, normal breath sounds, no respiratory distress, no accessory muscle use Cardiovascular: regular rate, rhythm, no edema, no gallop, no JVD, no murmur Abdomen: + abnormal bowel sounds (hypoactive), + distended, + tenderness ( incision site) Extremities: normal range of motion, non-tender, normal inspection, no pedal edema, no calf tenderness Neurologic/Psychiatric: 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1 mg/dl Assessment and Plan 67yo male: 1. shock, 2nd to abdominal sepsis - resolved completely 2. Ileitis with contained perforation, s/p ex lap with ileal resection, POD#3 - doing well from surgical standpoint. Day #4 of ertapenem, will stop Vancomycin and Caspofungin with Klebsiella growing in peritoneal culture can taper from Ertapenem tomorrow Appreciate surgical assistance. diet advanced to regular consistency, tolerating well, + flatus 3. acute kidney injury with oliguria - suspect sepsis-associated ATN - resolved. will pull walker today 4. HTN - uncontrolled; resumed coreg but this was only once daily. Will increase to twice a day dosing. 5. h/o CAD - no ischemic symptoms at this time. 6. hyperlipidemia - hold statin. 7. DVT proph - heparin SC. 8. FEN - surgery again advanced diet today; lytes stable; d/c fluids (see below ). 9. asthma - no wheezing today, improved, continue nebulizers 10. h/o DVT - noted. 11. suspected acute diastolic CHF - resolved today, lungs clear, breathing comfortably after lasix yesterday oral intake is adequate, no fluids planned repeat BMP, mag in am Continued [facility] stay due to: inadequate po fluid intake, voiding difficulties, ambulation difficulties, multiple IV medications needed Discharge planning: uncertain
[2017-02-08] MEDS: FoLIC ACID INJ 1 MG in SYRINGE 9.8 ML IV SCH (21:14)
[2017-02-08] MEDS: SERTRALINE HCL 50 MG TAB PO SCH (21:14)
[2017-02-09] VITALS (10 sets, daily range): BP systolic 146–186; BP diastolic 79–95; PULSE 58–74; TEMP 36.5–36.7; O2SAT 94–95
[2017-02-09] MEDS: HEPARIN SOD 5000 UNIT/0.5 ML CARP SQ SCH ×3 (05:35→21:47)
[2017-02-09 06:32] LABS: CREATININE 1.4 mg/dl (0.60-1.40)
[2017-02-09] MEDS: ALBUT/IPRATROP 3MG/0.5MG NEB 3 ML VIAL INH SCH ×4 (07:45→20:00)
--- NOTE | 2017-02-09 09:07 | Surgery Progress Note ---
Surgery Progress Note Date of Service Feb 09, 2017. Subjective Post OP Day: 4 + bowel movement (liquid this AM), + diet (regular), No complaints Objective Vital Signs: Date Time Temp Pulse Resp B/P (MAP) Pulse Ox O2 Delivery O2 Flow Rate FiO2 02/09/17 08:49 94 02/09/17 08:02 36.7 66 18 146/82 (103) 94 Room Air 02/09/17 07:50 Room Air 02/09/17 07:45 65 16 94 Room Air 02/09/17 00:00 Room Air 02/08/17 22:55 36.9 79 18 146/73 (97) 92 Room Air 02/08/17 21:12 80 146/74 (98) 02/08/17 20:34 67 16 95 Room Air 02/08/17 15:37 62 16 94 Room Air 02/08/17 15:37 96 Room Air 02/08/17 15:25 36.3 65 16 119/71 (87) 94 Room Air 02/08/17 11:09 67 16 96 Room Air Abdomen: soft, + distended (mildly) Incision(s): clean, dry Laboratory Results: Results Past 24 Hours Test 02/09/17 05:35 Range/Units Creatinine 1.40 0.60-1.40 mg/dl Est Creatinine Clear Calc Drug Dose 66.2 ml/min Estimated GFR () 59.8 Estimated GFR (Non- 51.6 Assessment & Plan s/p ex lap partial small bowel resection bowel function returning tolerating diet he is anxious to go home but would keep on IV abx and monitor bowels
[2017-02-09] MEDS: PANTOprazole INJ 40 MG in SYRINGE 0 ML IV SCH (09:23)
[2017-02-09] MEDS: METHYLPREDNISOLONE IV 15 MG in SYRINGE 0 ML IV SCH ×2 (09:24→21:04)
[2017-02-09] MEDS: CARVEDILOL 25 MG TAB PO SCH ×2 (09:24→21:04)
[2017-02-09] MEDS: ERTAPENEM IV 1 GM in SODIUM CHLOR 0.9% AD-VAN 50ML 50 ML IV SCH (13:51)
--- NOTE | 2017-02-09 15:25 | Progress Note ---
Subjective Date of Service: Feb 09, 2017. Subjective Pt evaluation today including: conversation w/ patient, physical exam, lab review, conversation w/ health consultant, review of inpatient medication list Pain: no pain today PO Intake: adequate Voiding: no voiding problems patient feeling well, no pain, liquid BM today reviewed surgery note, continue IV antibiotics today Problem List Medical Problems: (1) MARK (acute kidney injury) Status: Acute (2) Cellulitis of left lower extremity Status: Acute (3) Diverticulitis Status: Acute (4) Perforated abdominal viscus Status: Acute (5) Severe sepsis Status: Acute Review of Systems Abdomen: + diarrhea All Other Systems: Reviewed and Negative Medications Current Inpatient Medications Medications (Trade) Dose Ordered Sig/Keenan Route Start Time Stop Time Status Last Admin Dose Admin Ondansetron HCl (Zofran Inj) 4 mg Q6H PRN IV 02/04/17 15:45 03/06/17 15:44 Sertraline HCl (Zoloft Tab) 50 mg HS PO 02/04/17 21:00 03/06/17 20:59 02/08/17 21:14 50 MG Ertapenem 1 gm/ Sodium Chloride 50 ml @ 120 mls/hr Q24H IV 02/05/17 14:00 02/15/17 13:59 02/09/17 13:51 120 MLS/HR Pantoprazole Sodium 40 mg/ Syringe 10 ml @ 5 mls/min DAILY IV 02/06/17 09:00 03/08/17 08:59 02/09/17 09:23 5 MLS/MIN Morphine Sulfate (MoRPHine SULFATE INJ) 4 mg Q1H PRN IV 02/05/17 17:00 02/19/17 16:59 02/06/17 02:22 4 MG Heparin Sodium (Porcine) (Heparin Sq 5000 Unit/0.5ml) 5,000 unit Q8 SQ 02/05/17 22:00 03/08/17 21:59 02/09/17 13:53 5,000 UNIT Methylprednisolone Sodium Succinate 15 mg/Syringe 0.375 ml @ 1.5 mls/min BID@0900,2100 IV 02/05/17 21:00 02/10/17 09:01 02/09/17 09:24 1.5 MLS/MIN Folic Acid 1 mg/ Syringe 10 ml @ 5 mls/min HS IV 02/06/17 21:00 03/08/17 20:59 02/08/17 21:14 5 MLS/MIN Hydralazine HCl (HydrALAZINE INJ) 10 mg Q4H PRN IV. 02/07/17 00:15 03/09/17 00:14 02/08/17 04:00 10 MG Carvedilol (Coreg Tab) 25 mg BID PO 02/07/17 21:00 03/08/17 20:59 02/09/17 09:24 25 MG Albuterol/ Ipratropium (Duoneb) 3 ml QIDR INH 02/07/17 12:30 03/09/17 12:29 02/09/17 11:26 3 ML Albuterol/ Ipratropium (Duoneb) 3 ml Q2H PRN INH 02/07/17 12:45 03/09/17 12:44 Objective Vital Signs Date Time Temp Pulse Resp B/P (MAP) Pulse Ox O2 Delivery O2 Flow Rate FiO2 02/09/17 11:26 65 16 94 Room Air 02/09/17 08:49 94 Room Air 02/09/17 08:02 36.7 66 18 146/82 (103) 94 Room Air 02/09/17 07:50 Room Air 02/09/17 07:45 65 16 94 Room Air 02/09/17 00:00 Room Air 02/08/17 22:55 36.9 79 18 146/73 (97) 92 Room Air 02/08/17 21:12 80 146/74 (98) 02/08/17 20:34 67 16 95 Room Air 02/08/17 15:37 62 16 94 Room Air 02/08/17 15:37 96 Room Air 02/08/17 15:25 36.3 65 16 119/71 (87) 94 Room Air Physical Exam General Appearance: no apparent distress, + obese Neck: supple, no adenopathy, no JVD, trachea midline Respiratory/Chest: chest non-tender, lungs clear, normal breath sounds, no respiratory distress, no accessory muscle use Cardiovascular: regular rate, rhythm, no edema, no gallop, no JVD, no murmur Abdomen: normal bowel sounds, non tender, soft, no organomegaly Extremities: normal range of motion, non-tender, normal inspection, no pedal edema, no calf tenderness, pelvis stable 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 Day #5 of ertapenem, can transition per surgery, prefer IV antibiotics again today Appreciate surgical assistance. diet advanced to regular consistency, tolerating well, + flatus, liquid BM today - Acute kidney injury with oliguria - suspect sepsis-associated ATN - resolved. walker pulled yesterday, urinating well - HTN - uncontrolled; resumed coreg but this was only once daily. Will increase to twice a day dosing. - h/o CAD - no ischemic symptoms at this time. - hyperlipidemia - hold statin. - asthma - no wheezing today, improved, continue nebulizers - DVT prophylaxis: heparin Plan: IV antibiotics today, tolerating diet, d/c to home once okay from surgical standpoint Continued [facility] stay due to: inadequate po fluid intake, voiding difficulties, ambulation difficulties, multiple IV medications needed Discharge planning: uncertain
[2017-02-09] MEDS: FoLIC ACID INJ 1 MG in SYRINGE 9.8 ML IV SCH (21:04)
[2017-02-09] MEDS: SERTRALINE HCL 50 MG TAB PO SCH (21:04)
[2017-02-09] MEDS: HydrALAZINE HCL 20 MG/ML VIAL IV. PRN (22:07)
[2017-02-10] MEDS: HydrALAZINE HCL 20 MG/ML VIAL IV. PRN ×2 (02:05→05:47)
[2017-02-10 05:30] VITALS: BP 161/76; PULSE 66
[2017-02-10] MEDS: HEPARIN SOD 5000 UNIT/0.5 ML CARP SQ SCH (05:41)
[2017-02-10 06:58] LABS: HEMATOCRIT 36.9 % (42-52); MEAN CELL VOLUME 82.7 fL (80-100); MEAN CORPUSCULAR HEMOGLOBIN 28.3 pg (25-34); MEAN CORPUSCULAR HGB CONC 34.1 g/dl (32-36); PLATELET COUNT 319 K/uL (130-400); RED BLOOD COUNT 4.46 M/uL (4.7-6.1); WHITE BLOOD COUNT 13.77 K/uL (4.8-10.8)
[2017-02-10 07:09] VITALS: PULSE 74; O2SAT 94
[2017-02-10] MEDS: ALBUT/IPRATROP 3MG/0.5MG NEB 3 ML VIAL INH SCH ×2 (07:09→11:20)
[2017-02-10 07:26] LABS: BASO % 0.3 %; BASO ABS # 0.04 K/uL (0-0.2); BUN/CREATININE RATIO 25.6 (10-20); CALCIUM 8.8 mg/dl (8.5-10.1); COMPLETE YES; CREATININE 1.3 mg/dl (0.60-1.40); EOS % 0.1 %; HYPERSEGMENTED POLYS 1+; LYMPH % 16.3 %; LYMPH ABS # 2.25 K/uL (1.2-3.4); MAGNESIUM 1.7 mg/dl (1.8-2.4); MONO % 9.3 %; PHOSPHORUS 3.6 mg/dl (2.5-4.9); POTASSIUM 3.6 mmol/L (3.5-5.1)
[2017-02-10 08:07] VITALS: BP 152/66; PULSE 82; TEMP 36.5; O2SAT 96
[2017-02-10 08:11] VITALS: O2SAT 96
[2017-02-10] MEDS: PANTOprazole INJ 40 MG in SYRINGE 0 ML IV SCH (08:38)
[2017-02-10] MEDS: METHYLPREDNISOLONE IV 15 MG in SYRINGE 0 ML IV SCH (08:38)
[2017-02-10] MEDS: CARVEDILOL 25 MG TAB PO SCH (08:38)
[2017-02-10] MEDS: MAGNESIUM SULFATE 1GM / D5W 1 GM in PREMIXED IN D5W 100 ML IV SCH ×2 (08:41→09:56)
--- NOTE | 2017-02-10 09:12 | Surgery Progress Note ---
Surgery Progress Note Date of Service Feb 10, 2017. Subjective Post OP Day: 4 multiple BM yesterday but decreased appetite this AM Objective Vital Signs: Date Time Temp Pulse Resp B/P (MAP) Pulse Ox O2 Delivery O2 Flow Rate FiO2 02/10/17 08:11 96 Room Air 02/10/17 08:07 36.5 82 20 152/66 (94) 96 Room Air 02/10/17 07:35 Room Air 02/10/17 07:09 74 16 94 Room Air 02/10/17 05:30 66 161/76 (104) 02/09/17 23:15 Room Air 02/09/17 22:43 74 166/79 (108) 02/09/17 22:04 60 186/81 (116) 02/09/17 21:02 64 181/95 (123) 02/09/17 20:37 61 16 95 Room Air 02/09/17 16:00 36.5 58 18 160/81 (107) 94 Room Air 02/09/17 15:45 68 16 95 Room Air 02/09/17 15:45 95 Room Air 02/09/17 11:26 65 16 94 Room Air Abdomen: soft, + distended (slighlty) Laboratory Results: Results Past 24 Hours Test 02/10/17 06:38 Range/Units White Blood Count 13.77 4.8-10.8 K/uL Red Blood Count 4.46 4.7-6.1 M/uL Hemoglobin 12.6 14.0-18.0 g/dL Hematocrit 36.9 42-52 % Mean Corpuscular Volume 82.7 80-100 fL Mean Corpuscular Hemoglobin 28.3 25-34 pg Mean Corpuscular Hemoglobin Concent 34.1 32-36 g/dl Platelet Count 319 130-400 K/uL Mean Platelet Volume 9.0 7.4-10.4 fL Neutrophils (%) (Auto) 67.0 % Lymphocytes (%) (Auto) 16.3 % Monocytes (%) (Auto) 9.3 % Eosinophils (%) (Auto) 0.1 % Basophils (%) (Auto) 0.3 % Neutrophils # (Auto) 9.22 1.4-6.5 K/uL Lymphocytes # (Auto) 2.25 1.2-3.4 K/uL Monocytes # (Auto) 1.28 0.11-0.59 K/uL Eosinophils # (Auto) 0.01 0-0.5 K/uL Basophils # (Auto) 0.04 0-0.2 K/uL RDW Standard Deviation 44.6 36.4-46.3 fL RDW Coefficient of Variation 14.6 11.5-14.5 % Immature Granulocyte % (Auto) 7.0 % Immature Granulocyte # (Auto) 0.97 0.00-0.02 K/uL Hypersegmented Polys 1+ Sodium Level 140 136-145 mmol/L Potassium Level 3.6 3.5-5.1 mmol/L Chloride Level 104 98-107 mmol/L Carbon Dioxide Level 27 21-32 mmol/L Anion Gap 9.0 3-11 mmol/L Blood Urea Nitrogen 33 7-18 mg/dl Creatinine 1.30 0.60-1.40 mg/dl Est Creatinine Clear Calc Drug Dose 71.3 ml/min Estimated GFR () 65.4 Estimated GFR (Non- 56.5 BUN/Creatinine Ratio 25.6 10-20 Random Glucose 132 70-99 mg/dl Calcium Level 8.8 8.5-10.1 mg/dl Phosphorus Level 3.6 2.5-4.9 mg/dl Magnesium Level 1.7 1.8-2.4 mg/dl Assessment & Plan s/p ex lap, partial small bowel resection for mesenteric perf continue to monitor po intake, may have some anastomotic edema WBC improving path pending can probably d/c abx at discharge IV steroids reached stop date today, would prefer to minimize steroid use seen with Dr. Figueroa
[2017-02-10 11:20] VITALS: PULSE 77; O2SAT 94
--- NOTE | 2017-02-10 11:22 | Discharge Instructions ---
Discharge Instructions Date of Service Feb 10, 2017. Admission Reason for Admission: Ileitis with small contained perforation Discharge Discharge Diagnosis / Problem: Ileitis, contained perforation, s/p small bowel resection Discharge Goals Goal(s): Decrease discomfort, Improve function, Diagnostic testing (follow up on pathology report) Activity Recommendations Activity Limitations: resume your previous activity Lifting Limitations: until after follow-up appointment Exercise/Sports Limitations: until after follow-up appointment May Resume Sexual Activity: after follow-up appointment Shower/Bathe: no limitations (may shower, DO NOT BATHE OR SOAK WOUND) Driving or Machine Use: no limitations . Instructions / Follow-Up Instructions / Follow-Up Medications: no changes no need for antibiotics or steroids on discharge, complete course while hospitalized FOLLOW UP - Dr. Figueroa in one week, his office will contact you for appointment he will discuss pathology results, if suspected Crohn's disease is confirmed on pathology, he will refer you to rollout manager for management - Dr. Nagel in two weeks for hospital follow up, please call to make this appointment Current Hospital Diet Patient's current hospital diet: Low Fiber Diet Discharge Diet Recommended Diet: Low Fiber Diet (advance as tolerated) Procedures Procedures Performed: Exploratory Laparotomy -Partial Small Bowel Resection Pending Studies Studies pending at discharge: yes List of pending studies: pathology report from bowel resection Laboratory Results Hemoglobin A1c Test 12/02/16 07:56 Range/Units Estimated Average Glucose 120 mg/dl Hemoglobin A1c 5.8 H 4.5-5.6 % Medical Emergencies . Who to Call and When: Medical Emergencies: If at any time you feel your situation is an emergency, please call 911 immediately. . Non-Emergent Contact Non-Emergency issues call your: Surgeon Call Non-Emergent contact if: you have a fever, your pain is worsening, wound has increased drainage, wound has increased redness, wound has increased pain, you have any medication questions . . "Provider Documentation" section prepared by Roberto Carlos Small. . VTE Core Measure Inpt VTE Proph given/why not?: Unfractionated heparin SQ, T.ELuann Ford, SCD 's [place] Drug Monitoring Program Search Results: no issues identified
[2017-02-10 12:12] VITALS: BP 152/66; PULSE 77; TEMP 36.5; O2SAT 94
--- NOTE | 2017-02-11 07:24 | Discharge Summary ---
Discharge Summary Date of Service Feb 11, 2017. Discharge Summary Admission Date: Feb 04, 2017 at 16:21 Discharge Date: Feb 10, 2017 Discharge Disposition: Home Principal Diagnosis: neuroendocrine tumor of ileum with perforation, s/p small bowel resection Problems/Secondary Diagnoses: MARK Hypertension Immunizations: Have You Had Influenza Vaccine: Unknown History of Tetanus Vaccine?: Unknown History of Pneumococcal: Unknown History of Hepatitis B Vaccine: Unknown Procedures: Small bowel resection with primary anastomosis Consultations: General surgery Medication Reconciliation Continued Medications: Aspirin (Aspirin Ec) 81 Mg Tab 81 MG PO HS Atorvastatin (Lipitor) 80 Mg Tab 80 MG PO HS Carvedilol (Carvedilol) 25 Mg Tab 1 TAB PO HS Ferrous Sulfate (Kp Ferrous Sulfate) 325 Mg Tab 1 TAB PO BID Folic Acid (Folvite) 1 Mg Tab 1 MG PO HS Hydrochlorothiazide (Hydrochlorothiazide) 25 Mg Tab 25 MG PO HS Lisinopril (Zestril) 40 Mg Tab 40 MG PO HS Sertraline (Zoloft) 50 Mg Tab 50 MG PO HS Discharge Exam patient feeling well, eating well, moving bowels, no abdominal pain, no fevers. labs reviewed, stable. cleared for discharge by general surgery. plan to follow up with Dr. Figuerao, he will follow up on pathology results Review of Systems: Constitutional: No fever, No chills, No sweats, No weight loss, No weakness , No fatigue, No problem reported Eyes: No worsening of vision, No eye pain, No redness, No discharge, No diplopia, No problem reported ENT: No hearing loss, No unusual epistaxis, No nasal symptoms, No sore throat, No tinnitus, No dental problems, No trouble swallowing, No problem reported Respiratory: No cough, No sputum, No wheezing, No shortness of breath, No dyspnea on exertion, No dyspnea at rest, No hemoptysis, No problem reported Cardiovascular: No chest pain, No orthopnea, No PND, No edema, No claudication, No palpitations, No problem reported Abdomen: No pain, No nausea, No vomiting, No diarrhea, No constipation, No GI bleeding, No problem reported Musculoskeletal: No joint pain, No muscle pain, No swelling, No calf pain, No problem reported Genitourinary - Male: No hematuria, No dysuria, No urinary frequency, No urinary urgency Neurologic: No memory loss, No paralysis, No weakness, No numbness/tingling , No vertigo, No balance problems, No problem reported Psychiatric: No depression symptoms, No anhedonism, No anxiety, No insomnia , No substance abuse, No problem reported Endocrine: No fatigue, No excessive thirst, No excessive urination, No problem reported Hematologic / Lymphatic: No abnormal bleeding/bruising, No clotting problems , No swollen lymph nodes, No night sweats, No problem reported Integumentary: No rash, No itch, No new/changing skin lesions, No color change, No bleeding, No problem reported Physical Exam: General Appearance: no apparent distress, + obese Eyes: normal inspection, EOMI, sclerae normal ENT: normal ENT inspection, hearing grossly normal, pharynx normal Neck: supple, no adenopathy, no JVD, trachea midline Respiratory/Chest: chest non-tender, lungs clear, normal breath sounds, no respiratory distress, no accessory muscle use Cardiovascular: regular rate, rhythm, no edema, no gallop, no JVD, no murmur , normal peripheral pulses Abdomen / GI: normal bowel sounds, non tender, soft, no organomegaly Extremities: normal inspection, no calf tenderness, normal capillary refill , no pedal edema, normal range of motion, pelvis stable 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 treated with six days of IV antibiotics, no fever, soft and non-tender abdomen, surgery does not recommend antibiotics on discharge treated with Solu Medrol for 6 days as well with initial suspicion for ileitis and possible Crohn's, steroids stopped, now pathology shows that this was not inflammatory - Acute kidney injury with oliguria - suspect sepsis-associated ATN - resolved quickly walekr pulled 02/08, urinating well - HTN - controlled on Coreg, Lisinopril - h/o CAD - no ischemic symptoms at this time. - hyperlipidemia - hold statin. - asthma - continue nebulizers - DVT prophylaxis: heparin d/c to home with surgical follow up next week, will need oncology referral now based on pathology results of neuroendocrine tumor Total Time Spent: Greater than 30 minutes This includes examination of the patient, discharge planning, medication reconciliation, and communication with other providers. Discharge Instructions Please refer to the electronic Patient Visit Report (Discharge Instructions) for additional information. Follow-Up Dr. Figueroa next week Additional Copies To Andrea Figueroa D.O.; Krish Nagel M.D.
--- NOTE | 2017-02-17 17:35 | EDITING REQUIRED CODING QUERY ---
SEPSIS Dear Dr. Small, To promote full compliance with coding requirements relating to patient care, physician participation is requested in all cases of claim rep uncertainty. Please assist us with the question(s) below: In responding to this query, please exercise your independent professional judgement. The fact that a question is asked does not imply that any particular answer is desired or expected. We appreciate your clarification on this issue. Sepsis is documented throughout the medical record but not on the Discharge summary. Does the patient have? ( )Bacteremia (Nonspecific laboratory finding of bacteria in the blood) Specify Organism ( ) Present on Admission ( ) Not present on admission () Unable to clinically determine ( ) Septicemia (Systemic disease associated with the presence of pathogenic microorganisms in the blood): Specify Organism ( ) Present on Admission () Not present on admission () Unable to clinically determine ( ) Sepsis Specify Organism Specify Associated Condition/Diagnosis (x ) Present on Admission () Not present on admission () Unable to clinically determine Due to peritonitis, bowel perforation ( ) Severe Sepsis (Sepsis associated with acute organ dysfunction) Specify Organism Specify Associated Condition/Diagnosis ( ) Present on Admission () Not present on admission () Unable to clinically determine ( ) Septic Shock (Severe sepsis with acute circulatory failure, unexplained by other causes) () Present on Admission () Not present on admission () Unable to clinically determine ( ) Sepsis was ruled out () Other, patient has: Thank you for your time. Kiana Koehler, AD TERMINAL MAKEUP OPERATOR
--- NOTE | 2017-02-17 17:40 | EDITING REQUIRED CODING QUERY ---
CODING QUERY Dear Dr. Small, To promote full compliance with coding requirements relating to patient care, provider participation is requested in all cases of mill dresser uncertainty. Please assist us with the question(s) below: CHF is documented within the medical record but not on the Discharge summary. Coding Question(s): Did the patient have? ( ) CHF, Unspecified ( x ) Acute Diastolic CHF ( ) Chronic Diastolic CHF ( ) Acute on Chronic Diastolic CHF ( ) Acute Systolic CHF ( ) Chronic Systolic CHF ( ) Acute on Chronic Systolic CHF ( ) Acute combined Diastolic and Systolic CHF ( ) Chronic Combined Diastolic and Systolic CHF ( ) Acute on Chronic combined Diastolic and Systolic CHF ( ) Other: Please explain: ( ) Unable to determine ( ) CHF was ruled out Physician's Response(s): Thank you for your time. Kiana Koehler PSYCH COORDINATOR Principal Diagnosis: "_that condition established after study, to be chiefly responsible for occasioning the admission of the patient to the hospital for care." Co-Existing Principal Diagnosis: "_when two or more diagnoses equally meet the criteria for principal diagnosis as determined by the circumstances of admission, diagnostic work up, and/or therapy provided, and the Alphabetic Index, Tabular List, or another coding guideline does not provide sequencing direction, any one of the diagnoses may be sequenced first." "When the physician has documented what appears to be a current diagnosis in the body of the record, but has not included the diagnosis in the final diagnostic statement, the physician should be asked whether the diagnosis should be added." ([facility] 2 QTR90. p3-4)
--- NOTE | 2017-02-17 17:42 | EDITING REQUIRED CODING QUERY ---
CHRONIC KIDNEY DISEASE Dear Dr. Small, To promote full compliance with coding requirements relating to patient care, physician participation is requested in all cases of bull bucker uncertainty. Please assist us with the question(s) below: Coding Question(s): The record reflects the following clinical findings: Please specify the known or suspected type by placing an "X" within the parenthesis (x). If other, please document type. Please document Staging if known: ( ) Stage I >90 Kidney damage with normal or elevated GFR. ( x) Stage II 60-89 Kidney damage with mildly decreased kidney function ( ) Stage III 30-59 Moderately decreased kidney function ( ) Stage IV 15-29 Severely decreased kidney function ( ) Stage V <15 Renal failure (or dialysis) ( ) End Stage ( ) Unknown Thank you for your time. Kiana Koehler, ANNUAL GIVING MANAGER
--- NOTE | 2017-02-17 17:46 | EDITING REQUIRED CODING QUERY ---
CODING QUERY Dear Dr. Small, To promote full compliance with coding requirements relating to patient care, provider participation is requested in all cases of sprinkler driver uncertainty. Please assist us with the question(s) below: Coding Question(s): ATN is documented within the medical record but not on the Discharge Summary. Does the patient have: (x ) ATN ( ) ATN was ruled out ( ) UTI unspecified - Organism if known ( ) Other: Please explain ( ) Unable to determine Physician's Response(s): Thank you for your time. Kiana Koehler [facility] Principal Diagnosis: "_that condition established after study, to be chiefly responsible for occasioning the admission of the patient to the hospital for care." Co-Existing Principal Diagnosis: "_when two or more diagnoses equally meet the criteria for principal diagnosis as determined by the circumstances of admission, diagnostic work up, and/or therapy provided, and the Alphabetic Index, Tabular List, or another coding guideline does not provide sequencing direction, any one of the diagnoses may be sequenced first." "When the physician has documented what appears to be a current diagnosis in the body of the record, but has not included the diagnosis in the final diagnostic statement, the physician should be asked whether the diagnosis should be added." (Source [facility] 2 QTR90. p3-4)
== END 2017-02-10 13:33 | disposition home or self-care (01) | DRG 853 ==
LOC: C.EDB 10:46 → C.MSW 16:21 → ENRESERV 16:54 → C.MSICU 02-05 11:35 → ENRESERV 02-05 11:46 → C.MSW 02-06 11:30
PROVIDERS: ADMIT Hospitalist; ATTEND Internal Medicine
PROC: 0DB84ZZ Excision of Small Intestine, Percutaneous Endoscopic Approach (ICD-10-PCS; principal; 2017-02-05 17:15)
DX: A41.9 Sepsis, unspecified organism (principal); I50.31 Acute diastolic (congestive) heart failure; N17.0 Acute kidney failure with tubular necrosis; K57.00 Diverticulitis of small intestine with perforation and abscess without bleeding; I13.0 Hypertensive heart and chronic kidney disease with heart failure and stage 1 through stage 4 chronic kidney disease, or unspecified chronic kidney disease; D49.0 Neoplasm of unspecified behavior of digestive system; R34 Anuria and oliguria; N18.2 Chronic kidney disease, stage 2 (mild); D64.9 Anemia, unspecified; E78.5 Hyperlipidemia, unspecified; E78.00 Pure hypercholesterolemia, unspecified; G47.33 Obstructive sleep apnea (adult) (pediatric); I25.10 Atherosclerotic heart disease of native coronary artery without angina pectoris; E66.9 Obesity, unspecified; J45.909 Unspecified asthma, uncomplicated; F32.9 Major depressive disorder, single episode, unspecified; I95.9 Hypotension, unspecified; I25.2 Old myocardial infarction; Z95.5 Presence of coronary angioplasty implant and graft; Z87.891 Personal history of nicotine dependence; Z79.82 Long term (current) use of aspirin; Z79.899 Other long term (current) drug therapy; Z68.37 Body mass index [BMI] 37.0-37.9, adult; Z86.718 Personal history of other venous thrombosis and embolism

== ENCOUNTER 2017-02-12 14:59 | Emergency (ER) | payer OTHER ==
[~2017-02-12] VITALS: Ht 177.8 cm; Wt 123.6 kg
[~2017-02-12 14:59] MED LIST changes: -CEPH500C2 PO; -SULF800T23 PO
[2017-02-12 15:12] VITALS: TEMP 36.5; Ht 177.8 cm; Wt 123.6 kg
--- NOTE | 2017-02-12 15:54 | EMERGENCY ROOM VISIT NOTE ---
ED Visit Note First contact with patient: 15:32 The patient was seen and examined with Ismael Ames PA-C. I agree with the history, physical and findings. Patient was presenting status post recent partial colectomy was having worsening drainage than his incisional site. Drainage was serous sanguinous and patient did not complain of pain. Patient did have mild elevation his white count and lactate. Patient had a CT of the abdomen and pelvis which did not show any fluid collection or other concerning changes. Patient was able to tolerate by mouth. General surgery was spoken with by the PA who did not believe any additional intervention was needed. Please see the note for disposition and additional details.
[2017-02-12] MEDS ORDERED: CLINDAMYCIN 600 MG/54 ML D5W IV ONE (16:00)
[2017-02-12 16:22] LABS: HEMATOCRIT 35.9 % (42-52); MEAN CELL VOLUME 82.2 fL (80-100); MEAN CORPUSCULAR HEMOGLOBIN 28.1 pg (25-34); MEAN CORPUSCULAR HGB CONC 34.3 g/dl (32-36); MEAN PLATELET VOLUME 8.5 fL (7.4-10.4); PLATELET COUNT 300 K/uL (130-400); RED BLOOD COUNT 4.37 M/uL (4.7-6.1); WHITE BLOOD COUNT 14.88 K/uL (4.8-10.8)
[2017-02-12] MEDS ORDERED: OPTIRAY 320 IV PRN (16:45)
[2017-02-12 17:05] LABS: ALKALINE PHOSPHATASE 45 U/L (45-117); ALT/SGPT 63 U/L (12-78); AST/SGOT 27 U/L (15-37); BLOOD UREA NITROGEN 17 mg/dl (7-18); BUN/CREATININE RATIO 17.2 (10-20); CALCIUM 7.7 mg/dl (8.5-10.1); CARBON DIOXIDE 29 mmol/L (21-32); CHLORIDE 109 mmol/L (98-107); CREATININE 0.98 mg/dl (0.60-1.40); GLUCOSE 97 mg/dl (70-99); POTASSIUM 3.3 mmol/L (3.5-5.1); SODIUM 143 mmol/L (136-145)
[2017-02-12 17:36] LABS: COMPLETE YES; LYMPHOCYTE % 23.5 %; META ABS # 0.64 K/uL (0-0); METAMYELOCYTE % 4.3 %; MYELOCYTE % 0.9 %
--- NOTE | 2017-02-12 18:28 | DIAGNOSTIC IMAGING REPORT ---
CT OF THE ABDOMEN AND PELVIS WITH CONTRAST CLINICAL HISTORY: Status post partial colectomy with drainage from wound site. COMPARISON STUDY: CT of the abdomen and pelvis February 04, 2017. TECHNIQUE: Following IV administration of 116 mL of Optiray-320, axial images of the abdomen and pelvis were obtained from the lung bases to the proximal femurs. Images were reviewed in the axial, sagittal, and coronal planes. IV contrast was administered without complication. A dose lowering technique was utilized adhering to the principles of ALARA. CT DOSE: 1435.61 mGy.cm FINDINGS: A 6 mm hypodense right hepatic lobe lesion is too small to characterize but likely reflects a cyst. There is no biliary ductal dilatation status post cholecystectomy. Pancreatic parenchymal calcifications suggest chronic pancreatitis. There is no peripancreatic infiltrate patient. The spleen and adrenal glands as well as the kidneys are normal. There is no hydronephrosis. There are skin gurdeep from laparotomy. There is subcutaneous gas within the surgical site which is expected. There are post surgical findings consistent with a small bowel obstruction. There is no bowel obstruction. There is no fluid collection to suggest abscess. There is trace infiltration and fluid within the mesentery which is likely postsurgical. A few locules of extraluminal gas within the operative bed are not unexpected. There are numerous small bowel diverticula. There is gas within the bladder. Skeletal structures are unremarkable. There is no lymphadenopathy. IMPRESSION: 1. Findings consistent with a recent small bowel resection. No abscess or evidence of bowel obstruction. Minimal flow and infiltration within the mesentery/operative bed is likely postsurgical. A few locules of extraluminal gas are not unexpected in the early postoperative period 2. Gas within the bladder which is likely related to recent instrumentation. Electronically signed by: Jeff Bolaños M.D. 02/12/2017 6:26 PM Dictated Date/Time: 02/12/2017 6:13 PM
[2017-02-12 19:40] VITALS: BP 131/78; PULSE 99; O2SAT 95
--- NOTE | 2017-02-13 00:32 | EMERGENCY ROOM VISIT NOTE ---
ED Visit Note First contact with patient: 15:32 Chief Complaint: Wound seepage. History of Present Illness: Mr. Davidson is a 67-year-old white male who ambulates into the ED complaining of drainage from his surgical incision. Patient reports he was just discharged from the hospital approximately 1.5 days ago after repair of a small bowel perforation. 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 During his stay his course was complicated with postsurgical sepsis, acute kidney injury and hypotension. He was discharged home in stable condition with follow-up with his surgeon, Dr. Figueroa, in 2 weeks. Patient reports last evening he was taking a shower. He then over in the shower and noted drainage from his surgical site. He reports since that time he has been having a moderate amount of drainage from his surgical site with all movements; he reports he had a change his T-shirts and shortness at least 20 times because of the drainage. He contacted his surgeon who was not available to be seen and he was referred to the ED for further evaluation and care. Associated with his drainage patient is also reporting he has very minimal discomfort in the area of his incision. He is unable to describe his discomfort but rates his discomfort 1/10. The pain is nonradiating. The pain worsens with palpation. He has not identified any alleviating factors related to the pain. He has not taken any medications for pain prior to arrival at the hospital. He describes the drainage from his wound as initially slightly red like a diluted blood fluid and after that clear. He denies any associated symptoms including fevers, chills, sweats, surgical wound redness/swelling, puslike drainage, chest pain, shortness of breath, nausea/vomiting, decreased appetite, urinary symptoms, hematuria, diarrhea, constipation, rectal bleeding, black/tarry stools. Review of Systems: As noted above in history of present illness. All body systems were reviewed and found to be negative as noted above. Past Medical History: As previously noted, asthma, cellulitis, DVT, myocardial infarction, hypertension, coronary artery stent placement. Current Medications: Medications Dose Route/Sig Max Daily Dose Days Date Category Kp Ferrous Sulfate (Ferrous Sulfate) 325 Mg Tab 1 Tab PO BID 10/03/16 Reported Folvite (Folic Acid) 1 Mg Tab 1 Mg PO HS 10/03/16 Reported Carvedilol 25 Mg Tab 25 Mg PO BID 10/03/16 Reported Hydrochlorothiazide 25 Mg Tab 25 Mg PO HS 04/17/15 Reported Zoloft (Sertraline HCl) 50 Mg Tab 50 Mg PO HS 09/19/13 Reported Zestril (Lisinopril) 40 Mg Tab 40 Mg PO HS 09/19/13 Reported Lipitor (Atorvastatin Calcium) 80 Mg Tab 80 Mg PO HS 09/19/13 Reported Aspirin Ec (Aspirin) 81 Mg Tab 81 Mg PO HS 09/19/13 Reported Allergies to Medications: Penicillin. Social History: Patient is not currently employed; he feels safe in his home environment; he denies tobacco use. Physical Examination: Vital Signs: Date Time Temp Pulse Resp B/P (MAP) Pulse Ox O2 Delivery O2 Flow Rate FiO2 02/12/17 19:40 99 18 131/78 95 02/12/17 17:00 93 18 140/83 92 Room Air 02/12/17 15:12 36.5 99 20 180/89 96 Room Air GENERAL: 67-year-old male in mild distress due to symptoms, nontoxic-appearing, afebrile and hemodynamically stable. NEUROLOGICAL: Awake, alert and oriented to person, place and time. Answering questions appropriately and following commands. Normal gait. Good hand eye coordination. No focal motor or sensory deficits. SKIN: Warm, dry and pink. Abdomen: Surgical site is clean dry and intact without signs of infection. On palpation of the abdomen there is serosanguineous fluid just lateral to the umbilicus. HEENT: Atraumatic and normocephalic. PERRLA. Airway patent. Speech normal. Trachea midline. No jugular venous distention. BACK: No tenderness over the bony spine. No CVA tenderness. THORAX: Lungs sounds are clear to auscultation and equal bilaterally with symmetrical chest wall. No wheezing, rales or rhonchi. HEART: Regular rate and rhythm. No gallops, rubs or murmurs are appreciated. ABDOMEN: Protuberant, soft and nontender. Surgical site as noted above is clean dry and intact without signs of infection. He does have serous sanguinous drainage from the surgical site just lateral to the umbilicus on palpation. Positive bowel sounds in all quadrants. No guarding, rigidity or organomegaly. EXTREMITIES: Moves all extremities well on command and with purpose. All distal neurovascular statuses are intact and equal bilaterally. ED Course: Patient is assessed as noted above. Patient's medication list was reviewed. Laboratory Testing: Test 02/12/17 16:10 02/12/17 16:11 Range/Units White Blood Count 14.88 4.8-10.8 K/uL Red Blood Count 4.37 4.7-6.1 M/uL Hemoglobin 12.3 14.0-18.0 g/dL Hematocrit 35.9 42-52 % Mean Corpuscular Volume 82.2 80-100 fL Mean Corpuscular Hemoglobin 28.1 25-34 pg Mean Corpuscular Hemoglobin Concent 34.3 32-36 g/dl Platelet Count 300 130-400 K/uL Mean Platelet Volume 8.5 7.4-10.4 fL RDW Standard Deviation 44.2 36.4-46.3 fL RDW Coefficient of Variation 14.8 11.5-14.5 % Neutrophils % (Manual) 67.0 % Lymphocytes % (Manual) 23.5 % Monocytes % (Manual) 4.3 % Metamyelocytes % 4.3 % Myelocytes % 0.9 % Neutrophils # (Manual) 9.97 1.4-6.5 K/uL Total Absolute Neutrophils 9.97 1.4-6.5 K/uL Lymphocytes # (Manual) 3.50 1.2-3.4 K/uL Total Absolute Lymphocytes 3.50 1.2-3.4 K/uL Monocytes # (Manual) 0.64 0.11-0.59 K/uL Metamyelocytes # 0.64 0-0 K/uL Myelocytes # 0.13 0-0 K/uL Sodium Level 143 136-145 mmol/L Potassium Level 3.3 3.5-5.1 mmol/L Chloride Level 109 98-107 mmol/L Carbon Dioxide Level 29 21-32 mmol/L Anion Gap 5.0 3-11 mmol/L Blood Urea Nitrogen 17 7-18 mg/dl Creatinine 0.98 0.60-1.40 mg/dl Est Creatinine Clear Calc Drug Dose 96.5 ml/min Estimated GFR () 92.1 Estimated GFR (Non- 79.5 BUN/Creatinine Ratio 17.2 10-20 Random Glucose 97 70-99 mg/dl Calcium Level 7.7 8.5-10.1 mg/dl Total Bilirubin 0.3 0.2-1 mg/dl Direct Bilirubin < 0.1 0-0.2 mg/dl Aspartate Amino Transf (AST/SGOT) 27 15-37 U/L Alanine Aminotransferase (ALT/SGPT) 63 12-78 U/L Alkaline Phosphatase 45 45-117 U/L Total Protein 5.3 6.4-8.2 gm/dl Albumin 2.5 3.4-5.0 gm/dl Lipase 471 73-393 U/L Bedside Lactic Acid Venous 1.78 0.90-1.70 mmol/L Gram Stain and Wound Culture: Pending. IV Contrast Abdominal/Pelvic CT: Was reviewed by myself and read by the radiologist and shows findings consistent with small bowel resection. No evidence of abscess or bowel obstruction. Minimal flow and infiltration within the mesentery/operative bed. A few locules of extraluminal gas. Gas within the bladder. An abdominal pad was placed over patient's surgical site and secured with tape to collect his drainage. Patient's case was reviewed with my attending, Dr. Norman; he probably assessed the patient and we agreed on diagnostic approach, treatment, disposition and plan. During patient's stay patient received 600 mg of clindamycin IV that was given incorrectly and meant for another patient on my order. This was reviewed with my attending and nursing lower in supervisor's. PERT forms were completed. On multiple patient's reevaluation he had no adverse reactions to this medication administration. Patient's case was consulted with case management and Dr. Chaney, general surgery. Dr. Chaney did not feel based on patient's testing and CT scan that emergent surgical intervention was needed. I did have a lot of the conversation with the patient and he did not want to stay in the hospital but wanted to go home. I requested case management to set up an earlier appointment and instead of his current two-week follow-up. Patient was educated about tonight's findings and instructed on his treatment plan; he verbalizes understanding and agreement with this plan. Clinical Impression: Serosanguineous drainage from patient's surgical site. Elevated lipase. Decision-Making: Initially my differential diagnosis I considered per surgical infection, surgical perforation, abscess, pancreatitis, and other causes. Disposition: Patient discharged home in stable condition; prior to departure he was reassessed and reported he was feeling the same and was not having any pain or other symptoms. Patient was provided with additional abdominal dressings and tape to cover his wound. Plan: Patient was encouraged to continue his current medications as prescribed. Patient was told he was in a pool be notified by case management or his surgeon' s office for follow-up care and treatment. Patient was encouraged to come back to the emergency department for worsening seepage, puslike seepage, fevers, abdominal pain, surgical incision site signs of infection or any new/concerning symptoms.
== END 2017-02-12 19:41 | disposition home or self-care (01) ==
LOC: C.EDB 15:00 → C.EDD 19:41
DX: T81.89XA Other complications of procedures, not elsewhere classified, initial encounter (principal); Y83.8 Other surgical procedures as the cause of abnormal reaction of the patient, or of later complication, without mention of misadventure at the time of the procedure; Z90.49 Acquired absence of other specified parts of digestive tract; J45.909 Unspecified asthma, uncomplicated; Z86.718 Personal history of other venous thrombosis and embolism; I25.2 Old myocardial infarction; I10 Essential (primary) hypertension; Z95.5 Presence of coronary angioplasty implant and graft; Z79.82 Long term (current) use of aspirin; Z79.899 Other long term (current) drug therapy

== ENCOUNTER → 2017-09-17 | Outpatient (CLI) | payer OTHER ==
[~2017-09-17] MED LIST changes: -FOLI1TAB7 PO; +FOLI1TAB8 PO; +NTRGSL/4 UT
--- NOTE | 2017-09-17 12:42 | DIAGNOSTIC IMAGING REPORT ---
LEFT LOWER EXTREMITY VENOUS DOPPLER CLINICAL HISTORY: LEFT LEG SWELLING COMPARISON STUDY: Left lower extremity venous Doppler October 03, 2016. TECHNIQUE: Sonography of the deep venous system of the left lower extremity was performed. Compression and augmentation were evaluated. FINDINGS: Nonocclusive thrombus within the left superficial femoral and popliteal veins is similar to exam of October 03, 2016. No additional sites of deep venous thrombus were identified within the left lower extremity. The vessels are not expanded.. IMPRESSION: 1. No evidence of acute deep venous thrombus within the left lower extremity. 2. No change in chronic deep venous thrombus within the left superficial femoral and popliteal veins since exam of October 03, 2016. Electronically signed by: Jeff Bolaños M.D. 09/17/2017 12:40 PM Dictated Date/Time: 09/17/2017 12:38 PM
== END | disposition home or self-care (01) ==
LOC: C.ULTRBC 12:03
PROVIDERS: ATTEND Physician Assistant Medical
DX: M79.89 Other specified soft tissue disorders (principal)

== ENCOUNTER → 2018-01-21 | Outpatient (CLI) | payer OTHER ==
[2018-01-21 12:33] LABS: BASO % 0.4 %; BASO ABS # 0.04 K/uL (0-0.2); EOS % 2.2 %; EOS ABS # 0.21 K/uL (0-0.5); HEMATOCRIT 40.5 % (42-52); HEMOGLOBIN 13.3 g/dL (14.0-18.0); IG# 0.07 K/uL (0.00-0.02); LYMPH % 31.2 %; LYMPH ABS # 2.91 K/uL (1.2-3.4); MEAN CELL VOLUME 83.2 fL (80-100); MEAN CORPUSCULAR HEMOGLOBIN 27.3 pg (25-34); MEAN CORPUSCULAR HGB CONC 32.8 g/dl (32-36); MEAN PLATELET VOLUME 9.7 fL (7.4-10.4); MONO % 9.4 %; MONO ABS # 0.88 K/uL (0.11-0.59); NEUT % 56.1 %; NEUT ABS # 5.23 K/uL (1.4-6.5); PLATELET COUNT 189 K/uL (130-400); RED CELL DISTRIBUTION WIDTH SD 45.3 fL (36.4-46.3); WHITE BLOOD COUNT 9.34 K/uL (4.8-10.8)
[2018-01-21 12:43] LABS: HEMOGLOBIN A1C 6.2 % (4.5-5.6)
[2018-01-21 12:59] LABS: ALBUMIN 3.8 gm/dl (3.4-5.0); ALKALINE PHOSPHATASE 47 U/L (45-117); ALT/SGPT 46 U/L (12-78); AST/SGOT 25 U/L (15-37); BLOOD UREA NITROGEN 19 mg/dl (7-18); CALCIUM 9.4 mg/dl (8.5-10.1); CARBON DIOXIDE 31 mmol/L (21-32); CHOLESTEROL 126 mg/dl (0-200); CREATININE 1.08 mg/dl (0.60-1.40); GLUCOSE 103 mg/dl (70-99); LDL CHOLESTEROL CALCULATED 50 mg/dl; POTASSIUM 3.8 mmol/L (3.5-5.1); SODIUM 139 mmol/L (136-145); TOTAL PROTEIN 6.8 gm/dl (6.4-8.2)
== END | disposition home or self-care (01) ==
LOC: C.LABBFT 07:33
PROVIDERS: ATTEND Internal Medicine Cardiovascular Disease
DX: E78.5 Hyperlipidemia, unspecified (principal); I10 Essential (primary) hypertension; I25.10 Atherosclerotic heart disease of native coronary artery without angina pectoris; D64.9 Anemia, unspecified; R73.03 Prediabetes

== ENCOUNTER 2019-05-10 09:26 | Observation (INO) ==
--- NOTE | 2019-04-28 12:58 | Anesthesiology Consultation ---
Date of Service April 28, 2019 Assessment & Plan Chart Review Chart Review: Pending: Refer to Additional Notes / Consult section (awaiting more cardiac history) History Surgery Operation Date: 05/10/19 13:30 Proposed Procedures p Open Incisional Hernia Repair with Mesh - Andrea Figueroa DO Height/Weight Height: 5 ft 11 in Weight: 120.202 kg Allergies Allergy/AdvReac Type Severity Reaction Status Date / Time Penicillins Allergy Unknown "DOES NOT Verified 04/28/19 09:10 KNOW- A CHILD" Medications Home Medications Medication Instructions Recorded Confirmed Last Taken aspirin [Aspir-81] 81 mg PO QAM 07/31/18 04/28/19 Unknown atorvastatin 80 mg PO QAM 07/31/18 04/28/19 Unknown ferrous sulfate [iron] 325 mg PO QAM 07/31/18 04/28/19 Unknown folic acid 1 mg PO QAM 07/31/18 04/28/19 Unknown lisinopril 40 mg PO QAM 07/31/18 04/28/19 Unknown sertraline 50 mg PO QAM 07/31/18 04/28/19 Unknown nitroglycerin 0.4 mg sublingual 0.4 mg SL Q5M PRN #25 tab 04/14/19 04/28/19 Unknown tablet vitamin B complex tablet 1 tab PO QAM 04/14/19 04/28/19 Unknown carvedilol 25 mg tablet 25 mg PO BID #180 tab 04/17/19 04/28/19 Unknown hydrochlorothiazide 25 mg PO QAM 04/28/19 04/28/19 Unknown Past Medical History Medical History Left leg DVT (Acute) 2017 - POST OP BOWEL RESECTION - TREATED - NO ISSUES SINCE Hypertension (Chronic) Asthma (Chronic) A CHILD 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 PALACIOS History of cholecystectomy History of heart artery stent History of surgery on extremity LLE - Social History Smoking Status: Never smoker Do You Dip or Chew Tobacco: No Hx Alcohol Use: Yes Alcohol type: beer alcohol intake frequency: holidays/special occasions only Hx Substance Use: No substance use type: does not use Testing Electrocardiogram Date: 04/24/19 Findings: + NSR @ (82 bpm)
--- NOTE | 2019-04-28 13:24 | Anesthesiology Consultation ---
Date of Service April 28, 2019 Assessment & Plan (1) Encounter for pre-operative examination: Chart Review Chart Review: Acceptable Risk for Surgery and Patient NOT seen in Pre Admission Testing Consults Requested none History Surgery Operation Date: 05/10/19 13:30 Proposed Procedures p Open Incisional Hernia Repair with Mesh - Andrea Figueroa DO Height/Weight Height: 5 ft 11 in Weight: 120.202 kg Allergies Allergy/AdvReac Type Severity Reaction Status Date / Time Penicillins Allergy Unknown "DOES NOT Verified 04/28/19 09:10 KNOW- A CHILD" Medications Home Medications Medication Instructions Recorded Confirmed Last Taken aspirin [Aspir-81] 81 mg PO QAM 07/31/18 04/28/19 Unknown atorvastatin 80 mg PO QAM 07/31/18 04/28/19 Unknown ferrous sulfate [iron] 325 mg PO QAM 07/31/18 04/28/19 Unknown folic acid 1 mg PO QAM 07/31/18 04/28/19 Unknown lisinopril 40 mg PO QAM 07/31/18 04/28/19 Unknown sertraline 50 mg PO QAM 07/31/18 04/28/19 Unknown nitroglycerin 0.4 mg sublingual 0.4 mg SL Q5M PRN #25 tab 04/14/19 04/28/19 Unknown tablet vitamin B complex tablet 1 tab PO QAM 04/14/19 04/28/19 Unknown carvedilol 25 mg tablet 25 mg PO BID #180 tab 04/17/19 04/28/19 Unknown hydrochlorothiazide 25 mg PO QAM 04/28/19 04/28/19 Unknown Past Medical History Medical History Left leg DVT (Acute) 2017 - POST OP BOWEL RESECTION - TREATED - NO ISSUES SINCE Hypertension (Chronic) Asthma (Chronic) A CHILD 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 PALACIOS History of cholecystectomy History of heart artery stent History of surgery on extremity LLE - Social History Smoking Status: Never smoker Do You Dip or Chew Tobacco: No Hx Alcohol Use: Yes Alcohol type: beer alcohol intake frequency: holidays/special occasions only Hx Substance Use: No substance use type: does not use Testing Laboratory Results Laboratory Tests 04/17/19 04/17/19 14:00 14:00 WBC 8.64 Hgb 13.9 L Hct 40.4 L Plt Count 218 Sodium 138 Potassium 3.8 Chloride 103 Carbon Dioxide 29 BUN 16 Glucose 146 H Electrocardiogram Date: 04/26/19 Findings: + NSR @ (82 bpm) and + pertinent finding septal infarct Echocardiogram Date: 02/05/17 EF: 50-55% LV Function: normal apical septal akinesis
[~2019-05-10 09:26] MED LIST changes: -ASPI81TA28 PO; -ATOR-26 PO; +CLINDAMYCIN 900 MG in DEXTROSE 5% 50 ML IV SCH; -CRG25 PO; -FERR1TAB13 PO; -FOLI1TAB8 PO; -HYDR25TA5 PO; -LISI40TA PO; +LR 15ML/HR IV SCH; +MIDAZOLAM HCL 1 MG/ML 2ML VIAL ONE; -NTRGSL/4 UT; -SERT50TA PO; +fentaNYL citrate 100 MCG/2 ML VIAL ONE
[2019-05-10] MEDS ORDERED: ATROPINE SULFATE 0.1 MG/ML 10ML SYR IV PRN (10:18)
[2019-05-10] MEDS ORDERED: ePHEDrine sulfate 50 MG/ML AMP IV PRN (10:18)
[2019-05-10] MEDS ORDERED: fentaNYL citrate 100 MCG/2 ML VIAL IV PRN (10:18)
[2019-05-10] MEDS ORDERED: ONDANSETRON INJ 2 MG/ML 2 ML VIAL IV PRN ×2 (10:18→15:03)
[2019-05-10] MEDS ORDERED: BUPIVACAINE 0.5 % 5 MG/1 ML MPF 30ML VIAL ONE (10:22)
[2019-05-10] MEDS ORDERED: EPINEPHrine INJ 1 MG/ML AMP ONE (10:22)
[2019-05-10] MEDS ORDERED: ACETAMINOPHEN 1000 MG/100 ML IV IV ONE (11:16)
--- NOTE | 2019-05-10 11:32 | History & Physical Bridge Note ---
Date of Service May 10, 2019 History & Physical Bridge Note I have examined the patient, reviewed the History & Physical and in the interval since the performance of the History & Physical I have noted the following changes of clinical significance: no changes noted pt requesting a changing skin lesion on his right forearm be removed. raised, irregular border with multi-color. will add this to the procedure: excision of right forearm skin lesion.
[2019-05-10] MEDS ORDERED: ROCURONIUM BROMIDE 10 MG/ML 5 ML VIAL ONE (12:14)
[2019-05-10] MEDS ORDERED: PROPOFOL IV EMULSION 10 MG/ML 20 ML VIAL IV ONE (12:14)
[2019-05-10] MEDS ORDERED: LIDOCAINE HCL 2% 2 ML VIAL/AMP(20MG/ML) INFIL ONE (12:14)
[2019-05-10] MEDS ORDERED: GLYCOPYRROLATE 0.2 MG/ML VIAL ONE (12:14)
[2019-05-10] MEDS ORDERED: ONDANSETRON INJ 2 MG/ML 2 ML VIAL ONE (12:14)
[2019-05-10] MEDS ORDERED: NEOSTIGMINE METHYLSULFATE 5 MG/5 ML SYR ONE (12:14)
[2019-05-10] MEDS ORDERED: DEXAMETHASONE SOD INJ 4 MG/ML VIAL ONE (12:14)
[2019-05-10] MEDS ORDERED: PHENYLEPHRINE HCL 10 MG/ML VIAL ONE (12:26)
[2019-05-10] MEDS ORDERED: ePHEDrine sulfate 50 MG/ML SYR ONE (12:26)
[2019-05-10] MEDS ORDERED: LARYING-O-JET KIT (LTA) ONE (12:27)
[2019-05-10] MEDS ORDERED: fentaNYL citrate 100 MCG/2 ML VIAL ONE (12:34)
--- NOTE | 2019-05-10 13:53 | Operative Report ---
PG Post Operative Report Pre & Post Diagnosis Operation Date: 05/10/19 11:30 Pre-Op Diagnosis: Incisional Hernia, Right Arm Lesion Post-Op Diagnosis: Incisional Hernia, Right Arm Lesion;adhesions I identified the patient and participated in the time-out.: Yes Procedure Operation Date: 05/10/19 11:30 Actual Procedures p Open Incisional Hernia Repair with Mesh, Extensive Enterolysis, Repair of Enterotomy, Excision of Right Arm Lesion(Not Applicable) - Andrea Figueroa DO Surgeon Andrea Figueroa DO Field Adjuster mima Roberts Estimated Blood Loss 10 Findings Consistent with Post-Op Diagnosis Specimens right arm lesion Description of Procedure After informed consent was obtained the patient was taken to the operating room and placed in supine position. After successful intubation a Khan catheter was placed and the abdomen was sterilely prepped and draped in usual fashion after shaving it. There was an obvious infraumbilical and supraumbilical hernia. A midline incision through his old scar was made with 15 blade scalpel and carried down through the soft tissue using electrocautery. Immediately under the skin was incarcerated small bowel. During the process of taking this down an enterotomy had to be made to take it off of the fascia. This was done purposefully with scissors to free it. Next we immediately repaired it without spillage. It was oversewn with 3-0 Monocryl for the full thickness serosa /mucosal layers and 3-0 silk used in Lembert fashion to oversew as the serosal layer. We continued to tediously dissect small bowel away from the fascia and soft tissue. Eventually we able to free this up and dunk it back into the abdominal cavity. Freeing up the small bowel took at least 45 minutes and was extensive. The same process took place for the supra umbilical hernia. There was a fascial bridge between the 2 but I opted to take this down for better visualization for the repair. I took the fascial bridge down using cautery. Eventually we were able to free up all of the small bowel and reduce it completely. We grasped the fascial edges with Gianna clamps in 360 degrees. I skeletonized the fascia for several centimeters in all directions. Any small bleeding points were controlled using cautery. The fascia was relatively lax. I was able to use #1 Ethibond in simple interrupted fashion to primarily close the large defect. Once the defect was closed we thoroughly irrigated it. We then used a 20 cm x 20 cm piece of ovitex mesh. This was placed as an onlay. It was secured using 0 Ethibond in simple interrupted fashion in 360 degrees as well as over the central portion. It overlapped for several inches in all directions. It laid flat and tension-free. This was then irrigated as well. Tisseel sealant was sprayed over all the raw surfaces to help prevent hematoma and seroma formation. After this dried a 10 flat Fredrick-Maurice drain was placed into the wound bed brought out through a separate stab incision and secured to the skin using 2-0 nylon. A large wound was then closed in multiple layers using 2-0 Vicryl for deep layers 3-0 Vicryl for mid layers and 4-0 Monocryl for skin. A silver dressing gauze and tape were used as a dressing. An abdominal binder was also used. At this point I changed my gloves. We prepped out the right arm lesion with Betadine. A fresh scalpel was used to make an ellipse around it. It was removed full-thickness and sent to pathology. Measured about 1 cm. It was primarily closed using 3-0 nylon in simple interrupted fashion. A Band-Aid was used as a dressing. The patient was awakened, extubated and transferred to recovery in stable condition. My physician hospital medical assistant was present through the entire case. He helped prep the patient. He helped with retraction during my entire dissection. He helped with mesh placement wound closure and dressing placement. I attest to the content of the Intraoperative Record and any orders documented therein. Any exceptions are noted below.
--- NOTE | 2019-05-10 14:36 | Anesthesiology Progress Note ---
Date of Service May 10, 2019 Anesthesia Post Procedure Vital Signs Vital Signs: Temp Pulse Pulse Resp BP Pulse Ox 05/10/19 14:30 60 15 132/76 97 05/10/19 14:20 65 16 135/77 98 05/10/19 14:10 69 16 134/73 99 05/10/19 14:02 97.5 F L 80 16 124/70 98 05/10/19 09:54 97.5 F L 58 L 18 133/69 98 Transfer of Care Handoff Completed per policy Notes Mental Status: alert / awake / arousable and participated in evaluation Patient Amnestic to Procedure: Yes Nausea / Vomiting: adequately controlled Pain: adequately controlled Airway Patency, RR, SpO2: stable & adequate BP & HR: stable & adequate Hydration State: stable & adequate Anesthetic Complications: no major complications apparent and Pt Satisfied with anesthetic care
[2019-05-10] MEDS ORDERED: HYDROmorphone INJ 0.5 MG/0.5 ML SYR IV PRN (15:03)
[2019-05-10] MEDS ORDERED: ACETAMINOPHEN 1,000 MG/100 ML VIAL IV PRN (15:03)
[2019-05-10] MEDS ORDERED: HYDROmorphone INJ 1 MG/ML SYRINGE IV PRN (15:03)
[2019-05-10] MEDS ORDERED: NITROGLYCERIN SL 0.4 MG/TAB TAB SL PRN (15:03)
[2019-05-10] MEDS: LACTATED RINGER'S 1,000 ML IV SCH (15:42)
[2019-05-10] MEDS: CLINDAMYCIN 600 MG in DEXTROSE 5% 50 ML IV SCH (19:42)
[2019-05-10] MEDS: carvediloL 25 MG TAB PO SCH (19:51)
[2019-05-11] MEDS: LACTATED RINGER'S 1,000 ML IV SCH (01:40)
[2019-05-11] MEDS: CLINDAMYCIN 600 MG in DEXTROSE 5% 50 ML IV SCH (03:08)
--- NOTE | 2019-05-11 08:20 | Surgery Progress Note ---
Date of Service May 11, 2019 Assessment & Plan (1) Incisional hernia: doing great POD 1 no issues ok for d/c with drain. f/u next week for drain removal. instructions given Subjective pt oob. feeling well. pain control adequate. would like to go home Physical Exam Physical Exam: alert. nad. abd: soft. expected tenderness. DRU scant/serosanguinous. Results & Data Vital Signs (Past 12 Hours) Vital Signs Temp Pulse Resp BP Pulse Ox 05/11/19 06:57 36.3 C L 62 18 163/83 H 96 05/11/19 03:33 36.7 C 61 20 150/78 H 95 05/10/19 23:18 36.7 C 61 17 139/73 92 PG Care Time/CCT Total # of Minutes Spent Total Time Spent with Patient: Total time spent is greater than 50% in coordination of care (as documented) at patient's floor/unit and/or counseling patient:
[2019-05-11] MEDS: carvediloL 25 MG TAB PO SCH (08:50)
[2019-05-11] MEDS ORDERED: FERROUS SULFATE 325 MG TAB PO SCH (09:00)
[2019-05-11] MEDS ORDERED: FOLIC ACID 1 MG TAB PO SCH (09:00)
[2019-05-11] MEDS ORDERED: LISINOPRIL 40 MG TAB PO SCH (09:00)
[2019-05-11] MEDS ORDERED: SERTRALINE HCL 50 MG TABLET PO SCH (09:00)
[2019-05-11] MEDS ORDERED: ASPIRIN 81 MG ECTAB PO SCH (09:00)
[2019-05-11] MEDS ORDERED: ATORVASTATIN 40 MG TAB PO SCH (09:00)
--- NOTE | 2019-05-11 13:02 | Discharge Summary ---
Date of Service May 11, 2019 Principal Diagnosis 1. Incisional hernia 2. Right arm lesion Discharge Exam Gastrointestinal (Abdomen) Inspection/Auscultation: + abdominal surgical incision (clean, dry) and + abdominal surgical drain present (DRU 75 cc); abdomen not distended Percussion/Palpation: abdomen soft Discharge Data Allergies Allergy/AdvReac Type Severity Reaction Status Date / Time Penicillins Allergy Unknown "DOES NOT Verified 05/10/19 09:45 KNOW- A CHILD" Procedures Performed Operation Date: 05/10/19 11:30 Actual Procedures p Extensive Enterolysis, Repair of Enterotomy, (Not Applicable) - Andrea Figueroa DO s Excision of Right Arm Lesion(Not Applicable) - Andrea Figueroa DO s Open Incisional Hernia Repair with Mesh,, - Andrea Figueroa DO Hospital Course (1) Incisional hernia: 69 y/o male with history of small bowel resection for perforated neuroendocrine tumor now with incisional hernia taken to the OR for repair. He had extensive lysis of adhesions, repair of a small enterotomy and was transferred to the surgical floor for overnight observation. In the morning he was able to tolerate diet and oral analgesics. He was stable for discharge home with the DRU drain to be removed in the office next week. Total Time Total Time Spent Total Time Spent (In Minutes): 15 Discharge Plan Discharge Items Patient Disposition: Home - Self-Care Reason For Visit: Incisional Hernia Repair Discharge Diagnosis: incisional hernia repair Activity: Per Instructions section Lifting: No more than 10 pounds Bathing: Keep incision dry Bathing Comment: sponge bath until drain removed, or keep drain covered and dry Exercise/Sports: Wait until after follow-up appointment Driving/Machine Use: 1 week Non-emergency contact: Surgeon Call non-emergency contact if: you have any medication questions, your symptoms worsen, your pain is not controlled, your pain is unusual for you, you have a fever, your temperature is above 101.5, your wound has increased redness, your wound has increased drainage and your wound pain has increased Follow-up/Referrals: Saurabh Nagel MD [Primary Care Provider] - Andrea Figueroa DO [Surgeon] - (Please call the office to schedule follow up in clinic next week to have the drain removed. You may call sooner if you have any questions/concerns.) Diet: Regular Addtl Attending Provider Instructions: Empty drain 2-3 times daily Pending Studies at Discharge: No Stand-Alone Forms: My [facility] Medications and DC Order Prescriptions: New hydrocodone-acetaminophen [[place]] 5-325 mg tablet 1 - 2 tab PO .every 4-6 hours PRN (Reason: pain, for initial therapy. Max 8 per day) Qty: 15 RF: 0 Continued nitroglycerin 0.4 mg tablet, sublingual 0.4 mg SL Q5M PRN (Reason: chest pain) Qty: 25 RF: 0 vitamin B complex [B Complex-Vitamin B12] tablet 1 tab PO QAM RF: 0 carvedilol 25 mg tablet 25 mg PO BID Qty: 180 RF: 3 atorvastatin 80 mg tablet 80 mg PO QAM RF: 0 aspirin [Aspir-81] 81 mg Tablet,Delayed Release (Dr/Ec) 81 mg PO QAM RF: 0 ferrous sulfate [iron] 325 mg (65 mg iron) Tablet 325 mg PO QAM RF: 0 folic acid 1 mg Tablet 1 mg PO QAM RF: 0 lisinopril 40 mg tablet 40 mg PO QAM RF: 0 sertraline 50 mg tablet 50 mg PO QAM RF: 0 hydrochlorothiazide 25 mg tablet 25 mg PO QAM RF: 0 Discharge Orders: Discharge Order (Routine); Ordered 05/11/19 Ordered By: Uriel Tran/Other Patient Handouts: Tube Fredrick Maurice Drainage Care Admission Data Admit Date/Time: 05/10/19 14:07 Attending Provider: Andrea Figueroa Admit Provider: Andrea Figueroa Primary Care Provider: Saurabh Nagel Other Interventions: Discharge Summary Assessment (RN) Last Done: 05/11/19 10:25 DC Date/Time DO NOT enter until pt leaves facility: 05/11/19 11:23
== END 2019-05-11 11:23 | disposition home or self-care (01) ==
LOC: ASU 09:26 → 3N 09:26

== ENCOUNTER 2022-06-19 14:49 | Inpatient (IN) ==
[2022-06-19] MEDS: METOPROLOL TARTRATE 1 MG/ML VIAL IV PRN ×3 (15:22→15:47)
--- NOTE | 2022-06-19 15:22 | Emergency Department Note ---
History of Present Illness General Chief complaint: Referred by Doctor Stated complaint: LEG PAIN, SOB, AFIB, ELEVATED HR Time Seen by Provider: 06/19/22 15:06 History of Present Illness 72-year-old male presents to the ED with a chief complaint rapid atrial fibrillation. The patient states that he was seen by his PCP today and an EKG showed that he was in rapid A. fib. The patient states that he went to his PCP because of some leg swelling and shortness of breath worse at night over the past week. History of [place] 8 years ago. Has 1 stent. He also reports COVID illness about 3 weeks ago. 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 Palacios Home Medications Medication Instructions Recorded Confirmed Type atorvastatin 80 mg tablet 80 mg PO QAM 07/31/18 06/19/22 History ferrous sulfate 325 mg (65 mg 325 mg PO QAM 07/31/18 06/19/22 History iron) tablet (iron) folic acid 1 mg tablet 1 mg PO QAM 07/31/18 06/19/22 History nitroglycerin 0.4 mg sublingual 0.4 mg sublingual Q5M PRN chest 04/14/19 06/19/22 History tablet pain #25 tabs vitamin B complex (B 1 tab PO QAM 04/14/19 06/19/22 History Complex-Vitamin B12 tablet) magnesium oxide 250 mg PO BID #60 tabs 04/09/20 06/19/22 Rx blood sugar diagnostic (OneTouch #25 ea 12/16/20 06/19/22 Rx Verio test strips) lancets 28 gauge #100 ea 12/16/20 06/19/22 Rx tamsulosin 0.4 mg capsule 0.4 mg PO DAILY #90 caps 12/16/20 06/19/22 Rx lisinopril 40 mg tablet 40 mg PO QAM #90 tabs 06/11/21 06/19/22 Rx metformin 500 mg tablet 1,000 mg PO BID #120 tabs 09/24/21 06/19/22 Rx rivaroxaban 20 mg tablet (Xarelto) 20 mg PO DAILY #90 tabs 11/05/21 06/19/22 Rx carvedilol 25 mg tablet 25 mg PO BID #180 tabs 12/24/21 06/19/22 Rx benzonatate 100 mg capsule 100 mg PO TID PRN cough #30 caps 05/21/22 06/19/22 Rx aspirin 81 mg tablet,delayed 81 mg PO QAM 06/19/22 06/19/22 History release furosemide 20 mg tablet 20 mg PO DAILY #30 tabs 06/19/22 06/19/22 Rx nystatin 100,000 unit/gram topical 1 applic topical BID PRN Rash 06/19/22 06/19/22 History powder Allergies Allergy/AdvReac Type Severity Reaction Status Date / Time Penicillins Allergy Unknown "DOES NOT Verified 06/19/22 13:25 KNOW- A CHILD" Past Med/Surg History Medical History Asthma A CHILD 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 PALACIOS History of cholecystectomy History of heart artery stent History of surgery on extremity LLE - Hx of inguinal hernia surgery (05/10/19) Open Incisional Hernia Repair with Mesh, Extensive Enterolysis, Repair of Enterotomy, Excision of Right Arm Lesion Dr. Figueroa 05/10/19 Family History Uncle Diabetes Mother Coronary heart disease Father Coronary heart disease Other Heart disease Denies family history of Ovarian cancer Prostate cancer Breast cancer Colorectal cancer Social History Smoking Status: Never smoker Second Hand Exposure: No; Hx Alcohol Use: Yes Alcohol type: beer Hx Substance Use: No Preferred Language: Ivorian Communication Ability: Effective Hearing Ability: Normal Monorail Car Operator Required: No Beliefs That Will Affect Care: None marital status: Current Living Situation: Alone current occupational status: retired Feels Safe at Home: Yes Childhood Exposure to Second-Hand Smoke: No caffeine: Yes (soda) Dental Care, Regularly: Yes Physical Activity Frequency: Does not Exercise Seatbelt Use: sometimes Sunscreen Use: Yes Assistive Devices: None Review of Systems A total of 10 systems reviewed and were otherwise negative Physical Exam Vital Signs Vital Signs - 24 hr 06/19/22 15:01 06/19/22 15:22 06/19/22 15:29 Temperature 36.3 C L Temperature Source Temporal Artery Scan Pulse Rate 142 H 119 H 122 H Respiratory Rate 18 Respiratory Effort / Characteristics Non-Labored Respiratory Depth Normal Blood Pressure 153/86 H 146/94 H 146/94 H Blood Pressure Mean 108 Pulse Oximetry 98 Oxygen Delivery Method Room Air Sepsis Recent Fever Within 48 Hours No Sepsis New/Unexplained Change in Mental Status No Sepsis Action Taken by Nursing No Action Required 06/19/22 15:47 Temperature Temperature Source Pulse Rate 135 H Respiratory Rate Respiratory Effort / Characteristics Respiratory Depth Blood Pressure 108/87 Blood Pressure Mean Pulse Oximetry Oxygen Delivery Method Sepsis Recent Fever Within 48 Hours Sepsis New/Unexplained Change in Mental Status Sepsis Action Taken by Nursing CONSTITUTIONAL/VITAL SIGNS: Reviewed / noted above. GENERAL: Non-toxic in appearance. INTEGUMENTARY: Warm, dry, and [place]. HEAD: Normocephalic. EYES: without scleral icterus or trauma. ENT/OROPHARYNX: clear and moist. LYMPHADENOPATHY/NECK: Is supple without lymphadenopathy or meningismus. RESPIRATORY: Diminishedto auscultation bilaterally. No increased work of breathing. CARDIOVASCULAR: Rapid and irregular GI/ABDOMEN: Soft and nontender. No organomegaly or pulsatile mass. EXTREMITIES: Warm and well perfused.Pedal edema. BACK: No CVA tenderness. NEUROLOGICAL: Intact without focal deficits. PSYCHIATRIC: normal affect. MUSCULOSKELETAL: Normally developed with good muscle tone. TRIAGE NURSING DOCUMENTATION REVIEWED. Course Administered Medications Metoprolol Tartrate (Metoprolol Tartrate 1 Mg/Ml Vial) 5 mg IV Q5M PRN PRN Reason: Tachycardia Stop: 07/19/22 15:11 Last Admin: 06/19/22 15:47 Dose: 5 mg Documented By: Admin: 06/19/22 15:29 Dose: 5 mg Documented By: Admin: 06/19/22 15:22 Dose: 5 mg Documented By: KT Discontinued Medications Diltiazem HCl (Diltiazem Hcl 5 Mg/Ml 5 Ml Vial) 20 mg IV NOW STA Stop: 06/19/22 15:53 Last Admin: 06/19/22 15:58 Dose: 20 mg Documented By: ARABELLA Co-signed By: JEREMIE Critical Care Time Critical Care Time: Yes Total Critical Care Time: 35 I have personally spent 35 minutes of critical care time in the direct management of this patient. This includes bedside care, interpretation of diagnostic studies, and testing, discussion with consultants, patient, and family members, and other required patient management activities. This 35 minutes is in excess of all separately billable procedures. Medical Decision Making Differential Diagnosis The differential that was considered includes acute myocardial infarction, acute coronary syndrome, myocarditis, pericarditis, pericardial effusions /tamponade, esophageal perforation, thoracic aortic dissection, pulmonary embolism, pneumonia, pneumothorax, pancreatitis, shingles, acute cholecystitis, perforated abdominal viscus. Medical Records Attestation: I reviewed the patient's medical records. Home Medications Current Medication List: was personally reviewed by me Laboratory Data Attestation: I reviewed the patient's lab results. Result diagrams: 06/19/22 15:19 06/19/22 15:19 Lab Results 06/19/22 06/19/22 06/19/22 Range/Units 15:19 15:19 15:19 WBC 13.94 H (4.8-10.8) K/ul RBC 5.03 (4.63-6.08) M/uL Hgb 13.3 L (14.0-18.0) g/dl Hct 40.2 (40.1-51.0) % MCV 79.9 L (80.0-100.0) fL MCH 26.4 (25.0-34.0) pg MCHC 33.1 (32.0-36.0) g/dL RDW Std Deviation 45.0 (36.4-46.3) fL RDW Coeff of Sveta 15.9 H (11.5-14.5) % Plt Count 274 (130-400) K/uL MPV 10.1 (9.4-12.4) fL Immature Gran % (Auto) 0.9 % Neut % (Auto) 64.7 % Lymph % (Auto) 23.9 % [place] % (Auto) 8.2 % Eos % (Auto) 1.7 % Baso % (Auto) 0.6 % Neut # (Auto) 9.00 H (1.4-6.5) K/uL Lymph # (Auto) 3.33 (1.2-3.4) K/uL [place] # (Auto) 1.15 H (0.24-0.82) K/uL Eos # (Auto) 0.24 (0-0.50) K/uL Baso # (Auto) 0.09 (0-0.2) K/uL Immature Gran # (Auto) 0.13 H (0.00-0.02) K/uL PT 11.7 (9.0-12.0) Seconds INR 1.1 (0.9-1.1) APTT 25.5 (21.0-31.0) Seconds PTT Ratio 0.9 Sodium 139 (136-145) mmol/L Potassium 4.0 (3.5-5.1) mmol/L Chloride 105 (98-107) mmol/L Carbon Dioxide 26 (21-32) mmol/L Anion Gap 8 (3-11) BUN 21 (6-23) mg/dl Creatinine 1.24 (0.6-1.4) mg/dl Est Cr Clr Drug Dosing 69.0 ml/min Est GFR ( Amer) 66.9 ml/min Est GFR (Non-Af Amer) 57.7 ml/min BUN/Creatinine Ratio 16.9 (10-20) Glucose 221 H (70-99(Fasting)) mg/dl Calcium 9.5 (8.5-10.1) mg/dl Magnesium 1.4 L (1.7-2.4) mg/dl Total Bilirubin 0.5 (0.2-1.0) mg/dl AST 17 (13-39) U/L ALT 22 (7-52) U/L Alkaline Phosphatase 45 (34-104) U/L Troponin I High Sens 191.6 H* (0-20) pg/ml Total Protein 7.1 (6.0-8.3) gm/dl Albumin 4.4 (3.4-5.0) gm/dl Globulin 2.7 (2.5-4.0) gm/dl Albumin/Globulin Ratio 1.6 (0.9-2) TSH (0.300-4.500) uIu/ml 06/19/22 Range/Units 15:19 WBC (4.8-10.8) K/ul RBC (4.63-6.08) M/uL Hgb (14.0-18.0) g/dl Hct (40.1-51.0) % MCV (80.0-100.0) fL MCH (25.0-34.0) pg MCHC (32.0-36.0) g/dL RDW Std Deviation (36.4-46.3) fL RDW Coeff of Sveta (11.5-14.5) % Plt Count (130-400) K/uL MPV (9.4-12.4) fL Immature Gran % (Auto) % Neut % (Auto) % Lymph % (Auto) % [place] % (Auto) % Eos % (Auto) % Baso % (Auto) % Neut # (Auto) (1.4-6.5) K/uL Lymph # (Auto) (1.2-3.4) K/uL [place] # (Auto) (0.24-0.82) K/uL Eos # (Auto) (0-0.50) K/uL Baso # (Auto) (0-0.2) K/uL Immature Gran # (Auto) (0.00-0.02) K/uL PT (9.0-12.0) Seconds INR (0.9-1.1) APTT (21.0-31.0) Seconds PTT Ratio Sodium (136-145) mmol/L Potassium (3.5-5.1) mmol/L Chloride (98-107) mmol/L Carbon Dioxide (21-32) mmol/L Anion Gap (3-11) BUN (6-23) mg/dl Creatinine (0.6-1.4) mg/dl Est Cr Clr Drug Dosing ml/min Est GFR ( Amer) ml/min Est GFR (Non-Af Amer) ml/min BUN/Creatinine Ratio (10-20) Glucose (70-99(Fasting)) mg/dl Calcium (8.5-10.1) mg/dl Magnesium (1.7-2.4) mg/dl Total Bilirubin (0.2-1.0) mg/dl AST (13-39) U/L ALT (7-52) U/L Alkaline Phosphatase (34-104) U/L Troponin I High Sens (0-20) pg/ml Total Protein (6.0-8.3) gm/dl Albumin (3.4-5.0) gm/dl Globulin (2.5-4.0) gm/dl Albumin/Globulin Ratio (0.9-2) TSH 0.749 (0.300-4.500) uIu/ml Imaging Data Radiologist's Impression: Chest X-Ray 06/19/22 15:12 XR chest 1V portable HISTORY: 72 years-old Male Dysrhythmia COMPARISON: Chest radiograph 02/07/2017 TECHNIQUE: AP view of the chest FINDINGS: Cardiac silhouette is enlarged. No pneumothorax, pleural effusion, airspace consolidation or overt pulmonary edema. Degenerative changes of the shoulders and spine. IMPRESSION: No acute process. ACT 112: Negative or not required by law. The above report was generated using voice recognition software. It may contain grammatical, syntax or spelling errors. Electronically signed by: Jordan Nguyen M.D. 06/19/2022 3:32 PM ECG Data Attestation: I personally reviewed and interpreted this ECG as follows: Additional Comments: Twelve-lead EKG: Per my interpretation shows A. fib at a rate of 143. No ST elevation. Occasional PVC. Normal QTC. A. fib is new. MDM Narrative 72-year-old male with a complaint of shortness of breath and leg swelling over the past week. EKG at the PCPs office that showed new onset A. fib. EKG shows an A. fib at a rate of 143 with occasional PVC here. Exam reveals some pedal edema and diminished breath sounds. Chest x-ray was negative for acute disease. White blood cell count was 13.9. Troponin was elevated at 191.TSH is normal. Chest x-ray was negative for acute disease. The patient was treated with IV Lop ressor 15 mg. This did not seem to affect his heart rate much. He was then given 20 mg of IV Cardizem. This did improve his heart rate below 100. IV heparin was ordered. The patient will be seen by the hospitalist, with whom I spoke, for further evaluation and care. Impression & Plan Atrial fibrillation, new onset, Atrial fibrillation with RVR, Elevated troponin Discharge Plan Visit Data Chief Complaint: Referred by Doctor Stated Complaint: LEG PAIN, SOB, AFIB, ELEVATED HR ED Provider: Trey Obrien Discharge Problem: Atrial fibrillation, new onset, Atrial fibrillation with RVR, Elevated troponin Patient Disposition: Being Evaluated by Hospitalist Forms Stand Alone Forms: My [facility] Prescriptions Prescriptions: No Action Xarelto 20 mg tablet 20 mg PO DAILY Qty: 90 3RF Rx Instructions: must administer with evening meal nitroglycerin 0.4 mg tablet, sublingual 0.4 mg SL Q5M PRN (Reason: chest pain) Qty: 25 vitamin B complex [B Complex-Vitamin B12] tablet 1 tab PO QAM magnesium oxide 250 mg magnesium tablet 250 mg PO BID Qty: 60 0RF carvedilol 25 mg tablet 25 mg PO BID Qty: 180 3RF furosemide 20 mg tablet 20 mg PO DAILY Qty: 30 5RF tamsulosin 0.4 mg capsule 0.4 mg PO DAILY Qty: 90 3RF (DME) lancets 28 gauge misc See Rx Instructions .ROUTE .MEDSUPPLY Qty: 100 0RF Rx Instructions: test once daily (DME) OneTouch Verio test strips Strip See Rx Instructions .ROUTE .MEDSUPPLY Qty: 25 5RF Rx Instructions: test once daily lisinopril 40 mg tablet 40 mg PO QAM Qty: 90 3RF benzonatate 100 mg capsule 100 mg PO TID PRN (Reason: cough) Qty: 30 1RF metformin 500 mg tablet 1,000 mg PO BID Qty: 120 11RF atorvastatin 80 mg tablet 80 mg PO QAM ferrous sulfate [iron] 325 mg (65 mg iron) Tablet 325 mg PO QAM folic acid 1 mg Tablet 1 mg PO QAM aspirin [Aspirin Low-Strength] 81 mg Tablet,Delayed Release (Dr/Ec) 81 mg PO QAM nystatin 100,000 unit/gram powder 1 applic topical BID PRN (Reason: Rash) Referrals Referrals: Krish Nagel MD [Primary Care Provider] -
--- NOTE | 2022-06-19 15:33 | XRay Report ---
XR chest 1V portable HISTORY: 72 years-old Male Dysrhythmia COMPARISON: Chest radiograph 02/07/2017 TECHNIQUE: AP view of the chest FINDINGS: Cardiac silhouette is enlarged. No pneumothorax, pleural effusion, airspace consolidation or overt pu lmonary edema. Degenerative changes of the shoulders and spine. IMPRESSION: No acute process. ACT 112: Negative or not required by law. The above report was generated using voice recognition software. It may contain grammatical, syntax o r spelling errors. Electronically signed by: Jordan Nguyen M.D. 06/19/2022 3:32 PM
[2022-06-19 15:39] LABS: Basophils # (auto) 0.09 K/uL (0-0.2); Basophils % (auto) 0.6 %; Eosinophils # (auto) 0.24 K/uL (0-0.50); Eosinophils % (auto) 1.7 %; Hematocrit (blood only) 40.2 % (40.1-51.0); Hemoglobin 13.3 g/dl (14.0-18.0); Immature Granulocytes # (auto) 0.13 K/uL (0.00-0.02); Immature Granulocytes % (auto) 0.9 %; Lymphocytes # (auto) 3.33 K/uL (1.2-3.4); Lymphocytes % (auto) 23.9 %; Mean Corpuscular Hemoglobin 26.4 pg (25.0-34.0); Mean Corpuscular Hgb Conc 33.1 g/dL (32.0-36.0); Mean Corpuscular Volume 79.9 fL (80.0-100.0); Mean Platelet Volume 10.1 fL (9.4-12.4); Monocytes # (auto) 1.15 K/uL (0.24-0.82); Monocytes % (auto) 8.2 %; Neutrophils % (auto) 64.7 %; Platelet Count 274 K/uL (130-400); RDW Coefficient of Variation 15.9 % (11.5-14.5); Red Blood Count 5.03 M/uL (4.63-6.08); White Blood Count 13.94 K/ul (4.8-10.8)
[2022-06-19 15:50] LABS: INR 1.1 (0.9-1.1); Partial Thromboplastin Ratio 0.9; Partial Thromboplastin Time 25.5 Seconds (21.0-31.0); Prothrombin Time 11.7 Seconds (9.0-12.0)
[2022-06-19] MEDS ORDERED: dilTIAZem HCl 5 MG/ML 5 ML VIAL IV STA (15:52)
[2022-06-19 16:00] LABS: Albumin Globulin Ratio 1.6 (0.9-2); Albumin Level 4.4 gm/dl (3.4-5.0); BUN Creatinine Ratio 16.9 (10-20); Bilirubin,Total 0.5 mg/dl (0.2-1.0); Calcium 9.5 mg/dl (8.5-10.1); Est GFR (African American) 66.9 ml/min; Est GFR (Non-African American) 57.7 ml/min; Globulin 2.7 gm/dl (2.5-4.0); Magnesium 1.4 mg/dl (1.7-2.4); Total Protein 7.1 gm/dl (6.0-8.3)
[2022-06-19 16:07] LABS: Troponin I High Sensitivity 191.6 pg/ml (0-20)
[2022-06-19] MEDS ORDERED: Heparin IV Adult Wt-Based Standard WITH Bolus Protocol IV STA (16:23)
[2022-06-19] MEDS ORDERED: dilTIAZem HCl 5 MG/ML 5 ML VIAL IV PRN (16:27)
[2022-06-19] MEDS ORDERED: GLUCOSE 10 TAB/TUBE PO PRN (16:31)
[2022-06-19] MEDS ORDERED: DEXTROSE 50% 50 ML SYRINGE IV PRN (16:31)
[2022-06-19] MEDS ORDERED: GLUCAGON FOR INJ 1 MG VIAL SQ PRN (16:31)
[2022-06-19] MEDS ORDERED: CARBOHYDRATES FOR HYPOGLYCEMIA PO PRN (16:31)
[2022-06-19] MEDS ORDERED: GLUCOSE 40% GEL 15 GM TUBE PO PRN (16:31)
--- NOTE | 2022-06-19 16:37 | History & Physical Report ---
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 Has a long history of DVT's, noted to be SOB with new onset Afib RVR, will obtain CTA of the chest with PE protocol to rule out PE -Will start him on 30 mg PO diltiazem q6h with prn IV diltiazem for HR > 120 BPM -Will also continue his carvedilol for now but may need to adjust dosing based on hemodynamics while admitted -Will restart his Xarelto now, will also obtain BL venous dopplers of the LE's to monitor for DVT's -Will obtain TTE, monitor on tele and pulse oximetry -AM CBC, CMP, and mag (2) Elevated troponin: Plan: -Initial trop elevated at 191, repeat trop has been ordered -Patient has been without chest pain, continue to monitor on tele -Will repeat another ECG now that his HR is better controlled -Will monitor trop q6h overnight until it trends down (3) Hypomagnesemia: Plan: -Noted to be 1.4 today -Has a history and was not taking his vitamins this week due to being too busy -Will give 2g IV mag sulfate now -Continue home mag daily -Monitor AM mag level (4) Lower extremity edema: Plan: -Appears to have venous stasis on exam -Will start patient on 20 mg PO lasix and order TYRELL stockings (5) Hypertension: Plan: -Continue carvedilol -Will hold lisinopril for now to monitor his hemodynamics with starting diltiazem and restarting lasix (6) Type 2 diabetes mellitus: Plan: -BSG elevated today at 221 -Patient had previously been prescribed metformin and Trulicity but has been non-compliant -Will start with BID lantus at 5 units, correction factor of 40 with carb ratio of 13 -start consistent carb diet -Will obtain am A1C (7) CAD in [place] artery: Plan: -Continue aspirin and statin (8) BPH associated with nocturia: Plan: -continue flomax (9) Hyperlipidemia: Plan: -Continue statin Plan The patient was discussed with Dr. 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 Per chart review, the patient was last seen by his PCP on 06/17/22 for lower extremity edema and request for additional antibiotics for recent lower extremity cellulitis. The patient was first seen on 06/02/22 for his lower extremity swelling and discomfort. Per the note, his exam was more consistent with venous stasis but they prescribed him a 10 day course of Levaquin. At his FU visit on 06/17/22 he was noted to be in an irregular rhythm, ECG was performed and showed afib RVR. It was recommended that he go to the ED for further evaluation, ambulance was offered but he declined with a plan for his daughter to take him. Today in the ED the patient was found to be afebrile, hemodynamically stable, stable on RA but tachycardic with HR in the 140's. Labs were remarkable for a leukocytosis of 13.94 with left shift of 9, stable Hgb and platelets, stable renal function, magnesium of 1.4 otherwise stable electrolytes, glucose of 221, initial high sensitivity trop of 191, and TSH of 0.749. Chest xray was negative for acute findings. Initial ECG obtained in the ED showed afib rvr with ST and T-wave abnormalities in the lateral leads. The patient was initially given a total of 15 mg IV lopressor without resolution, he was then given 20 mg IV diltiazem and his HR came back down into the 70's. At the time of the exam the patient was resting comfortably in bed in no acute distress. His HR was in the 70's-90's during my exam. He states that he went to the PCP's office today, not on the , he explains that he called their office on the . He explains that he had his daughter bring him right to the ED from the PCP's office today. He explains that he has had a lot fo stress this week due to issues with his basement flooding. He ran out of his Xarelto 4 days ago and has not had a chance to pick it up from the pharmacy yet. He states that he went to his PCP's office today for his lower extremity swelling and SOB x 2 days. He denies recent fevers or chills, chest pain, abdominal pain, nausea, vomiting, diarrhea, dysuria, hematuria, and blood bowel movements. He has noted a non-productive cough and states that his BL legs are swollen and he feels pins and needles in them. When asked, he states that he has not been on a water pill for some time and that his PCP told him she wanted to restart one for his lower extremity swelling. He confirms that he does not have a previous history of afib. He states that he has not been taking his metformin because he didn't know what it was for. I spoke to him regarding code status, he wishes to be a DNR/DNI. Please refer to Dr. Emery's attestation for any changes to the treatment plan. Allergies Allergy/AdvReac Type Severity Reaction Status Date / Time Penicillins Allergy Unknown "DOES NOT Verified 06/19/22 13:25 KNOW- A CHILD" Home Medications Medication Instructions Recorded Confirmed Type atorvastatin 80 mg tablet 80 mg PO QAM 07/31/18 06/19/22 History ferrous sulfate 325 mg (65 mg 325 mg PO QAM 07/31/18 06/19/22 History iron) tablet (iron) folic acid 1 mg tablet 1 mg PO QAM 07/31/18 06/19/22 History nitroglycerin 0.4 mg sublingual 0.4 mg sublingual Q5M PRN chest 04/14/19 06/19/22 History tablet pain #25 tabs vitamin B complex (B 1 tab PO QAM 04/14/19 06/19/22 History Complex-Vitamin B12 tablet) magnesium oxide 250 mg PO BID #60 tabs 04/09/20 06/19/22 Rx blood sugar diagnostic (OneTouch #25 ea 12/16/20 06/19/22 Rx Verio test strips) lancets 28 gauge #100 ea 12/16/20 06/19/22 Rx tamsulosin 0.4 mg capsule 0.4 mg PO DAILY #90 caps 12/16/20 06/19/22 Rx lisinopril 40 mg tablet 40 mg PO QAM #90 tabs 06/11/21 06/19/22 Rx metformin 500 mg tablet 1,000 mg PO BID #120 tabs 09/24/21 06/19/22 Rx rivaroxaban 20 mg tablet (Xarelto) 20 mg PO DAILY #90 tabs 11/05/21 06/19/22 Rx carvedilol 25 mg tablet 25 mg PO BID #180 tabs 12/24/21 06/19/22 Rx benzonatate 100 mg capsule 100 mg PO TID PRN cough #30 caps 05/21/22 06/19/22 Rx aspirin 81 mg tablet,delayed 81 mg PO QAM 06/19/22 06/19/22 History release furosemide 20 mg tablet 20 mg PO DAILY #30 tabs 06/19/22 06/19/22 Rx nystatin 100,000 unit/gram topical 1 applic topical BID PRN Rash 06/19/22 06/19/22 History powder Past Med/Surg History Medical History Asthma A CHILD 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 - STENT - FOLLOWS W/ DR. PALACIOS History of cholecystectomy History of heart artery stent History of surgery on extremity LLE - Hx of inguinal hernia surgery (05/10/19) Open Incisional Hernia Repair with Mesh, Extensive Enterolysis, Repair of Enterotomy, Excision of Right Arm Lesion Dr. 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 All systems have been reviewed and are otherwise negative. Physical Exam Physical Exam: Physical Exam: General: In no acute distress, stated age, chronically ill-appearing HEENT: Normocephalic, atraumatic, no scleral icterus, pupils around round, symmetrical, and reactive to light, moist mucus membranes, trachea midline, no thyromegaly Chest/Pulm: No respiratory distress, symmetrical chest expansion, clear breath sounds throughout Cardiac: irregular rate and rhythm, no murmurs noted Abdomen: Negative for ascites and bruising, normoactive bowel sounds, soft, non-tender to palpation throughout Musculoskeletal: Symmetrical and without signs of acute trauma, upper and lower extremities with full ROM, no atrophy, spasticity, or flaccidity Extremities: Radial, dorsalis pedis, and posterior tibial pulses are intact and symmetrical, +1-2 pitting edema noted in the BL LE's, no signs of erythema or unilateral swelling Skin: Warm, dry, no rashes , lesions, or scars noted Neuro: Alert and oriented to person, place, month, year, and president, no focal defects, CN II-XII tested and intact, finger to nose test negative, no oumar mors noted Psych: No acute distress, calm and cooperative during the exam Results & Data Results & Data ([facility]) Vital Signs (Past 12 Hours) Vital Signs Temp Pulse Resp BP Pulse Ox O2 Del Method 06/19/22 15:47 135 H 108/87 06/19/22 15:29 122 H 146/94 H 06/19/22 15:22 119 H 146/94 H 06/19/22 15:01 36.3 C L 142 H 18 153/86 H 98 Room Air Laboratory Results Abnormal lab results 06/19/22 06/19/22 Range/Units 15:19 15:19 WBC 13.94 H (4.8-10.8) K/ul Hgb 13.3 L (14.0-18.0) g/dl MCV 79.9 L (80.0-100.0) fL RDW Coeff of Sveta 15.9 H (11.5-14.5) % Neut # (Auto) 9.00 H (1.4-6.5) K/uL Stanton # (Auto) 1.15 H (0.24-0.82) K/uL Immature Gran # (Auto) 0.13 H (0.00-0.02) K/uL Glucose 221 H (70-99(Fasting)) mg/dl Magnesium 1.4 L (1.7-2.4) mg/dl Troponin I High Sens 191.6 H* (0-20) pg/ml Diagnostic Findings Chest X-Ray 06/19/22 15:12 XR chest 1V portable HISTORY: 72 years-old Male Dysrhythmia COMPARISON: Chest radiograph 02/07/2017 TECHNIQUE: AP view of the chest FINDINGS: Cardiac silhouette is enlarged. No pneumothorax, pleural effusion, airspace consolidation or overt pulmonary edema. Degenerative changes of the shoulders and spine. IMPRESSION: No acute process. ACT 112: Negative or not required by law. The above report was generated using voice recognition software. It may contain grammatical, syntax or spelling errors. Electronically signed by: Jordan Nguyen M.D. 06/19/2022 3:32 PM ECG Additional Comments: Atrial fibrillation with rapid ventricular response with premature ventricular or aberrantly conducted complexes Left axis deviation Possible Inferior infarct (cited on or before 26-APR-2019) ST & T wave abnormality, consider lateral ischemia Abnormal ECG When compared with ECG of 26-APR-2019 12:38, Atrial fibrillation has replaced Sinus rhythm Vent. rate has increased BY 61 BPM Criteria for Septal infarct are no longer Present ST now depressed in Lateral leads Code Status & VTE Plan Code Status DNR/DNI VTE Prophylaxis Plan VTE Prophylaxis will be ordered: Yes Supervising Physician Co-Signing Physician Notes Patient was seen and examined independently I discussed the case with Trey DEWEY I reviewed pertinent past medical social family history and also the plan of care and agree with the plan of care. Pt presents with Afiob rvr , was at doctors office and noticed same ran out of xarelto for last few days typically takes for DVT chronic prevention pt did experience palpitations but no chest pain chest pressure or shortness of breath Patient slowed his rate down after IV diltiazem but did previous to that had no response to IV metoprolol Patient is not exhibiting signs of heart failure at this time there is no acute current of injury and EKG but troponins are mildly elevated these will be trended Examination finds his heart to be irregular but rate controlled his lungs are decreased at the base but likely atelectatic he has trace pretibial edema bilaterally A. fib RVR patient will be started on oral short acting diltiazem and if stays controlled may convert to long-acting diltiazem in 1 day Elave backup as needed diltiazem as needed restarting his Xarelto and CT angiography is pending Any exceptions will be noted below PG Care Time/CCT Total # of Minutes Spent Total Time Spent with Patient: Total time spent is greater than 50% in coordination of care (as documented) at patient's floor/unit and/or counseling patient: [place] [address] Initial Inpt Care Lvl 3 Patient Type Established Medical Decision Making High Complexity Diagnoses Atrial fibrillation with RVR I48.91 Elevated troponin R77.8 Hypomagnesemia E83.42 Lower extremity edema R60.0 Hypertension I10 Type 2 diabetes mellitus E11.9 CAD in [place] artery I25.10 BPH associated with nocturia N40.1; R35.1 Hyperlipidemia E78.5
[2022-06-19] MEDS ORDERED: HEPARIN SOD (PORCINE) 1000 UNIT/ML IV ONE (16:38)
[2022-06-19] MEDS ORDERED: HEPARIN SODIUM/DEXTROSE 25,000 UNITS/500 ML BAG IV SCH (16:45)
[2022-06-19] MEDS: MAGNESIUM SULFATE / D5W 1 GM/100 ML BAG IV SCH ×2 (17:17→19:45)
[2022-06-19] MEDS: Heparin IV Adult Wt-Based Standard WITH Bolus Protocol IV SCH (17:18)
[2022-06-19] MEDS ORDERED: OPTIRAY 320 500ml IV ONE (18:19)
--- NOTE | 2022-06-19 18:38 | CT Scan Report ---
CT ANGIOGRAM OF THE CHEST CLINICAL HISTORY: Atrial fibrillation. COMPARISON STUDY: Chest x-ray dated 06/19/2022. TECHNIQUE: Following the IV administration of 115 cc of Optiray 320, CT angiogram of the chest was pe rformed from the upper abdomen to the thoracic inlet utilizing the pulmonary embolus protocol. Images are reviewed in the axial, sagittal, and coronal planes. 3-D MIPS images are created and assessed. I V contrast was administered without complication. A dose lowering technique was utilized adhering to the principles of ALARA. CT DOSE: 757.88 mGy.cm FINDINGS: Thyroid: Imaged portions of the thyroid gland are normal in size and attenuation. Thoracic aorta: There is mild atherosclerotic calcification of the thoracic aorta, with is normal in caliber and demonstrates bovine variant arch anatomy. The aorta is not well opacified. Pulmonary vasculature: The pulmonary trunk is normal in caliber. There are no filling defects identif ied in main, lobar, or segmental pulmonary branches to suggest acute pulmonary embolus. Question trac e chronic thrombus within branches of the right lower lobe pulmonary artery (axial images #136 and #1 69). Heart: The heart is enlarged and without pericardial effusion. There is evidence of previous left simran tricular ischemia. The coronary arteries are densely calcified. Lungs and pleural spaces: Evaluation of the lung parenchyma is significantly degraded by motion artif act. No airspace consolidation or pleural effusion is identified. The trachea and central airways are clear. Foci of parenchymal scarring are seen throughout both lungs. There are numerous tiny calcifie d granulomas. Mediastinum: There is no mediastinal lymphadenopathy. Adia: Clear. Axillae: There is no axillary lymphadenopathy. Upper abdomen: Cholecystectomy clips are noted. There is a small hiatal hernia. Parenchymal calcifica tions are seen throughout the imaged pancreas suggesting chronic hepatitis. Skeletal structures: The skeletal structures are osteopenic. Degenerative change is seen throughout t he thoracic spine. No lytic or blastic bony lesions are seen. There are healed right posterior rib fr actures. IMPRESSION: 1 There is no evidence of acute pulmonary embolus in the main, lobar, or segmental pulmonary arteries . 2. Question trace chronic thrombus within branches of the right lower lobe pulmonary artery. 3. There is no airspace consolidation or pleural effusion. 4. Cardiomegaly. 5. Additional findings as above. ACT 112: Negative or not required by law. Electronically signed by: Chino Stack M.D. 06/19/2022 6:35 PM
[2022-06-19] MEDS: dilTIAZem HCL 30 MG TAB PO SCH ×2 (19:45→21:35)
--- NOTE | 2022-06-19 19:57 | Ultrasound Report ---
ULTRASOUND BILATERAL LOWER EXTREMITY VENOUS CLINICAL HISTORY: Lower extremity edema. History deep venous thrombosis COMPARISON STUDY: Right lower extremity venous ultrasound dated 03/15/2020. Left lower extremity venou s ultrasound dated 09/17/2017 TECHNIQUE: Real-time, grayscale, and color Doppler sonography of the deep veins of the right and left lower extremity was performed from the inguinal crease to the calf. Compression and augmentation wer e utilized. FINDINGS: Right lower extremity: There is nonocclusive deep venous thrombosis in the popliteal vein. There is a lso thrombus within the posterior tibial and peroneal veins within the calf. This is age indeterminan t and may be chronic. The common femoral and superficial femoral veins are patent and normally compre ssible. The greater saphenous vein and the profunda femoris vein at the junction with the common femo ral vein are clear. 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 There is deep venous thro mbosis within one of the 2 superficial femora and distally, the popliteal vein, and in the calf and t he peroneal veins. This is nonocclusive and may be chronic. The remaining calf vessels are patent. Th e common femoral vein in the proximal and mid portions of the superficial femoral veins are patent an d normally compressible. The greater saphenous vein and the profunda femoris vein at the junction wit h the common femoral vein are clear. IMPRESSION: Age-indeterminate nonocclusive and possibly chronic deep venous thrombosis is seen within both legs as above. ACT 112: Negative or not required by law. Electronically signed by: Chino Stack M.D. 06/19/2022 7:55 PM
[2022-06-19] MEDS ORDERED: BENZONATATE 100 MG CAPSULE PO PRN (20:11)
[2022-06-19] MEDS: RIVAROXABAN 20 MG TAB PO SCH (20:58)
[2022-06-19] MEDS: MAGNESIUM OXIDE 400 MG TAB PO SCH (20:59)
[2022-06-19] MEDS: carvediloL 25 MG TAB PO SCH (20:59)
[2022-06-19] MEDS: INSULIN ASPART PER UNIT SC SCH (21:41)
[2022-06-19] MEDS: LANTUS PER UNIT CHARGE SQ SCH (21:41)
[2022-06-20] MEDS: dilTIAZem HCL 30 MG TAB PO SCH ×4 (04:13→20:52)
[2022-06-20] MEDS ORDERED: PERFLUTREN LIPID MICROSPHERE (DEFINITY) IV ONE (06:59)
[2022-06-20 07:54] LABS: Hematocrit (blood only) 37.6 % (40.1-51.0); Hemoglobin 12.3 g/dl (14.0-18.0); Mean Corpuscular Hemoglobin 26.2 pg (25.0-34.0); Mean Corpuscular Hgb Conc 32.7 g/dL (32.0-36.0); Mean Platelet Volume 9.7 fL (9.4-12.4); Platelet Count 191 K/uL (130-400); RDW Coefficient of Variation 15.9 % (11.5-14.5); RDW Standard Deviation 45.1 fL (36.4-46.3); White Blood Count 10.49 K/ul (4.8-10.8)
[2022-06-20 08:03] LABS: INR 1.4 (0.9-1.1); Prothrombin Time 14.9 Seconds (9.0-12.0)
[2022-06-20] MEDS: INSULIN ASPART PER UNIT SC SCH ×4 (08:20→21:01)
[2022-06-20] MEDS: LANTUS PER UNIT CHARGE SQ SCH ×2 (08:22→21:02)
[2022-06-20 08:38] LABS: Albumin Globulin Ratio 1.6 (0.9-2); BUN Creatinine Ratio 17.9 (10-20); Bilirubin,Total 0.7 mg/dl (0.2-1.0); Calcium 8.8 mg/dl (8.5-10.1); Creatinine Clr Calc Pharmacy 75.7 ml/min; Est GFR (African American) 75.7 ml/min; Est GFR (Non-African American) 65.3 ml/min; Globulin 2.5 gm/dl (2.5-4.0); Magnesium 1.7 mg/dl (1.7-2.4); Potassium 4.2 mmol/L (3.5-5.1); Total Protein 6.5 gm/dl (6.0-8.3)
[2022-06-20 08:40] LABS: Troponin I High Sensitivity 194.9 pg/ml (0-20)
[2022-06-20] MEDS: VITAMIN B COMPLEX TAB PO SCH (08:53)
[2022-06-20] MEDS: TAMSULOSIN HCL 0.4 MG CAP PO SCH (08:53)
[2022-06-20] MEDS: MAGNESIUM OXIDE 400 MG TAB PO SCH ×2 (08:53→20:52)
[2022-06-20] MEDS: carvediloL 25 MG TAB PO SCH ×2 (08:54→20:51)
[2022-06-20] MEDS: FOLIC ACID 1 MG TAB PO SCH (08:54)
[2022-06-20] MEDS: FERROUS SULFATE 325 MG TAB PO SCH (08:54)
[2022-06-20] MEDS ORDERED: FUROSEMIDE 20 MG TAB PO SCH (09:00)
[2022-06-20 09:42] LABS: Estimated Average Glucose 214 mg/dl; Hemoglobin A1C 9.1 % (4.5-5.6)
--- NOTE | 2022-06-20 10:13 | Cardiology Consultation ---
Date of Consultation June 20, 2022 Assessment & Plan (1) Atrial fibrillation, new onset: (2) CAD (coronary artery disease): (3) Anticoagulant long-term use: (4) Hypertension: (5) Edema: Plan 1. Atrial fibrillation: He had relatively recent onset of atrial fibrillation, although I cannot determine a time. It is perhaps COVID-related although certainly with his age and risk factors he has a high likelihood of having atrial fibrillation without COVID. That may be hard to figure out in the future. In the meantime we need to continue anticoagulation and my recommendation would be to see him in the office (with Dr. Palacios) in 1 month and if he remains in atrial fibrillation to plan cardioversion. We will need rate control in the meantime which is probably adequate at the moment although it is a little bit high and since his blood pressure is also high I would pr obably increase his diltiazem and switch to a long-acting preparation. 2. Coronary disease: He does not have any symptoms to suggest ischemia was involved. 3. Anticoagulation: I would continue Xarelto, it is unfortunate that he went several days without it but since he is asymptomatic in atrial fibrillation it would give us the opportunity to see whether he converts on his own, it is possible the arrhythmia is paroxysmal. 4. Hypertension: Reviewing his prior blood pressure measurements his blood pressure seems to be very labile. I would be a little cautious and going up too high on his blood pressure medications, especially in view of the new arrhythmia, and we can adjust them as an outpatient in the near future. 5. Edema: This is most likely due to the onset of atrial fibrillation with diminished renal perfusion and fluid retention, rather than a specific cardiac insult. I would just treat with diuresis. From my standpoint I do not have any further evaluation that I would recommend, he probably can be handled as an outpatient at this point. History of Present Illness Reason for Consultation: Atrial fibrillation with rapid ventricular response Attending Physician: Saundra Jasmine MD History of Present Illness This is a 72-year-old male with a history of diabetes mellitus, dyslipidemia and coronary artery disease including anterior CO and stent placement in the LAD in 2011 and [address] follows [address] Palacios in our office. He has a lower extremity DVT in April 2015 as well as a right lower extremity DVT in March 2020. 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 He has maintained on Xarelto for his DVT. Perhaps unrelated he did have COVID diagnosed in early May 2022. He presents now to the emergency room having developed lower extremity edema as well as shortness of breath and presenting to his PCP where he was found to be in atrial fibrillation with rapid ventricular response. I believe this is a new diagnosis. He presented to the emergency room on June 19, 2022. I believe he is unaware of his atrial fibrillation. Unfortunately he ran out 4 days before presentation therefore was not an anticoagulants on admission. A chest CTA showed no evidence of pulmonary embolism. He was admitted, started on intravenous diltiazem as well as oral and he is maintained on carvedilol. He is feeling better this morning, he has no awareness of his arrhythmia, his breathing is better and he feels that his edema has improved. He is sitting at his bedside and is anxious to go home. Allergies Allergy/AdvReac Type Severity Reaction Status Date / Time Penicillins Allergy Unknown "DOES NOT Verified 06/19/22 13:25 KNOW- A CHILD" Home Medications Medication Instructions Recorded Confirmed Type atorvastatin 80 mg tablet 80 mg PO QAM 07/31/18 06/19/22 History ferrous sulfate 325 mg (65 mg 325 mg PO QAM 07/31/18 06/19/22 History iron) tablet (iron) folic acid 1 mg tablet 1 mg PO QAM 07/31/18 06/19/22 History nitroglycerin 0.4 mg sublingual 0.4 mg sublingual Q5M PRN chest 04/14/19 06/19/22 History tablet pain #25 tabs vitamin B complex (B 1 tab PO QAM 04/14/19 06/19/22 History Complex-Vitamin B12 tablet) magnesium oxide 250 mg PO BID #60 tabs 04/09/20 06/19/22 Rx blood sugar diagnostic (OneTouch #25 ea 12/16/20 06/19/22 Rx Verio test strips) lancets 28 gauge #100 ea 12/16/20 06/19/22 Rx tamsulosin 0.4 mg capsule 0.4 mg PO DAILY #90 caps 12/16/20 06/19/22 Rx lisinopril 40 mg tablet 40 mg PO QAM #90 tabs 06/11/21 06/19/22 Rx metformin 500 mg tablet 1,000 mg PO BID #120 tabs 09/24/21 06/19/22 Rx rivaroxaban 20 mg tablet (Xarelto) 20 mg PO DAILY #90 tabs 11/05/21 06/19/22 Rx carvedilol 25 mg tablet 25 mg PO BID #180 tabs 12/24/21 06/19/22 Rx benzonatate 100 mg capsule 100 mg PO TID PRN cough #30 caps 05/21/22 06/19/22 Rx aspirin 81 mg tablet,delayed 81 mg PO QAM 06/19/22 06/19/22 History release furosemide 20 mg tablet 20 mg PO DAILY #30 tabs 06/19/22 06/19/22 Rx nystatin 100,000 unit/gram topical 1 applic topical BID PRN Rash 06/19/22 06/19/22 History powder Patient History Medical History (Updated 06/20/22 @ 22:55 by Saundra Jasmine MD) (HFpEF) heart failure with preserved ejection fraction Asthma A CHILD Benign neuroendocrine tumor of small intestine S/P BOWEL RESECTION CAD in [place] artery Diverticular disease Hyperlipidemia Hypertension Left leg DVT 2014 - POST OP BOWEL RESECTION - TREATED - NO ISSUES SINCE Myocardial Infarction 2013 Osteoarthritis Poor historian Post traumatic stress disorder Right leg DVT Right leg swelling Type 2 diabetes mellitus Surgical History History of bowel resection History of cardiac cath 2013 - [place] [id number] STENT - FOLLOWS W/ DR. PALACIOS History of cholecystectomy History of heart artery stent History of surgery on extremity LLE - Hx of inguinal hernia surgery (05/10/19) Open Incisional Hernia Repair with Mesh, Extensive Enterolysis, Repair of Enterotomy, Excision of Right Arm Lesion Dr. Figueroa 05/10/19 Family History Uncle Diabetes Mother Coronary heart disease Father Coronary heart disease Other Heart disease Denies family history of Ovarian cancer Prostate cancer Breast cancer Colorectal cancer Social History Smoking Status: Never smoker Second Hand Exposure: No; Hx Alcohol Use: No Hx Substance Use: No Preferred Language: Occitan Communication Ability: Effective Hearing Ability: Normal Heavy Threader Required: No Beliefs That Will Affect Care: None marital status: Current Living Situation: Alone current occupational status: retired Feels Safe at Home: Yes Safety Concerns: Feels Safe At This Time Childhood Exposure to Second-Hand Smoke: No caffeine: Yes (soda) Dental Care, Regularly: Yes Physical Activity Frequency: Does not Exercise Seatbelt Use: sometimes Sunscreen Use: Yes Assistive Devices: None Physical Exam Physical Exam: Constitutional: Alert, cooperative and in no distress. HEENT: Unremarkable Neck: No jugular venous distention, carotid pulses are irregular but otherwise normal and equal bilaterally without bruits. Pulmonary: Clear to auscultation bilaterally. Cardiac: Irregular rhythm with no murmur, gallop or rub. Abdomen: Soft, nontender with normal bowel sounds. Extremities: +2 bilateral pretibial edema. Distal pulses intact. Neurologic: No focal findings. Gait is steady. Skin: No rash, ecchymoses or petechiae. Results & Data ([facility]) Vital Signs (Past 12 Hours) Vital Signs Temp Pulse Resp BP BP Pulse Ox O2 Del Method 06/20/22 07:33 36.6 C 89 17 153/92 H 97 Room Air 06/20/22 04:24 36.4 C L 90 16 163/77 H 97 Room Air 06/19/22 22:29 36.3 C L 94 H 18 108/63 96 Room Air 06/19/22 22:20 Room Air Laboratory Results Cardiac Enzymes 06/19/22 06/19/22 06/19/22 Range/Units 15:19 18:40 22:35 AST 17 (13-39) U/L Troponin I High Sens 191.6 H* 212.3 H* 222.6 H* (0-20) pg/ml 06/20/22 06/20/22 Range/Units 07:40 09:52 AST 16 (13-39) U/L Troponin I High Sens 194.9 H* 191.9 H* (0-20) pg/ml Coagulation 06/19/22 06/20/22 Range/Units 15:19 07:40 PT 11.7 14.9 H (9.0-12.0) Seconds APTT 25.5 (21.0-31.0) Seconds CBC 06/19/22 06/20/22 Range/Units 15:19 07:40 WBC 13.94 H 10.49 (4.8-10.8) K/ul RBC 5.03 4.70 (4.63-6.08) M/uL Hgb 13.3 L 12.3 L (14.0-18.0) g/dl Hct 40.2 37.6 L (40.1-51.0) % Plt Count 274 191 (130-400) K/uL Neut # (Auto) 9.00 H (1.4-6.5) K/uL Lymph # (Auto) 3.33 (1.2-3.4) K/uL [place] # (Auto) 1.15 H (0.24-0.82) K/uL Eos # (Auto) 0.24 (0-0.50) K/uL Baso # (Auto) 0.09 (0-0.2) K/uL Comprehensive Metabolic Panel 06/19/22 06/20/22 Range/Units 15:19 07:40 Sodium 139 137 (136-145) mmol/L Potassium 4.0 4.2 (3.5-5.1) mmol/L Chloride 105 105 (98-107) mmol/L Carbon Dioxide 26 26 (21-32) mmol/L BUN 21 20 (6-23) mg/dl Creatinine 1.24 1.12 (0.6-1.4) mg/dl Glucose 221 H 190 H (70-99(Fasting)) mg/dl Calcium 9.5 8.8 (8.5-10.1) mg/dl AST 17 16 (13-39) U/L ALT 22 21 (7-52) U/L Alkaline Phosphatase 45 46 (34-104) U/L Total Protein 7.1 6.5 (6.0-8.3) gm/dl Albumin 4.4 4.0 (3.4-5.0) gm/dl Intake and Output 06/19/22 06/20/22 06/20/22 22:59 06:59 14:59 Intake Total 350 / 600 250 / 600 Balance 350 / 600 250 / 600 Intake: IV 100 / 200 100 / 200 Magnesium Sulfate / D5w 1 gm In 100 / 200 100 / 200 100 ml @ 50 mls/hr IV Q2H ЕЛЕНА Rx#:[id number] Oral 250 / 400 150 / 400 Other: # Unmeasured Voids 1 2 Weight 116.9 kg 115 kg Weight Measurement Method Chair Scale Standing Scale Diagnostic Findings Telemetry: Atrial fibrillation, initially the rate is fast, currently his rate is quite well controlled. Echocardiogram: Overall acceptable left ventricular function, apical akinesis. Similar to prior echocardiograms. PG Care Time/CCT Total # of Minutes Spent Total Time Spent with Patient: Total time spent is greater than 50% in coordination of care (as documented) at patient's floor/unit and/or counseling patient: Coding Level of Care Code 05052 Initial Inpt Care Lvl 3 Diagnoses Atrial fibrillation, new onset I48.91 CAD (coronary artery disease) I25.10 Anticoagulant long-term use Z79.01 Hypertension I10 Edema R60.9
[2022-06-20] MEDS: ATORVASTATIN 40 MG TAB PO SCH (10:27)
[2022-06-20] MEDS: ASPIRIN 81 MG ECTAB PO SCH (10:27)
[2022-06-20] MEDS: MAGNESIUM SULFATE / D5W 1 GM/100 ML BAG IV SCH ×2 (10:28→12:33)
--- NOTE | 2022-06-20 13:26 | XCELERA ---
[id number] \\[id number]
[2022-06-20] MEDS: RIVAROXABAN 20 MG TAB PO SCH (17:00)
[2022-06-20] MEDS ORDERED: FUROSEMIDE INJ 20 MG/2 ML VIAL IV ONE (17:15)
--- NOTE | 2022-06-20 17:19 | Hospitalist Progress Note ---
Date of Service June 20, 2022 Assessment & Plan (1) Atrial fibrillation with RVR: Plan: Sent to the hospital after found to have rapid atrial fibrillation in his PCPs office He noticed dyspnea on exertion and increased lower extremity swelling prior to this appointment Heart rates initially in the 140s in the ER and was treated with a total of 15 mg of IV Lopressor and 20 mg of IV diltiazem with improved rate control -TSH WNL, Mag was noted to be low at 1.4 and was replaced -Recently had COVID which she thinks triggered this but he really is asymptomatic with the atrial fibrillation until he got volume overloaded -Rates are better controlled now on 30 mg PO diltiazem [id number] to diltiazem 120 Mg p.o. once daily tomorrow -Continue home dose of carvedilol 25 Mg p.o. twice daily -Restarted home Xarelto 20 mg daily-he did not take it for 4 days approximately at home as he ran out -Echocardiogram here with preserved EF, apical akinesis, mild TR, no thrombus, unchanged from previous -Appreciate cardiology consultation-plan for rate control strategy -Continue to monitor on telemetry -Follow BMP and magnesium in the morning replace electrolytes to optimize as needed-give 2 g of IV magnesium sulfate today (2) Elevated troponin: Plan: -Initial trop elevated at 191, then peaked at 222 -Patient has been without chest pain, ECG without definite ischemic changes Echocardiogram with apical akinesis, preserved EF unchanged from previous-has known history of anterior IA with stent in the LAD Likely secondary to demand ischemia from rapid atrial fibrillation (3) Lower extremity edema: Plan: -Appears to have venous stasis on exam likely from chronic venous thrombi in the lower extremities on Doppler Swelling has worsened though more recently which is likely due to acute on chronic HFpEF secondary to rapid atrial fibrillation rates -Rate control as above for atrial fibrillation -He was started on 20 mg p.o. Lasix today but this is not effective -Give 1 dose of Lasix 20 Mg IV now and reassess in the morning -Increase daily Lasix dose to 40 Mg once daily -Follow renal function (4) (HFpEF) heart failure with preserved ejection fraction: Plan: As above Changed to low-sodium diet, fluid restrict Continue diuresis Watch I's and O's Counseled on low-sodium diet and fluid restriction at home (5) Hypomagnesemia: Plan: Replaced and improved but not optimal Replacing with 2 more grams of IV magnesium sulfate today Follow level in the morning (6) Hypertension: Plan: -Continue carvedilol -Continue to hold lisinopril for now to monitor his hemodynamics with starting diltiazem and lasix (7) Type 2 diabetes mellitus: Plan: -BSG remain elevated Hemoglobin A1c here elevated at 9.1% -Patient had previously been prescribed metformin and Trulicity but has been non-compliant -Continue Lantus and NovoLog here and will increase doses He would like to try other pills rather than injectables through PCP-advised him to discuss improved blood sugar control with PCP Given known heart disease, he would likely benefit from SGLT2 inhibitor (8) CAD in [place] artery: Plan: -Continue aspirin and statin, carvedilol With a history of LAD stent in 2011 (9) BPH associated with nocturia: Plan: -continue flomax No acute issues (10) Hyperlipidemia: Plan: -Continue statin (11) Anemia: Plan: With mild anemia with hemoglobin 12.3, microcytic Check iron studies in the morning (12) Chronic deep vein thrombosis of leg: Plan: As above CT angiogram chest here without evidence of acute PE but with possible trace chronic R LL thrombus Continue Xarelto Plan DVT prophylaxis-Xarelto Disposition-continued stay in PCU, likely discharge to home tomorrow if dyspnea and lower extremity edema improved and atrial fibrillation rates remain controlled. Patient is very anxious for discharge on Wednesday Admission and Anticipated Discharge Date Admission Date: June 19, 2022 Subjective Patient reports he feels fine. His legs are still fairly swollen and not much better than when he came in. Denies chest pains. Is anxious for discharge. Telemetry with atrial fibrillation with rates in the 90s to 100s, but go up to the 120s with minimal movement. I discussed his care with cardiology. Review of Systems Review of Systems: All systems reviewed & are unremarkable except as noted in HPI & below Physical Exam Constitutional: WD/WN, vitals as above Eyes: + anicteric sclerae Neck: trachea midline, no thyromegaly Respiratory: normal respiratory effort, lungs clear to auscultation Cardiovascular: Rate/Rhythm: + tachycardic and + irregularly irregular Heart Sounds: no murmur Extremities: + edema (2+ edema LLE, 1+ edema RLE) Chest (Breasts): Chest: normal inspection of chest Gastrointestinal (Abdomen): normal bowel sounds, soft, nontender, no hepatosplenomegaly Musculoskeletal: Extremities: extremities normal to inspection; no cyanosis and no clubbing Skin: no rashes, warm and dry Neurologic: moves all extremities and awake; no focal motor deficits Psychiatric: A+Ox3, euthymic affect Results & Data Results & Data ([facility]) Vital Signs (Past 12 Hours) Vital Signs Temp Pulse Resp BP Pulse Ox O2 Del Method 06/20/22 16:23 36.5 C 72 20 136/85 95 Room Air 06/20/22 11:45 37.3 C 102 H 20 124/56 L 94 Room Air 06/20/22 07:33 36.6 C 89 17 153/92 H 97 Room Air Laboratory Results 06/20/22 06/20/22 06/20/22 Range/Units 20:30 15:55 15:51 WBC (4.8-10.8) K/ul RBC (4.63-6.08) M/uL Hgb (14.0-18.0) g/dl Hct (40.1-51.0) % MCV (80.0-100.0) fL MCH (25.0-34.0) pg MCHC (32.0-36.0) g/dL RDW Std Deviation (36.4-46.3) fL RDW Coeff of Sveta (11.5-14.5) % Plt Count (130-400) K/uL MPV (9.4-12.4) fL PT (9.0-12.0) Seconds INR (0.9-1.1) Sodium (136-145) mmol/L Potassium (3.5-5.1) mmol/L Chloride (98-107) mmol/L Carbon Dioxide (21-32) mmol/L Anion Gap (3-11) BUN (6-23) mg/dl Creatinine (0.6-1.4) mg/dl Est Cr Clr Drug Dosing ml/min Est GFR ( Amer) ml/min Est GFR (Non-Af Amer) ml/min BUN/Creatinine Ratio (10-20) Glucose (70-99(Fasting)) mg/dl POC Glucose 202 H 198 H (70-99) mg/dl Estimat Average Glucose mg/dl Hemoglobin A1c (4.5-5.6) % Calcium (8.5-10.1) mg/dl Magnesium (1.7-2.4) mg/dl Total Bilirubin (0.2-1.0) mg/dl AST (13-39) U/L ALT (7-52) U/L Alkaline Phosphatase (34-104) U/L Troponin I High Sens 168.4 H* (0-20) pg/ml Total Protein (6.0-8.3) gm/dl Albumin (3.4-5.0) gm/dl Globulin (2.5-4.0) gm/dl Albumin/Globulin Ratio (0.9-2) 06/20/22 06/20/22 06/20/22 Range/Units 11:00 09:52 07:40 WBC (4.8-10.8) K/ul RBC (4.63-6.08) M/uL Hgb (14.0-18.0) g/dl Hct (40.1-51.0) % MCV (80.0-100.0) fL MCH (25.0-34.0) pg MCHC (32.0-36.0) g/dL RDW Std Deviation (36.4-46.3) fL RDW Coeff of Sveta (11.5-14.5) % Plt Count (130-400) K/uL MPV (9.4-12.4) fL PT (9.0-12.0) Seconds INR (0.9-1.1) Sodium 137 (136-145) mmol/L Potassium 4.2 (3.5-5.1) mmol/L Chloride 105 (98-107) mmol/L Carbon Dioxide 26 (21-32) mmol/L Anion Gap 6 (3-11) BUN 20 (6-23) mg/dl Creatinine 1.12 (0.6-1.4) mg/dl Est Cr Clr Drug Dosing 75.7 ml/min Est GFR ( Amer) 75.7 ml/min Est GFR (Non-Af Amer) 65.3 ml/min BUN/Creatinine Ratio 17.9 (10-20) Glucose 190 H (70-99(Fasting)) mg/dl POC Glucose 291 H (70-99) mg/dl Estimat Average Glucose mg/dl Hemoglobin A1c (4.5-5.6) % Calcium 8.8 (8.5-10.1) mg/dl Magnesium 1.7 (1.7-2.4) mg/dl Total Bilirubin 0.7 (0.2-1.0) mg/dl AST 16 (13-39) U/L ALT 21 (7-52) U/L Alkaline Phosphatase 46 (34-104) U/L Troponin I High Sens 191.9 H* 194.9 H* (0-20) pg/ml Total Protein 6.5 (6.0-8.3) gm/dl Albumin 4.0 (3.4-5.0) gm/dl Globulin 2.5 (2.5-4.0) gm/dl Albumin/Globulin Ratio 1.6 (0.9-2) 06/20/22 06/20/22 06/20/22 Range/Units 07:40 07:40 07:40 WBC 10.49 (4.8-10.8) K/ul RBC 4.70 (4.63-6.08) M/uL Hgb 12.3 L (14.0-18.0) g/dl Hct 37.6 L (40.1-51.0) % MCV 80.0 (80.0-100.0) fL MCH 26.2 (25.0-34.0) pg MCHC 32.7 (32.0-36.0) g/dL RDW Std Deviation 45.1 (36.4-46.3) fL RDW Coeff of Sveta 15.9 H (11.5-14.5) % Plt Count 191 (130-400) K/uL MPV 9.7 (9.4-12.4) fL PT 14.9 H (9.0-12.0) Seconds INR 1.4 H (0.9-1.1) Sodium (136-145) mmol/L Potassium (3.5-5.1) mmol/L Chloride (98-107) mmol/L Carbon Dioxide (21-32) mmol/L Anion Gap (3-11) BUN (6-23) mg/dl Creatinine (0.6-1.4) mg/dl Est Cr Clr Drug Dosing ml/min Est GFR ( Amer) ml/min Est GFR (Non-Af Amer) ml/min BUN/Creatinine Ratio (10-20) Glucose (70-99(Fasting)) mg/dl POC Glucose (70-99) mg/dl Estimat Average Glucose 214 mg/dl Hemoglobin A1c 9.1 H (4.5-5.6) % Calcium (8.5-10.1) mg/dl Magnesium (1.7-2.4) mg/dl Total Bilirubin (0.2-1.0) mg/dl AST (13-39) U/L ALT (7-52) U/L Alkaline Phosphatase (34-104) U/L Troponin I High Sens (0-20) pg/ml Total Protein (6.0-8.3) gm/dl Albumin (3.4-5.0) gm/dl Globulin (2.5-4.0) gm/dl Albumin/Globulin Ratio (0.9-2) 06/20/22 06/19/22 Range/Units 07:10 22:35 WBC (4.8-10.8) K/ul RBC (4.63-6.08) M/uL Hgb (14.0-18.0) g/dl Hct (40.1-51.0) % MCV (80.0-100.0) fL MCH (25.0-34.0) pg MCHC (32.0-36.0) g/dL RDW Std Deviation (36.4-46.3) fL RDW Coeff of Sveta (11.5-14.5) % Plt Count (130-400) K/uL MPV (9.4-12.4) fL PT (9.0-12.0) Seconds INR (0.9-1.1) Sodium (136-145) mmol/L Potassium (3.5-5.1) mmol/L Chloride (98-107) mmol/L Carbon Dioxide (21-32) mmol/L Anion Gap (3-11) BUN (6-23) mg/dl Creatinine (0.6-1.4) mg/dl Est Cr Clr Drug Dosing ml/min Est GFR ( Amer) ml/min Est GFR (Non-Af Amer) ml/min BUN/Creatinine Ratio (10-20) Glucose (70-99(Fasting)) mg/dl POC Glucose 174 H (70-99) mg/dl Estimat Average Glucose mg/dl Hemoglobin A1c (4.5-5.6) % Calcium (8.5-10.1) mg/dl Magnesium (1.7-2.4) mg/dl Total Bilirubin (0.2-1.0) mg/dl AST (13-39) U/L ALT (7-52) U/L Alkaline Phosphatase (34-104) U/L Troponin I High Sens 222.6 H* (0-20) pg/ml Total Protein (6.0-8.3) gm/dl Albumin (3.4-5.0) gm/dl Globulin (2.5-4.0) gm/dl Albumin/Globulin Ratio (0.9-2) PG Care Time/CCT Total # of Minutes Spent Total Time Spent with Patient: Total time spent is greater than 50% in coordination of care (as documented) at patient's floor/unit and/or counseling patient: Coding Level of Care Code 14698 Subseq Hosp Care Lvl 3 Diagnoses Atrial fibrillation with RVR I48.91 Elevated troponin R77.8 Lower extremity edema R60.0 (HFpEF) heart failure with preserved ejection fraction I50.30 Hypomagnesemia E83.42 Hypertension I10 Type 2 diabetes mellitus E11.9 CAD in [place] artery I25.10 BPH associated with nocturia N40.1; R35.1 Hyperlipidemia E78.5 Anemia D64.9 Chronic deep vein thrombosis of leg I82.509
[2022-06-20] MEDS: Heparin IV Adult Wt-Based Standard WITH Bolus Protocol IV SCH (19:01)
[2022-06-21] MEDS: dilTIAZem HCL 30 MG TAB PO SCH (03:03)
[2022-06-21 06:43] LABS: Hematocrit (blood only) 37.1 % (40.1-51.0); Hemoglobin 12.2 g/dl (14.0-18.0); Mean Corpuscular Hemoglobin 26.5 pg (25.0-34.0); Mean Corpuscular Hgb Conc 32.9 g/dL (32.0-36.0); Mean Corpuscular Volume 80.5 fL (80.0-100.0); Mean Platelet Volume 9.8 fL (9.4-12.4); Platelet Count 180 K/uL (130-400); RDW Coefficient of Variation 15.6 % (11.5-14.5); RDW Standard Deviation 44.6 fL (36.4-46.3); Red Blood Count 4.61 M/uL (4.63-6.08); White Blood Count 11.12 K/ul (4.8-10.8)
[2022-06-21 07:22] LABS: Albumin Globulin Ratio 1.6 (0.9-2); BUN Creatinine Ratio 22.6 (10-20); Bilirubin,Total 0.7 mg/dl (0.2-1.0); Calcium 8.4 mg/dl (8.5-10.1); Est GFR (African American) 80.9 ml/min; Est GFR (Non-African American) 69.8 ml/min; Globulin 2.5 gm/dl (2.5-4.0); Magnesium 1.7 mg/dl (1.7-2.4); Potassium 3.6 mmol/L (3.5-5.1); Total Protein 6.5 gm/dl (6.0-8.3)
[2022-06-21 07:32] LABS: Ferritin 55.3 ng/ml (8-388)
[2022-06-21] MEDS: VITAMIN B COMPLEX TAB PO SCH (08:06)
[2022-06-21] MEDS: TAMSULOSIN HCL 0.4 MG CAP PO SCH (08:06)
[2022-06-21] MEDS: ASPIRIN 81 MG ECTAB PO SCH (08:06)
[2022-06-21] MEDS: FERROUS SULFATE 325 MG TAB PO SCH (08:06)
[2022-06-21] MEDS: ATORVASTATIN 40 MG TAB PO SCH (08:06)
[2022-06-21] MEDS: MAGNESIUM OXIDE 400 MG TAB PO SCH (08:06)
[2022-06-21] MEDS: carvediloL 25 MG TAB PO SCH (08:07)
[2022-06-21] MEDS: FOLIC ACID 1 MG TAB PO SCH (08:07)
[2022-06-21] MEDS: INSULIN ASPART PER UNIT SC SCH ×2 (08:13→12:18)
[2022-06-21] MEDS ORDERED: FUROSEMIDE 40 MG TAB PO SCH (09:00)
[2022-06-21] MEDS ORDERED: dilTIAZem HCL 120 MG CAPCR PO SCH (09:00)
[2022-06-21] MEDS ORDERED: LANTUS PER UNIT CHARGE SQ SCH (09:00)
--- NOTE | 2022-06-21 13:35 | Cardiology Progress Note ---
Date of Service June 21, 2022 Assessment & Plan (1) Atrial fibrillation, new onset: (2) CAD (coronary artery disease): (3) Anticoagulant long-term use: (4) Hypertension: (5) Edema: Plan 1. Atrial fibrillation: He had relatively recent onset of atrial fibrillation, although I cannot determine a time. It is perhaps COVID-related although certainly with his age and risk factors he has a high likelihood of having atrial fibrillation without COVID. That may be hard to figure out in the future. In the meantime we need to continue anticoagulation and my recommendation would be to see him in the office (with Dr. Otero) in 1 month and if he remains in atrial fibrillation to plan cardioversion. We will need rate control in the meantime which is probably adequate on full dose carvedilol and low-dose diltiazem. I would be reluctant to increase his diltiazem much at this time since he may convert spontaneously and could have a very slow heart rate and I think current control is adequate. 2. Coronary disease: He does not have any symptoms to suggest ischemia was involved. 3. Anticoagulation: I would continue Xarelto, it is unfortunate that he went several days without it but since he is asymptomatic in atrial fibrillation it would give us the opportunity to see whether he converts on his own, it is possible the arrhythmia is paroxysmal. 4. Hypertension: Reviewing his prior blood pressure measurements his blood pressure seems to be very labile. I would be a little cautious and going up too high on his blood pressure medications, especially in view of the new arrhythmia, and we can adjust them as an outpatient in the near future. Today's blood pressure is very good. 5. Edema: This is most likely due to the onset of atrial fibrillation with diminished renal perfusion and fluid retention, rather than a specific cardiac insult. I would just treat with diuresis, although his weight is not dropping much at this time but if he converts or we convert him back to sinus rhythm he may have a lot less difficulty with edema. Admission and Anticipated Discharge Date Admission Date: June 19, 2022 Subjective He is feeling well today, he is sitting at his bedside in his room. He denies shortness of breath at rest, he has not been very active in the hospital. He has no sensation of palpitations and is tolerating his medications well. Physical Exam Physical Exam: Constitutional: Alert, cooperative and in no distress. HEENT: Unremarkable Neck: No jugular venous distention, carotid pulses are irregular but otherwise normal and equal bilaterally without bruits. Pulmonary: Clear to auscultation bilaterally. Cardiac: Irregular rhythm with no murmur, gallop or rub. Abdomen: Soft, nontender with normal bowel sounds. Extremities: +2 bilateral pretibial edema. Distal pulses intact. Neurologic: No focal findings. Gait is steady. Skin: No rash, ecchymoses or petechiae. Results & Data ([facility]) Vital Signs (Past 12 Hours) Vital Signs Temp Pulse Resp BP Pulse Ox O2 Del Method 06/21/22 12:13 36.9 C 87 19 112/69 98 Room Air 06/21/22 08:04 36.6 C 92 H 18 125/68 98 Room Air 06/21/22 03:21 36.6 C 81 18 106/64 95 Room Air Laboratory Results Cardiac Enzymes 06/20/22 06/21/22 Range/Units 15:51 06:22 AST 15 (13-39) U/L Troponin I High Sens 168.4 H* (0-20) pg/ml CBC 06/21/22 Range/Units 06:22 WBC 11.12 H (4.8-10.8) K/ul RBC 4.61 L (4.63-6.08) M/uL Hgb 12.2 L (14.0-18.0) g/dl Hct 37.1 L (40.1-51.0) % Plt Count 180 (130-400) K/uL Comprehensive Metabolic Panel 06/21/22 Range/Units 06:22 Sodium 138 (136-145) mmol/L Potassium 3.6 (3.5-5.1) mmol/L Chloride 106 (98-107) mmol/L Carbon Dioxide 24 (21-32) mmol/L BUN 24 H (6-23) mg/dl Creatinine 1.06 (0.6-1.4) mg/dl Glucose 181 H (70-99(Fasting)) mg/dl Calcium 8.4 L (8.5-10.1) mg/dl AST 15 (13-39) U/L ALT 20 (7-52) U/L Alkaline Phosphatase 48 (34-104) U/L Total Protein 6.5 (6.0-8.3) gm/dl Albumin 4.0 (3.4-5.0) gm/dl Intake and Output 06/20/22 06/21/22 06/21/22 22:59 06:59 14:59 Intake Total 641.833 / 1391.000 Balance 641.833 / 1391.000 Intake: IV 50.833 / 200.000 Magnesium Sulfate / D5w 1 gm In 50.833 / 200.000 100 ml @ 50 mls/hr IV Q2H [id number] Rx#:[id number] Oral 591 / 1191 Other: # Unmeasured Voids 2 Weight 115 kg Patient Weight 06/22/22 06:59 Weight 115 kg Diagnostic Findings Telemetry: Atrial fibrillation, rate typically 80 to 90 bpm with no excessive high or slow heart rates. PG Care Time/CCT Total # of Minutes Spent Total Time Spent with Patient: Total time spent is greater than 50% in coordination of care (as documented) at patient's floor/unit and/or counseling patient: Coding Level of Care Code 32814 Subseq Hosp Care Lvl 2 Diagnoses Atrial fibrillation, new onset I48.91 CAD (coronary artery disease) I25.10 Anticoagulant long-term use Z79.01 Hypertension I10 Edema R60.9
[2022-06-21] MEDS: RIVAROXABAN 20 MG TAB PO SCH (15:51)
--- NOTE | 2022-06-21 16:15 | XRay Report ---
XR chest 2V PA/lateral CLINICAL HISTORY: ongoing dyspnea, pulm edema? TECHNIQUE: 2 views of the chest were obtained. Comparison: Comparison is made to chest radiograph 06/19/2022 FINDINGS: No lines and tubes are seen. Cardiomegaly is noted. The lungs are clear. No evidence of pleural effus ion or pneumothorax. IMPRESSION: No acute chest disease. ACT 112: Negative or not required by law. Electronically signed by: Roberto Carlos Xiong M.D. 06/21/2022 4:14 PM
--- NOTE | 2022-06-21 16:34 | Discharge Summary ---
Date of Service date of admission - June 19, 2022 date of discharge - June 21, 2022 Admission HPI Per Admitting Provider Jesi is a 72 year old male with a PMH significant for DM II, hx multiple DVT's on Xarelto, CAD S/Ps non ST segment elevation [place] 01/04/2012-cardiac catheteriza tion showed 100% lad, 80% left circumflex, 80% obtuse marginal branch for-status post drug-eluting stent of the LAD. HTN, asthma, hyperlipidemia, previous neuroendocrine tumor causing SBO S/P Bowel resection who presented to the [facility] ED on 06/19/22 at the recommendation of his PCP. Per chart review, the patient was last seen by his PCP on 06/17/22 for lower extremity edema and request for additional antibiotics for recent lower extremity cellulitis. The patient was first seen on 06/02/22 for his lower extremity swelling and discomfort. Per the note, his exam was more consistent with venous stasis but they prescribed him a 10 day course of Levaquin. At his FU visit on 06/17/22 he was noted to be in an irregular rhythm, ECG was performed and showed afib RVR. It was recommended that he go to the ED for further evaluation, ambulance was offered but he declined with a plan for his daughter to take him. Today in the ED the patient was found to be afebrile, hemodynamically stable, stable on RA but tachycardic with HR in the 140's. Labs were remarkable for a leukocytosis of 13.94 with left shift of 9, stable Hgb and platelets, stable renal function, magnesium of 1.4 otherwise stable electrolytes, glucose of 221, initial high sensitivity trop of 191, and TSH of 0.749. Chest xray was negative for acute findings. Initial ECG obtained in the ED showed afib rvr with ST and T-wave abnormalities in the lateral leads. The patient was initially given a total of 15 mg IV lopressor without resolution, he was then given 20 mg IV diltiazem and his HR came back down into the 70's. At the time of the exam the patient was resting comfortably in bed in no acute distress. His HR was in the 70's-90's during my exam. He states that he went to the PCP's office today, not on the , he explains that he called their office on the . He explains that he had his daughter bring him right to the ED from the PCP's office today. He explains that he has had a lot fo stress this week due to issues with his basement flooding. He ran out of his Xarelto 4 days ago and has not had a chance to pick it up from the pharmacy yet. He states that he went to his PCP's office today for his lower extremity swelling and SOB x 2 days. He denies recent fevers or chills, chest pain, abdominal pain, nausea, vomiting, diarrhea, dysuria, hematuria, and blood bowel movements. He has noted a non-productive cough and states that his BL legs are swollen and he feels pins and needles in them. When asked, he states that he has not been on a water pill for some time and that his PCP told him she wanted to restart one for his lower extremity swelling. He confirms that he does not have a previous history of afib. He states that he has not been taking his metformin because he didn't know what it was for. I spoke to him regarding code status, he wishes to be a DNR/DNI. Principal Diagnosis 1. rapid atrial fibrillation 2. acute HFpEF 3. history of DVTs of the legs 4. iron deficiency 5. 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 uncontrolled type 2 diabetes Discharge Exam gen - NAD, awake, alert neck - no JVD heart - irregularly irregular, s1 s2, no murmur lungs - CTA b/l abd - soft NT ND BS+ ext - 1+ edema b/l, pulses 2+ b/l psych - a/o x 3 Discharge Data Allergies Allergy/AdvReac Type Severity Reaction Status Date / Time Penicillins Allergy Unknown "DOES NOT Verified 06/24/22 16:03 KNOW- A CHILD" Consultations [facility] Procedures Performed Echo - EF 50-55%, apical akinesis, mild tricuspid regurgitation Ordered Studies Chest X-Ray 06/19/22 15:12 XR chest 1V portable HISTORY: 72 years-old Male Dysrhythmia COMPARISON: Chest radiograph 02/07/2017 TECHNIQUE: AP view of the chest FINDINGS: Cardiac silhouette is enlarged. No pneumothorax, pleural effusion, airspace consolidation or overt pulmonary edema. Degenerative changes of the shoulders and spine. IMPRESSION: No acute process. ACT 112: Negative or not required by law. The above report was generated using voice recognition software. It may contain grammatical, syntax or spelling errors. Electronically signed by: Jordan Nguyen M.D. 06/19/2022 3:32 PM Chest CTA 06/19/22 17:14 CT ANGIOGRAM OF THE CHEST CLINICAL HISTORY: Atrial fibrillation. COMPARISON STUDY: Chest x-ray dated 06/19/2022. TECHNIQUE: Following the IV administration of 115 cc of Optiray 320, CT angiogram of the chest was performed from the upper abdomen to the thoracic inlet utilizing the pulmonary embolus protocol. Images are reviewed in the axial, sagittal, and coronal planes. 3-D MIPS images are created and assessed. IV contrast was administered without complication. A dose lowering technique was utilized adhering to the principles of ALARA. CT DOSE: 757.88 mGy.cm FINDINGS: Thyroid: Imaged portions of the thyroid gland are normal in size and attenuation. Thoracic aorta: There is mild atherosclerotic calcification of the thoracic aorta, with is normal in caliber and demonstrates bovine variant arch anatomy. The aorta is not well opacified. Pulmonary vasculature: The pulmonary trunk is normal in caliber. There are no filling defects identified in main, lobar, or segmental pulmonary branches to suggest acute pulmonary embolus. Question trace chronic thrombus within branches of the right lower lobe pulmonary artery (axial images #136 and #169). Heart: The heart is enlarged and without pericardial effusion. There is evidence of previous left ventricular ischemia. The coronary arteries are densely calcified. Lungs and pleural spaces: Evaluation of the lung parenchyma is significantly degraded by motion artifact. No airspace consolidation or pleural effusion is identified. The trachea and central airways are clear. Foci of parenchymal sca rring are seen throughout both lungs. There are numerous tiny calcified granulomas. Mediastinum: There is no mediastinal lymphadenopathy. Adia: Clear. Axillae: There is no axillary lymphadenopathy. Upper abdomen: Cholecystectomy clips are noted. There is a small hiatal hernia. Parenchymal calcifications are seen throughout the imaged pancreas suggesting chronic hepatitis. Skeletal structures: The skeletal structures are osteopenic. Degenerative change is seen throughout the thoracic spine. No lytic or blastic bony lesions are seen. There are healed right posterior rib fractures. IMPRESSION: 1 There is no evidence of acute pulmonary embolus in the main, lobar, or segmental pulmonary arteries. 2. Question trace chronic thrombus within branches of the right lower lobe pulmonary artery. 3. There is no airspace consolidation or pleural effusion. 4. Cardiomegaly. 5. Additional findings as above. ACT 112: Negative or not required by law. Electronically signed by: Chino Stack M.D. 06/19/2022 6:35 PM Venous Doppler Study 06/19/22 17:15 ULTRASOUND BILATERAL LOWER EXTREMITY VENOUS CLINICAL HISTORY: Lower extremity edema. History deep venous thrombosis COMPARISON STUDY: Right lower extremity venous ultrasound dated 03/15/2020. Left lower extremity venous ultrasound dated 09/17/2017 TECHNIQUE: Real-time, grayscale, and color Doppler sonography of the deep veins of the right and left lower extremity was performed from the inguinal crease to the calf. Compression and augmentation were utilized. FINDINGS: Right lower extremity: There is nonocclusive deep venous thrombosis in the popliteal vein. There is also thrombus within the posterior tibial and peroneal veins within the calf. This is age indeterminant and may be chronic. The common femoral and superficial femoral veins are patent and normally compressible. The greater saphenous vein and the profunda femoris vein at the junction with the common femoral vein are clear. 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 There is deep venous thrombosis within one of the 2 superficial femora and distally, the popliteal vein, and in the calf and the peroneal veins. This is nonocclusive and may be chronic. The remaining calf vessels are patent. The common femoral vein in the proximal and mid portions of the superficial femoral veins are patent and normally compressible. The greater saphenous vein and the profunda femoris vein at the junction with the common femoral vein are clear. IMPRESSION: Age-indeterminate nonocclusive and possibly chronic deep venous thrombosis is seen within both legs as above. ACT 112: Negative or not required by law. Electronically signed by: Chino Stack M.D. 06/19/2022 7:55 PM Chest X-Ray 06/21/22 12:07 XR chest 2V PA/lateral CLINICAL HISTORY: ongoing dyspnea, pulm edema? TECHNIQUE: 2 views of the chest were obtained. Comparison: Comparison is made to chest radiograph 06/19/2022 FINDINGS: No lines and tubes are seen. Cardiomegaly is noted. The lungs are clear. No evidence of pleural effusion or pneumothorax. IMPRESSION: No acute chest disease. ACT 112: Negative or not required by law. Electronically signed by: Roberto Carlos Xiong M.D. 06/21/2022 4:14 PM Diabetes Follow up Diabetes Follow-up Needed for HgbA1c >9% Hospital Course (1) Atrial fibrillation with RVR: Sent to the hospital after found to be in rapid atrial fibrillation in his PCPs office. This was a new diagnosis for him. He noticed dyspnea on exertion and increased lower extremity swelling prior to this appointment. He likely had developed acute HFpEF due to rapid a.fib. TSH was wnl. Magnesium level was low at time of presentation. He was continued on his usual dose of coreg 25mg BID and was started on diltiazem IR. With both AV trini agents his HRs improved nicely. He was seen by [facility] who recommended ongoing use of coreg + diltiazem CD. Xarelto 20mg daily was resumed. At discharge he was initiated on diltiazem CD 120mg once daily. He will need close follow-up with [facility] for his a.fib. (2) (HFpEF) heart failure with preserved ejection fraction: Patient was diuresed during the stay with IV diuretics. Volume status improved with such. He had been taking 20mg of lasix daily at home prior to this admission. This was increased to 40mg daily at discharge. He was counseled on the importance of daily weights, salt restriction, fluid restriction, etc. CHF instructions were given. Coreg 25mg BID will be continued. Echo shows preserved EF but it is low-normal at 50-55%. (3) Elevated troponin: Peak HS troponin was 222. 2nd to myocardial demand ischemia from rapid atrial fibrillation. No evidence of ACS despite known h/o CAD. (4) Lower extremity edema: 2nd to chronic DVTs and #2. Edema improved with IV diuresis. Lasix was increased from 20mg/day to 40mg/day. (5) Hypomagnesemia: Replaced and improved prior to discharge. He will continue on mag supplementation due to ongoing diuretic usage. (6) Hypertension: He will continue coreg twice daily. Due to initiation of diltiazem CD his lisinopril was discontinued. Lasix was increased to 40mg/day during the stay as well. (7) Type 2 diabetes mellitus: Hemoglobin A1c 9.1% He will continue metformin twice daily. He has previously been resistant to taking insulin. Thus, I prescribed amaryl 1mg daily at discharge in addition to his metformin. He was asked to f/u with his PCP for this. (8) CAD in [place] artery: History of LAD stent in 2011. Has mild ischemic cardiomyopathy as evidenced by apical akinesis on echo. Continue coreg, aspirin, lipitor. (9) BPH associated with nocturia: Continue flomax. (10) Hyperlipidemia: Continue statin. (11) Anemia: Iron studies: ferritin 55; transferrin saturation 7%, iron level 22. These are indicative of iron deficiency. In light of prior neuroendocrine tumor of the small bowel, chronic Xarelto use, etc I recommended close follow-up with Dr Maranda Miranda at the [facility]. Discharge hemoglobin = 12.2. (12) Chronic deep vein thrombosis of leg: "Age-indeterminate nonocclusive and possibly chronic deep venous thrombosis is seen within both legs" - as seen on dopplers this admission. CT angiogram chest here without evidence of acute PE but with possible trace chronic R LL thrombus. Continue Xarelto 20mg daily as previous. (13) Iron deficiency anemia: As above. Follow-up with hematology/oncology. (14) Neuroendocrine tumor: History of - 2016. Small bowel in location s/p resection. He has not had follow-up for this in over a year. Advised f/u with Dr Maranda Miranda at the [facility] for this issue. Total Time Total Time Spent Total Time Spent (In Minutes): 45 Discharge Plan Discharge Items Patient Disposition: Home - Self-Care Reason For Visit: Rapid atrial fibrillation Discharge Diagnosis: 1. atrial fibrillation 2. shortness of breath likely due to water retention in the lungs from mild congestive heart failure 3. history of DVTs of the legs 4. iron deficiency - follow-up needed with hematology/oncology 5. 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 uncontrolled type 2 diabetes Activity: Resume your previous activity Activity Comment: as tolerated Non-emergency contact: Primary Care Provider and Flute Grinder Call non-emergency contact if: you have any medication questions and your sympt oms worsen Follow-up/Referrals: Krish Nagel MD [Primary Care Provider] - 06/24/22 4:30 pm (within [address] Nagel's office Hospital litigation legal secretary will call you Gary with date of appt) Miky Otero MD [Physician] - 06/25/22 9:00 am (within [address] Otero's office for a.fib/congestive heart failure check Scheduled with [facility] litigation legal secretary will call you with appt date on Wednesday) Maranda Miranda MD [Physician] - 07/02/22 9:00 am (please see Dr Miranda or one of her partners at [facility] due to previous history of neuroendocrine tumor Hospital litigation legal secretary will call you with appt date on Wednesday) Diet: Carb Consistent or DM2 and Heart Healthy Fluids: 1800ml (7 cups) Addtl Attending Provider Instructions: Mr Davidson, You were hospitalized due to newly detected atrial fibrillation. Atrial fibrillation - also known as "a.fib" - is an irregular heart rhythm that originates from the top portion of the heart. It is uncertain when you went into a.fib but you were in this rhythm the entire stay. It does not appear that you have symptoms (palpitations, racing heart, etc) from the a.fib. A.fib can cause congestive heart failure, however, if it goes uncontrolled for too long. Thus, the first goal of a.fib treatment is to slow the heart rate down. During your stay we added a medication called "diltiazem" that slows your heart rate down. You have done well on this medication. It is possible that new-onset a.fib led to fluid retention in your lungs and in your legs. Again uncontrolled a.fib can cause water retention/congestive heart failure. We increased your furosemide while you were here to 40mg/day and this worked well for you. As noted in the handouts provided a.fib is a risk factor for stroke. You can reduce your risk of stroke from a.fib by taking blood thinners. Fortunately you are already on Xarelto for your DVT history, and this will help serve as your a.fib blood thinner and thus reduce your chances of a stroke. Additional problems noted while here - 1. uncontrolled diabetes - your blood sugars were high 100s/200s throughout the stay. Your hemoglobin a1c was 9.1% (goal is less than 7%). 2. low iron levels - iron studies were checked and you have evidence of iron deficiency. Recommendations - 1. for a.fib - * start diltiazem CD 120mg once daily in the morning beginning 06/22/22 2. for fluid in your legs and lungs (likely from mild congestive heart failure) - * increase furosemide from 20mg/day to 40mg/day starting tomorrow, 06/22/22; take the 40mg dose daily until you see your family doctor & reject opener in follow-up; they will determine if you should remain on 40mg/day or go back to the smaller dose * take a potassium supplement 20meq once daily starting tomorrow 3. for uncontrolled diabetes; take the following new medication in addition to your usual metformin - * glimepiride 1mg once daily with breakfast starting tomorrow * the most common side effect of glimepiride is low blood sugar (sugars less than 75) * please be diligent in checking your blood sugars at least every morning and preferably twice daily 4. STOP your lisinopril at this time 5. low iron levels - continue your iron supplement as previous, and follow-up with [facility]. I am concerned that your previous neuroendocrine tumor and the low iron levels may be related. You will likely need more work-up to determine the cause of the low irons. 6. neuroendocrine tumor of the small bowel (you had this in 2017) - you will need to re-establish care at the [facility] clinic for ongoing surveillance of this problem. We can help you obtain an appointment in the near-future for this. 7. Check your weight on the same scale every morning after you wake up and use the toilet. Daily weights are important - fluid weight gain can occur very quickly over the course of just a few days. A weight gain of more than 2-3 pounds in 1-2 days is typically concerning for fluid weight gain. It is often the first sign of water retention from heart problems. Follow-up - see separate section Return to [facility] if - * you have worsening shortness of breath or chest pains * you have palpitations/racing heart/tachycardia (heart rate is consistently greater than 100 when you check your heart rate) * you have severe dizziness or lightheadedness * you are concerned about fluid weight gain * any other concerns It was our pleasure to care for you at [facility]! Dr Jose Abebe Crown Pouncer Provider Instructions: Call 911 and go to the Emergency Room if: * You have tightness or pain in your chest that does not go away with rest or Nitroglycerin * You are very short of breath even with rest Call your doctor if any of the following symptoms or problems start or get worse: * Shortness of breath or difficulty breathing * Wake up at night short of breath * Chest pain * Cough * Swelling of your hands, fee, or legs * More fatigued or tired with your normal activity * Palpitations - sudden fast heart beats WEIGHT * Weigh yourself every morning after using the bathroom. * Use the same scale. * Wear the same amount of clothing. * Write your weight down on your chart. * Call your doctor if you gain more than 2-3 pounds in 1-2 days. This is often a sign of water/fluid weight gain from heart problems. Don't delay - call your doctors right away if you notice this rapid weight gain* MEDICATIONS * Use this discharge instruction sheet for instructions. * Take your medications at the time your doctor ordered. * Do not skip a dose of your medicines. * If you miss a dose of medicine, take as soon as possible, but DO NOT DOUBLE A DOSE. * Read your medicine information when you get home. * Know all of the side effects of your medicine. * Call your doctor's office if you have any side effects. * Be sure all of your doctors know what medicine and herbs you take (including cold, flu, and herbal medicine). * Pain Medicine: If you do not get relief from your pain, please call your doctor for help. Take the following with you to your follow-up doctor appointments: * Weight Chart * Medication List * List of questions Do not drink excessive alcohol, beer or wine. Pending Studies at Discharge: No Stand-Alone Forms: My [facility], Smoking Cessation Medications and DC Order Prescriptions: New diltiazem HCl [Cardizem CD] 120 mg Capsule,Extended Release 24hr 120 mg PO QAM Qty: 30 2RF Rx Instructions: for atrial fibrillation Continued Xarelto 20 mg tablet 20 mg PO DAILY Qty: 90 3RF Rx Instructions: must administer with evening meal nitroglycerin 0.4 mg tablet, sublingual 0.4 mg SL Q5M PRN (Reason: chest pain) Qty: 25 vitamin B complex [B Complex-Vitamin B12] tablet 1 tab PO QAM magnesium oxide 250 mg magnesium tablet 250 mg PO BID Qty: 60 0RF carvedilol 25 mg tablet 25 mg PO BID Qty: 180 3RF tamsulosin 0.4 mg capsule 0.4 mg PO DAILY Qty: 90 3RF (DME) lancets 28 gauge misc See Rx Instructions .ROUTE .MEDSUPPLY Qty: 100 0RF Rx Instructions: test once daily (DME) OneTouch Verio test strips Strip See Rx Instructions .ROUTE .MEDSUPPLY Qty: 25 5RF Rx Instructions: test once daily benzonatate 100 mg capsule 100 mg PO TID PRN (Reason: cough) Qty: 30 1RF metformin 500 mg tablet 1,000 mg PO BID Qty: 120 11RF atorvastatin 80 mg tablet 80 mg PO QAM ferrous sulfate [iron] 325 mg (65 mg iron) Tablet 325 mg PO QAM folic acid 1 mg Tablet 1 mg PO QAM aspirin 81 mg Tablet,Delayed Release (Dr/Ec) 81 mg PO QAM nystatin 100,000 unit/gram powder 1 applic topical BID PRN (Reason: Rash) Changed furosemide 40 mg tablet 40 mg PO QAM Qty: 30 0RF Discontinued lisinopril 40 mg tablet 40 mg PO QAM Qty: 90 3RF No Action glimepiride [Amaryl] 1 mg tablet 1 mg PO QAM Qty: 30 5RF Rx Instructions: administer with breakfast; for diabetes potassium chloride 20 mEq tablet extended release 20 meq PO DAILY Qty: 30 5RF Discharge Orders: Discharge Order (Routine); Ordered 06/21/22 Ordered By: Mike Tran/Other Patient Handouts: AFib Preventing Stroke, AFib Admission Data Admit Date/Time: 06/19/22 16:30 Attending Provider: Mike Garcia Admit Provider: Geovanny Emery Primary Care Provider: Krish Nagel Other Providers: Jose Angel Stanley Other Interventions: Discharge Summary Assessment (RN) Last Done: 06/21/22 16:35 Coding Level of Care Code D/C DAY MANAGEMENT >30 MINS Diagnoses Atrial fibrillation with RVR I48.91 (HFpEF) heart failure with preserved ejection fraction I50.30 Elevated troponin R77.8 Lower extremity edema R60.0 Hypomagnesemia E83.42 Hypertension I10 Type 2 diabetes mellitus E11.9 CAD in [place] artery I25.10 BPH associated with nocturia N40.1; R35.1 Hyperlipidemia E78.5 Anemia D64.9 Chronic deep vein thrombosis of leg I82.509 Iron deficiency anemia D50.9 Neuroendocrine tumor D3A.8
--- NOTE | 2022-06-21 20:45 | Electrocardiogram Report ---
Test Reason : Blood Pressure : / mmHG Vent. Rate : 143 BPM Atrial Rate : 120 BPM P-R Int : 000 ms QRS Dur : 104 ms QT Int : 318 ms P-R-T Axes : 000 -34 144 degrees QTc Int : 490 ms Atrial fibrillation with rapid ventricular response with premature ventricular or aberrantly conducte d complexes Left axis deviation Possible Inferior infarct (cited on or before 26-APR-2019) Abnormal ECG When compared with ECG of 26-APR-2019 12:38, Atrial fibrillation has replaced Sinus rhythm Vent. rate has increased BY [address] now depressed in Lateral leads Confirmed by Jose Angel Stanley ([id number]) on 06/21/2022 8:45:30 PM Referred By: Nighat Mckeon Confirmed By:Jose Angel Stanley
--- NOTE | 2022-06-21 21:02 | Electrocardiogram Report ---
Test Reason : Blood Pressure : / mmHG Vent. Rate : 082 BPM Atrial Rate : 082 BPM P-R Int : 238 ms QRS Dur : 104 ms QT Int : 340 ms P-R-T Axes : -18 -31 109 degrees QTc Int : 397 ms Atrial fibrillation Left axis deviation Anterior infarct , age undetermined Abnormal ECG When compared with ECG of 19-JUN-2022 15:09, (unconfirmed) Vent. rate has decreased BY 61 BPM Confirmed by Jose Angel Stanley ([id number]) on 06/21/2022 9:02:15 PM Referred By: Nighat Mckeon Confirmed By:Jose Angel Stanley
== END 2022-06-21 18:04 | disposition home or self-care (01) | DRG 308 ==
LOC: ED 14:49 → SUATTDRO 16:30 → 2S 16:30
DX: E11.65 Type 2 diabetes mellitus with hyperglycemia; Z95.5 Presence of coronary angioplasty implant and graft; I25.2 Old myocardial infarction; Z66 Do not resuscitate; T45.516A Underdosing of anticoagulants, initial encounter; E78.5 Hyperlipidemia, unspecified; E83.42 Hypomagnesemia; I82.533 Chronic embolism and thrombosis of popliteal vein, bilateral; Z91.14 Patient's other noncompliance with medication regimen; I48.91 Unspecified atrial fibrillation; I87.8 Other specified disorders of veins; Z83.3 Family history of diabetes mellitus; I50.33 Acute on chronic diastolic (congestive) heart failure; I25.10 Atherosclerotic heart disease of native coronary artery without angina pectoris; R35.1 Nocturia; Z86.16 Personal history of COVID-19; Z79.82 Long term (current) use of aspirin; N40.1 Benign prostatic hyperplasia with lower urinary tract symptoms; I24.8 Other forms of acute ischemic heart disease; Z79.899 Other long term (current) drug therapy; T38.3X6A Underdosing of insulin and oral hypoglycemic [antidiabetic] drugs, initial encounter; I82.541 Chronic embolism and thrombosis of right tibial vein; I82.553 Chronic embolism and thrombosis of peroneal vein, bilateral; Z79.01 Long term (current) use of anticoagulants; D50.9 Iron deficiency anemia, unspecified; Z82.49 Family history of ischemic heart disease and other diseases of the circulatory system; I11.0 Hypertensive heart disease with heart failure; I82.812 Embolism and thrombosis of superficial veins of left lower extremity; Z88.0 Allergy status to penicillin

== ENCOUNTER 2022-08-17 07:51 | Inpatient (IN) ==
[2022-08-17] MEDS ORDERED: ALBUT/IPRATROP 3MG/0.5MG NEB 3 ML VIAL ONE (08:18)
[2022-08-17] MEDS ORDERED: LEVALBUTEROL HCL 0.63 MG/3 ML NEB NEB STA (08:20)
[2022-08-17] MEDS ORDERED: methylPREDNISolone 125 MG/2 ML VIAL IV STA (08:20)
[2022-08-17 08:35] LABS: Basophils # (auto) 0.13 K/uL (0-0.2); Basophils % (auto) 0.8 %; Eosinophils % (auto) 1.9 %; Hematocrit (blood only) 41.1 % (42.0-52.0); Hemoglobin 12.8 g/dl (14.0-18.0); Immature Granulocytes # (auto) 0.17 K/uL (0.01-0.20); Immature Granulocytes % (auto) 1.1 %; Lymphocytes # (auto) 3.22 K/uL (1.2-3.4); Lymphocytes % (auto) 20.6 %; Mean Corpuscular Hemoglobin 25.8 pg (25.0-34.0); Mean Corpuscular Hgb Conc 31.1 g/dL (32.0-36.0); Mean Corpuscular Volume 82.7 fL (80.0-100.0); Mean Platelet Volume 9.7 fL (9.4-12.4); Monocytes # (auto) 1.12 K/uL (0.11-0.59); Monocytes % (auto) 7.2 %; Neutrophils # (auto) 10.72 K/uL (1.40-6.50); Neutrophils % (auto) 68.4 %; Platelet Count 292 K/uL (130-400); RDW Coefficient of Variation 15.4 % (11.5-14.5); RDW Standard Deviation 45.7 fL (36.4-46.3); Red Blood Count 4.97 M/uL (4.70-6.10); White Blood Count 15.66 K/ul (4.8-10.8)
[2022-08-17 08:43] LABS: Albumin Globulin Ratio 1.5 (0.9-2); Albumin Level 4.3 gm/dl (3.4-5.0); BUN Creatinine Ratio 14.2 (10-20); Bilirubin,Total 0.5 mg/dl (0.2-1.0); Calcium 9.6 mg/dl (8.5-10.1); Creatinine Clr Calc Pharmacy 72.4 ml/min; Est GFR (African American) 69.6 ml/min; Est GFR (Non-African American) 60.1 ml/min; Globulin 2.9 gm/dl (2.5-4.0); Magnesium 1.6 mg/dl (1.7-2.4); Phosphorus 4.5 mg/dl (2.5-4.9); Potassium 4.7 mmol/L (3.5-5.1); Total Protein 7.2 gm/dl (6.0-8.3)
[2022-08-17 08:49] LABS: Troponin I High Sensitivity 9.6 pg/ml (0-20)
--- NOTE | 2022-08-17 08:50 | XRay Report ---
XR chest 1V portable CLINICAL HISTORY: Chest pain, nonspecific TECHNIQUE: Single frontal radiograph of the chest was obtained. Comparison: Comparison is made to chest radiograph 06/21/2022 FINDINGS: No lines and tubes are seen. Cardiomegaly is noted. Prominence and cephalization of the vasculature i s seen. Airspace opacities are seen in the right greater than left lower lung. No evidence of pleural effusion or pneumothorax. IMPRESSION: 1. Cardiomegaly and mild pulmonary edema. 2. Airspace opacities in the right greater than left lower lungs may represent atelectasis, pneumoni a, aspiration, less likely alveolar edema. ACT 112: Negative or not required by law. Electronically signed by: Roberto Carlos Xiong M.D. 08/17/2022 8:49 AM
--- NOTE | 2022-08-17 09:05 | Emergency Department Note ---
Impression & Plan Acute respiratory failure with hypoxia, Pulmonary edema, Atrial fibrillation with rapid ventricular response, Hypomagnesemia ED Provider Note NAME: STANLEY IRVIN III AGE: 72 SEX: M ARRIVES VIA: Ambulance INFORMANT: Patient ED PROVIDER(S): Jonathan Denton MD CHIEF COMPLAINT: SOB PLAN: Disposition: Admit MEDICAL DECISION MAKING: The patient is a pleasant 72-year-old gentleman with a past medical history of CHF, atrial fibrillation on Xarelto, DVT, diabetes who presents to the emergency department via EMS for worsening shortness of breath that began 2 hours prior to arrival where the patient was noted to 81% on room air for EMS and had diminished breath sounds with upper lung field wheezes where he was treated with DuoNeb and albuterol x2 and placed on nonrebreather. The patient denies any recent fevers, chills, cough, congestion, GI or symptoms. He reports he did take his medications as he normally does last night. He has yet to take his medications this morning due to his acute symptoms. He denies any recent salt intake last night and reports he ate canned soup for dinner. On arrival the patient is uncomfortable, moderately dyspneic with increased work of breathing afebrile with heart rate in the 140s in atrial fibrillation, 87% on room air improving to mid 90s when placed on BiPAP. Lungs with wheezes and rhonchi of bilateral lung perry with increased work of breathing. EKG demonstrates atrial fibrillation with RVR without overt ST elevation. Chest x-ray with bilateral interstitial airspace opacities right greater than the left consistent with possible aspiration versus pulmonary edema. WBC 15.6K nonspecific. H/H similar to prior range values. Platelets within normal limits. Chemistry without metabolic acidosis. Lactic acid 1.1, within normal limits. Procalcitonin is undetectable. Magnesium 1.6 with repletion provided. LFTs unremarkable. High-sensitivity troponin 9.6, within normal limits. BNP 392, consistent with the patient's hypervolemia as well as likely reflecting component of the patient's RVR. Lipase within normal limits. COVID- 19, influenza and RSV PCR's were negative. In addition to BiPAP on arrival patient was treated with Xopenex nebulizer and Solu-Medrol for a component of bronchospasm. IV Lasix also ordered. Given the patient denied any preceding infectious symptoms suspect pulmonary edema is more likely at this time. Patient agrees with plan for admission for further management. Case was d/w Dr. Denson [facility] hospitalist who will evaluate the patient for admission. Triage Nursing notes reviewed and agree them. Prior/outside medical records reviewed Vital Signs: reviewed Differential diagnosis: Reactive airway disease, pneumonia, pneumothorax, COPD, CHF, infections, cardiac ischemia, pulmonary embolism, musculoskeletal, gastrointestinal, as well as other pathologies. ER treatment provided: See below. Diagnostics interpreted by me: ECG: Atrial fibrillation, RVR, 154 bpm, ST and T wave abnormality, no overt ST elevation or depression, QTc 467, QRS 104. Cardiac Monitoring: An order for continuous cardiac monitoring was placed and demonstrated Atrial fibrillation, RVR, 154 bpm, no ectopy. Laboratory studies: See below Imaging studies: See below Consultation(s): Case was d/w NIKITA Buckley hospitalist who will evaluate the patient for admission. HPI: The patient is a pleasant 72-year-old gentleman with a past medical history of CHF, atrial fibrillation on Xarelto, DVT, diabetes who presents to the emergency department via EMS for worsening shortness of breath that began 2 hours prior to arrival where the patient was noted to 81% on room air for EMS and had diminished breath sounds with upper lung field wheezes where he was treated with DuoNeb and albuterol x2 and placed on nonrebreather. The patient denies any recent fevers, chills, cough, congestion, GI or symptoms. He reports he did take his medications as he normally does last night. He has yet to take his medications this morning due to his acute symptoms. He denies any recent salt intake last night and reports he ate canned soup for dinner. ROS: See above HPI for pertinent positives & negatives. A total of 10 systems reviewed and were otherwise negative. VITALS:See Below PHYSICAL EXAMINATION: GENERAL: Awake, alert, ill-appearing, moderate respiratory distress. HENT: Normocephalic, atraumatic. Oropharynx unremarkable. EYES: Normal conjunctiva. Sclera non-icteric. NECK: Supple. No nuchal rigidity. FROM. No JVD. RESPIRATORY: Wheezes and rhonchi of bilateral lung perry with moderate increased work of breathing. CARDIAC: Tachycardic rate, irregular rhythm. Extremities warm and well perfused. Pulses equal. ABDOMEN: Soft, non-distended. No tenderness to palpation. No rebound or guarding. No masses. RECTAL: Deferred. MUSCULOSKELETAL: Chest examination reveals no tenderness. The back is symmetrical on inspection without obvious abnormality. There is no CVA tenderness to palpation. No joint edema. LOWER EXTREMITIES: Calves are equal size bilaterally and non-tender. 1+ BLE edema. No discoloration. NEURO: Normal sensorium. No sensory or motor deficits noted. SKIN: No rash or jaundice noted. ED COURSE: Critical Care: I have personally spent greater than 55 minutes of critical care time in the direct management of this patient. This includes bedside care, interpretation of diagnostic studies, and testing, discussion with consultants, patient, and family members, and other required patient management activities. This 55 minutes is in excess of all separately billable procedures. 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 PALACIOS History of cholecystectomy History of heart artery stent History of surgery on extremity LLE - Hx of inguinal hernia surgery (05/10/19) Open Incisional Hernia Repair with Mesh, Extensive Enterolysis, Repair of Ent erotomy, Excision of Right Arm Lesion Dr. Figueroa 05/10/19 Family History Uncle Diabetes Mother Coronary heart disease Father Coronary heart disease Other Heart disease Denies family history of Ovarian cancer Prostate cancer Breast cancer Colorectal cancer Social History Smoking Status: Former smoker Second Hand Exposure: No; Hx Alcohol Use: No Hx Substance Use: No Preferred Language: Nigerian Communication Ability: Effective Hearing Ability: Normal Physical Science Technician Required: No Beliefs That Will Affect Care: None marital status: Current Living Situation: Alone current occupational status: retired Feels Safe at Home: Yes Safety Concerns: Feels Safe At This Time Childhood Exposure to Second-Hand Smoke: No caffeine: Yes (soda) Dental Care, Regularly: Yes Physical Activity Frequency: Does not Exercise Seatbelt Use: sometimes Sunscreen Use: Yes Assistive Devices: Glasses and Walker Allergies Allergies Allergy/AdvReac Type Severity Reaction Status Date / Time Penicillins Allergy Unknown "DOES NOT Verified 07/16/22 08:08 KNOW- A CHILD" Home Meds Home Medications Medication Instructions Recorded Confirmed atorvastatin 80 mg tablet 80 mg PO QAM 07/31/18 07/16/22 ferrous sulfate 325 mg (65 mg 325 mg PO QAM 07/31/18 07/16/22 iron) tablet (iron) folic acid 1 mg tablet 1 mg PO QAM 07/31/18 07/16/22 nitroglycerin 0.4 mg sublingual 0.4 mg sublingual Q5M PRN chest 04/14/19 0 07/16/22 tablet pain #25 tabs vitamin B complex (B 1 tab PO QAM 04/14/19 07/16/22 Complex-Vitamin B12 tablet) aspirin 81 mg tablet,delayed 81 mg PO QAM 06/19/22 07/16/22 release nystatin 100,000 unit/gram topical 1 applic topical BID PRN Rash 06/19/22 07/16/22 powder Previous Rx's Medication Instructions Recorded magnesium oxide 250 mg PO BID #60 tabs 04/09/20 blood sugar diagnostic (OneTouch #25 ea 12/16/20 Verio test strips) lancets 28 gauge #100 ea 12/16/20 metformin 500 mg tablet 1,000 mg PO BID #120 tabs 09/24/21 rivaroxaban 20 mg tablet (Xarelto) 20 mg PO DAILY #90 tabs 11/05/21 carvedilol 25 mg tablet 25 mg PO BID #180 tabs 12/24/21 furosemide 40 mg tablet 40 mg PO QAM #30 tabs 06/21/22 glimepiride 1 mg tablet (Amaryl) 1 mg PO QAM #30 tabs 06/24/22 potassium chloride 20 mEq 20 meq PO DAILY #30 tabs 06/24/22 tablet,extended release tamsulosin 0.4 mg capsule 0.4 mg PO DAILY #90 caps 07/07/22 diltiazem HCl 240 mg 240 mg PO QAM #90 caps 07/16/22 capsule,extended release 24 hr Results & Data (ED) Vital Signs Vital Signs - 24 hr 08/17/22 08:01 08/17/22 08:05 08/17/22 08:05 Temperature 36.8 C Temperature Source Oral Pulse Rate 150 H Pulse Rate [Apical] Pulse Rhythm Pulse Rhythm [Apical] Pulse Strength [Apical] Respiratory Rate 34 H Respiratory Effort / Characteristics Short of Breath Short of Breath SOB on Exertion Respiratory Depth Normal Respiratory Pattern Tachypnea Blood Pressure 161/137 H Blood Pressure [Left Arm] Blood Pressure Mean 145 Blood Pressure Mean [Left Arm] Blood Pressure Position [Left Arm] Pulse Oximetry 87 L Oxygen Delivery Method Room Air Oxymask Oxygen Flow Rate 6 Fraction of Inspired Oxygen Sepsis Recent Fever Within 48 Hours No Sepsis New/Unexplained Change in Mental Status No Sepsis Action Taken by Nursing No Action Required 08/17/22 08:05 08/17/22 08:09 08/17/22 08:00 Temperature Temperature Source Pulse Rate 138 H 150 H Pulse Rate [Apical] 138 H Pulse Rhythm Irregular Pulse Rhythm [Apical] Irregular Pulse Strength [Apical] Respiratory Rate 32 H 22 Respiratory Effort / Characteristics Respiratory Depth Normal Respiratory Pattern Blood Pressure Blood Pressure [Left Arm] Blood Pressure Mean Blood Pressure Mean [Left Arm] Blood Pressure Position [Left Arm] Pulse Oximetry 96 87 L Oxygen Delivery Method Oxymask Room Air Oxygen Flow Rate 6 Fraction of Inspired Oxygen Sepsis Recent Fever Within 48 Hours Sepsis New/Unexplained Change in Mental Status Sepsis Action Taken by Nursing 08/17/22 08:22 08/17/22 08:31 08/17/22 08:44 Temperature Temperature Source Pulse Rate 149 H Pulse Rate [Apical] 138 H 149 H Pulse Rhythm Pulse Rhythm [Apical] Regular Pulse Strength [Apical] Normal Respiratory Rate 24 24 22 Respiratory Effort / Characteristics Spontaneous Spontaneous Respiratory Depth Deep Respiratory Pattern Regular Blood Pressure Blood Pressure [Left Arm] 162/114 H Blood Pressure Mean Blood Pressure Mean [Left Arm] 130 Blood Pressure Position [Left Arm] Sitting Pulse Oximetry 96 96 95 Oxygen Delivery Method BiPAP BiPAP Oxygen Flow Rate Fraction of Inspired Oxygen 30 30 Sepsis Recent Fever Within 48 Hours Sepsis New/Unexplained Change in Mental Status Sepsis Action Taken by Nursing 08/17/22 09:28 Temperature Temperature Source Pulse Rate Pulse Rate [Apical] 134 H Pulse Rhythm Pulse Rhythm [Apical] Regular Pulse Strength [Apical] Normal Respiratory Rate 22 Respiratory Effort / Characteristics Respiratory Depth Normal Respiratory Pattern Blood Pressure Blood Pressure [Left Arm] 146/101 H Blood Pressure Mean Blood Pressure Mean [Left Arm] 116 Blood Pressure Position [Left Arm] Sitting Pulse Oximetry 95 Oxygen Delivery Method BiPAP Oxygen Flow Rate Fraction of Inspired Oxygen Sepsis Recent Fever Within 48 Hours Sepsis New/Unexplained Change in Mental Status Sepsis Action Taken by Nursing Laboratory Data Attestation: I reviewed the patient's lab results. 08/17/22 08:00 08/17/22 08:00 Lab Results 08/17/22 08/17/22 08/17/22 Range/Units 08:00 08:00 08:00 WBC 15.66 H (4.8-10.8) K/ul RBC 4.97 (4.70-6.10) M/uL Hgb 12.8 L (14.0-18.0) g/dl Hct 41.1 L (42.0-52.0) % MCV 82.7 (80.0-100.0) fL MCH 25.8 (25.0-34.0) pg MCHC 31.1 L (32.0-36.0) g/dL RDW Std Deviation 45.7 (36.4-46.3) fL RDW Coeff of Sveta 15.4 H (11.5-14.5) % Plt Count 292 (130-400) K/uL MPV 9.7 (9.4-12.4) fL Immature Gran % (Auto) 1.1 % Neut % (Auto) 68.4 % Lymph % (Auto) 20.6 % Lander % (Auto) 7.2 % Eos % (Auto) 1.9 % Baso % (Auto) 0.8 % Neut # (Auto) 10.72 H (1.40-6.50) K/uL Lymph # (Auto) 3.22 (1.2-3.4) K/uL Lander # (Auto) 1.12 H (0.11-0.59) K/uL Eos # (Auto) 0.30 (0-0.50) K/uL Baso # (Auto) 0.13 (0-0.2) K/uL Immature Gran # (Auto) 0.17 (0.01-0.20) K/uL Sodium 141 (136-145) mmol/L Potassium 4.7 (3.5-5.1) mmol/L Chloride 106 (98-107) mmol/L Carbon Dioxide 30 (21-32) mmol/L Anion Gap 5 (3-11) BUN 17 (6-23) mg/dl Creatinine 1.20 (0.6-1.4) mg/dl Est Cr Clr Drug Dosing 72.4 ml/min Est GFR ( Amer) 69.6 ml/min Est GFR (Non-Af Amer) 60.1 ml/min BUN/Creatinine Ratio 14.2 (10-20) Glucose 208 H (70-99(Fasting)) mg/dl Lactate (0.4-2.0) mmol/L Calcium 9.6 (8.5-10.1) mg/dl Phosphorus 4.5 (2.5-4.9) mg/dl Magnesium 1.6 L (1.7-2.4) mg/dl Total Bilirubin 0.5 (0.2-1.0) mg/dl AST 12 L (13-39) U/L ALT 12 (7-52) U/L Alkaline Phosphatase 47 (34-104) U/L Troponin I High Sens 9.6 (0-20) pg/ml C-Reactive Protein 2.04 H (0-0.5) mg/dl B-Natriuretic Peptide (0-100) pg/ml Total Protein 7.2 (6.0-8.3) gm/dl Albumin 4.3 (3.4-5.0) gm/dl Globulin 2.9 (2.5-4.0) gm/dl Albumin/Globulin Ratio 1.5 (0.9-2) Lipase 16 (11-82) U/L Procalcitonin < 0.05 (0-0.5) ng/ml SARS-CoV-2 (PCR) (Negative) Influenza Type A (PCR) (Neg) Influenza Type B (PCR) (Neg) RSV (RT-PCR) (Neg) 08/17/22 08/17/22 08/17/22 Range/Units 08:00 08:00 08:36 WBC (4.8-10.8) K/ul RBC (4.70-6.10) M/uL Hgb (14.0-18.0) g/dl Hct (42.0-52.0) % MCV (80.0-100.0) fL MCH (25.0-34.0) pg MCHC (32.0-36.0) g/dL RDW Std Deviation (36.4-46.3) fL RDW Coeff of Sveta (11.5-14.5) % Plt Count (130-400) K/uL MPV (9.4-12.4) fL Immature Gran % (Auto) % Neut % (Auto) % Lymph % (Auto) % Lander % (Auto) % Eos % (Auto) % Baso % (Auto) % Neut # (Auto) (1.40-6.50) K/uL Lymph # (Auto) (1.2-3.4) K/uL Lander # (Auto) (0.11-0.59) K/uL Eos # (Auto) (0-0.50) K/uL Baso # (Auto) (0-0.2) K/uL Immature Gran # (Auto) (0.01-0.20) K/uL Sodium (136-145) mmol/L Potassium (3.5-5.1) mmol/L Chloride (98-107) mmol/L Carbon Dioxide (21-32) mmol/L Anion Gap (3-11) BUN (6-23) mg/dl Creatinine (0.6-1.4) mg/dl Est Cr Clr Drug Dosing ml/min Est GFR ( Amer) ml/min Est GFR (Non-Af Amer) ml/min BUN/Creatinine Ratio (10-20) Glucose (70-99(Fasting)) mg/dl Lactate (0.4-2.0) mmol/L Calcium (8.5-10.1) mg/dl Phosphorus (2.5-4.9) mg/dl Magnesium (1.7-2.4) mg/dl Total Bilirubin (0.2-1.0) mg/dl AST (13-39) U/L ALT (7-52) U/L Alkaline Phosphatase (34-104) U/L Troponin I High Sens (0-20) pg/ml C-Reactive Protein Cancelled (0-0.5) mg/dl B-Natriuretic Peptide 392 H (0-100) pg/ml Total Protein (6.0-8.3) gm/dl Albumin (3.4-5.0) gm/dl Globulin (2.5-4.0) gm/dl Albumin/Globulin Ratio (0.9-2) Lipase (11-82) U/L Procalcitonin (0-0.5) ng/ml SARS-CoV-2 (PCR) NEGATIVE (Negative) Influenza Type A (PCR) Negative (Neg) Influenza Type B (PCR) Negative (Neg) RSV (RT-PCR) Negative (Neg) 08/17/22 Range/Units 08:36 WBC (4.8-10.8) K/ul RBC (4.70-6.10) M/uL Hgb (14.0-18.0) g/dl Hct (42.0-52.0) % MCV (80.0-100.0) fL MCH (25.0-34.0) pg MCHC (32.0-36.0) g/dL RDW Std Deviation (36.4-46.3) fL RDW Coeff of Sveta (11.5-14.5) % Plt Count (130-400) K/uL MPV (9.4-12.4) fL Immature Gran % (Auto) % Neut % (Auto) % Lymph % (Auto) % Lander % (Auto) % Eos % (Auto) % Baso % (Auto) % Neut # (Auto) (1.40-6.50) K/uL Lymph # (Auto) (1.2-3.4) K/uL Lander # (Auto) (0.11-0.59) K/uL Eos # (Auto) (0-0.50) K/uL Baso # (Auto) (0-0.2) K/uL Immature Gran # (Auto) (0.01-0.20) K/uL Sodium (136-145) mmol/L Potassium (3.5-5.1) mmol/L Chloride (98-107) mmol/L Carbon Dioxide (21-32) mmol/L Anion Gap (3-11) BUN (6-23) mg/dl Creatinine (0.6-1.4) mg/dl Est Cr Clr Drug Dosing ml/min Est GFR ( Amer) ml/min Est GFR (Non-Af Amer) ml/min BUN/Creatinine Ratio (10-20) Glucose (70-99(Fasting)) mg/dl Lactate 1.1 (0.4-2.0) mmol/L Calcium (8.5-10.1) mg/dl Phosphorus (2.5-4.9) mg/dl Magnesium (1.7-2.4) mg/dl Total Bilirubin (0.2-1.0) mg/dl AST (13-39) U/L ALT (7-52) U/L Alkaline Phosphatase (34-104) U/L Troponin I High Sens (0-20) pg/ml C-Reactive Protein (0-0.5) mg/dl B-Natriuretic Peptide (0-100) pg/ml Total Protein (6.0-8.3) gm/dl Albumin (3.4-5.0) gm/dl Globulin (2.5-4.0) gm/dl Albumin/Globulin Ratio (0.9-2) Lipase (11-82) U/L Procalcitonin (0-0.5) ng/ml SARS-CoV-2 (PCR) (Negative) Influenza Type A (PCR) (Neg) Influenza Type B (PCR) (Neg) RSV (RT-PCR) (Neg) Administered Medications Carvedilol (Carvedilol 25 Mg Tab) 25 mg PO BID [facility] Stop: 09/16/22 20:59 Last Admin: 08/17/22 19:59 Dose: 25 mg Documented By: KERI Amiodarone HCl/Dextrose (Nexterone / D5w) 360 mg in 200 mls @ 33.333 mls/hr IV ONE ONE Stop: 08/17/22 23:27 Last Admin: 08/17/22 18:29 Dose: 1 mg/min, 33.3 mls/hr Documented By: NAHID Co-signed By: YOLANDE Insulin Aspart (Insulin Aspart Per Unit) 0 units SC ACHS [facility] Stop: 09/16/22 12:59 Last Admin: 08/17/22 17:46 Dose: 15 units Documented By: NAHID Co-signed By: YOLANDE Admin: 08/17/22 14:00 Dose: 4 units Documented By: NAHID Co-signed By: OSMAN Magnesium Oxide (Magnesium Oxide 400 Mg Tab) 200 mg PO BID [facility] Stop: 09/16/22 20:59 Last Admin: 08/17/22 19:58 Dose: 200 mg Documented By: KERI Rivaroxaban (Rivaroxaban 20 Mg Tab) 20 mg PO QDD [facility] Stop: 09/16/22 16:29 Last Admin: 08/17/22 17:03 Dose: 20 mg Documented By: NAHID Discontinued Medications Albuterol (Albut/Ipratrop 3mg/0.5mg Neb 3 Ml Vial) Confirm Administered Dose 12 ml .ROUTE .STK-MED ONE Stop: 08/17/22 08:19 Last Admin: 08/17/22 08:42 Dose: Not Given Documented By: RENATO Diltiazem HCl (Diltiazem Hcl 5 Mg/Ml 5 Ml Vial) 20 mg IV NOW STA Stop: 08/17/22 11:47 Last Admin: 08/17/22 12:22 Dose: 20 mg Documented By: NAHID Co-signed By: YOLANDE Furosemide (Furosemide 40 Mg/4 Ml Vial) 40 mg IV ONE ONE Stop: 08/17/22 09:08 Last Admin: 08/17/22 09:18 Dose: 40 mg Documented By: CARLOS Furosemide (Furosemide Inj 20 Mg/2 Ml Vial) 20 mg IV ONE ONE Stop: 08/17/22 09:39 Last Admin: 08/17/22 10:18 Dose: 20 mg Documented By: BELL Furosemide (Furosemide Inj 20 Mg/2 Ml Vial) 20 mg IV ONE ONE Stop: 08/17/22 17:21 Last Admin: 08/17/22 17:45 Dose: 20 mg Documented By: NAHID Magnesium Sulfate/Dextrose (Magnesium Sulfate / D5w) 1 gm in 100 mls @ 100 mls/ hr IV NOW STA Stop: 08/17/22 10:07 Last Infusion: 08/17/22 10:22 Dose: 0 mls/hr Documented By: Admin: 08/17/22 09:21 Dose: 100 mls/hr Documented By: CARLOS Diltiazem HCl 125 mg/ Dextrose 125 mls @ 15 mls/hr IV .Q8H20M [facility]; Protocol Stop: 09/16/22 11:59 Last Titration: 08/17/22 17:50 Dose: 0 mg/hr, 0 mls/hr Documented By: NAHID Co-signed By: ARV Titration: 08/17/22 14:02 Dose: 15 mg/hr, 15 mls/hr Documented By: NAHID Co-signed By: OSMAN Titration: 08/17/22 13:00 Dose: 10 mg/hr, 10 mls/hr Documented By: NAHID Co-signed By: OSMAN Admin: 08/17/22 12:22 Dose: 5 mg/hr, 5 mls/hr Documented By: NAHID Co-signed By: YOLANDE Amiodarone HCl/Dextrose (Nexterone / D5w) 150 mg in 100 mls @ 600 mls/hr IV NOW STA Stop: 08/17/22 17:27 Last Infusion: 08/17/22 18:29 Dose: 0 mls/hr Documented By: NAHID Co-signed By: YOLANDE Admin: 08/17/22 17:45 Dose: 600 mls/hr Documented By: NAHID Co-signed By: YOLANDE Insulin Glargine (Lantus Per Unit Charge) 30 units SQ ONE ONE Stop: 08/17/22 14:01 Last Admin: 08/17/22 14:00 Dose: 30 units Documented By: NAHID Co-signed By: OSMAN Ioversol (Optiray 320 500ml) 120 ml IV ONCE ONE Stop: 08/17/22 10:02 Last Admin: 08/17/22 10:02 Dose: 120 ml Documented By: RAFAEL Labetalol HCl (Labetalol Hcl Iv 5 Mg/Ml 20ml) 10 mg IV NOW STA Stop: 08/17/22 09:27 Last Admin: 08/17/22 09:37 Dose: 10 mg Documented By: BELL Co-signed By: MIKAYLA Levalbuterol HCl (Levalbuterol Hcl 0.63 Mg/3 Ml Neb) 0.63 mg NEB NOW STA; Protocol Stop: 08/17/22 08:21 Last Admin: 08/17/22 08:28 Dose: 0.63 mg Documented By: RENATO Methylprednisolone (Methylprednisolone 125 Mg/2 Ml Vial) 125 mg IV NOW STA Stop: 08/17/22 08:21 Last Admin: 08/17/22 08:38 Dose: 125 mg Documented By: DARIENB Imaging Data Radiologist's Impression: Chest X-Ray 08/17/22 08:06 XR chest 1V portable CLINICAL HISTORY: Chest pain, nonspecific TECHNIQUE: Single frontal radiograph of the chest was obtained. Comparison: Comparison is made to chest radiograph 06/21/2022 FINDINGS: No lines and tubes are seen. Cardiomegaly is noted. Prominence and cephalization of the vasculature is seen. Airspace opacities are seen in the right greater than left lower lung. No evidence of pleural effusion or pneumothorax. IMPRESSION: 1. Cardiomegaly and mild pulmonary edema. 2. Airspace opacities in the right greater than left lower lungs may represent atelectasis, pneumonia, aspiration, less likely alveolar edema. ACT 112: Negative or not required by law. Electronically signed by: Roberto Carlos Xiong M.D. 08/17/2022 8:49 AM Chest CTA 08/17/22 09:34 CT ANGIOGRAPHY OF THE CHEST, PULMONARY EMBOLUS PROTOCOL CLINICAL HISTORY: Shortness of breath. Wheezing. Evaluate for pulmonary embolus. COMPARISON STUDY: Chest CT June 19, 2022 and chest radiograph performed earlier today. TECHNIQUE: Following IV administration of 120 mL of Optiray, helical axial images of the chest were obtained utilizing the pulmonary embolus protocol. Maximal intensity projections and sagittal and coronal reformats were viewed on an independent 3D workstation. IV contrast was administered without complication. Automated exposure control was utilized for the study. A dose lowering technique was utilized adhering to the principles of ALARA. CT DOSE: 818.03 mGy.cm FINDINGS: No acute pulmonary emboli are identified although the segmental and subsegmental pulmonary arteries within the lower lobes are suboptimally assessed due to respiratory motion. A few small linear filling defects within the right middle lobe and right lower lobe pulmonary arteries are unchanged. This represe nts minimal chronic thrombus. Cardiomegaly and coronary artery calcification is noted. No pericardial effusion. There are small bilateral pleural effusions. No pneumothorax is present. Extensive interlobular septal thickening is present. In addition, there are moderate alveolar opacities within lungs, greater within the lower lobes. There is a central obstructing mass. There is no pneumothorax. No acute fracture within the bony thorax is noted. There is reflux of contrast into the IVC and hepatic veins. IMPRESSION: 1. No acute pulmonary emboli identified although segmental and subsegmental pulmonary arteries within the lower lobes suboptimally assessed due to respiratory motion. 2. No change in minimal chronic thrombus within branches of the right middle and right lower lobes since CT of June 19, 2022. 3. Interlobular septal thickening consistent with interstitial pulmonary edema. Alveolar opacities likely reflect alveolar edema. Overall, findings represent moderate pulmonary edema with small bilateral pleural effusions. Cardiomegaly. ACT 112: Negative or not required by law. Electronically signed by: Jeff Bolaños M.D. 08/17/2022 11:05 AM Discharge Plan Visit Data Chief Complaint: Shortness of Breath/Dyspnea Stated Complaint: SOB ED Provider: Jonathan Denton Discharge Problem: Acute respiratory failure with hypoxia, Pulmonary edema, Atrial fibrillation with rapid ventricular response, Hypomagnesemia Patient Disposition: Admitted As Inpatient Discharge Instructions Interventions: ED Discharge Assessment Last Done: 08/17/22 11:38
[2022-08-17] MEDS ORDERED: FUROSEMIDE 40 MG/4 ML VIAL IV ONE (09:07)
[2022-08-17 09:08] LABS: Influenza A virus by PCR Negative (Neg); Influenza B virus by PCR Negative (Neg); RSV by PCR Negative (Neg); SARS CoV2 RNA(COVID-19) Ceph NEGATIVE (Negative)
[2022-08-17] MEDS ORDERED: MAGNESIUM SULFATE / D5W 1 GM/100 ML BAG IV STA (09:08)
[2022-08-17] MEDS ORDERED: LABETALOL HCL IV 5 MG/ML 20ML IV STA (09:26)
[2022-08-17] MEDS ORDERED: FUROSEMIDE INJ 20 MG/2 ML VIAL IV ONE ×2 (09:38→17:20)
--- NOTE | 2022-08-17 09:54 | History & Physical Report ---
Date of Service August 17, 2022 Assessment & Plan (1) Persistent atrial fibrillation: Plan: Atrial fibriallation in a 72 yo male with SOB Patient appears to have some volume overload likley secondary to his elevated heart rate. Will dplace on home beta dave and diltiazem drip. continue DOAC. will monitor heart rate obtain troponin (serial) monitor creatinine (2) Lower extremity edema: Plan: secondary to fluid overload from elevated HR. (3) Hyperlipidemia: Plan: continue home statin (4) Poorly controlled diabetes mellitus: Plan: obtain glycemic consult (5) Acute on chronic heart failure with preserved ejection fraction (HFpEF): Plan: as above History of Present Illness Primary Care Provider: Krish Nagel MD Jesi is a 72 year old male with a PMH significant for DM II, hx multiple DVT's on Xarelto, CAD S/Ps non ST segment elevation [place] 01/04/2012-cardiac catheterization showed 100% lad, 80% left circumflex, 80% obtuse marginal branch for-status post drug-eluting stent of the LAD. HTN, asthma, hyperlipidemia, previous neuroendocrine tumor causing SBO S/P Bowel resection with recent admission in [facility] 2021 for atrial fibrillation. Patient reports he was in hi snormal state of health yesterday. He reports having a soup yesterday. Overnight, he had difficulty sleeping as he felt resless and SOB. HIs SOB worsened when he woke up this morning which prompted him to seek medical attention. Patient denies any sick contacts. In the ED, patient was found to have a HR in the 150s, and patient initially rerquired BIPAP. Patient was ordered 40 mg of IV lasix, and admission was called. Patient reports he is complaint with his medications but he is having difficulty maintaining his diet. He reports eating at fast food restaurants but he asks for fries without salt. Allergies Allergy/AdvReac Type Severity Reaction Status Date / Time Penicillins Allergy Unknown "DOES NOT Verified 07/16/22 08:08 KNOW- A CHILD" Home Medications Medication Instructions Recorded Confirmed Type atorvastatin 80 mg tablet 80 mg PO QAM 07/31/18 07/16/22 History ferrous sulfate 325 mg (65 mg 325 mg PO QAM 07/31/18 07/16/22 History iron) tablet (iron) folic acid 1 mg tablet 1 mg PO QAM 07/31/18 07/16/22 History nitroglycerin 0.4 mg sublingual 0.4 mg sublingual Q5M PRN chest 04/14/19 07/16/22 History tablet pain #25 tabs vitamin B complex (B 1 tab PO QAM 04/14/19 07/16/22 History Complex-Vitamin B12 tablet) magnesium oxide 250 mg PO BID #60 tabs 04/09/20 07/16/22 Rx blood sugar diagnostic (OneTouch #25 ea 12/16/20 07/16/22 Rx Verio test strips) lancets 28 gauge #100 ea 12/16/20 07/16/22 Rx metformin 500 mg tablet 1,000 mg PO BID #120 tabs 09/24/21 07/16/22 Rx rivaroxaban 20 mg tablet (Xarelto) 20 mg PO DAILY #90 tabs 11/05/21 07/16/22 Rx carvedilol 25 mg tablet 25 mg PO BID #180 tabs 12/24/21 07/16/22 Rx aspirin 81 mg tablet,delayed 81 mg PO QAM 06/19/22 07/16/22 History release nystatin 100,000 unit/gram topical 1 applic topical BID PRN Rash 06/19/22 07/16/22 History powder furosemide 40 mg tablet 40 mg PO QAM #30 tabs 06/21/22 07/16/22 Rx glimepiride 1 mg tablet (Amaryl) 1 mg PO QAM #30 tabs 06/24/22 07/16/22 Rx potassium chloride 20 mEq 20 meq PO DAILY #30 tabs 06/24/22 07/16/22 Rx tablet,extended release tamsulosin 0.4 mg capsule 0.4 mg PO DAILY #90 caps 07/07/22 07/16/22 Rx diltiazem HCl 240 mg 240 mg PO QAM #90 caps 07/16/22 07/16/22 Rx capsule,extended release 24 hr Past Med/Surg History Medical History (HFpEF) heart failure with preserved ejection fraction Anemia Anticoagulant long-term use Asthma A CHILD Atrial fibrillation Atrial fibrillation, new onset 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 PALACIOS History of cholecystectomy History of heart artery stent History of surgery on extremity LLE - Hx of inguinal hernia surgery (05/10/19) Open Incisional Hernia Repair with Mesh, Extensive Enterolysis, Repair of Enterotomy, Excision of Right Arm Lesion Dr. Figueroa 05/10/19 Family History Uncle Diabetes Mother Coronary heart disease Father Coronary heart disease Other Heart disease Denies family history of Ovarian cancer Prostate cancer Breast cancer Colorectal cancer Social History Smoking Status: Former smoker Second Hand Exposure: No; Hx Alcohol Use: No Hx Substance Use: No Preferred Language: Scottish Communication Ability: Effective Hearing Ability: Normal Proposal Engineer Required: No Beliefs That Will Affect Care: None marital status: Current Living Situation: Alone current occupational status: retired Feels Safe at Home: Yes Childhood Exposure to Second-Hand Smoke: No caffeine: Yes (soda) Dental Care, Regularly: Yes Physical Activity Frequency: Does not Exercise Seatbelt Use: sometimes Sunscreen Use: Yes Assistive Devices: None Review of Systems Constitutional: no fever and no body aches Eyes: no blind spots Ear, Nose, Mouth, Throat: no ear pain Respiratory: + dyspnea Cardiovascular: no chest pain Gastrointestinal: no abdominal pain Genitourinary: no dysuria Musculoskeletal: no back pain Integumentary: no acne Neurologic: no gait abnormality Psychiatric: no behavioral changes Endocrine: no fatigue Hematologic / Lymphatic: no easy bleeding Allergy / Immunological: no GI upset with certain foods Physical Exam Physical Exam: General: Appears to be in mild distress, stated age, chronically ill-appearing HEENT: Normocephalic, atraumatic, no scleral icterus, pupils around round, symmetrical, and reactive to light, moist mucus membranes, trachea midline, no thyromegaly Chest/Pulm: using accessory muscles to breath, lungs have bibasilar crackles. Cardiac: irregular rate and rhythm, no murmurs noted Abdomen: Negative for ascites and bruising, normoactive bowel sounds, soft, non- tender to palpation throughout Musculoskeletal: Symmetrical and without signs of acute trauma, upper and lower extremities with full ROM, no atrophy, spasticity, or flaccidity Extremities: Radial, dorsalis pedis, and posterior tibial pulses are intact and symmetrical, +1-2 pitting edema noted in the BL LE's, no signs of erythema or unilateral swelling Skin: Warm, dry, no rashes , lesions, or scars noted Neuro: Alert and oriented to person, place, month, year, and president, no focal defects, CN II-XII tested and intact, finger to nose test negative, no tremors noted \\Psych: No acute distress, calm and cooperative during the exam Results & Data Results & Data ([facility]) Vital Signs (Past 12 Hours) Vital Signs Temp Pulse Pulse Resp BP BP Pulse Ox 08/17/22 09:28 134 H 22 146/101 H 95 08/17/22 08:44 149 H 22 162/114 H 95 08/17/22 08:31 138 H 24 96 08/17/22 08:22 149 H 24 96 08/17/22 08:00 150 H 22 87 L 08/17/22 08:09 138 H 08/17/22 08:05 138 H 32 H 96 08/17/22 08:05 08/17/22 08:01 36.8 C 150 H 34 H 161/137 H 87 L O2 Del Method O2 Flow Rate FiO2 08/17/22 09:28 BiPAP 08/17/22 08:44 BiPAP 08/17/22 08:31 BiPAP 30 08/17/22 08:22 30 08/17/22 08:00 Room Air 08/17/22 08:09 08/17/22 08:05 Oxymask 6 08/17/22 08:05 Oxymask 6 08/17/22 08:01 Room Air PG Care Time/CCT Total # of Minutes Spent Total Time Spent with Patient: Total time spent is greater than 50% in coordination of care (as documented) at patient's floor/unit and/or counseling patient: Coding Level of Care Code 49637 INT INP/OBS CARE 3/75MIN Diagnoses Persistent atrial fibrillation I48.19 Lower extremity edema R60.0 Hyperlipidemia E78.5 Poorly controlled diabetes mellitus E11.65 Acute on chronic heart failure with preserved ejection fraction (HFpEF) I50.33
[2022-08-17] MEDS ORDERED: OPTIRAY 320 500ml IV ONE (10:01)
[2022-08-17 10:53] LABS: C Reactive Protein 2.04 mg/dl (0-0.5)
--- NOTE | 2022-08-17 11:06 | CT Scan Report ---
CT ANGIOGRAPHY OF THE CHEST, PULMONARY EMBOLUS PROTOCOL CLINICAL HISTORY: Shortness of breath. Wheezing. Evaluate for pulmonary embolus. COMPARISON STUDY: Chest CT June 19, 2022 and chest radiograph performed earlier today. TECHNIQUE: Following IV administration of 120 mL of Optiray, helical axial images of the chest were o btained utilizing the pulmonary embolus protocol. Maximal intensity projections and sagittal and cor onal reformats were viewed on an independent 3D workstation. IV contrast was administered without co mplication. Automated exposure control was utilized for the study. A dose lowering technique was ut ilized adhering to the principles of ALARA. CT DOSE: 818.03 mGy.cm FINDINGS: No acute pulmonary emboli are identified although the segmental and subsegmental pulmonary arteries within the lower lobes are suboptimally assessed due to respiratory motion. A few small manish ear filling defects within the right middle lobe and right lower lobe pulmonary arteries are unchange d. This represents minimal chronic thrombus. Cardiomegaly and coronary artery calcification is noted. No pericardial effusion. There are small bilateral pleural effusions. No pneumothorax is present. Ex tensive interlobular septal thickening is present. In addition, there are moderate alveolar opacities within lungs, greater within the lower lobes. There is a central obstructing mass. There is no pneum othorax. No acute fracture within the bony thorax is noted. There is reflux of contrast into the IVC and hepatic veins. IMPRESSION: 1. No acute pulmonary emboli identified although segmental and subsegmental pulmonary arteries within the lower lobes suboptimally assessed due to respiratory motion. 2. No change in minimal chronic thrombus within branches of the right middle and right lower lobes si nce CT of June 19, 2022. 3. Interlobular septal thickening consistent with interstitial pulmonary edema. Alveolar opacities li junito reflect alveolar edema. Overall, findings represent moderate pulmonary edema with small bilatera l pleural effusions. Cardiomegaly. ACT 112: Negative or not required by law. Electronically signed by: Jeff Bolaños M.D. 08/17/2022 11:05 AM
[2022-08-17] MEDS ORDERED: NITROGLYCERIN SL 0.4 MG/TAB TAB SL PRN (11:41)
[2022-08-17] MEDS ORDERED: dilTIAZem HCl 5 MG/ML 5 ML VIAL IV STA (11:46)
[2022-08-17] MEDS ORDERED: STAT IV Infusion **Titration per Protocol STA ×2 (11:46→17:18)
[2022-08-17] MEDS ORDERED: dilTIAZem HCL 125 MG in DEXTROSE 5% 100 ML IV SCH (12:00)
[2022-08-17] MEDS ORDERED: PHARMACY GLYCEMIC MGMT CONSULT PRN (12:22)
[2022-08-17] MEDS ORDERED: CARBOHYDRATES FOR HYPOGLYCEMIA PO PRN (12:45)
[2022-08-17] MEDS ORDERED: GLUCAGON FOR INJ 1 MG VIAL IM PRN (12:45)
[2022-08-17] MEDS ORDERED: DEXTROSE 50% 50 ML SYRINGE IV PRN (12:45)
[2022-08-17] MEDS ORDERED: GLUCOSE 10 TAB/TUBE PO PRN (12:45)
[2022-08-17] MEDS ORDERED: GLUCOSE 40% GEL 15 GM TUBE PO PRN (12:45)
[2022-08-17] MEDS: INSULIN ASPART PER UNIT SC SCH ×3 (14:00→20:59)
[2022-08-17] MEDS ORDERED: LANTUS PER UNIT CHARGE SQ ONE (14:00)
--- NOTE | 2022-08-17 14:16 | Pharmacy Report ---
Pharmacy Glycemic Short Note 2 - Date of Service August 17, 2022 - Glycemic Short BSG Results (Last 24 hours): 08/17/22 08/17/22 08:00 12:47 Glucose 208 H POC Glucose 206 H OUTPATIENT ANTIDIABETIC REGIMEN: * Glimepiride 1 mg PO QAM * Metformin 1000 mg BID ASSESSMENT: * Jesi is a 72 year old male who was admitted for Afib today with a PMH significant for DM II. * A1c from 06/25 was 9.1%. A random FBSG today was 208 mg/dL and lunchtime POC BSG was 206 mg/dL * Received a 125 mg Solumedrol IV x 1 today at 0830 PLAN FOR INPATIENT GLYCEMIC CONTROL: * Hold outpatient oral diabetes medications * Basal insulin * Lantus 30 units SQ x 1 * Bolus insulin * NovoLog per scale ACHS or Q6hrs while NPO * Goal Range: Low 110 mg/dL - High 140 mg/dL * Correction Factor: 20 mg/dL/unit * Nutritional / Prandial insulin per carb ratio of 1 unit per 6 grams CHO consumed
[2022-08-17] MEDS: RIVAROXABAN 20 MG TAB PO SCH (17:03)
[2022-08-17] MEDS ORDERED: AMIODARONE IV BOLUS & DRIP IV STA (17:18)
[2022-08-17] MEDS ORDERED: AMIODARONE / D5W 150 MG/100 ML BAG IV STA (17:18)
[2022-08-17] MEDS ORDERED: 0.2 MICRON FILTER SET 1 EACH IV STA (17:18)
[2022-08-17] MEDS ORDERED: AMIODARONE / D5W 360 MG/200 ML BAG IV ONE (17:28)
--- NOTE | 2022-08-17 18:56 | Cardiology Consultation ---
Date of Consultation August 17, 2022 Assessment & Plan (1) Acute on chronic heart failure with preserved ejection fraction (HFpEF): (2) Persistent atrial fibrillation: (3) CAD (coronary artery disease): (4) Hyperlipidemia: (5) Hypertension: Plan ASSESSMENT/PLAN: 1. Acute on chronic heart failure with preserved EF: Appears hypervolemic but improving. Oxygen requirement has improved. Will give another Lasix 20 mg IV x1 and then 40 mg IV in the morning. Low-sodium diet. Strict I&Os. Daily weights. Discussed the importance of low-sodium diet at home. Dietary indiscretion may be playing a role in presentation. 2. Atrial fibrillation with rapid ventricular response: Persistent atrial fibrillation. Recommended rhythm control as an outpatient but he preferred rate control. Concerning that AFib with RVR is playing a role and CHF decompensation. Holter monitor was performed as an outpatient after titrating diltiazem however results not yet available for review as he removed monitor yesterday. We discussed once again trying to establish sinus rhythm. He c ontinues to decline electrical cardioversion, but would like to pursue antiarrhythmic therapy. Start amiodarone drip. Discontinue diltiazem. Continue beta-dave. Continue anticoagulation for stroke risk reduction. Amiodarone may offer further rate control but may not cardiovert him. If he does not cardiovert, would recommend direct current cardioversion if agreeable. We discussed potential adverse reactions/complications of amiodarone therapy but he agrees to pursue amiodarone at this time. Monitor TSH and transaminase levels periodically. 3. CAD s/p prior NV and LAD PCI: No angina. Continue aspirin 81 mg daily indefinitely. Continue beta-dave. Continue high-intensity statin therapy. 4. Hypertension: Blood pressure has been mostly hypertensive. Most recent blood pressure was normotensive. May require amlodipine or MARY-inhibitor in place of diltiazem. Had been on lisinopril 40 mg in the past which was discontinued during June 2022 visit to allow for diltiazem as a rate- controlling medication. 5. Dyslipidemia: Continue high-intensity statin therapy. 6. Disposition: Cardiology will continue to follow. Patient care communicated with primary hospitalist, Dr. Denson. Highly complex medical issues. Thank you for allowing me to participate in the care of your patient. Please call for any other questions or concerns. Sincerely, Taco Palacios M.D. History of Present Illness Reason for Consultation: CHF/rapid AFib Requesting Physician: Teo Denson Attending Physician: Teo Denson History of Present Illness Mr. Davidson is a pleasant 72-year-old gentleman with a history significant for multivessel CAD, LAD infarct status post drug-eluting stent, atrial fibrillation, dyslipidemia, and hypertension. He had left lower extremity DVT on 04/17/2015, and right lower extremity DVT in March of 2020. He was hospitalized in June of 2022 with atrial fibrillation and rapid ventricular response. He was also short of breath and felt to be hypervolemic. He was given intravenous diuretic and outpatient Lasix was increased from 20 mg up to 40 mg on discharge. Diltiazem was initiated in addition to chronic carvedilol 25 mg twice daily. He had already been on anticoagulation therapy. On outpatient visit on 07/16/2022, diltiazem was further titrated to 240 mg daily for inadequate heart rate control. Cardioversion was suggested however he declined and preferred rate control strategy. Outpatient Holter was ordered. He has had the following studies/procedures: 1. Cardiac catheterization 01/04/12 [facility] in [place]: Mid LAD occluded s/p 3.5 x 22 mm resolute integrity BANDAR. Distal circumflex, small in diameter, 80% tubular stenosis. Moderate caliber OM4 80%. Dominant RCA without significant CAD. EF 45% with mid to distal anterior hypokinesis. 2. Exercise Nuclear Perfusion 01/07/12: Mid LAD infarct. No exercise-induced ischemia. EF 65%. Exercised 5 minutes and achieved 88% MPHR. 3. Echo 01/04/12: Normal LV size with mildly reduced systolic function. EF 45-50%. Distal anterior and lateral hypokinesis. Akinetic apical septal and inferior segments. Type II diastolic dysfunction. No significant valvular abnormalities. 4. Echo 03/21/12: Normal LV size and systolic function. EF 60%. Distal LAD infarct. Mild concentric LVH. Mild left atrial dilation. No significant valvular abnormalities. 5. Echo 06/03/2015: Mildly dilated LV with normal systolic function. EF 55- 60%. Small distal LAD infarct with apical akinesis. No significant valvular abnormalities. 6. Echo 02/05/2017: Normal LV size and systolic function. EF 50-55%. Apical septal akinesis. No significant valvular abnormalities. Normal estimated RVSP. 7. Right lower extremity venous Doppler 03/15/2020: Extensive DVT within the right lower extremity. Appears acute. 8. Echo 04/22/2020: Normal LV size with low-normal systolic function. EF 50- 55%. 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 Moderate LVH. Moderate left atrial dilation. No significant valvular abnormalities. 9. Echo 06/19/2022 [facility]: Normal LV size, systolic function. EF 50-55%. Apical akinesis. Mild TR. Stable findings from 02/05/2017. He was hospitalized today on 08/17/2022 with shortness of breath. He acutely became short of breath at approximately 3:00 a.m. while laying in bed. He had orthopnea, and shortness of breath at rest. He called for EMS. He felt his usual self when he went to bed the previous night. He denied palpitations, chest pain, syncope but had near-syncope when significantly short of breath. On the day prior to presentation, he admits that he had a can of soup (Navita chicken sausage Bio[employer]) and added salt and shrimp to the canned soup. When he arrived, he was noted to be in atrial fibrillation with rapid ventricular response. He required BiPAP, was transition to a mask and currently on nasal cannula. He received 20 mg and 40 mg IV Lasix doses. He states that he has been urinating significantly and feels much better. He currently denies shortness of breath while sitting in a chair. He also was placed on diltiazem drip and was currently on 15 milligrams/hour when evaluated this afternoon. He states that he has not missed any doses of Xarelto for at least 4 weeks, including his last dose yesterday evening. Review of systems: As above. Family history:No known premature CAD. Social history:Denies tobacco or drug abuse. Occasional alcohol. He lives alone. after 25 years of marriage. One daughter (Melany who works in Plastics office in [facility]). Two grandchildren. 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 He is unaccompanied in his hospital room. Allergies Allergy/AdvReac Type Severity Reaction Status Date / Time Penicillins Allergy Unknown "DOES NOT Verified 07/16/22 08:08 KNOW- A CHILD" Home Medications Medication Instructions Recorded Confirmed Type atorvastatin 80 mg tablet 80 mg PO QAM 07/31/18 07/16/22 History ferrous sulfate 325 mg (65 mg 325 mg PO QAM 07/31/18 07/16/22 History iron) tablet (iron) folic acid 1 mg tablet 1 mg PO QAM 07/31/18 07/16/22 History nitroglycerin 0.4 mg sublingual 0.4 mg sublingual Q5M PRN chest 04/14/19 07/16/22 History tablet pain #25 tabs vitamin B complex (B 1 tab PO QAM 04/14/19 07/16/22 History Complex-Vitamin B12 tablet) magnesium oxide 250 mg PO BID #60 tabs 04/09/20 07/16/22 Rx blood sugar diagnostic (OneTouch #25 ea 12/16/20 07/16/22 Rx Verio test strips) lancets 28 gauge #100 ea 12/16/20 07/16/22 Rx metformin 500 mg tablet 1,000 mg PO BID #120 tabs 09/24/21 07/16/22 Rx rivaroxaban 20 mg tablet (Xarelto) 20 mg PO DAILY #90 tabs 11/05/21 07/16/22 Rx carvedilol 25 mg tablet 25 mg PO BID #180 tabs 12/24/21 07/16/22 Rx aspirin 81 mg tablet,delayed 81 mg PO QAM 06/19/22 07/16/22 History release nystatin 100,000 unit/gram topical 1 applic topical BID PRN Rash 06/19/22 07/16/22 History powder furosemide 40 mg tablet 40 mg PO QAM #30 tabs 06/21/22 07/16/22 Rx glimepiride 1 mg tablet (Amaryl) 1 mg PO QAM #30 tabs 06/24/22 07/16/22 Rx potassium chloride 20 mEq 20 meq PO DAILY #30 tabs 06/24/22 07/16/22 Rx tablet,extended release tamsulosin 0.4 mg capsule 0.4 mg PO DAILY #90 caps 07/07/22 07/16/22 Rx diltiazem HCl 240 mg 240 mg PO QAM #90 caps 07/16/22 07/16/22 Rx capsule,extended release 24 hr Patient History Medical History (Updated 02/13/23 @ 18:54 by Miky Palacios MD) (HFpEF) heart failure with preserved ejection fraction Anemia Anticoagulant long-term use Asthma A CHILD Atrial fibrillation Atrial fibrillation, new onset Benign neuroendocrine tumor of small intestine S/P BOWEL RESECTION BPH associated with nocturia CAD (coronary artery disease) Chronic deep vein thrombosis of leg Diverticular disease Hyperlipidemia Hypertension Hypomagnesemia Iron deficiency anemia Left leg DVT 2014 - POST OP BOWEL RESECTION - TREATED - NO ISSUES SINCE Lower extremity edema Myocardial Infarction 2013 Osteoarthritis Poor historian Post traumatic stress disorder Right leg DVT Right leg swelling Type 2 diabetes mellitus Surgical History History of bowel resection History of cardiac cath 2014 - [facility] [place] [address] STENT - FOLLOWS W/ DR. PALACIOS History of cholecystectomy History of heart artery stent History of surgery on extremity LLE - Hx of inguinal hernia surgery (05/10/19) Open Incisional Hernia Repair with Mesh, Extensive Enterolysis, Repair of Enterotomy, Excision of Right Arm Lesion Dr. Figueroa 05/10/19 Family History Uncle Diabetes Mother Coronary heart disease Father Coronary heart disease Other Heart disease Denies family history of Ovarian cancer Prostate cancer Breast cancer Colorectal cancer Social History Smoking Status: Former smoker Second Hand Exposure: No; Hx Alcohol Use: No Hx Substance Use: No Preferred Language: Dutch Communication Ability: Effective Hearing Ability: Normal Supervisor Filling And Packing Required: No Beliefs That Will Affect Care: None marital status: Current Living Situation: Alone current occupational status: retired Feels Safe at Home: Yes Safety Concerns: Feels Safe At This Time Childhood Exposure to Second-Hand Smoke: No caffeine: Yes (soda) Dental Care, Regularly: Yes Physical Activity Frequency: Does not Exercise Seatbelt Use: sometimes Sunscreen Use: Yes Assistive Devices: Glasses and Walker Physical Exam Physical Exam: Gen.: No acute distress. Alert and oriented. HEENT: Anicteric sclera. Neck: Thick neck. Cardiac: PMI was nonpalpable. No ventricular heave. Irregularly irregular with rapid ventricular response. Normal S1-S2. No murmurs, rubs, or gallops. Pulmonary: Decreased breath sounds bilaterally, but otherwise clear to auscultation bilaterally without wheezes, rales, or rhonchi. Abdomen: Soft, nontender, nondistended, with normoactive bowel sounds. No bruits noted. Extremities: 2+ right radial pulse. 1+ left radial pulse. 1+ posterior tibialis pulses bilaterally. 2+ bilateral lower extremity edema to the knees. Varicose veins of the lower extremities. No cyanosis. Psychiatric: Affect appears appropriate. Results & Data ([facility]) Vital Signs (Past 12 Hours) Vital Signs Temp Pulse Pulse Resp BP BP Pulse Ox 08/17/22 15:14 36.7 C 125 H 19 124/82 96 08/17/22 13:51 128 H 142/91 H 98 08/17/22 11:30 08/17/22 11:27 36.7 C 150 H 20 148/87 H 98 08/17/22 11:01 100 08/17/22 10:18 132 H 19 155/97 H 97 08/17/22 09:28 134 H 22 146/101 H 95 08/17/22 08:44 149 H 22 162/114 H 95 08/17/22 08:31 138 H 24 96 08/17/22 08:22 149 H 24 96 08/17/22 08:00 150 H 22 87 L 08/17/22 08:09 138 H 08/17/22 08:05 138 H 32 H 96 08/17/22 08:05 08/17/22 08:01 36.8 C 150 H 34 H 161/137 H 87 L O2 Del Method O2 Flow Rate FiO2 08/17/22 15:14 Nasal Cannula 3 08/17/22 13:51 Nasal Cannula 4 08/17/22 11:30 Oxymask 6 08/17/22 11:27 Oxymask 6 08/17/22 11:01 Oxymask 6 08/17/22 10:18 Oxymask 6 08/17/22 09:28 BiPAP 08/17/22 08:44 BiPAP 08/17/22 08:31 BiPAP 30 08/17/22 08:22 30 08/17/22 08:00 Room Air 08/17/22 08:09 08/17/22 08:05 Oxymask 6 08/17/22 08:05 Oxymask 6 08/17/22 08:01 Room Air Intake & Output 08/15/22 08/16/22 08/17/22 08/18/22 06:59 06:59 06:59 06:59 Intake Total 825.000 / 825.000 Output Total 1500 / 1500 Balance -675.000 / -675.000 Weight 250 lb 3.594 oz Laboratory Results Laboratory Results - last 24 hr 08/17/22 08/17/22 08/17/22 08:00 08:00 08:00 WBC 15.66 H RBC 4.97 Hgb 12.8 L Hct 41.1 L MCV 82.7 MCH 25.8 MCHC 31.1 L RDW Std Deviation 45.7 RDW Coeff of Sveta 15.4 H Plt Count 292 MPV 9.7 Immature Gran % (Auto) 1.1 Neut % (Auto) 68.4 Lymph % (Auto) 20.6 [place] % (Auto) 7.2 Eos % (Auto) 1.9 Baso % (Auto) 0.8 Neut # (Auto) 10.72 H Lymph # (Auto) 3.22 [place] # (Auto) 1.12 H Eos # (Auto) 0.30 Baso # (Auto) 0.13 Immature Gran # (Auto) 0.17 Sodium 141 Potassium 4.7 Chloride 106 Carbon Dioxide 30 Anion Gap 5 BUN 17 Creatinine 1.20 Est Cr Clr Drug Dosing 72.4 Est GFR ( Amer) 69.6 Est GFR (Non-Af Amer) 60.1 BUN/Creatinine Ratio 14.2 Glucose 208 H POC Glucose Lactate Calcium 9.6 Phosphorus 4.5 Magnesium 1.6 L Total Bilirubin 0.5 AST 12 L ALT 12 Alkaline Phosphatase 47 Troponin I High Sens 9.6 C-Reactive Protein 2.04 H B-Natriuretic Peptide Total Protein 7.2 Albumin 4.3 Globulin 2.9 Albumin/Globulin Ratio 1.5 Lipase 16 Procalcitonin < 0.05 SARS-CoV-2 (PCR) Influenza Type A (PCR) Influenza Type B (PCR) RSV (RT-PCR) 08/17/22 08/17/22 08/17/22 08:00 08:00 08:36 WBC RBC Hgb Hct MCV MCH MCHC RDW Std Deviation RDW Coeff of Sveta Plt Count MPV Immature Gran % (Auto) Neut % (Auto) Lymph % (Auto) [place] % (Auto) Eos % (Auto) Baso % (Auto) Neut # (Auto) Lymph # (Auto) [place] # (Auto) Eos # (Auto) Baso # (Auto) Immature Gran # (Auto) Sodium Potassium Chloride Carbon Dioxide Anion Gap BUN Creatinine Est Cr Clr Drug Dosing Est GFR ( Amer) Est GFR (Non-Af Amer) BUN/Creatinine Ratio Glucose POC Glucose Lactate Calcium Phosphorus Magnesium Total Bilirubin AST ALT Alkaline Phosphatase Troponin I High Sens C-Reactive Protein Cancelled B-Natriuretic Peptide 392 H Total Protein Albumin Globulin Albumin/Globulin Ratio Lipase Procalcitonin SARS-CoV-2 (PCR) NEGATIVE Influenza Type A (PCR) Negative Influenza Type B (PCR) Negative RSV (RT-PCR) Negative 08/17/22 08/17/22 08/17/22 08:36 12:47 16:39 WBC RBC Hgb Hct MCV MCH MCHC RDW Std Deviation RDW Coeff of Sveta Plt Count MPV Immature Gran % (Auto) Neut % (Auto) Lymph % (Auto) [place] % (Auto) Eos % (Auto) Baso % (Auto) Neut # (Auto) Lymph # (Auto) [place] # (Auto) Eos # (Auto) Baso # (Auto) Immature Gran # (Auto) Sodium Potassium Chloride Carbon Dioxide Anion Gap BUN Creatinine Est Cr Clr Drug Dosing Est GFR ( Amer) Est GFR (Non-Af Amer) BUN/Creatinine Ratio Glucose POC Glucose 206 H 269 H Lactate 1.1 Calcium Phosphorus Magnesium Total Bilirubin AST ALT Alkaline Phosphatase Troponin I High Sens C-Reactive Protein B-Natriuretic Peptide Total Protein Albumin Globulin Albumin/Globulin Ratio Lipase Procalcitonin SARS-CoV-2 (PCR) Influenza Type A (PCR) Influenza Type B (PCR) RSV (RT-PCR) Diagnostic Findings Telemetry personally reviewed: Atrial fibrillation with rapid ventricular response. Labs reviewed. History and physical report reviewed. ECG personally reviewed from 08/17/2012 at 7:50 a.m.: AFib with RVR and PVCs versus aberrantly conducted complexes. 154 beats per minute. Lateral T-wave inversion. CTA chest 08/17/2022: No acute PE. Chronic PE noted within the right middle and right lower lobes per Radiology. Interlobular septal thickening consistent with interstitial pulmonary edema. Alveolar opacities likely reflect alveolar edema. Findings represent moderate pulmonary edema with small bilateral pleural effusions. Medications Administered Current Inpatient Medications Aspirin (Aspirin 81 Mg Ectab) 81 mg PO QAM ЕЛЕНА Stop: 09/17/22 08:59 Atorvastatin Calcium (Atorvastatin 40 Mg Tab) 80 mg PO QAM [facility] Stop: 09/17/22 08:59 Carvedilol (Carvedilol 25 Mg Tab) 25 mg PO BID ЕЛЕНА Stop: 09/16/22 20:59 Dextrose (Dextrose 50% 50 Ml Syringe) 25 - 50 ml IV UD PRN; Protocol PRN Reason: Hypoglycemia Protocol Stop: 09/16/22 12:44 Folic Acid (Folic Acid 1 Mg Tab) 1 mg PO QAM ЕЛЕНА Stop: 09/17/22 08:59 Furosemide (Furosemide 40 Mg/4 Ml Vial) 40 mg IV QAM [facility] Stop: 09/17/22 08:59 Glucagon (Glucagon For Inj 1 Mg Vial) 1 mg IM UD PRN; Protocol PRN Reason: Hypoglycemia Protocol Stop: 09/16/22 12:44 Glucose (Glucose 40% Gel 15 Gm Tube) 15 - 30 gm PO UD PRN; Protocol PRN Reason: Hypoglycemia Protocol Stop: 09/16/22 12:44 Glucose (Glucose 10 Tab/Tube) 4 - 8 tab PO UD PRN; Protocol PRN Reason: Hypoglycemia Protocol Stop: 09/16/22 12:44 Amiodarone HCl/Dextrose (Nexterone / D5w) 360 mg in 200 mls @ 33.333 mls/hr IV ONE ONE Stop: 08/17/22 23:27 Last Admin: 08/17/22 18:29 Dose: 1 mg/min, 33.3 mls/hr Amiodarone HCl/Dextrose (Nexterone / D5w) 360 mg in 200 mls @ 16.667 mls/hr IV .Q12H [facility] Stop: 09/16/22 23:29 Insulin Aspart (Insulin Aspart Per Unit) 0 units SC ACHS [facility] Stop: 09/16/22 12:59 Last Admin: 08/17/22 17:46 Dose: 15 units Insulin Aspart (Insulin Aspart Per Unit) 0 units SC 0400 [facility] Stop: 08/18/22 04:01 Magnesium Oxide (Magnesium Oxide 400 Mg Tab) 200 mg PO BID [facility] Stop: 09/16/22 20:59 Miscellaneous (Carbohydrates For Hypoglycemia ) 15 - 30 gm PO UD PRN PRN Reason: Hypoglycemia Treatment Stop: 09/16/22 12:44 Miscellaneous Information (Pharmacy Glycemic Mgmt Consult) 1 each N/A UD PRN; Protocol PRN Reason: Consult Stop: 09/16/22 12:21 Nitroglycerin (Nitroglycerin Sl 0.4 Mg/Tab Tab) 0.4 mg SL Q5M PRN PRN Reason: chest pain Stop: 09/16/22 11:40 Rivaroxaban (Rivaroxaban 20 Mg Tab) 20 mg PO QDD ЕЛЕНА Stop: 09/16/22 16:29 Last Admin: 08/17/22 17:03 Dose: 20 mg Tamsulosin HCl (Tamsulosin Hcl 0.4 Mg Cap) 0.4 mg PO DAILY [facility] Stop: 09/17/22 08:59 Vitamin B Complex (Vitamin B Complex Tab) 1 tab PO QAM [facility] Stop: 09/17/22 08:59 PG Care Time/CCT Total # of Minutes Spent Total Time Spent with Patient: Total time spent is greater than 50% in coordination of care (as documented) at patient's floor/unit and/or counseling patient: Coding Level of Care Code 41807 INT INP/OBS CARE 3/75MIN Diagnoses Acute on chronic heart failure with preserved ejection fraction (HFpEF) I50.33 Persistent atrial fibrillation I48.19 CAD (coronary artery disease) I25.10 Hyperlipidemia E78.5 Hypertension I10
[2022-08-17] MEDS: MAGNESIUM OXIDE 400 MG TAB PO SCH (19:58)
[2022-08-17] MEDS: carvediloL 25 MG TAB PO SCH (19:59)
[2022-08-17] MEDS: AMIODARONE / D5W 360 MG/200 ML BAG IV SCH (23:29)
[2022-08-18] MEDS ORDERED: INSULIN ASPART PER UNIT SC SCH (04:00)
[2022-08-18 04:10] LABS: Hematocrit (blood only) 35.3 % (42.0-52.0); Hemoglobin 11.6 g/dl (14.0-18.0); Mean Corpuscular Hgb Conc 32.9 g/dL (32.0-36.0); Mean Platelet Volume 9.7 fL (9.4-12.4); Platelet Count 224 K/uL (130-400); RDW Coefficient of Variation 15.1 % (11.5-14.5); RDW Standard Deviation 43.3 fL (36.4-46.3); Red Blood Count 4.47 M/uL (4.70-6.10); White Blood Count 9.95 K/ul (4.8-10.8)
[2022-08-18 04:41] LABS: Potassium 4.1 mmol/L (3.5-5.1)
[2022-08-18 04:42] LABS: BUN Creatinine Ratio 23.1 (10-20); Creatinine Clr Calc Pharmacy 59.8 ml/min; Est GFR (African American) 56.3 ml/min; Est GFR (Non-African American) 48.6 ml/min
--- NOTE | 2022-08-18 06:07 | Electrocardiogram Report ---
Test Reason : Blood Pressure : / mmHG Vent. Rate : 154 BPM Atrial Rate : 147 BPM P-R Int : 000 ms QRS Dur : 104 ms QT Int : 292 ms P-R-T Axes : 000 -37 121 degrees QTc Int : 467 ms Atrial fibrillation with rapid ventricular response with premature ventricular or aberrantly conducte d complexes Left axis deviation Poor R wave progression, consider anterior OH vs. lead placement vs. LVH Abnormal ECG When compared with ECG of 19-JUN-2022 17:17, Vent. rate has increased BY 72 BPM Confirmed by Miky Otero ([id number]) on 08/18/2022 6:07:27 AM Referred By: REFERRED SELF Confirmed By:Miky Otero
[2022-08-18] MEDS ORDERED: FUROSEMIDE 40 MG/4 ML VIAL IV SCH (09:00)
[2022-08-18] MEDS ORDERED: dilTIAZem HCL 240 MG CAPCR PO SCH (09:00)
[2022-08-18] MEDS: LANTUS PER UNIT CHARGE SQ SCH ×2 (09:13→20:41)
[2022-08-18] MEDS: INSULIN ASPART PER UNIT SC SCH ×4 (09:13→20:41)
[2022-08-18] MEDS: ASPIRIN 81 MG ECTAB PO SCH (09:15)
[2022-08-18] MEDS: FOLIC ACID 1 MG TAB PO SCH (09:16)
[2022-08-18] MEDS: ATORVASTATIN 40 MG TAB PO SCH (09:16)
[2022-08-18] MEDS: carvediloL 25 MG TAB PO SCH ×2 (09:16→20:46)
[2022-08-18] MEDS: TAMSULOSIN HCL 0.4 MG CAP PO SCH (09:17)
[2022-08-18] MEDS: VITAMIN B COMPLEX TAB PO SCH (09:17)
[2022-08-18] MEDS: MAGNESIUM OXIDE 400 MG TAB PO SCH ×2 (09:17→20:45)
[2022-08-18] MEDS: AMIODARONE / D5W 360 MG/200 ML BAG IV SCH ×2 (11:10→22:03)
--- NOTE | 2022-08-18 12:38 | Pharmacy Report ---
Pharmacy Glycemic Short Note 2 - Date of Service August 18, 2022 - Glycemic Short BSG Results (Last 24 hours): 08/17/22 08/17/22 08/17/22 12:47 16:39 20:54 Glucose POC Glucose 206 H 269 H 284 H 08/18/22 08/18/22 08/18/22 02:45 04:04 07:27 Glucose 261 H POC Glucose 253 H 214 H 08/18/22 11:41 Glucose POC Glucose 228 H OUTPATIENT ANTIDIABETIC REGIMEN: * Glimepiride 1 mg PO QAM * Metformin 1000 mg BID ASSESSMENT: 08/18/22 * BSGs yesterday were 206-269-284 mg/dL with 0400 check of 253 mg/dL. * Patient received 57 units of insulin (30 units of basal and 27 units of b olus). Patient received extra 6 units at 0400. * Start Lantus 20 units BID (full weight based stress of 2). This is an increase of 25% from yesterday. * Tighten CR as BSGs trended upwards. BACKGROUND * Jesi is a 72 year old male who was admitted for Afib today with a PMH significant for DM II. * A1c from 06/25 was 9.1%. A random FBSG today was 208 mg/dL and lunchtime POC BSG was 206 mg/dL * Received a 125 mg Solumedrol IV x 1 today at 0830 PLAN FOR INPATIENT GLYCEMIC CONTROL: * Hold outpatient oral diabetes medications * Basal insulin * Lantus 20 units SQ BID * Bolus insulin * NovoLog per scale ACHS or Q6hrs while NPO * Goal Range: Low 110 mg/dL - High 140 mg/dL * Correction Factor: 20 mg/dL/unit * Nutritional / Prandial insulin per carb ratio of 1 unit per 5 grams CHO consumed
--- NOTE | 2022-08-18 15:50 | Heart Failure Progress Note ---
Date of Service August 18, 2022 Assessment & Plan (1) Acute on chronic heart failure with preserved ejection fraction (HFpEF): Plan We discussed the heart failure program. He is agreeable to enrollment. Please see Dr. Otero's note for fomal recommendations and plan of care. Follow up scheduled 08/25 at 10:30 am with the heart failure program. Admission and Anticipated Discharge Date Admission Date: August 17, 2022 Subjective Met with patient today to introduce the heart failure program. He has been formally evaluated by Dr. Otero earlier today and was referred to the program. Patient reports he's feeling significantly improved at this time. He admits to high sodium intake. He lives alone in the [facility] and is able to transport himself to appointments. He manages his own medications. He does his own grocery shopping. Results & Data ([facility]) Vital Signs (Past 12 Hours) Vital Signs Temp Pulse Resp BP Pulse Ox O2 Del Method O2 Flow Rate 08/18/22 11:27 97.5 F L 98 H 20 124/80 97 Nasal Cannula 2 08/18/22 08:00 Nasal Cannula 2 08/18/22 07:45 97.5 F L 96 H 19 130/78 98 Nasal Cannula 2 08/18/22 04:24 97.3 F L 92 H 22 131/67 97 Room Air PG Care Time/CCT Total # of Minutes Spent Total Time Spent with Patient: Total time spent is greater than 50% in coordination of care (as documented) at patient's floor/unit and/or counseling patient: Heart Failure Data/Metrics Heart Failure Type: HFpEF (EF > 50%) Ejection Fraction: 50-55% Evidenced Based Beta Shay Therapy Beta Shay Therapy: Not Indicated MARY/ARB/ARNI Therapy MARY/ARB/ARNI Therapy: Not Indicated Aldosterone Antagonist Therapy Aldosterone Antagonist Therapy: Not Indicated Coding Level of Care Code None Diagnoses Acute on chronic heart failure with preserved ejection fraction (HFpEF) I50.33
--- NOTE | 2022-08-18 16:31 | Cardiology Progress Note ---
Date of Service August 18, 2022 Assessment & Plan (1) Acute on chronic heart failure with preserved ejection fraction (HFpEF): (2) Persistent atrial fibrillation: (3) CAD (coronary artery disease): (4) Hyperlipidemia: (5) Hypertension: Plan ASSESSMENT/PLAN: 1. Acute on chronic heart failure with preserved EF: Much improved and no longer hypoxic on room air. Diuretic discontinued this morning before receiving his dose given azotemic appearing labs. Low-sodium diet. Strict I&Os. Daily weights. Discussed the importance of low-sodium diet at home. Dietary indiscretion may be playing a role in presentation. 2. Atrial fibrillation with rapid ventricular response: Persistent atrial fibrillation. Atrial fibrillation likely contributed to CHF exacerbation. He still declines electrical cardioversion and prefers antiarrhythmic therapy. Amiodarone has improved his rate control thus far. We discussed the fact that it may not convert to sinus rhythm without electrical cardioversion. He was asked to continue to consider electrical cardioversion in the future. Otherwise will continue to load with IV amiodarone today and likely convert to oral amiodarone tomorrow. Continue anticoagulation for stroke risk reduction. We have discussed potential adverse reactions/complications of amiodarone therapy but he agrees to pursue amiodarone at this time. Monitor TSH and transaminase levels periodically. 3. CAD s/p prior [place] and LAD PCI: No angina. Continue aspirin 81 mg daily indefinitely. Continue beta-dave. Continue high-intensity statin therapy. 4. Hypertension: Blood pressure well controlled today. No changes made at this time. Had been on lisinopril 40 mg in the past which was discontinued during June 2022 visit to allow for diltiazem as a rate-controlling medication. 5. Dyslipidemia: Continue high-intensity statin therapy. 6. Disposition: Cardiology will continue to follow. Patient care communicated with primary hospitalist, Dr. Denson. Highly complex medical issues. Admission and Anticipated Discharge Date Admission Date: August 17, 2022 Subjective Patient was seen this afternoon. He denies any shortness of breath, orthopnea, dyspnea on exertion, chest pain, palpitations, syncope, near-syncope, or bleeding. He feels much better today. Heart rate improved with amiodarone drip. He was alone in his hospital room. Physical Exam Physical Exam: Gen.: No acute distress. Alert and oriented. HEENT: Anicteric sclera. Neck: Thick neck. Cardiac: PMI was nonpalpable. No ventricular heave. Irregularly irregular. Normal S1-S2. No murmurs, rubs, or gallops. Pulmonary: Decreased breath sounds bilaterally, but otherwise clear to auscultation bilaterally without wheezes, rales, or rhonchi. Abdomen: Soft, nontender, nondistended, with normoactive bowel sounds. No bruits noted. Extremities: 2+ right radial pulse. 1+ left radial pulse. 1+ posterior tibialis pulses bilaterally. 1+ bilateral lower extremity edema to the knees. Varicose veins of the lower extremities. No cyanosis. Psychiatric: Affect appears appropriate. Results & Data ([facility]) Vital Signs (Past 12 Hours) Vital Signs Temp Pulse Resp BP Pulse Ox O2 Del Method O2 Flow Rate 08/18/22 15:46 36.6 C 98 H 20 110/64 96 Room Air 08/18/22 11:27 36.4 C L 98 H 20 124/80 97 Nasal Cannula 2 08/18/22 08:00 Nasal Cannula 2 08/18/22 07:45 36.4 C L 96 H 19 130/78 98 Nasal Cannula 2 Intake & Output 08/16/22 08/17/22 08/18/22 08/19/22 06:59 06:59 06:59 06:59 Intake Total 1605.000 / 1605.000 475 / 475 Output Total 2800 / 2800 300 / 300 Balance -1195.000 / -1195.000 175 / 175 Weight 251 lb 5.231 oz Laboratory Results Laboratory Results - last 24 hr 08/17/22 08/17/22 08/17/22 16:39 20:54 21:09 WBC RBC Hgb Hct MCV MCH MCHC RDW Std Deviation RDW Coeff of Sveta Plt Count MPV Sodium Potassium Chloride Carbon Dioxide Anion Gap BUN Creatinine Est Cr Clr Drug Dosing Est GFR ( Amer) Est GFR (Non-Af Amer) BUN/Creatinine Ratio Glucose POC Glucose 269 H 284 H Calcium Troponin I High Sens 14.3 D 08/18/22 08/18/22 08/18/22 02:45 02:45 02:45 WBC 9.95 RBC 4.47 L Hgb 11.6 L Hct 35.3 L MCV 79.0 L MCH 26.0 MCHC 32.9 RDW Std Deviation 43.3 RDW Coeff of Sveta 15.1 H Plt Count 224 MPV 9.7 Sodium 135 L Potassium 4.1 Chloride 99 Carbon Dioxide 28 Anion Gap 8 BUN 33 H Creatinine 1.43 H Est Cr Clr Drug Dosing 59.8 Est GFR ( Amer) 56.3 Est GFR (Non-Af Amer) 48.6 BUN/Creatinine Ratio 23.1 H Glucose 261 H POC Glucose Calcium 9.0 Troponin I High Sens 13.0 08/18/22 08/18/22 08/18/22 04:04 07:27 08:47 WBC RBC Hgb Hct MCV MCH MCHC RDW Std Deviation RDW Coeff of Sveta Plt Count MPV Sodium Potassium Chloride Carbon Dioxide Anion Gap BUN Creatinine Est Cr Clr Drug Dosing Est GFR ( Amer) Est GFR (Non-Af Amer) BUN/Creatinine Ratio Glucose POC Glucose 253 H 214 H Calcium Troponin I High Sens 13.3 08/18/22 11:41 WBC RBC Hgb Hct MCV MCH MCHC RDW Std Deviation RDW Coeff of Sveta Plt Count MPV Sodium Potassium Chloride Carbon Dioxide Anion Gap BUN Creatinine Est Cr Clr Drug Dosing Est GFR ( Amer) Est GFR (Non-Af Amer) BUN/Creatinine Ratio Glucose POC Glucose 228 H Calcium Troponin I High Sens Diagnostic Findings Telemetry personally reviewed: Atrial fibrillation with improved heart rate but still elevated at times when reviewed this morning. Labs reviewed notable for increased BUN and creatinine from baseline. Medications Administered Current Inpatient Medications Aspirin (Aspirin 81 Mg Ectab) 81 mg PO QAM [facility] Stop: 09/17/22 08:59 Last Admin: 08/18/22 09:15 Dose: 81 mg Atorvastatin Calcium (Atorvastatin 40 Mg Tab) 80 mg PO QAM [facility] Stop: 09/17/22 08:59 Last Admin: 08/18/22 09:16 Dose: 80 mg Carvedilol (Carvedilol 25 Mg Tab) 25 mg PO BID [facility] Stop: 09/16/22 20:59 Last Admin: 08/18/22 09:16 Dose: 25 mg Dextrose (Dextrose 50% 50 Ml Syringe) 25 - 50 ml IV UD PRN; Protocol PRN Reason: Hypoglycemia Protocol Stop: 09/16/22 12:44 Folic Acid (Folic Acid 1 Mg Tab) 1 mg PO QAM [facility] Stop: 09/17/22 08:59 Last Admin: 08/18/22 09:16 Dose: 1 mg Glucagon (Glucagon For Inj 1 Mg Vial) 1 mg IM UD PRN; Protocol PRN Reason: Hypoglycemia Protocol Stop: 09/16/22 12:44 Glucose (Glucose 40% Gel 15 Gm Tube) 15 - 30 gm PO UD PRN; Protocol PRN Reason: Hypoglycemia Protocol Stop: 09/16/22 12:44 Glucose (Glucose 10 Tab/Tube) 4 - 8 tab PO UD PRN; Protocol PRN Reason: Hypoglycemia Protocol Stop: 09/16/22 12:44 Amiodarone HCl/Dextrose (Nexterone / D5w) 360 mg in 200 mls @ 16.667 mls/hr IV .Q12H [facility] Stop: 09/16/22 23:29 Last Admin: 08/18/22 11:10 Dose: 0.5 mg/min, 16.7 mls/hr Insulin Aspart (Insulin Aspart Per Unit) 0 units SC ACHS [facility] Stop: 09/16/22 12:59 Last Admin: 08/18/22 12:36 Dose: 15 units Insulin Glargine (Lantus Per Unit Charge) 20 units SQ BID [facility] Stop: 09/17/22 08:59 Last Admin: 08/18/22 09:13 Dose: 20 units Magnesium Oxide (Magnesium Oxide 400 Mg Tab) 200 mg PO BID [facility] Stop: 09/16/22 20:59 Last Admin: 08/18/22 09:17 Dose: 200 mg Miscellaneous (Carbohydrates For Hypoglycemia ) 15 - 30 gm PO UD PRN PRN Reason: Hypoglycemia Treatment Stop: 09/16/22 12:44 Miscellaneous Information (Pharmacy Glycemic Mgmt Consult) 1 each N/A UD PRN; Protocol PRN Reason: Consult Stop: 09/16/22 12:21 Nitroglycerin (Nitroglycerin Sl 0.4 Mg/Tab Tab) 0.4 mg SL Q5M PRN PRN Reason: chest pain Stop: 09/16/22 11:40 Rivaroxaban (Rivaroxaban 20 Mg Tab) 20 mg PO QDD [facility] Stop: 09/16/22 16:29 Last Admin: 08/17/22 17:03 Dose: 20 mg Tamsulosin HCl (Tamsulosin Hcl 0.4 Mg Cap) 0.4 mg PO DAILY [facility] Stop: 09/17/22 08:59 Last Admin: 08/18/22 09:17 Dose: 0.4 mg Vitamin B Complex (Vitamin B Complex Tab) 1 tab PO QAM [facility] Stop: 09/17/22 08:59 Last Admin: 08/18/22 09:17 Dose: 1 tab PG Care Time/CCT Total # of Minutes Spent Total Time Spent with Patient: Total time spent is greater than 50% in coordination of care (as documented) at patient's floor/unit and/or counseling patient: Coding Level of Care Code 58811 SUB INP/OBS CARE 3/50MIN Diagnoses Acute on chronic heart failure with preserved ejection fraction (HFpEF) I50.33 Persistent atrial fibrillation I48.19 CAD (coronary artery disease) I25.10 Hyperlipidemia E78.5 Hypertension I10
[2022-08-18] MEDS: RIVAROXABAN 20 MG TAB PO SCH (17:46)
--- NOTE | 2022-08-18 21:00 | XCELERA ---
[id number]
--- NOTE | 2022-08-18 23:04 | Hospitalist Progress Note ---
Date of Service August 18, 2022 Assessment & Plan (1) Persistent atrial fibrillation: Plan: Atrial fibriallation in a 72 yo male with SOB Patient appears to have some volume overload likley secondary to his elevated heart rate. hold diltiazem and place on amiodarone continue beta dave continue DOAC. will monitor heart rate obtain troponin (serial) monitor creatinine (2) Acute respiratory failure with hypoxia: Plan: Patient required BIPAP due to hypoxemia. Chest x ray shows patchy infiltrates which likely is related to his CHF worsened by his atrial fibrillation HR is better controlled. due to increased creatinine( acute kidney injury) will hold further diuretics and monitor. (3) Lower extremity edema: Plan: secondary to fluid overload from elevated HR. HR is better controlled. (4) Hyperlipidemia: Plan: continue home statin (5) Poorly controlled diabetes mellitus: Plan: obtain glycemic consult (6) Acute on chronic heart failure with preserved ejection fraction (HFpEF): Plan: as above Admission and Anticipated Discharge Date Admission Date: August 17, 2022 Subjective Patient reports feeling better. He has no new complaints. Review of Systems Review of Systems: All systems reviewed & are unremarkable except as noted in HPI & below Physical Exam Physical Exam: General: Appears to be sitting in chair comfortable, stated age, chronically ill-appearing HEENT: Normocephalic, atraumatic, no scleral icterus, pupils around round, symmetrical, and reactive to light, moist mucus membranes, trachea midline, no thyromegaly Chest/Pulm: using accessory muscles to breath, lungs appear to be clear. Cardiac: RRR, no murmurs noted Abdomen: Negative for ascites and bruising, normoactive bowel sounds, soft, non- tender to palpation throughout Musculoskeletal: Symmetrical and without signs of acute trauma, upper and lower extremities with full ROM, no atrophy, spasticity, or flaccidity Extremities: Radial, dorsalis pedis, and posterior tibial pulses are intact and symmetrical, +1 pitting edema noted in the BL LE's, no signs of erythema or unilateral swelling Skin: Warm, dry, no rashes , lesions, or scars noted Neuro: Alert and oriented to person, place, month, year, and president, no tremors noted \Psych: No acute distress, calm and cooperative during the exam Results & Data Results & Data ([facility]) Vital Signs (Past 12 Hours) Vital Signs Temp Pulse Pulse Pulse Resp BP Pulse Ox 08/18/22 22:57 104 H 08/18/22 22:54 36.3 C L 79 18 119/84 95 08/18/22 21:25 08/18/22 19:00 36.8 C 106 H 16 100/65 95 08/18/22 15:46 36.6 C 98 H 20 110/64 96 08/18/22 11:27 36.4 C L 98 H 20 124/80 97 O2 Del Method O2 Flow Rate 08/18/22 22:57 08/18/22 22:54 Room Air 08/18/22 21:25 Nasal Cannula 2 08/18/22 19:00 Room Air 08/18/22 15:46 Room Air 08/18/22 11:27 Nasal Cannula 2 PG Care Time/CCT Total # of Minutes Spent Total Time Spent with Patient: Total time spent is greater than 50% in coordination of care (as documented) at patient's floor/unit and/or counseling patient: Coding Level of Care Code 21910 SUB INP/OBS CARE 2/35MIN Diagnoses Persistent atrial fibrillation I48.19 Acute respiratory failure with hypoxia J96.01 Lower extremity edema R60.0 Hyperlipidemia E78.5 Poorly controlled diabetes mellitus E11.65 Acute on chronic heart failure with preserved ejection fraction (HFpEF) I50.33
--- NOTE | 2022-08-19 04:59 | Electrocardiogram Report ---
Test Reason : Blood Pressure : / mmHG Vent. Rate : 096 BPM Atrial Rate : 098 BPM P-R Int : 000 ms QRS Dur : 112 ms QT Int : 372 ms P-R-T Axes : 000 -27 051 degrees QTc Int : 469 ms Atrial fibrillation with premature ventricular or aberrantly conducted complexes Poor R wave progression, consider anterior KS vs. lead placement vs. LVH Abnormal ECG When compared with ECG of 17-AUG-2022 07:58, Vent. rate has decreased BY 58 BPM Nonspecific T wave abnormality has replaced inverted T waves in Lateral leads Confirmed by Miky Otero ([id number]) on 08/19/2022 4:59:11 AM Referred By: REFERRED SELF Confirmed By:iMky Otero
[2022-08-19] MEDS: INSULIN ASPART PER UNIT SC SCH ×3 (08:00→17:05)
[2022-08-19] MEDS: LANTUS PER UNIT CHARGE SQ SCH (08:00)
[2022-08-19] MEDS: ATORVASTATIN 40 MG TAB PO SCH (08:19)
[2022-08-19] MEDS: carvediloL 25 MG TAB PO SCH (08:19)
[2022-08-19] MEDS: ASPIRIN 81 MG ECTAB PO SCH (08:19)
[2022-08-19] MEDS: FOLIC ACID 1 MG TAB PO SCH (08:20)
[2022-08-19] MEDS: VITAMIN B COMPLEX TAB PO SCH (08:20)
[2022-08-19] MEDS: MAGNESIUM OXIDE 400 MG TAB PO SCH (08:20)
[2022-08-19] MEDS: TAMSULOSIN HCL 0.4 MG CAP PO SCH (08:20)
[2022-08-19 08:21] LABS: BUN Creatinine Ratio 24.8 (10-20); Calcium 8.9 mg/dl (8.5-10.1); Creatinine Clr Calc Pharmacy 57.6 ml/min; Est GFR (African American) 53.6 ml/min; Est GFR (Non-African American) 46.2 ml/min; Potassium 3.8 mmol/L (3.5-5.1)
[2022-08-19] MEDS: AMIODARONE / D5W 360 MG/200 ML BAG IV SCH (09:52)
--- NOTE | 2022-08-19 11:18 | Cardiology Progress Note ---
Date of Service August 19, 2022 Assessment & Plan (1) Acute on chronic heart failure with preserved ejection fraction (HFpEF): (2) Persistent atrial fibrillation: (3) CAD (coronary artery disease): (4) Hyperlipidemia: (5) Hypertension: Plan ASSESSMENT/PLAN: 1. Acute on chronic heart failure with mid range EF: Hypoxia resolved quickly with diuresis. Labs appear azotemic. Can resume home dose of Lasix 40 mg daily on discharge. He would like to be discharged today. Low-sodium diet. Strict I&Os. Daily weights. Discussed the importance of low-sodium diet at home. Dietary indiscretion may be playing a role in presentation. 2. Atrial fibrillation with rapid ventricular response: Persistent atrial fibrillation. Atrial fibrillation possibly contributed to CHF exacerbation. Electrical cardioversion once again recommended today. He declines. He wishes to continue for with amiodarone. He has been made aware that amiodarone is typically use for rhythm control. Amiodarone has improved his rate control thus far. Start amiodarone 400 mg twice daily, while overlapping with amiodarone drip for 1-2 hours. After 8 days of 400 mg twice daily, reduced to 200 mg twice daily. Monitor transaminase levels and TSH while on amiodarone. Continue anticoagulation for stroke risk reduction. We have discussed potential adverse reactions/complications of amiodarone therapy. Monitor CBC periodically while on anticoagulation therapy. 3. CAD s/p prior [place] and LAD PCI: No angina. Continue aspirin 81 mg daily indefinitely. Continue beta-dave. Continue high-intensity statin therapy. 4. Hypertension: Blood pressure is well controlled on current regimen. No changes made at this time. Had been on lisinopril 40 mg in the past which was discontinued during June 2022 visit to allow for diltiazem as a rate- controlling medication. 5. Dyslipidemia: Continue high-intensity statin therapy. 6. Cardiomyopathy: Mildly reduced LV systolic function. 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 Plan as above. 7. Disposition: He is requesting to be discharged today. If heart rate remains reasonable once on oral amiodarone, can be discharged from a cardiac standpoint with close follow-up as scheduled in the Heart failure program in 6 days. Patient care communicated with primary hospitalist, Dr. Denson. If he remains hospitalized, Dr. Anton will be covering the remainder of the week. Admission and Anticipated Discharge Date Admission Date: August 17, 2022 Subjective Patient seen this morning. He denies shortness of breath, chest pain, syncope, near-syncope, palpitations, or bleeding. He would like to go home today. He feels much better on current regimen, with improved heart rate. He was alone in his hospital room. Physical Exam Physical Exam: Gen.: No acute distress. Alert and oriented. HEENT: Anicteric sclera. Neck: Thick neck. Cardiac: No ventricular heave. Irregularly irregular. Normal S1-S2. No murmurs, rubs, or gallops. Pulmonary: Decreased breath sounds bilaterally, but otherwise clear to auscultation bilaterally without wheezes, rales, or rhonchi. Abdomen: Soft, nontender, nondistended, with normoactive bowel sounds. No bruits noted. Extremities: 2+ right radial pulse. 1+ left radial pulse. 1+ posterior tibialis pulses bilaterally. 1+ bilateral lower extremity edema to the knees. Varicose veins of the lower extremities. No cyanosis. Results & Data ([facility]) Vital Signs (Past 12 Hours) Vital Signs Temp Pulse Resp BP Pulse Ox O2 Del Method 08/19/22 08:00 Room Air 08/19/22 08:05 36.6 C 80 18 132/76 96 Room Air 08/19/22 04:00 36.4 C 84 15 119/75 95 Room Air Intake & Output 08/17/22 08/18/22 08/19/22 08/20/22 06:59 06:59 06:59 06:59 Intake Total 1605.000 / 1552.715 0402.752 / 1026.752 197.338 / 197.338 Output Total 2800 / 2800 1000 / 1000 Balance -1195.000 / -1195.000 26.752 / 26.752 197.338 / 197.338 Weight 251 lb 5.231 oz 252 lb Laboratory Results Laboratory Results - last 24 hr 08/18/22 08/18/22 08/18/22 11:41 16:44 20:18 Sodium Potassium Chloride Carbon Dioxide Anion Gap BUN Creatinine Est Cr Clr Drug Dosing Est GFR ( Amer) Est GFR (Non-Af Amer) BUN/Creatinine Ratio Glucose POC Glucose 228 H 132 H 164 H Calcium AST ALT TSH 08/19/22 08/19/22 08/19/22 06:34 06:34 08:04 Sodium 139 Potassium 3.8 Chloride 99 Carbon Dioxide 34 H Anion Gap 6 BUN 37 H Creatinine 1.49 H Est Cr Clr Drug Dosing 57.6 Est GFR ( Amer) 53.6 Est GFR (Non-Af Amer) 46.2 BUN/Creatinine Ratio 24.8 H Glucose 117 H POC Glucose 121 H Calcium 8.9 AST 16 ALT 15 TSH 1.455 Diagnostic Findings On 08/19/2022, chart and labs reviewed. Labs notable for stable renal function and normal transaminase levels. TSH was normal. Telemetry personally reviewed: Atrial fibrillation with improved heart rate and in the 90s at the time of review this morning. ECG personally reviewed 08/19/2022: AFib 101 beats per minute. Septal infarct. Nonspecific T-wave abnormality. Echo 08/18/2022: Limited echo. Normal LV size. EF 45%. Large apical infarct. No visualized thrombus. Medications Administered Current Inpatient Medications Amiodarone HCl (Amiodarone 200 Mg Tab) 400 mg PO BIDM [facility] Stop: 09/18/22 11:14 Aspirin (Aspirin 81 Mg Ectab) 81 mg PO QAM [facility] Stop: 09/17/22 08:59 Last Admin: 08/19/22 08:19 Dose: 81 mg Atorvastatin Calcium (Atorvastatin 40 Mg Tab) 80 mg PO QAM [facility] Stop: 09/17/22 08:59 Last Admin: 08/19/22 08:19 Dose: 80 mg Carvedilol (Carvedilol 25 Mg Tab) 25 mg PO BID [facility] Stop: 09/16/22 20:59 Last Admin: 08/19/22 08:19 Dose: 25 mg Dextrose (Dextrose 50% 50 Ml Syringe) 25 - 50 ml IV UD PRN; Protocol PRN Reason: Hypoglycemia Protocol Stop: 09/16/22 12:44 Folic Acid ([facility] 1 Mg [facility]) [facility]: 09/17/22 08:59 Last Admin: 08/19/22 08:20 Dose: 1 mg Furosemide (Furosemide 40 Mg Tab) 40 mg PO QAM [facility] Stop: 09/18/22 11:29 Glucagon (Glucagon For Inj 1 Mg Vial) 1 mg IM UD PRN; Protocol PRN Reason: Hypoglycemia Protocol Stop: 09/16/22 12:44 Glucose (Glucose 40% Gel 15 Gm Tube) 15 - 30 gm PO UD PRN; Protocol PRN Reason: Hypoglycemia Protocol Stop: 09/16/22 12:44 Glucose (Glucose 10 Tab/Tube) 4 - 8 tab PO UD PRN; Protocol PRN Reason: Hypoglycemia Protocol Stop: 09/16/22 12:44 Amiodarone HCl/Dextrose (Nexterone / D5w) 360 mg in 200 mls @ 16.667 mls/hr IV .Q12H [facility] Stop: 09/16/22 23:29 Last Admin: 08/19/22 09:52 Dose: 0.5 mg/min, 16.7 mls/hr Insulin Aspart (Insulin Aspart Per Unit) 0 units SC ACHS Е[facility] Stop: 09/16/22 12:59 Last Admin: 08/19/22 08:00 Dose: 10 units Insulin Glargine (Lantus Per Unit Charge) 20 units SQ BID [facility] Stop: 09/17/22 08:59 Last Admin: 08/19/22 08:00 Dose: 20 units Magnesium Oxide (Magnesium Oxide 400 Mg Tab) 200 mg PO BID ЕЛ[facility] Stop: 09/16/22 20:59 Last Admin: 08/19/22 08:20 Dose: 200 mg Miscellaneous (Carbohydrates For Hypoglycemia ) 15 - 30 gm PO UD PRN PRN Reason: Hypoglycemia Treatment Stop: 09/16/22 12:44 Miscellaneous Information (Pharmacy Glycemic Mgmt Consult) 1 each N/A UD PRN; Protocol PRN Reason: Consult Stop: 09/16/22 12:21 Nitroglycerin (Nitroglycerin Sl 0.4 Mg/Tab Tab) 0.4 mg SL Q5M PRN PRN Reason: chest pain Stop: 09/16/22 11:40 Rivaroxaban (Rivaroxaban 20 Mg Tab) 20 mg PO QDD [facility] Stop: 09/16/22 16:29 Last Admin: 08/18/22 17:46 Dose: 20 mg Tamsulosin HCl (Tamsulosin Hcl 0.4 Mg Cap) 0.4 mg PO DAILY [facility] Stop: 09/17/22 08:59 Last Admin: 08/19/22 08:20 Dose: 0.4 mg Vitamin B Complex (Vitamin B Complex Tab) 1 tab PO QAM [facility] Stop: 09/17/22 08:59 Last Admin: 08/19/22 08:20 Dose: 1 tab PG Care Time/CCT Total # of Minutes Spent Total Time Spent with Patient: Total time spent is greater than 50% in coordination of care (as documented) at patient's floor/unit and/or counseling patient: Coding Level of Care Code 97844 SUB INP/OBS CARE 350MIN Diagnoses Acute on chronic heart failure with preserved ejection fraction (HFpEF) I50.33 Persistent atrial fibrillation I48.19 CAD (coronary artery disease) I25.10 Hyperlipidemia E78.5 Hypertension I10
[2022-08-19] MEDS ORDERED: FUROSEMIDE 40 MG TAB PO SCH (11:30)
[2022-08-19] MEDS: AMIODARONE 200 MG TAB PO SCH ×2 (12:13→16:46)
[2022-08-19] MEDS ORDERED: Nursing to Pharmacy Communication SCH (12:45)
[2022-08-19] MEDS: RIVAROXABAN 20 MG TAB PO SCH (16:45)
--- NOTE | 2022-08-19 22:30 | Electrocardiogram Report ---
Test Reason : Blood Pressure : / mmHG Vent. Rate : 101 BPM Atrial Rate : 129 BPM P-R Int : 000 ms QRS Dur : 112 ms QT Int : 350 ms P-R-T Axes : 000 -30 083 degrees QTc Int : 453 ms Atrial fibrillation with rapid ventricular response Left axis deviation Septal infarct (cited on or before 19-AUG-2022) Nonspecific T wave abnormality Abnormal ECG When compared with ECG of 18-AUG-2022 06:10, Premature ventricular complexes are no longer Present Confirmed by Miky Otero ([id number]) on 08/19/2022 10:30:05 PM Referred By: REFERRED SELF Confirmed By:Miky Otero
--- NOTE | 2022-08-20 13:14 | Coding Query ---
CODING QUERY To promote full compliance with coding requirements relating to patient care, provider participation is requested in all cases of printing pressman uncertainty. Please assist us with the question(s) below: Coding Question(s): Please specify below, in your clinical opinion, the diagnosis most responsible for occasioning the admission: ( x ) Acute on Chronic Heart Failure with preserved ejection fraction (HFpEF) ( ) Persistent Atrial Fibrillation ( ) Acute Respiratory Failure with Hypoxia ( ) Other: Please Specify Physician's Response(s): Thank you Yvtete Mcnally Principal Diagnosis: "that condition established after study, to be chiefly responsible for occasioning the admission of the patient to the hospital for care." Co-Existing Principal Diagnosis: "when two or more diagnoses equally meet the criteria for principal diagnosis as determined by the circumstances of admission, diagnostic work up, and/or therapy provided, and the Alphabetic Index, Tabular List, or another coding guideline does not provide sequencing direction, any one of the diagnoses may be sequenced first." "When the physician has documented what appears to be a current diagnosis in the body of the record, but has not included the diagnosis in the final diagnostic statement, the physician should be asked whether the diagnosis should be added." ([facility] 2 QTR90. p3-4) AMINATA
--- NOTE | 2022-08-20 16:09 | Discharge Summary ---
Date of Service August 19, 2022 Admission HPI Per Admitting Provider Jesi is a 72 year old male with a PMH significant for DM II, hx multiple DVT's on Xarelto, CAD S/Ps non ST segment elevation [place] 01/04/2012-cardiac catheterization showed 100% lad, 80% left circumflex, 80% obtuse marginal branch for-status post drug-eluting stent of the LAD. 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 Patient reports he was in hi snormal state of health yesterday. He reports having a soup yesterday. Overnight, he had difficulty sleeping as he felt resless and SOB. HIs SOB worsened when he woke up this morning which prompted him to seek medical attention. Patient denies any sick contacts. In the ED, patient was found to have a HR in the 150s, and patient initially rerquired BIPAP. Patient was ordered 40 mg of IV lasix, and admission was called. Patient reports he is complaint with his medications but he is having difficulty maintaining his diet. He reports eating at fast food restaurants but he asks for fries without salt. Principal Diagnosis a fib RVR Discharge Exam General: Appears to be sitting in chair comfortable, stated age, chronically ill-appearing HEENT: Normocephalic, atraumatic, no scleral icterus, pupils around round, symmetrical, and reactive to light, moist mucus membranes, trachea midline, no thyromegaly Chest/Pulm: no longer using accessory muscles to breath, lungs appear to be clear. Cardiac: RRR, no murmurs noted Abdomen: Negative for ascites and bruising, normoactive bowel sounds, soft, non- tender to palpation throughout Musculoskeletal: Symmetrical and without signs of acute trauma, upper and lower extremities with full ROM, no atrophy, spasticity, or flaccidity Extremities: Radial, dorsalis pedis, and posterior tibial pulses are intact and symmetrical, +1 pitting edema noted in the BL LE's, no signs of erythema or unilateral swelling Skin: Warm, dry, no rashes , lesions, or scars noted Neuro: Alert and oriented to person, place, month, year, and president, no tremors noted \\Psych: No acute distress, calm and cooperative during the exam Discharge Data Allergies Allergy/AdvReac Type Severity Reaction Status Date / Time Penicillins Allergy Unknown "DOES NOT Verified 07/16/22 08:08 KNOW- A CHILD" Consultations 08/17/22 09:37 Consult Cardiology Routine 08/17/22 09:38 ED Decision to Admit Stat Ordered Studies 08/17/22 09:34 CT for pulmonary embolism PE [CT angio chest PE protocol] Urgent Hospital Course (1) Persistent atrial fibrillation: Atrial fibriallation in a 72 yo male with SOB Patient appears to have some volume overload likley secondary to his elevated heart rate. hold diltiazem and place on amiodarone continue beta dave continue DOAC. HR improved. obtained troponin (serial) Appreciate input from Cardio, Acute on chronic heart failure with mid range EF: Hypoxia resolved quickly with diuresis. Labs appear azotemic. Can resume home dose of Lasix 40 mg daily on discharge. He would like to be discharged today. Low-sodium diet. Strict I&Os. Daily weights. Discussed the importance of low-sodium diet at home. Dietary indiscretion may be playing a role in presentation. 2. Atrial fibrillation with rapid ventricular response: Persistent atrial fibrillation. Atrial fibrillation possibly contributed to CHF exacerbation. Electrical cardioversion once again recommended today. He declines. He wishes to continue for with amiodarone. He has been made aware that amiodarone is typically use for rhythm control. Amiodarone has improved his rate control thus far. Start amiodarone 400 mg twice daily, while overlapping with amiodarone drip for 1-2 hours. After 8 days of 400 mg twice daily, reduced to 200 mg twice daily. Monitor transaminase levels and TSH while on amiodarone. Continue anticoagulation for stroke risk reduction. We have discussed potential adverse reactions/complications of amiodarone therapy. Monitor CBC periodically while on anticoagulation therapy. 3. CAD s/p prior [place] and LAD PCI: No angina. Continue aspirin 81 mg daily indefinitely. Continue beta-dave. Continue high-intensity statin therapy. 4. Hypertension: Blood pressure is well controlled on current regimen. No changes made at this time. Had been on lisinopril 40 mg in the past which was discontinued during June 2022 visit to allow for diltiazem as a rate- controlling medication. 5. Dyslipidemia: Continue high-intensity statin therapy. 6. Cardiomyopathy: Mildly reduced LV systolic function. 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 Plan as above. (2) Acute respiratory failure with hypoxia: Patient required BIPAP due to hypoxemia. Chest x ray shows patchy infiltrates which likely is related to his CHF worsened by his atrial fibrillation HR is better controlled. due to increased creatinine( acute kidney injury) will hold further diuretics and monitor. (3) Lower extremity edema: secondary to fluid overload from elevated HR. HR is better controlled. (4) Hyperlipidemia: continue home statin (5) Poorly controlled diabetes mellitus: obtain glycemic consult (6) Acute on chronic heart failure with preserved ejection fraction (HFpEF): as above Total Time Total Time Spent Total Time Spent (In Minutes): 32 Discharge Plan Discharge Items Patient Disposition: Home - Self-Care Reason For Visit: ACUTE HYPOXIC RESPIRATORY FAILURE Discharge Diagnosis: acute hypoxic respiratory failure Activity: Resume your previous activity Non-emergency contact: Primary Care Provider Call non-emergency contact if: you have any medication questions Follow-up/Referrals: Krish Nagel MD [Primary Care Provider] - Padmini Lambert PA-C [Physician Whipped Topping Mixer] - 08/25/22 10:30 am (Congestive Heart Failure Program Appointment Information Early follow up is essential to managing your heart failure. An appointment has been scheduled for you with the [facility] Heart Failure Program within 7 days of discharge. Anticipate this visit to be 30-60 minutes long. Please expect a postal carrier phone call from one of our nurses approximately 48 hours from discharge. They will also be placing an order for lab work to be completed 1-2 days prior to your heart failure follow up appointment. Please be sure to have this done so we can go over the results when you come in. Office Location The cardiology office building is located in front of the hospital at [address] Bring the following with you to your follow-up doctor appointments: Please bring your daily weight log any discharge paperwork all of your medication bottles with you to this visit. ) Diet: Heart Healthy and Low Sodium (2gm) Addtl Attending Provider Instructions: Call your Primary Care doctor if any of the following symptoms or problems start or get worse: * Shortness of breath or difficulty breathing * Wake up at night short of breath * Chest pain * Cough * Swelling of your hands, feet, or legs * More fatigued or tired with your normal activity * Palpitations - sudden fast heart beats WEIGHT * Weigh yourself every morning after using the bathroom. * Use the same scale. * Wear the same amount of clothing. * Write your weight down on a chart. * Call your Primary Care doctor if you gain more than 2-3 pounds in 1-2 days. MEDICATIONS * Use this discharge instruction sheet for medication instructions. * Take your medications at the time your doctor ordered. * Do not skip a dose of your medicines. * If you miss a dose of medicine, take it as soon as possible, but DO NOT DOUBLE A DOSE. * Read your medicine information when you get home. * Know all of the side effects of your medicine. If in doubt, ask your pharmacist * Call your Primary Care doctor's office if you have any side effects. * Be sure all of your doctors know what medicine and herbs you take (including cold, flu, and herbal medicine). Take the following with you to your follow-up doctor appointments: * Weight Chart * Medication List * List of questions Do not drink excessive alcohol, beer or wine. Pending Studies at Discharge: No Stand-Alone Forms: [facility] [place] [employer], Smoking Cessation Medications and DC Order Prescriptions: New amiodarone 200 mg Tablet 200 mg PO BIDM Qty: 76 0RF Rx Instructions: Take 2 tabs twice a day for 8 days (Last dose PM of 08/26/22) then 1 tab twice a day ongoing Continued Xarelto 20 mg tablet 20 mg PO DAILY Qty: 90 3RF Rx Instructions: must administer with evening meal tamsulosin 0.4 mg capsule 0.4 mg PO DAILY Qty: 90 3RF nitroglycerin 0.4 mg tablet, sublingual 0.4 mg SL Q5M PRN (Reason: chest pain) Qty: 25 vitamin B complex [B Complex-Vitamin B12] tablet 1 tab PO QAM magnesium oxide 250 mg magnesium tablet 250 mg PO BID Qty: 60 0RF carvedilol 25 mg tablet 25 mg PO BID Qty: 180 3RF (DME) lancets 28 gauge misc See Rx Instructions .ROUTE .MEDSUPPLY Qty: 100 0RF Rx Instructions: test once daily (DME) OneTouch Verio test strips Strip See Rx Instructions .ROUTE .MEDSUPPLY Qty: 25 5RF Rx Instructions: test once daily glimepiride [Amaryl] 1 mg tablet 1 mg PO QAM Qty: 30 5RF Rx Instructions: administer with breakfast; for diabetes potassium chloride 20 mEq tablet extended release 20 meq PO DAILY Qty: 30 5RF metformin 500 mg tablet 1,000 mg PO BID Qty: 120 11RF atorvastatin 80 mg tablet 80 mg PO QAM ferrous sulfate [iron] 325 mg (65 mg iron) Tablet 325 mg PO QAM folic acid 1 mg Tablet 1 mg PO QAM aspirin 81 mg Tablet,Delayed Release (Dr/Ec) 81 mg PO QAM nystatin 100,000 unit/gram powder 1 applic topical BID PRN (Reason: Rash) furosemide 40 mg tablet 40 mg PO QAM Qty: 30 0RF Discontinued diltiazem HCl 240 mg capsule,extended release 24hr 240 mg PO QAM Qty: 90 3RF Rx Instructions: for atrial fibrillation Discharge Orders: Discharge Order- CHF (Routine); Ordered 08/19/22 Ordered By: Teo Denson Admission Data Admit Date/Time: 08/17/22 09:55 Attending Provider: Teo Denson Admit Provider: Teo Denson Primary Care Provider: Krish Nagel Other Providers: Miky Otero ; Padmini Lambert Other Interventions: Discharge Summary Assessment (RN) Last Done: 08/19/22 16:55 Coding Level of Care Code HOSP INP/OBS DISCH >30 MIN Diagnoses Persistent atrial fibrillation I48.19 Acute respiratory failure with hypoxia J96.01 Lower extremity edema R60.0 Hyperlipidemia E78.5 Poorly controlled diabetes mellitus E11.65 Acute on chronic heart failure with preserved ejection fraction (HFpEF) I50.33
[2022-08-27] MEDS ORDERED: AMIODARONE 200 MG TAB PO SCH (08:00)
== END 2022-08-19 17:40 | disposition home or self-care (01) | DRG 291 ==
LOC: ED 07:51 → 4W 09:55

== ENCOUNTER 2022-12-14 04:47 | Inpatient (IN) ==
[2022-12-14] MEDS ORDERED: dilTIAZem HCl 5 MG/ML 5 ML VIAL IV STA (05:01)
[2022-12-14] MEDS ORDERED: STAT IV Infusion **Titration per Protocol STA ×2 (05:08→05:22)
[2022-12-14] MEDS ORDERED: FUROSEMIDE 40 MG/4 ML VIAL IV ONE (05:09)
[2022-12-14] MEDS ORDERED: ASPIRIN CHEW 324 MG PO STA (05:09)
[2022-12-14] MEDS ORDERED: dilTIAZem HCL 125 MG in DEXTROSE 5% 100 ML IV SCH (05:15)
--- NOTE | 2022-12-14 05:15 | Emergency Department Note ---
History of Present Illness General Chief complaint: Chest Pain Stated complaint: A FIB,SHORT OF BREATH,SWEAT Time Seen by Provider: 12/14/22 05:01 History of Present Illness Maximum Pain Intensity: 4 72-year-old male with a 3-day history of shortness of breath chest pain and increased heart rate presents to the emergency department with worsening symptoms. Patient has a history of A-fib he is on Xarelto and amiodarone he also takes aspirin. Patient states substernal chest pressure as well as shortness of breath increased heart rate over the past 3 days. There are no other mitigating or alleviating factors he denies any hemoptysis nausea vomiting fever. He states that the shortness of breath has worsened over the past 3 days. Home Medications Medication Instructions Recorded Confirmed Type atorvastatin 80 mg tablet 80 mg PO QAM 07/31/18 12/02/22 History ferrous sulfate 325 mg (65 mg 325 mg PO QAM 07/31/18 12/02/22 History iron) tablet (iron) folic acid 1 mg tablet 1 mg PO QAM 07/31/18 12/02/22 History nitroglycerin 0.4 mg sublingual 0.4 mg sublingual Q5M PRN chest 04/14/19 12/02/22 History tablet pain #25 tabs vitamin B complex (B 1 tab PO QAM 04/14/19 12/02/22 History Complex-Vitamin B12 tablet) magnesium oxide 250 mg PO BID #60 tabs 04/09/20 12/02/22 Rx blood sugar diagnostic (OneTouch #25 ea 12/16/20 12/02/22 Rx Verio test strips) lancets 28 gauge #100 ea 12/16/20 12/02/22 Rx carvedilol 25 mg tablet 25 mg PO BID #180 tabs 12/24/21 12/02/22 Rx aspirin 81 mg tablet,delayed 81 mg PO QAM 06/19/22 12/02/22 History release nystatin 100,000 unit/gram topical 1 applic topical BID PRN Rash 06/19/22 12/02/22 History powder glimepiride 1 mg tablet (Amaryl) 1 mg PO QAM #30 tabs 06/24/22 12/02/22 Rx potassium chloride 20 mEq 20 meq PO DAILY #30 tabs 06/24/22 12/02/22 Rx tablet,extended release tamsulosin 0.4 mg capsule 0.4 mg PO DAILY #90 caps 07/07/22 12/02/22 Rx amiodarone 200 mg tablet 200 mg PO DAILY #90 tabs 09/23/22 12/02/22 Rx metformin 500 mg tablet 1,000 mg PO BID #120 tabs 09/25/22 12/02/22 Rx compr.stocking,knee,long,x-lrg #12 ea 09/29/22 12/02/22 Rx furosemide 40 mg tablet 40 mg PO QAM #30 tabs 10/30/22 12/02/22 Rx rivaroxaban 20 mg tablet (Xarelto) 20 mg PO DAILY #90 tabs 11/24/22 12/02/22 Rx mupirocin 2 % topical ointment See Rx Instructions topical BID 12/02/22 12/02/22 Rx PRN skin wounds #15 grams Allergies Allergy/AdvReac Type Severity Reaction Status Date / Time Penicillins Allergy Unknown "DOES NOT Verified 12/02/22 12:51 KNOW- A CHILD" Past Med/Surg History Medical History (HFpEF) heart failure with preserved ejection fraction Anemia Anticoagulant long-term use Asthma A CHILD Atrial fibrillation Atrial fibrillation, new onset 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 PALACIOS History of cholecystectomy History of heart artery stent History of surgery on extremity LLE - Hx of inguinal hernia surgery (05/10/19) Open Incisional Hernia Repair with Mesh, Extensive Enterolysis, Repair of Enterotomy, Excision of Right Arm Lesion Dr. Figueroa 05/10/19 Family History Uncle Diabetes Mother Coronary heart disease Father Coronary heart disease Other Heart disease Denies family history of Ovarian cancer Prostate cancer Breast cancer Colorectal cancer Social History Smoking Status: Never smoker Second Hand Exposure: No; Do You Dip or Chew Tobacco: No; Hx Alcohol Use: No Hx Substance Use: No Preferred Language: Sinhala Communication Ability: Effective Hearing Ability: Normal Poolroom Table Attendant Required: No Beliefs That Will Affect Care: None marital status: Current Living Situation: Alone current occupational status: retired Feels Safe at Home: Yes Childhood Exposure to Second-Hand Smoke: No Diet: regular caffeine: Yes (soda) Dental Care, Regularly: Yes Physical Activity Frequency: Does not Exercise Seatbelt Use: sometimes Sunscreen Use: Yes Assistive Devices: None Review of Systems A total of 10 systems reviewed and were otherwise negative Respiratory: + dyspnea Cardiovascular: + chest pain and + dyspnea on exertion Gastrointestinal: no abdominal pain Physical Exam Vital Signs Vital Signs - 24 hr 12/14/22 04:50 12/14/22 05:09 12/14/22 05:16 Temperature 36.3 C L Temperature Source Temporal Artery Scan Pulse Rate 139 H 129 H 103 H Pulse Rate [Apical] Pulse Rhythm Regular Pulse Strength Normal Respiratory Rate 18 24 Respiratory Effort / Characteristics Non-Labored Spontaneous Respiratory Depth Normal Respiratory Pattern Regular Blood Pressure 176/103 H Blood Pressure [Right Arm] Blood Pressure Mean 127 Blood Pressure Mean [Right Arm] Blood Pressure Position Sitting Pulse Oximetry 93 90 Oxygen Delivery Method Room Air Room Air Oxygen Flow Rate Sepsis Recent Fever Within 48 Hours No Sepsis New/Unexplained Change in Mental Status No Sepsis Action Taken by Nursing No Action Required 12/14/22 05:24 12/14/22 05:31 12/14/22 05:10 Temperature Temperature Source Pulse Rate Pulse Rate [Apical] 109 H Pulse Rhythm Pulse Strength Respiratory Rate 24 Respiratory Effort / Characteristics Accessory Muscle Use Short of Breath SOB on Exertion Non-Labored Spontaneous Respiratory Depth Normal Respiratory Pattern Blood Pressure Blood Pressure [Right Arm] 174/113 H Blood Pressure Mean Blood Pressure Mean [Right Arm] 133 Blood Pressure Position Pulse Oximetry 98 Oxygen Delivery Method Room Air Nasal Cannula Oxygen Flow Rate 2 Sepsis Recent Fever Within 48 Hours Sepsis New/Unexplained Change in Mental Status Sepsis Action Taken by Nursing GENERAL: Patient is awake alert in no acute distress patient is resting comfortably and showing no signs of anxiety EYES: The conjunctivae are clear. The pupils are round and reactive. EARS, NOSE, MOUTH AND THROAT: The nose is without any evidence of any deformity. Mucous membranes are moist. Tongue is midline. NECK: The neck is nontender and supple. RESPIRATORY: Normal respiratory effort, mild bibasilar crackles CARDIOVASCULAR: Irregularly irregular and tachycardic rhythm noted there no murmurs rubs or gallops normal S1 normal S2. GASTROINTESTINAL: The abdomen is soft. Abdomen is nontender. BACK: Full range of motion MUSCULOSKELETAL/EXTREMITIES: There is no evidence of gross deformity full range of motion is noted in the hips and shoulders. Bilateral lower extremity pitting edema SKIN: There is no obvious evidence of any rash. There are no petechiae, pallor or cyanosis noted. NEUROLOGIC: Patient is awake alert and oriented x3 strength is symmetric Course Reevaluation(s) Reevaluation #1: Patient had been given aspirin, Lasix, 1 dose of IV Cardizem push, started on IV amiodarone. Time: 05:27 Reevaluation #2: Patient's heart rate 116 on repeat examination in rapid A-fib he is being started on IV amiodarone infusion. Time: 05:46 Consultations Consultation #1: Case was discussed with the [place] [facility]ist, he has recommended that the patient be started on IV amiodarone instead of Cardizem Time: 05:27 Administered Medications Discontinued Medications Aspirin (Aspirin Chew 324 Mg) 324 mg PO NOW STA Stop: 12/14/22 05:10 Last Admin: 12/14/22 05:22 Dose: 324 mg Documented By: EMILIA Diltiazem HCl (Diltiazem Hcl 5 Mg/Ml 5 Ml Vial) 20 mg IV NOW STA Stop: 12/14/22 05:02 Last Admin: 12/14/22 05:08 Dose: 20 mg Documented By: EMILIA Co-signed By: JUDITH Furosemide (Furosemide 40 Mg/4 Ml Vial) 40 mg IV ONE ONE Stop: 12/14/22 05:10 Last Admin: 12/14/22 05:26 Dose: 40 mg Documented By: EMILIA Critical Care Time Critical Care Time: Yes Total Critical Care Time: 35 I have personally spent greater than 35 minutes of critical care time in the direct management of this patient. This includes bedside care, interpretation of diagnostic studies, and testing, discussion with consultants, patient, and family members, and other required patient management activities. These minutes are in excess of all separately billable procedures. Medical Decision Making Medical Records Attestation: I reviewed the patient's medical records. Home Medications Current Medication List: was personally reviewed by nc Laboratory Data Attestation: I reviewed the patient's lab results. Patient has a mildly elevated white blood cell count as interpreted by me 12/14/22 05:00 12/14/22 05:00 Lab Results 12/14/22 12/14/22 12/14/22 Range/Units 05:00 05:00 05:00 WBC 11.91 H (4.8-10.8) K/ul RBC 4.59 L (4.70-6.10) M/uL Hgb 11.8 L (14.0-18.0) g/dl Hct 37.4 L (42.0-52.0) % MCV 81.5 (80.0-100.0) fL MCH 25.7 (25.0-34.0) pg MCHC 31.6 L (32.0-36.0) g/dL RDW Std Deviation 48.8 H (36.4-46.3) fL RDW Coeff of Sveta 16.7 H (11.5-14.5) % Plt Count 289 (130-400) K/uL MPV 9.6 (9.4-12.4) fL Immature Gran % (Auto) 1.3 % Neut % (Auto) 62.0 % Lymph % (Auto) 24.0 % [place] % (Auto) 8.7 % Eos % (Auto) 3.1 % Baso % (Auto) 0.9 % Neut # (Auto) 7.37 H (1.40-6.50) K/uL Lymph # (Auto) 2.86 (1.2-3.4) K/uL [place] # (Auto) 1.04 H (0.11-0.59) K/uL Eos # (Auto) 0.37 (0-0.50) K/uL Baso # (Auto) 0.11 (0-0.2) K/uL Immature Gran # (Auto) 0.16 (0.01-0.20) K/uL Sodium 138 (136-145) mmol/L Potassium 4.4 (3.5-5.1) mmol/L Chloride 104 (98-107) mmol/L Carbon Dioxide 27 (21-32) mmol/L Anion Gap 7 (3-11) BUN 21 (6-23) mg/dl Creatinine 1.50 H (0.6-1.4) mg/dl Est Cr Clr Drug Dosing 55.9 ml/min Est GFR ( Amer) 53.1 ml/min Est GFR (Non-Af Amer) 45.9 ml/min BUN/Creatinine Ratio 14.0 (10-20) Glucose 214 H (70-99(Fasting)) mg/dl Calcium 9.6 (8.6-10.3) mg/dl Total Bilirubin 0.5 (0.2-1.0) mg/dl AST 23 (13-39) U/L ALT 21 (7-52) U/L Alkaline Phosphatase 46 (34-104) U/L Troponin I High Sens 12.6 (0-20) pg/ml Total Protein 6.8 (6.0-8.3) gm/dl Albumin 4.2 (3.4-5.0) gm/dl Globulin 2.6 (2.5-4.0) gm/dl Albumin/Globulin Ratio 1.6 (0.9-2) Lipase 22 (11-82) U/L SARS-CoV-2, RNA, NAAT NEGATIVE (NEGATIVE) Imaging Data Attestation: I personally reviewed and interpreted this imaging study as follow s: My Impression: Chest x-ray interpreted by me cardiomegaly and mild congestive heart failure ECG Data Attestation: I personally reviewed and interpreted this ECG as follows: Additional Comments: EKG interpreted by me rapid atrial fibrillation rate of 126 left axis deviation poor R wave progression the precordium nonspecific ST-T change no obvious ST segment elevation or depression Telemetry was ordered by me, interpreted as rapid atrial fibrillation rate of 120 MDM Narrative Medical decision making differential diagnosis includes angina, unstable angina, acute coronary syndrome, acute MN, rapid atrial fibrillation, congestive heart failure, electrolyte abnormality Plan is to check labs, EKG, chest x-ray External medical records were reviewed by me Patient's heart score is a 4 Patient was started on IV Cardizem, Lasix, aspirin, oxygen Case was discussed with the [facility] hospitalist for admission, IV infusion for the cardiac dysrhythmia was changed to amiodarone infusion per the hospitalist request Impression & Plan Atrial fibrillation with rapid ventricular response, CHF (congestive heart failure) Discharge Plan Visit Data Chief Complaint: Chest Pain Stated Complaint: A FIB,SHORT OF BREATH,SWEAT ED Provider: Hang Viera Discharge Problem: Atrial fibrillation with rapid ventricular response, CHF (congestive heart failure) Patient Disposition: Admitted As Inpatient Forms Stand Alone Forms: [facility] Prescriptions Prescriptions: No Action tamsulosin 0.4 mg capsule 0.4 mg PO DAILY Qty: 90 3RF metformin 500 mg tablet 1,000 mg PO BID Qty: 120 11RF furosemide 40 mg tablet 40 mg PO QAM Qty: 30 2RF Xarelto 20 mg tablet 20 mg PO DAILY Qty: 90 3RF Rx Instructions: must administer with evening meal nitroglycerin 0.4 mg tablet, sublingual 0.4 mg SL Q5M PRN (Reason: chest pain) Qty: 25 vitamin B complex [B Complex-Vitamin B12] tablet 1 tab PO QAM magnesium oxide 250 mg magnesium tablet 250 mg PO BID Qty: 60 0RF carvedilol 25 mg tablet 25 mg PO BID Qty: 180 3RF mupirocin 2 % ointment See Rx Instructions topical BID PRN (Reason: skin wounds) Qty: 15 2RF Rx Instructions: Apply small amount to open or scabbed areas on lower legs topically twice a day PRN; (DME) compr.stocking,knee,long,x-lrg Misc See Rx Instructions .Route Qty: 12 0RF Rx Instructions: On AM, Off PM Moderate compression 16-20 mmHg (DME) lancets 28 gauge misc See Rx Instructions .ROUTE .MEDSUPPLY Qty: 100 0RF Rx Instructions: test once daily (DME) OneTouch Verio test strips Strip See Rx Instructions .ROUTE .MEDSUPPLY Qty: 25 5RF Rx Instructions: test once daily glimepiride [Amaryl] 1 mg tablet 1 mg PO QAM Qty: 30 5RF Rx Instructions: administer with breakfast; for diabetes potassium chloride 20 mEq tablet extended release 20 meq PO DAILY Qty: 30 5RF amiodarone 200 mg tablet 200 mg PO DAILY Qty: 90 3RF atorvastatin 80 mg tablet 80 mg PO QAM ferrous sulfate [iron] 325 mg (65 mg iron) Tablet 325 mg PO QAM folic acid 1 mg Tablet 1 mg PO QAM aspirin 81 mg Tablet,Delayed Release (Dr/Ec) 81 mg PO QAM nystatin 100,000 unit/gram powder 1 applic topical BID PRN (Reason: Rash) Referrals Referrals: Krish Nagel MD [Primary Care Provider] -
[2022-12-14] MEDS ORDERED: AMIODARONE / D5W 150 MG/100 ML BAG IV STA (05:22)
[2022-12-14] MEDS ORDERED: 0.2 MICRON FILTER SET 1 EACH IV STA (05:22)
[2022-12-14] MEDS ORDERED: AMIODARONE IV BOLUS & DRIP IV STA (05:22)
[2022-12-14 05:29] LABS: Basophils # (auto) 0.11 K/uL (0-0.2); Basophils % (auto) 0.9 %; Eosinophils # (auto) 0.37 K/uL (0-0.50); Eosinophils % (auto) 3.1 %; Hematocrit (blood only) 37.4 % (42.0-52.0); Hemoglobin 11.8 g/dl (14.0-18.0); Immature Granulocytes # (auto) 0.16 K/uL (0.01-0.20); Immature Granulocytes % (auto) 1.3 %; Lymphocytes # (auto) 2.86 K/uL (1.2-3.4); Mean Corpuscular Hemoglobin 25.7 pg (25.0-34.0); Mean Corpuscular Hgb Conc 31.6 g/dL (32.0-36.0); Mean Corpuscular Volume 81.5 fL (80.0-100.0); Mean Platelet Volume 9.6 fL (9.4-12.4); Monocytes # (auto) 1.04 K/uL (0.11-0.59); Monocytes % (auto) 8.7 %; Neutrophils # (auto) 7.37 K/uL (1.40-6.50); Platelet Count 289 K/uL (130-400); RDW Coefficient of Variation 16.7 % (11.5-14.5); RDW Standard Deviation 48.8 fL (36.4-46.3); Red Blood Count 4.59 M/uL (4.70-6.10); White Blood Count 11.91 K/ul (4.8-10.8)
[2022-12-14] MEDS ORDERED: AMIODARONE / D5W 360 MG/200 ML BAG IV ONE (05:33)
[2022-12-14 05:36] LABS: Albumin Globulin Ratio 1.6 (0.9-2); Albumin Level 4.2 gm/dl (3.4-5.0); Bilirubin,Total 0.5 mg/dl (0.2-1.0); Calcium 9.6 mg/dl (8.6-10.3); Creatinine Clr Calc Pharmacy 55.9 ml/min; Est GFR (African American) 53.1 ml/min; Est GFR (Non-African American) 45.9 ml/min; Globulin 2.6 gm/dl (2.5-4.0); Potassium 4.4 mmol/L (3.5-5.1); Total Protein 6.8 gm/dl (6.0-8.3)
[2022-12-14 05:42] LABS: Troponin I High Sensitivity 12.6 pg/ml (0-20)
--- NOTE | 2022-12-14 05:47 | History & Physical Report ---
Date of Service December 14, 2022 Assessment & Plan (1) Acute respiratory failure with hypoxia: Plan: 72-year-old male with a past medical history of atrial fibrillation, CHF, hypertension, hyperlipidemia, CAD, iron deficient anemia, depression, and type 2 diabetes who has presented to the hospital for dyspnea and chest pressure. Patient found to be acute CHF exacerbation likely secondary to A-fib with RVR. Patient has been started on amiodarone drip and will be transferred to the PCU for further treatment and monitoring. -Admit to telemetry -Chest x-ray indicative of cardiomegaly and pulmonary edema, exam indicative of fluid overload -Secondary to acute CHF exacerbation resulting in fluid accumulation -Given 40 mg of Lasix IV in the ED, will transition to 40 mg Lasix twice daily IV -Oxygen supplementation as needed (2) Atrial fibrillation with rapid ventricular response: Plan: - Continue home amiodarone and carvedilol -Begun amiodarone drip, continue -Consult cardiology, appreciate recommendations -The discussion of cardioversion has been brought up before, would feel that this is a good option given frequent rehospitalization for A-fib with RVR and high quantity of AV trini blockade required -Continue Xarelto for anticoagulation -Daily magnesium, potassium. Goals are greater than 2 and greater than 4 respectively -Continue daily magnesium and potassium supplementation from home medications (3) Acute on chronic heart failure with preserved ejection fraction (HFpEF): Plan: - IV Lasix as above -Dry weight seems to be around 240 pounds, daily weights -Accurate I's and O's -We will hold off low-sodium diet at this time as patient likely eating more sodium at home than he believes -Last echo in August, will not repeat for now, exacerbation likely due to A- fib with RVR. (4) Hypertension: Plan: - Continue carvedilol (5) Hyperlipidemia: Plan: - Continue atorvastatin (6) CAD (coronary artery disease): Plan: - Continue statin, ASA (7) Iron deficiency anemia: Plan: - Continue home iron supplementation (8) Type 2 diabetes mellitus: Plan: -DM2 Diet, SSI -Hold basal insulin for now Plan Diet: DM2, Heart Healthy DVT Proph: Xarelto Dispo: Admit to telemetry on amiodarone drip and for diuresis CODE STATUS: Full code History of Present Illness Chief Complaint: Chest Pain Primary Care Provider: Krish Nagel MD 72-year-old male with a past medical history of atrial fibrillation, CHF, hypertension, hyperlipidemia, CAD, iron deficient anemia, depression, and type 2 diabetes who has presented to the hospital for dyspnea and chest pressure. Patient reports that for the past 48 hours or so, patient has had progressively worsening shortness of breath to the point that the patient began experiencing substernal chest pain which is what brought him to the emergency department. Patient came in stating that he felt like he was having a heart attack. He does have a history of previous SC involving the LAD status post drug-eluting stent in 2011. Patient does take Lasix at home and is supposed to be taking 40 mg daily. He does see Padmini Lambert at the heart failure clinic with his last appointment being October 23 of this year. Patient has not missed any medication. Dry weight at previous appointment was assumed to be about 240 pounds but may actually be lower per heart failure clinic note. No tobacco or drug abuse. No other complaints at this time. ED course: Patient was brought back and seen by one of our providers, labs were significant for a mild white count of 11.9, hemoglobin at 11.8, creatinine at 1.5, glucose of 214, and negative high-sensitivity troponin at 12.6. X-ray of the chest was taken and is indicative of cardiomegaly with volume overload. In the ED, patient was given 40 of IV Lasix as well as 20 mg push of diltiazem. The hospitalist service was then consulted for admission to the hospital for further treatment recommendations. He has been switched to an amiodarone drip. Allergies Allergy/AdvReac Type Severity Reaction Status Date / Time Penicillins Allergy Unknown "DOES NOT Verified 12/02/22 12:51 KNOW- A CHILD" Home Medications Medication Instructions Recorded Confirmed Type atorvastatin 80 mg tablet 80 mg PO QAM 07/31/18 12/02/22 History ferrous sulfate 325 mg (65 mg 325 mg PO QAM 07/31/18 12/02/22 History iron) tablet (iron) folic acid 1 mg tablet 1 mg PO QAM 07/31/18 12/02/22 History nitroglycerin 0.4 mg sublingual 0.4 mg sublingual Q5M PRN chest 04/14/19 12/02/22 History tablet pain #25 tabs vitamin B complex (B 1 tab PO QAM 04/14/19 12/02/22 History Complex-Vitamin B12 tablet) magnesium oxide 250 mg PO BID #60 tabs 04/09/20 12/02/22 Rx blood sugar diagnostic (OneTouch #25 ea 12/16/20 12/02/22 Rx Verio test strips) lancets 28 gauge #100 ea 12/16/20 12/02/22 Rx carvedilol 25 mg tablet 25 mg PO BID #180 tabs 12/24/21 12/02/22 Rx aspirin 81 mg tablet,delayed 81 mg PO QAM 06/19/22 12/02/22 History release nystatin 100,000 unit/gram topical 1 applic topical BID PRN Rash 06/19/22 12/02/22 History powder glimepiride 1 mg tablet (Amaryl) 1 mg PO QAM #30 tabs 06/24/22 12/02/22 Rx potassium chloride 20 mEq 20 meq PO DAILY #30 tabs 06/24/22 12/02/22 Rx tablet,extended release tamsulosin 0.4 mg capsule 0.4 mg PO DAILY #90 caps 07/07/22 12/02/22 Rx amiodarone 200 mg tablet 200 mg PO DAILY #90 tabs 09/23/22 12/02/22 Rx metformin 500 mg tablet 1,000 mg PO BID #120 tabs 09/25/22 12/02/22 Rx compr.stocking,knee,long,x-lrg #12 ea 09/29/22 12/02/22 Rx furosemide 40 mg tablet 40 mg PO QAM #30 tabs 10/30/22 12/02/22 Rx rivaroxaban 20 mg tablet (Xarelto) 20 mg PO DAILY #90 tabs 11/24/22 12/02/22 Rx mupirocin 2 % topical ointment See Rx Instructions topical BID 12/02/22 12/02/22 Rx PRN skin wounds #15 grams Past Med/Surg History Medical History (Updated 12/14/22 @ 06:05 by Jermain Teague DO) (HFpEF) heart failure with preserved ejection fraction Anemia Anticoagulant long-term use Asthma A CHILD Atrial fibrillation Atrial fibrillation, new onset 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 PALACIOS History of cholecystectomy History of heart artery stent History of surgery on extremity LLE - Hx of inguinal hernia surgery (05/10/19) Open Incisional Hernia Repair with Mesh, Extensive Enterolysis, Repair of Enterotomy, Excision of Right Arm Lesion Dr. Figueroa 05/10/19 Family History Uncle Diabetes Mother Coronary heart disease Father Coronary heart disease Other Heart disease Denies family history of Ovarian cancer Prostate cancer Breast cancer Colorectal cancer Social History Smoking Status: Never smoker Second Hand Exposure: No; Do You Dip or Chew Tobacco: No; Hx Alcohol Use: No Hx Substance Use: No Preferred Language: Italian Communication Ability: Effective Hearing Ability: Normal Supervisor Accounts Receivable Required: No Beliefs That Will Affect Care: None marital status: Current Living Situation: Alone current occupational status: retired Feels Safe at Home: Yes Childhood Exposure to Second-Hand Smoke: No Diet: regular caffeine: Yes (soda) Dental Care, Regularly: Yes Physical Activity Frequency: Does not Exercise Seatbelt Use: sometimes Sunscreen Use: Yes Assistive Devices: None Review of Systems Review of Systems: All systems reviewed & are unremarkable except as noted in HPI & below Physical Exam Constitutional: WD/WN, vitals as above Eyes: + anicteric sclerae Neck: trachea midline, no thyromegaly Respiratory: + paradoxical chest wall movement Auscultation: + crackles Cardiovascular: Rate/Rhythm: + tachycardic and + irregularly irregular Vessels: + JVD Extremities: + edema Gastrointestinal (Abdomen): normal bowel sounds, soft, nontender, no hepatosplenomegaly Musculoskeletal: Head/Neck/Chest: normocephalic and head atraumatic Skin: no rashes, warm and dry Neurologic: moves all extremities Psychiatric: A+Ox3, euthymic affect Results & Data Results & Data Vital Signs (Past 12 Hours) Vital Signs Temp Pulse Pulse Resp BP BP Pulse Ox 12/14/22 05:10 174/113 H 12/14/22 05:31 109 H 24 98 12/14/22 05:24 12/14/22 05:16 103 H 24 90 12/14/22 05:09 129 H 12/14/22 04:50 36.3 C L 139 H 18 176/103 H 93 O2 Del Method O2 Flow Rate 12/14/22 05:10 12/14/22 05:31 Nasal Cannula 2 12/14/22 05:24 Room Air 12/14/22 05:16 Room Air 12/14/22 05:09 12/14/22 04:50 Room Air
[2022-12-14] MEDS ORDERED: ONDANSETRON INJ 2 MG/ML 2 ML VIAL IV PRN (06:28)
[2022-12-14] MEDS ORDERED: MUPIROCIN 2% OINT 22 GM TUBE TOP PRN (06:28)
[2022-12-14] MEDS ORDERED: CARBOHYDRATES FOR HYPOGLYCEMIA PO PRN (06:28)
[2022-12-14] MEDS ORDERED: NITROGLYCERIN SL 0.4 MG/TAB TAB SL PRN (06:28)
[2022-12-14] MEDS ORDERED: ACETAMINOPHEN 325 MG TAB PO PRN (06:28)
[2022-12-14] MEDS ORDERED: GLUCOSE 10 TAB/TUBE PO PRN (06:28)
[2022-12-14] MEDS ORDERED: GLUCOSE 40% GEL 15 GM TUBE PO PRN (06:28)
[2022-12-14] MEDS ORDERED: GLUCAGON FOR INJ 1 MG VIAL SQ PRN (06:28)
[2022-12-14] MEDS ORDERED: DEXTROSE 50% 50 ML SYRINGE IV PRN (06:28)
--- NOTE | 2022-12-14 06:32 | XRay Report ---
XR chest 1V portable CLINICAL HISTORY: Chest pain, nonspecific COMPARISON STUDY: Chest radiograph and chest CT August 17, 2022. FINDINGS: Lung volumes are normal. Lungs are clear. There is no pneumothorax or pleural effusion. Car diomegaly is unchanged. Mediastinal contours are normal. There is no evidence for pulmonary edema. IMPRESSION: No acute cardiopulmonary findings. Cardiomegaly. ACT 112: Negative or not required by law. Electronically signed by: Jeff Bolaños M.D. 12/14/2022 6:30 AM
[2022-12-14] MEDS: VITAMIN B COMPLEX TAB PO SCH (08:49)
[2022-12-14] MEDS: ATORVASTATIN 40 MG TAB PO SCH (08:49)
[2022-12-14] MEDS: POTASSIUM CHLORIDE CRTAB 20 MEQ TABCR PO SCH (08:49)
[2022-12-14] MEDS: ASPIRIN 81 MG ECTAB PO SCH (08:49)
[2022-12-14] MEDS: MAGNESIUM OXIDE 400 MG TAB PO SCH ×2 (08:49→20:15)
[2022-12-14] MEDS: FOLIC ACID 1 MG TAB PO SCH (08:50)
[2022-12-14] MEDS: carvediloL 25 MG TAB PO SCH ×2 (08:50→17:34)
[2022-12-14] MEDS: FERROUS SULFATE 325 MG TAB PO SCH (08:50)
[2022-12-14] MEDS: INSULIN ASPART PER UNIT CHARGE SC SCH ×4 (08:57→20:21)
[2022-12-14] MEDS: AMIODARONE / D5W 360 MG/200 ML BAG IV SCH ×2 (11:07→22:10)
[2022-12-14] MEDS: AMIODARONE 200 MG TAB PO SCH (11:26)
--- NOTE | 2022-12-14 14:41 | Cardiology Consultation ---
Date of Consultation December 14, 2022 Assessment & Plan (1) Type 2 diabetes mellitus: (2) CHF (congestive heart failure): (3) Atrial fibrillation with rapid ventricular response: (4) Hypertension: (5) Hyperlipidemia: (6) CAD (coronary artery disease): (7) Acute on chronic heart failure with preserved ejection fraction (HFpEF): (8) Lower extremity edema: Plan Jesi Davidson is a 72-year-old male with a past medical history of atrial fibrillation, CHF, hypertension, hyperlipidemia, CAD, recurrent DVT, and type 2 diabetes who has presented to the hospital for dyspnea and chest pressure. 1. Atrial Fibrillation with Rapid Ventricular Response (RVR) - HR appears to be now returned to baseline of 90s - Rhythm remains atrial fibrillation, suspect he has been in a. fib for an extended period - Cardioversion may not be successful considering the length of time he has been in a. fib, Mr. Davidson has hesitations to undergo cardioversion as it will not permanently return him to sinus rhythm - Discussed that the only permanent solution would be ablation with placement of pacemaker, this would also allow him to stop Amiodarone which would be ideal given the concern of Amiodarone toxicity with prolonged use. - Will discuss plan with patient's primary needle punch machine operator, Dr. Palacios. - For now continue with home Carvedilol, Amiodarone for rate control. Anticoagulated on Xarelto. - At this point the patient should be safe to go home as his symptoms have resolved and his HR is back at baseline 2. Acute on Chronic Heart Failure with Preserved Ejection Fraction (HFpEF) - Hypoxia resolved quickly with diuresis - Based on history of some dietary indiscretion and several missed doses of Lasix, this may have contributed to presenting symptoms - Continue Lasix 40mg daily at home, low sodium diet - Discussed with patient potential benefits of initiating an SGLT-2 inhibitor and Entresto as an outpatient 3. Chest Discomfort, resolved - Symptoms lasted for several hours, onset after eating several slices of pizza - High sensitivity troponin was 12.6, EKG without acute ST abnormalities - Low suspicion for ACS 4. CAD s/p prior [place] and LAD PCI - Continue aspirin, beta-dave, high-intensity statin therapy daily - As above, low suspicion that presenting symptoms were related to ACS 5. Hypertension - BP reasonably controlled, continue current regimen 6. History of DVT - Continue Xarelto daily Supervising Physician Co-Signing Physician Notes I saw and examined the patient with Dr. Perera. Briefly, symptoms of worsening dyspnea and indigestion or substernal discomfort. Most likely due to some dietary indiscretion and development of some pulmonary edema. He seems to have affected a good diuresis and his symptoms of dyspnea have resolved. His chest discomfort also appears to have resolved without any specific intervention. The prolonged nature of his chest discomfort without elevation is biomarkers suggests a cause other than ischemic heart disease. At this point I would recommend continuation of his current medications with the possible addition of Jardiance 10 mg daily. This would be indicated for his heart failure and intermediate degree of LV dysfunction. He does have atrial fibrillation with some elevated rates at times. However, I think this is fairly chronic. I do not think this was an acute precipitant for his event. I discussed options for treatment with the patient today and this point I think we will explore an AV node ablation and implantation of pacemaker as an outpatient. Prolonged amiodarone use is undesirable in his age group. The main focus seems to be rate control rather than rhythm control as he is generally asymptomatic. I do not think cardioversion with amiodarone or even a pulmonary vein isolation is likely to produced extended periods of sinus rhythm. He should continue his systemic anticoagulation. History of Present Illness Attending Physician: Mike Garcia MD History of Present Illness Jesi Davidson is a 72-year-old male with a past medical history of atrial fibrillation, CHF, hypertension, hyperlipidemia, CAD, recurrent DVT, and type 2 diabetes who has presented to the hospital for dyspnea and chest pressure. He states that for the past few days he has been more short of breath and fatigued, but last night his shortness of breath worsened, he was sweating profusely, and he also noted some pressure in his chest. The chest pressure lasted "all night" until he drove himself to the ED as he was concerned that this felt similar to his [place] (BANDAR to LAD in 2011). Prior to the chest pressure beginning yesterday the patient admits to eating three slices of pepperoni pizza, so he originally thought this sensation was indigestion. Per chart review, Mr. Davidson has been admitted to [facility] in 2022 with similar presentation. He follows with Dr. Palacios outpatient as well as with Padmini Lambert at heart failure clinic. He was previously on Lisinopril which was stopped as he was started on Diltiazem. This was also discontinued due to poor rate control. Per prior notes from Dr. Palacios, there was consideration to start an SGLT2- inhibitor as well as Entresto, however this has not been initiated at this point. He is currently taking Amiodarone and Carvedilol, appears to have baseline HR outpatient in 90s-100s. He also is prescribed Xarelto, Atorvastatin, Lasix, and Aspirin. Mr. Davidson states that he has been taking his home medications as prescribed, however he did skip two days of his Lasix last week as he was "feeling well". He states that he has been working on his diet after discussions at the heart failure clinic and is reducing his salt intake. However he also recalls that when he checked his weight last week he was up 2 pounds, states he has not checked his weight since then. He was started on Amiodarone drip at time of admission and received IV Lasix 40mg in the ED. Today he denies any shortness of breath, chest pain, palpitations, headache, or orthopnea. He states he is feeling "much better." Allergies Allergy/AdvReac Type Severity Reaction Status Date / Time Penicillins Allergy Unknown "DOES NOT Verified 12/02/22 12:51 KNOW- A CHILD" Home Medications Medication Instructions Recorded Confirmed Type atorvastatin 80 mg tablet 80 mg PO QAM 07/31/18 12/02/22 History ferrous sulfate 325 mg (65 mg 325 mg PO QAM 07/31/18 12/02/22 History iron) tablet (iron) folic acid 1 mg tablet 1 mg PO QAM 07/31/18 12/02/22 History nitroglycerin 0.4 mg sublingual 0.4 mg sublingual Q5M PRN chest 04/14/19 12/02/22 History tablet pain #25 tabs vitamin B complex (B 1 tab PO QAM 04/14/19 12/02/22 History Complex-Vitamin B12 tablet) magnesium oxide 250 mg PO BID #60 tabs 04/09/20 12/02/22 Rx blood sugar diagnostic (OneTouch #25 ea 12/16/20 12/02/22 Rx Verio test strips) lancets 28 gauge #100 ea 12/16/20 12/02/22 Rx carvedilol 25 mg tablet 25 mg PO BID #180 tabs 12/24/21 12/02/22 Rx aspirin 81 mg tablet,delayed 81 mg PO QAM 06/19/22 12/02/22 History release nystatin 100,000 unit/gram topical 1 applic topical BID PRN Rash 06/19/22 12/02/22 History powder glimepiride 1 mg tablet (Amaryl) 1 mg PO QAM #30 tabs 06/24/22 12/02/22 Rx potassium chloride 20 mEq 20 meq PO DAILY #30 tabs 06/24/22 12/02/22 Rx tablet,extended release tamsulosin 0.4 mg capsule 0.4 mg PO DAILY #90 caps 07/07/22 12/02/22 Rx amiodarone 200 mg tablet 200 mg PO DAILY #90 tabs 09/23/22 12/02/22 Rx metformin 500 mg tablet 1,000 mg PO BID #120 tabs 09/25/22 12/02/22 Rx compr.stocking,knee,long,x-lrg #12 ea 09/29/22 12/02/22 Rx furosemide 40 mg tablet 40 mg PO QAM #30 tabs 10/30/22 12/02/22 Rx rivaroxaban 20 mg tablet (Xarelto) 20 mg PO DAILY #90 tabs 11/24/22 12/02/22 Rx mupirocin 2 % topical ointment See Rx Instructions topical BID 12/02/22 12/02/22 Rx PRN skin wounds #15 grams Patient History Medical History (Updated 12/14/22 @ 06:05 by Jermain Teague DO) (HFpEF) heart failure with preserved ejection fraction Anemia Anticoagulant long-term use Asthma A CHILD Atrial fibrillation Atrial fibrillation, new onset Benign neuroendocrine tumor of small intestine S/P BOWEL RESECTION BPH associated with nocturia CAD (coronary artery disease) Chronic deep vein thrombosis of leg Diverticular disease Hyperlipidemia Hypertension Hypomagnesemia Iron deficiency anemia Left leg DVT 2014 - POST OP BOWEL RESECTION - TREATED - NO ISSUES SINCE Lower extremity edema Myocardial Infarction 2013 Osteoarthritis Poor historian Post traumatic stress disorder Right leg DVT Right leg swelling Type 2 diabetes mellitus Surgical History History of bowel resection History of cardiac cath 2013 - [facility] [place] [facility] STENT - FOLLOWS W/ DR. PALACIOS History of cholecystectomy History of heart artery stent History of surgery on extremity LLE - Hx of inguinal hernia surgery (05/10/19) Open Incisional Hernia Repair with Mesh, Extensive Enterolysis, Repair of Enterotomy, Excision of Right Arm Lesion Dr. Figueroa 05/10/19 Family History Uncle Diabetes Mother Coronary heart disease Father Coronary heart disease Other Heart disease Denies family history of Ovarian cancer Prostate cancer Breast cancer Colorectal cancer Social History Smoking Status: Former smoker Second Hand Exposure: No; Do You Dip or Chew Tobacco: No; Hx Alcohol Use: No Hx Substance Use: No Preferred Language: Comoran Communication Ability: Effective Hearing Ability: Normal Barmaid Required: No Beliefs That Will Affect Care: None marital status: Current Living Situation: Alone current occupational status: retired Feels Safe at Home: Yes Safety Concerns: Feels Safe At This Time Childhood Exposure to Second-Hand Smoke: No Diet: regular caffeine: Yes (soda) Dental Care, Regularly: Yes Physical Activity Frequency: Does not Exercise Seatbelt Use: sometimes Sunscreen Use: Yes Assistive Devices: Cane Review of Systems Review of Systems: As per above Physical Exam 2 Constitutional: + obese and comfortable; no acute distress Eyes: Anicteric sclerae ENMT: External nose and ears normal. Moist mucous membranes. Respiratory: normal respiratory effort, lungs clear to auscultation Cardiovascular: Rate/Rhythm: + irregularly irregular Heart Sounds: no murmur +2 pitting edema of bilateral lower extremities Skin: no rashes, warm and dry Neurologic: moves all extremities Psychiatric: A+Ox3, euthymic affect Results & Data Vital Signs (Past 12 Hours) Vital Signs Temp Pulse Pulse Resp BP BP Pulse Ox 12/14/22 10:00 110 H 18 12/14/22 09:00 99 H 25 H 141/101 H 99 12/14/22 07:00 113 H 20 12/14/22 10:05 12/14/22 08:00 120 H 12/14/22 06:45 36.5 C 106 H 23 167/107 H 93 12/14/22 06:43 36.5 C 117 H 22 167/107 H 98 12/14/22 05:10 174/113 H 12/14/22 05:31 109 H 24 98 12/14/22 05:24 12/14/22 06:17 106 H 146/100 H 95 12/14/22 05:16 103 H 24 90 12/14/22 05:09 129 H 12/14/22 04:50 36.3 C L 139 H 18 176/103 H 93 O2 Del Method O2 Flow Rate 12/14/22 10:00 12/14/22 09:00 Room Air 12/14/22 07:00 12/14/22 10:05 Room Air 12/14/22 08:00 12/14/22 06:45 Nasal Cannula 2 12/14/22 06:43 Nasal Cannula 2 12/14/22 05:10 12/14/22 05:31 Nasal Cannula 2 12/14/22 05:24 Room Air 12/14/22 06:17 Nasal Cannula 2 12/14/22 05:16 Room Air 12/14/22 05:09 12/14/22 04:50 Room Air PG Care Time/CCT Total # of Minutes Spent Total Time Spent with Patient: Total time spent is greater than 50% in coordination of care (as documented) at patient's floor/unit and/or counseling patient: Coding Level of Care Code 74821 INT INP/OBS CARE 3/75MIN Diagnoses Type 2 diabetes mellitus E11.9 CHF (congestive heart failure) I50.9 Atrial fibrillation with rapid ventricular response I48.91 Hypertension I10 Hyperlipidemia E78.5 CAD (coronary artery disease) I25.10 Acute on chronic heart failure with preserved ejection fraction (HFpEF) I50.33 Lower extremity edema R60.0
--- NOTE | 2022-12-14 15:20 | Hospitalist Progress Note ---
Date of Service December 14, 2022 Assessment & Plan (1) Acute on chronic systolic heart failure: Plan: EF 45% on echo earlier this spring rapid a.fib and dietary indiscretion potential culprits for his decompensation he has been having episodes of chest tightness at home - uncertain if this is GI related or ischemic in nature however, troponins x 2 negative while here volume status has improved since admission with lasix 40mg BID IV he is in room air and feeling better can reduce IV lasix to once daily check labs and re-eval in am (2) Atrial fibrillation with rapid ventricular response: Plan: presented in rapid a.fib despite coreg 25mg BID + amiodarone 200mg daily event monitor earlier this spring showed his a.fib is permanent thus, the amiodarone is only providing some rate control at this point cont coreg cont Xarelto let amiodarone run overnight, then stop in am and resume PO amiodarone seen by Dr Katz today -- he advised consideration of AV trini ablation with permanent pacemaker placement in the future this would allow Mr Davidson to stop chronic amiodarone usage and thereby avoid the ill effects from chronic amiodarone rates have improved while here cont telemetry (3) Dysphagia: Plan: present 2-3 weeks mainly liquids sounds like spasm with regurgitation?? start PPI start carafate speech therapy consult if still Fe deficient would benefit from outpatient GI consultation & EGD? (4) Type 2 diabetes mellitus: Plan: last a1c 7.1% earlier this spring BSGs acceptable since admission cont novolog SSI hold oral agents from home (5) Iron deficiency anemia: Plan: 06/2022 - ferritin 55, transferrin sat <10% he remains microcytic repeat Fe Studies in am if still Fe deficient - in light of previous neuroendocrine tumor and use of chronic anticoagulation - would need w/u for this (6) Hypomagnesemia: Plan: history of such due to chronic diuretics check level am cont PO supplementation (7) Hypertension: Plan: controlled cont coreg (8) Hyperlipidemia: (9) CAD (coronary artery disease): Plan: history of such with prior [place] s/p L[place] stent in 2013 per records (10) Neuroendocrine tumor: Plan: s/p small bowel resection in the past details not known (11) History of bowel resection: Plan: due to #10 (12) Past myocardial infarction: Plan: 2014 LAD stent (13) BPH associated with nocturia: Plan: cont flomax Plan cont diuresis d/c amio drip in am speech consult for dysphagia PT evjanae tomorrow to ensure safe for d/c home Admission and Anticipated Discharge Date Admission Date: December 14, 2022 Subjective patient sitting in chair comfortably during the visit states his breathing is improved no further chest discomfort his main complaint during the visit was that of dysphagia for liquids states that for 2-3 weeks - when he drinks liquids, particularly cold beverages - he will feel the liquid get "stuck" about 1/[address] down the esophagus, he burps, and he has some regurgitation no issues with solids this symptom is new - never had such before he has had EGD in the past - uncertain when patient relates how he has had episodes of chest pain over the last few weeks as well the pain is DIFFERENT than his pains when he had his acute [place] in 2013 he cannot recall when his last stress test or heart cath was of note - had event monitor in September 2022 showing he is always in a.fib echo 2022 EF 45% tele overnight - a.fib, rates low 100s with ambulation, <100 at rest Review of Systems Review of Systems: gen - no fevers or chills cv - see HPI; ongoing edema pulm - improved dyspnea GI - no abd pain Physical Exam Physical Exam: gen - NAD, sitting in chair comfortably mouth - MMM, no lesions neck - no JVD upright at 90 degrees heart - irregularly irregular, s1 s2, no murmur lungs - mild, fine, bibasilar rales abd - soft NT ND BS+ ext - 1+ edema b/l, pulses 2+ b/l psych - a/o x 3 Results & Data Results & Data Vital Signs (Past 12 Hours) Vital Signs Temp Pulse Pulse Resp BP BP Pulse Ox 12/14/22 10:00 110 H 18 12/14/22 09:00 99 H 25 H 141/101 H 99 12/14/22 07:00 113 H 20 12/14/22 10:05 12/14/22 08:00 120 H 12/14/22 06:45 36.5 C 106 H 23 167/107 H 93 12/14/22 06:43 36.5 C 117 H 22 167/107 H 98 12/14/22 05:10 174/113 H 12/14/22 05:31 109 H 24 98 06/12/23 05:24 12/14/22 06:17 106 H 146/100 H 95 12/14/22 05:16 103 H 24 90 12/14/22 05:09 129 H 12/14/22 04:50 36.3 C L 139 H 18 176/103 H 93 O2 Del Method O2 Flow Rate 12/14/22 10:00 12/14/22 09:00 Room Air 12/14/22 07:00 12/14/22 10:05 Room Air 12/14/22 08:00 12/14/22 06:45 Nasal Cannula 2 12/14/22 06:43 Nasal Cannula 2 12/14/22 05:10 12/14/22 05:31 Nasal Cannula 2 12/14/22 05:24 Room Air 12/14/22 06:17 Nasal Cannula 2 12/14/22 05:16 Room Air 12/14/22 05:09 12/14/22 04:50 Room Air Laboratory Results Laboratory Results - last 48 hr 12/14/22 12/14/22 12/14/22 05:00 05:00 05:00 WBC 11.91 H RBC 4.59 L Hgb 11.8 L Hct 37.4 L MCV 81.5 MCH 25.7 MCHC 31.6 L RDW Std Deviation 48.8 H RDW Coeff of Vset[place] 16.7 H Plt Count 289 MPV 9.6 Immature Gran % (Auto) 1.3 Neut % (Auto) 62.0 Lymph % (Auto) 24.0 [place] % (Auto) 8.7 Eos % (Auto) 3.1 Baso % (Auto) 0.9 Neut # (Auto) 7.37 H Lymph # (Auto) 2.86 [place] # (Auto) 1.04 H Eos # (Auto) 0.37 Baso # (Auto) 0.11 Immature Gran # (Auto) 0.16 Sodium 138 Potassium 4.4 Chloride 104 Carbon Dioxide 27 Anion Gap 7 BUN 21 Creatinine 1.50 H Est Cr Clr Drug Dosing 55.9 Est GFR ( Amer) 53.1 Est GFR (Non-Af Amer) 45.9 BUN/Creatinine Ratio 14.0 Glucose 214 H POC Glucose Calcium 9.6 Magnesium Total Bilirubin 0.5 AST 23 ALT 21 Alkaline Phosphatase 46 Troponin I High Sens 12.6 B-Natriuretic Peptide 330 H Total Protein 6.8 Albumin 4.2 Globulin 2.6 Albumin/Globulin Ratio 1.6 Lipase 22 Nasal Screen MRSA (PCR) SARS-CoV-2, RNA, NAAT 12/14/22 12/14/22 12/14/22 05:00 07:13 07:18 WBC RBC Hgb Hct MCV MCH MCHC RDW Std Deviation RDW Coeff of Sveta Plt Count MPV Immature Gran % (Auto) Neut % (Auto) Lymph % (Auto) [place] % (Auto) Eos % (Auto) Baso % (Auto) Neut # (Auto) Lymph # (Auto) [place] # (Auto) Eos # (Auto) Baso # (Auto) Immature Gran # (Auto) Sodium Potassium Chloride Carbon Dioxide Anion Gap BUN Creatinine Est Cr Clr Drug Dosing Est GFR ( Amer) Est GFR (Non-Af Amer) BUN/Creatinine Ratio Glucose POC Glucose 175 H Calcium Magnesium Total Bilirubin AST ALT Alkaline Phosphatase Troponin I High Sens 12.8 B-Natriuretic Peptide Total Protein Albumin Globulin Albumin/Globulin Ratio Lipase Nasal Screen MRSA (PCR) SARS-CoV-2, RNA, NAAT NEGATIVE 12/14/22 12/14/22 11:28 16:48 WBC RBC Hgb Hct MCV MCH MCHC RDW Std Deviation RDW Coeff of Sveta Plt Count MPV Immature Gran % (Auto) Neut % (Auto) Lymph % (Auto) [place] % (Auto) Eos % (Auto) Baso % (Auto) Neut # (Auto) Lymph # (Auto) [place] # (Auto) Eos # (Auto) Baso # (Auto) Immature Gran # (Auto) Sodium Potassium Chloride Carbon Dioxide Anion Gap BUN Creatinine Est Cr Clr Drug Dosing Est GFR ( Amer) Est GFR (Non-Af Amer) BUN/Creatinine Ratio Glucose POC Glucose 125 H 147 H Calcium Magnesium Total Bilirubin AST ALT Alkaline Phosphatase Troponin I High Sens B-Natriuretic Peptide Total Protein Albumin Globulin Albumin/Globulin Ratio Lipase Nasal Screen MRSA (PCR) SARS-CoV-2, RNA, NAAT PG Care Time/CCT Total # of Minutes Spent Total Time Spent with Patient: Total time spent is greater than 50% in coordination of care (as documented) at patient's floor/unit and/or counseling patient: Coding Level of Care Code 01681 SUB INP/OBS CARE 3/50MIN Diagnoses Acute on chronic systolic heart failure I50.23 Atrial fibrillation with rapid ventricular response I48.91 Dysphagia R13.10 Type 2 diabetes mellitus E11.9 Iron deficiency anemia D50.9 Hypomagnesemia E83.42 Hypertension I10 Hyperlipidemia E78.5 CAD (coronary artery disease) I25.10 Neuroendocrine tumor D3A.8 History of bowel resection Z98.890; Z90.49 Past myocardial infarction I25.2 BPH associated with nocturia N40.1; R35.1
[2022-12-14] MEDS ORDERED: PANTOprazole 40 MG TAB PO STA (15:22)
[2022-12-14] MEDS ORDERED: RIVAROXABAN 20 MG TAB PO SCH (16:30)
--- NOTE | 2022-12-14 16:43 | Electrocardiogram Report ---
Test Reason : Blood Pressure : / mmHG Vent. Rate : 126 BPM Atrial Rate : 000 BPM P-R Int : 000 ms QRS Dur : 118 ms QT Int : 288 ms P-R-T Axes : 000 -40 115 degrees QTc Int : 417 ms Atrial fibrillation with rapid ventricular response Left axis deviation Possible Anterior infarct (cited on or before 19-AUG-2022) Abnormal ECG When compared with ECG of 19-AUG-2022 10:09, Inverted T waves have replaced nonspecific T wave abnormality in Lateral leads Confirmed by Krish Katz ([id number]) on 12/14/2022 4:42:32 PM Referred By: Singh Nagel Confirmed By:Singh Katz
[2022-12-14] MEDS ORDERED: FUROSEMIDE 40 MG/4 ML VIAL IV SCH (17:00)
[2022-12-14] MEDS: SUCRALFATE 1 GM/10 ML UDC PO SCH ×2 (17:33→20:15)
[2022-12-14] MEDS: TAMSULOSIN HCL 0.4 MG CAP PO SCH (20:15)
[2022-12-15 04:43] LABS: Basophils # (auto) 0.07 K/uL (0-0.2); Basophils % (auto) 0.7 %; Eosinophils # (auto) 0.26 K/uL (0-0.50); Eosinophils % (auto) 2.7 %; Hemoglobin 11.2 g/dl (14.0-18.0); Immature Granulocytes # (auto) 0.09 K/uL (0.01-0.20); Immature Granulocytes % (auto) 0.9 %; Lymphocytes # (auto) 2.34 K/uL (1.2-3.4); Lymphocytes % (auto) 23.9 %; Mean Corpuscular Hemoglobin 25.7 pg (25.0-34.0); Mean Corpuscular Hgb Conc 32.9 g/dL (32.0-36.0); Mean Corpuscular Volume 78.2 fL (80.0-100.0); Mean Platelet Volume 9.4 fL (9.4-12.4); Monocytes # (auto) 0.82 K/uL (0.11-0.59); Monocytes % (auto) 8.4 %; Neutrophils # (auto) 6.23 K/uL (1.40-6.50); Neutrophils % (auto) 63.4 %; Platelet Count 211 K/uL (130-400); RDW Coefficient of Variation 16.5 % (11.5-14.5); RDW Standard Deviation 46.9 fL (36.4-46.3); Red Blood Count 4.35 M/uL (4.70-6.10); White Blood Count 9.81 K/ul (4.8-10.8)
[2022-12-15 04:59] LABS: Albumin Globulin Ratio 1.5 (0.9-2); BUN Creatinine Ratio 18.2 (10-20); Bilirubin,Total 0.9 mg/dl (0.2-1.0); Creatinine Clr Calc Pharmacy 52.8 ml/min; Est GFR (African American) 49.5 ml/min; Est GFR (Non-African American) 42.7 ml/min; Globulin 2.6 gm/dl (2.5-4.0); Magnesium 1.4 mg/dl (1.7-2.4); Potassium 3.7 mmol/L (3.5-5.1); Total Protein 6.6 gm/dl (6.0-8.3)
[2022-12-15 06:36] LABS: Ferritin 46.7 ng/ml (8-388)
[2022-12-15] MEDS: MAGNESIUM OXIDE 400 MG TAB PO SCH ×2 (08:22→20:13)
[2022-12-15] MEDS: FERROUS SULFATE 325 MG TAB PO SCH (08:22)
[2022-12-15] MEDS: FOLIC ACID 1 MG TAB PO SCH (08:22)
[2022-12-15] MEDS: ATORVASTATIN 40 MG TAB PO SCH (08:22)
[2022-12-15] MEDS: VITAMIN B COMPLEX TAB PO SCH (08:22)
[2022-12-15] MEDS: ASPIRIN 81 MG ECTAB PO SCH (08:23)
[2022-12-15] MEDS: POTASSIUM CHLORIDE CRTAB 20 MEQ TABCR PO SCH (08:23)
[2022-12-15] MEDS: AMIODARONE 200 MG TAB PO SCH (08:23)
[2022-12-15] MEDS: carvediloL 25 MG TAB PO SCH ×3 (08:24→18:41)
[2022-12-15] MEDS: PANTOprazole 40 MG TAB PO SCH (08:24)
[2022-12-15] MEDS: FUROSEMIDE 40 MG/4 ML VIAL IV SCH (08:25)
[2022-12-15] MEDS: SUCRALFATE 1 GM/10 ML UDC PO SCH ×5 (08:25→20:13)
[2022-12-15] MEDS: INSULIN ASPART PER UNIT CHARGE SC SCH ×4 (08:49→20:27)
--- NOTE | 2022-12-15 12:09 | Electrocardiogram Report ---
Test Reason : Blood Pressure : / mmHG Vent. Rate : 100 BPM Atrial Rate : 104 BPM P-R Int : 000 ms QRS Dur : 116 ms QT Int : 370 ms P-R-T Axes : 000 -36 039 degrees QTc Int : 477 ms Poor data quality, interpretation may be adversely affected Atrial fibrillation Left axis deviation Poor R wave progression, consider anterior AL vs. lead placement vs. LVH Abnormal ECG When compared with ECG of 14-DEC-2022 05:00, Non-specific change in ST segment in Lateral leads Nonspecific T wave abnormality has replaced inverted T waves in Lateral leads Confirmed by Krish Katz ([id number]) on 12/15/2022 12:08:53 PM Referred By: Singh Nagel Confirmed By:Singh Katz
--- NOTE | 2022-12-15 12:16 | Cardiology Progress Note ---
Date of Service December 15, 2022 Assessment & Plan (1) Type 2 diabetes mellitus: (2) CHF (congestive heart failure): (3) Atrial fibrillation with rapid ventricular response: (4) Hypertension: (5) Hyperlipidemia: (6) CAD (coronary artery disease): (7) Acute on chronic heart failure with preserved ejection fraction (HFpEF): (8) Lower extremity edema: Plan Jesi Davidson is a 72-year-old male with a past medical history of atrial fibrillation, CHF, hypertension, hyperlipidemia, CAD, recurrent DVT, and type 2 diabetes who has presented to the hospital for dyspnea and chest pressure. 1. Atrial Fibrillation with Rapid Ventricular Response (RVR) While his overall rate control is suboptimal, I think it is reasonable. I do not think this represents a significant deviation from his usual rates. He is asymptomatic. At this point he can be continued on his amiodarone, metoprolol and chronic anticoagulation. Will explore the option for an AV node ablation and pacemaker implantation in the outpatient setting. 2. Acute on Chronic Heart Failure with Preserved Ejection Fraction (HFpEF) Feeling well. Lungs clear. He will resume his usual outpatient diuretic regimen and follow-up in the Heart failure Clinic. 3. Chest Discomfort, resolved Not related to an ACS. Currently undergoing evaluation for esophageal function. 4. CAD s/p prior [place] and LAD PCI Continue aggressive secondary prevention. 5. Hypertension - BP reasonably controlled, continue current regimen 6. History of DVT - Continue Xarelto daily I think he would be safe for discharge today with follow-up in the outpatient setting. Admission and Anticipated Discharge Date Admission Date: December 14, 2022 Subjective This morning patient claimed he feeling quite well. He did report some element of dysphagia for which she is undergoing a barium swallow study later today. However, he has been ambulatory around the room. His breathing difficulties have resolved completely. Review of Systems Review of Systems: Per HPI Physical Exam Constitutional: + obese and comfortable; no acute distress Eyes: Anicteric sclerae ENMT: External nose and ears normal. Moist mucous membranes. Respiratory: normal respiratory effort, lungs clear to auscultation Cardiovascular: Rate/Rhythm: + irregularly irregular Heart Sounds: no murmur +2 pitting edema of bilateral lower extremities Skin: no rashes, warm and dry Neurologic: moves all extremities Psychiatric: A+Ox3, euthymic affect Results & Data Vital Signs (Past 12 Hours) Vital Signs Temp Pulse Pulse Resp BP BP Pulse Ox 12/15/22 11:45 36.7 C 110 H 21 127/94 97 12/15/22 10:47 12/15/22 08:00 100 H 12/15/22 10:38 36.4 C L 12/15/22 08:00 99 H 17 116/78 98 12/15/22 04:14 36.5 C 87 14 124/83 93 O2 Del Method 12/15/22 11:45 Room Air 12/15/22 10:47 Room Air 12/15/22 08:00 12/15/22 10:38 12/15/22 08:00 Room Air 12/15/22 04:14 Room Air Laboratory Results Abnormal Lab Results 12/14/22 12/14/22 12/15/22 16:48 20:19 04:25 WBC 9.81 RBC 4.35 L Hgb 11.2 L Hct 34.0 L MCV 78.2 L MCH 25.7 MCHC 32.9 RDW Std Deviation 46.9 H RDW Coeff of Sveta 16.5 H Plt Count 211 MPV 9.4 Immature Gran % (Auto) 0.9 Neut % (Auto) 63.4 Lymph % (Auto) 23.9 [place] % (Auto) 8.4 Eos % (Auto) 2.7 Baso % (Auto) 0.7 Neut # (Auto) 6.23 Lymph # (Auto) 2.34 [place] # (Auto) 0.82 H Eos # (Auto) 0.26 Baso # (Auto) 0.07 Immature Gran # (Auto) 0.09 Sodium Potassium Chloride Carbon Dioxide Anion Gap BUN Creatinine Est Cr Clr Drug Dosing Est GFR ( Amer) Est GFR (Non-Af Amer) BUN/Creatinine Ratio Glucose POC Glucose 147 H 150 H Calcium Magnesium Iron TIBC Unsaturated IBC Transferrin % Sat Ferritin Total Bilirubin AST ALT Alkaline Phosphatase Total Protein Albumin Globulin Albumin/Globulin Ratio Nasal Screen MRSA (PCR) 12/15/22 12/15/22 12/15/22 04:25 08:41 11:37 WBC RBC Hgb Hct MCV MCH MCHC RDW Std Deviation RDW Coeff of Sveta Plt Count MPV Immature Gran % (Auto) Neut % (Auto) Lymph % (Auto) [place] % (Auto) Eos % (Auto) Baso % (Auto) Neut # (Auto) Lymph # (Auto) [place] # (Auto) Eos # (Auto) Baso # (Auto) Immature Gran # (Auto) Sodium 137 Potassium 3.7 Chloride 98 Carbon Dioxide 30 Anion Gap 9 BUN 29 H Creatinine 1.59 H Est Cr Clr Drug Dosing 52.8 Est GFR ( Amer) 49.5 Est GFR (Non-Af Amer) 42.7 BUN/Creatinine Ratio 18.2 Glucose 152 H POC Glucose 203 H 122 H Calcium 9.0 Magnesium 1.4 L Iron 56 TIBC 288 Unsaturated IBC 232 Transferrin % Sat 19 L Ferritin 46.7 Total Bilirubin 0.9 AST 13 ALT 16 Alkaline Phosphatase 42 Total Protein 6.6 Albumin 4.0 Globulin 2.6 Albumin/Globulin Ratio 1.5 Nasal Screen MRSA (PCR) 12/15/22 Unknown WBC RBC Hgb Hct MCV MCH MCHC RDW Std Deviation RDW Coeff of Sveta Plt Count MPV Immature Gran % (Auto) Neut % (Auto) Lymph % (Auto) [place] % (Auto) Eos % (Auto) Baso % (Auto) Neut # (Auto) Lymph # (Auto) [place] # (Auto) Eos # (Auto) Baso # (Auto) Immature Gran # (Auto) Sodium Potassium Chloride Carbon Dioxide Anion Gap BUN Creatinine Est Cr Clr Drug Dosing Est GFR ( Amer) Est GFR (Non-Af Amer) BUN/Creatinine Ratio Glucose POC Glucose Calcium Magnesium Iron TIBC Unsaturated IBC Transferrin % Sat Ferritin Total Bilirubin AST ALT Alkaline Phosphatase Total Protein Albumin Globulin Albumin/Globulin Ratio Nasal Screen MRSA (PCR) Negative PG Care Time/CCT Total # of Minutes Spent Total Time Spent with Patient: Total time spent is greater than 50% in coordination of care (as documented) at patient's floor/unit and/or counseling patient: Coding Level of Care Code 73990 SUB INP/OBS CARE 2/35MIN Diagnoses Type 2 diabetes mellitus E11.9 CHF (congestive heart failure) I50.9 Atrial fibrillation with rapid ventricular response I48.91 Hypertension I10 Hyperlipidemia E78.5 CAD (coronary artery disease) I25.10 Acute on chronic heart failure with preserved ejection fraction (HFpEF) I50.33 Lower extremity edema R60.0
--- NOTE | 2022-12-15 13:45 | Discharge Summary ---
Date of Service December 15, 2022 Admission HPI Per Admitting Provider 72-year-old male with a past medical history of atrial fibrillation, CHF, hypertension, hyperlipidemia, CAD, iron deficient anemia, depression, and type 2 diabetes who has presented to the hospital for dyspnea and chest pressure. Patient reports that for the past 48 hours or so, patient has had progressively worsening shortness of breath to the point that the patient began experiencing substernal chest pain which is what brought him to the emergency department. Patient came in stating that he felt like he was having a heart attack. He does have a history of previous [place] involving the LAD status post drug-eluting stent in 2011. Patient does take Lasix at home and is supposed to be taking 40 mg daily. He does see Padmini Lambert at the heart failure clinic with his last appointment being October 23 of this year. Patient has not missed any medication. Dry weight at previous appointment was assumed to be about 240 pounds but may actually be lower per heart failure clinic note. No tobacco or drug abuse. No other complaints at this time. ED course: Patient was brought back and seen by one of our providers, labs were significant for a mild white count of 11.9, hemoglobin at 11.8, creatinine at 1.5, glucose of 214, and negative high-sensitivity troponin at 12.6. X-ray of the chest was taken and is indicative of cardiomegaly with volume overload. In the ED, patient was given 40 of IV Lasix as well as 20 mg push of diltiazem. The hospitalist service was then consulted for admission to the hospital for further treatment recommendations. He has been switched to an amiodarone drip. Principal Diagnosis Acute CHF exacerbation, Afib wrvr Discharge Exam The patient is awake, alert and oriented 3, well developed and well nourished, normocephalic and atraumatic, lying in bed and in no acute distress. HEENT--PERRL, EOMI, mucous membranes and oropharynx mildly dry Neck--supple. No JVD. No bruits. Thyroid normal, trachea midline, no adenopathy. Heart--normal S1 and S2. No murmurs, rubs or gallops. Lungs--clear bilaterally, no respiratory distress, no accessory muscle use. Abdomen--normal bowel sounds and soft. Mild epigastric and left sided abdominal pain Extremities--no cyanosis or clubbing. No edema. Dermatologic--normal skin turgor, normal color, no abnormal lymph nodes, no rash. Neurologic--cranial nerves II through XII grossly intact. Rheumatologic--normal range of motion. Psychiatric--normal affect. Discharge Data Allergies Allergy/AdvReac Type Severity Reaction Status Date / Time Penicillins Allergy Unknown "DOES NOT Verified 12/02/22 12:51 KNOW- A CHILD" Consultations 12/14/22 05:47 ED Decision to Admit Stat 12/14/22 06:28 Consult Cardiology Routine Ordered Studies 12/15/22 14:00 FL barium swallow Routine 12/15/22 14:30 FL video swallow Routine Hospital Course (1) Acute on chronic systolic heart failure: EF 45% on echo earlier this spring rapid a.fib and dietary indiscretion potential culprits for his decompensation he has been having episodes of chest tightness at home - uncertain if this is GI related or ischemic in nature however, troponins x 2 negative while here volume status has improved since admission with lasix 40mg BID IV he is in room air and feeling better can reduce IV lasix to once daily check labs and re-eval in am (2) Atrial fibrillation with rapid ventricular response: presented in rapid a.fib despite coreg 25mg BID + amiodarone 200mg daily event monitor earlier this spring showed his a.fib is permanent thus, the amiodarone is only providing some rate control at this point cont coreg cont Xarelto let amiodarone run overnight, then stop in am and resume PO amiodarone seen by Dr Katz today -- he advised consideration of AV trini ablation with permanent pacemaker placement in the future this would allow Mr Davidson to stop chronic amiodarone usage and thereby avoid the ill effects from chronic amiodarone rates have improved while here cont telemetry (3) Dysphagia: present 2-3 weeks mainly liquids sounds like spasm with regurgitation?? start PPI start carafate speech therapy consult if still Fe deficient would benefit from outpatient GI consultation & EGD? (4) Type 2 diabetes mellitus: last a1c 7.1% earlier this spring BSGs acceptable since admission cont novolog SSI hold oral agents from home (5) Iron deficiency anemia: 06/2022 - ferritin 55, transferrin sat <10% he remains microcytic repeat Fe Studies in am if still Fe deficient - in light of previous neuroendocrine tumor and use of chronic anticoagulation - would need w/u for this (6) Hypomagnesemia: history of such due to chronic diuretics check level am cont PO supplementation (7) Hypertension: controlled cont coreg (8) Hyperlipidemia: (9) CAD (coronary artery disease): history of such with prior [place] s/p LAD stent in 2013 per records (10) Neuroendocrine tumor: s/p small bowel resection in the past details not known (11) History of bowel resection: due to #10 (12) Past myocardial infarction: 2013 LAD stent (13) BPH associated with nocturia: cont flomax Plan cont diuresis d/c amio drip in am speech consult for dysphagia PT eval tomorrow to ensure safe for d/c home Total Time Total Time Spent Total Time Spent (In Minutes): 35 Discharge Plan Discharge Items Patient Disposition: Home - Self-Care Reason For Visit: ATRIAL FIB W/ RVR, CHF EXACERBATION Discharge Diagnosis: Acute CHF exacerbation, Afib wrvr Activity: Resume your previous activity Non-emergency contact: Primary Care Provider and Manager Secondary Call non-emergency contact if: you have any medication questions Follow-up/Referrals: Krish Nagel MD [Primary Care Provider] - Padmini Lambert PA-C [Physician Mid Level Net Developer] - 12/29/22 10:30 am Diet: Heart Healthy Addtl Attending Provider Instructions: please make appointment to follow up with your sign language teacher Pending Studies at Discharge: No Stand-Alone Forms: My [employer], Smoking Cessation Medications and DC Order Prescriptions: Continued tamsulosin 0.4 mg capsule 0.4 mg PO DAILY Qty: 90 3RF metformin 500 mg tablet 1,000 mg PO BID Qty: 120 11RF furosemide 40 mg tablet 40 mg PO QAM Qty: 30 2RF Xarelto 20 mg tablet 20 mg PO DAILY Qty: 90 3RF Rx Instructions: must administer with evening meal nitroglycerin 0.4 mg tablet, sublingual 0.4 mg SL Q5M PRN (Reason: chest pain) Qty: 25 vitamin B complex [B Complex-Vitamin B12] tablet 1 tab PO QAM magnesium oxide 250 mg magnesium tablet 250 mg PO BID Qty: 60 0RF carvedilol 25 mg tablet 25 mg PO BID Qty: 180 3RF mupirocin 2 % ointment See Rx Instructions topical BID PRN (Reason: skin wounds) Qty: 15 2RF Rx Instructions: Apply small amount to open or scabbed areas on lower legs topically twice a day PRN; (DME) compr.stocking,knee,long,x-lrg Misc See Rx Instructions .Route Qty: 12 0RF Rx Instructions: On AM, Off PM Moderate compression 16-20 mmHg (DME) lancets 28 gauge misc See Rx Instructions .ROUTE .MEDSUPPLY Qty: 100 0RF Rx Instructions: test once daily (DME) OneTouch Verio test strips Strip See Rx Instructions .ROUTE .MEDSUPPLY Qty: 25 5RF Rx Instructions: test once daily glimepiride [Amaryl] 1 mg tablet 1 mg PO QAM Qty: 30 5RF Rx Instructions: administer with breakfast; for diabetes potassium chloride 20 mEq tablet extended release 20 meq PO DAILY Qty: 30 5RF amiodarone 200 mg tablet 200 mg PO DAILY Qty: 90 3RF atorvastatin 80 mg tablet 80 mg PO QAM ferrous sulfate [iron] 325 mg (65 mg iron) Tablet 325 mg PO QAM folic acid 1 mg Tablet 1 mg PO QAM aspirin 81 mg Tablet,Delayed Release (Dr/Ec) 81 mg PO QAM nystatin 100,000 unit/gram powder 1 applic topical BID PRN (Reason: Rash) Discharge Orders: Discharge Order (Routine); Ordered 12/15/22 Ordered By: Diana Morgan Admission Data Admit Date/Time: 12/14/22 05:39 Attending Provider: Diana Morgan Admit Provider: Rosalio Charles Primary Care Provider: Krish Nagel Other Providers: Rosalio Charles ; Miky Otero Coding Level of Care Code 62611 INP/OBS DISCH >30 MIN Diagnoses Acute on chronic systolic heart failure I50.23 Atrial fibrillation with rapid ventricular response I48.91 Dysphagia R13.10 Type 2 diabetes mellitus E11.9 Iron deficiency anemia D50.9 Hypomagnesemia E83.42 Hypertension I10 Hyperlipidemia E78.5 CAD (coronary artery disease) I25.10 Neuroendocrine tumor D3A.8 History of bowel resection Z98.890; Z90.49 Past myocardial infarction I25.2 BPH associated with nocturia N40.1; R35.1 Time Spent (min) 35
--- NOTE | 2022-12-15 14:38 | Hospitalist Progress Note ---
Date of Service December 15, 2022 Assessment & Plan (1) Acute on chronic systolic heart failure: Plan: EF 45% on echo earlier this spring rapid a.fib and dietary indiscretion potential culprits for his decompensation he has been having episodes of chest tightness at home - uncertain if this is GI related or ischemic in nature however, troponins x 2 negative while here volume status has improved since admission with lasix 40mg BID IV he is in room air and feeling better can reduce IV lasix to once daily check labs and re-eval in am (2) Atrial fibrillation with rapid ventricular response: Plan: presented in rapid a.fib despite coreg 25mg BID + amiodarone 200mg daily event monitor earlier this spring showed his a.fib is permanent thus, the amiodarone is only providing some rate control at this point cont coreg cont Xarelto let amiodarone run overnight, then stop in am and resume PO amiodarone seen by Dr Katz today -- he advised consideration of AV trini ablation with permanent pacemaker placement in the future this would allow Mr Davidson to stop chronic amiodarone usage and thereby avoid the ill effects from chronic amiodarone rates have improved while here cont telemetry (3) Dysphagia: Plan: present 2-3 weeks mainly liquids Barium swallow shows severe osephageal stricture May benefit from dilation Consult GI (4) Type 2 diabetes mellitus: Plan: last a1c 7.1% earlier this spring BSGs acceptable since admission cont novolog SSI hold oral agents from home (5) Iron deficiency anemia: Plan: 06/2022 - ferritin 55, transferrin sat <10% he remains microcytic repeat Fe Studies in am if still Fe deficient - in light of previous neuroendocrine tumor and use of chronic anticoagulation - would need w/u for this (6) Hypomagnesemia: Plan: history of such due to chronic diuretics check level am cont PO supplementation (7) Hypertension: Plan: controlled cont coreg (8) Hyperlipidemia: (9) CAD (coronary artery disease): Plan: history of such with prior [place] s/p LAD stent in 2013 per records (10) Neuroendocrine tumor: Plan: s/p small bowel resection in the past details not known (11) History of bowel resection: Plan: due to #10 (12) Past myocardial infarction: Plan: 2014 LAD stent (13) BPH associated with nocturia: Plan: cont flomax Plan continue hospitatlization Admission and Anticipated Discharge Date Admission Date: December 14, 2022 Subjective patient seen and examined, still has some swallowing difficulty, will go for barium swallow Review of Systems Review of Systems: All systems reviewed are negative, apart from the ones contained in the history. Physical Exam Physical Exam: The patient is awake, alert and oriented 3, well developed and well nourished, normocephalic and atraumatic, lying in bed and in no acute distress. HEENT--PERRL, EOMI, mucous membranes and oropharynx mildly dry Neck--supple. No JVD. No bruits. Thyroid normal, trachea midline, no adenopathy. Heart--normal S1 and S2. No murmurs, rubs or gallops. Lungs--clear bilaterally, no respiratory distress, no accessory muscle use. Abdomen--normal bowel sounds and soft. Mild epigastric and left sided abdominal pain Extremities--no cyanosis or clubbing. No edema. Dermatologic--normal skin turgor, normal color, no abnormal lymph nodes, no rash. Neurologic--cranial nerves II through XII grossly intact. Rheumatologic--normal range of motion. Psychiatric--normal affect. Results & Data Results & Data Vital Signs (Past 12 Hours) Vital Signs Temp Pulse Pulse Resp BP BP Pulse Ox 12/15/22 11:45 98.1 F 110 H 21 127/94 97 12/15/22 10:47 12/15/22 08:00 100 H 12/15/22 10:38 97.5 F L 12/15/22 08:00 99 H 17 116/78 98 12/15/22 04:14 97.7 F 87 14 124/83 93 O2 Del Method 12/15/22 11:45 Room Air 12/15/22 10:47 Room Air 12/15/22 08:00 12/15/22 10:38 12/15/22 08:00 Room Air 12/15/22 04:14 Room Air PG Care Time/CCT Total # of Minutes Spent Total Time Spent with Patient: Total time spent is greater than 50% in coordination of care (as documented) at patient's floor/unit and/or counseling patient: Coding Level of Care Code 06580 SUB INP/OBS CARE 2/35MIN Diagnoses Acute on chronic systolic heart failure I50.23 Atrial fibrillation with rapid ventricular response I48.91 Dysphagia R13.10 Type 2 diabetes mellitus E11.9 Iron deficiency anemia D50.9 Hypomagnesemia E83.42 Hypertension I10 Hyperlipidemia E78.5 CAD (coronary artery disease) I25.10 Neuroendocrine tumor D3A.8 History of bowel resection Z98.890; Z90.49 Past myocardial infarction I25.2 BPH associated with nocturia N40.1; R35.1 Time Spent (min) 35
--- NOTE | 2022-12-15 14:39 | Fluoroscopy Report ---
FL barium swallow CLINICAL HISTORY: 72 years-old Male with dysphagia. TECHNIQUE: Barium contrast and effervescent crystals were administered to the patient under fluorosco pic examination. Multiple images were obtained and submitted for review. Barium tablet also administ ered. FLUOROSCOPY TIME: 1.2 minutes FLUOROSCOPY IMAGES: 43 Ka,r: 71.3 mGy COMPARISON: 08/17/2022 FINDINGS: During deglutition, contrast material flowed freely through the cervical esophagus. No filling defec t or mucosal abnormality is identified. No abnormal stricturing or mass effect is seen. The mid to distal esophagus is well coated and distended. No abnormal stricturing or mucosal abnormality is kesha ntified. No significant reflux or hiatal hernia was demonstrated during the exam. The GE junction i s normal in appearance. Moderate esophageal dysmotility. The barium tablet did not progress past the distal third of the esophagus. IMPRESSION: Moderate esophageal dysmotility. ACT 112: Negative or not required by law. The above report was generated using voice recognition software. It may contain grammatical, syntax o r spelling errors. Electronically signed by: Jordan Nguyen M.D. 12/15/2022 2:38 PM
[2022-12-15] MEDS: TAMSULOSIN HCL 0.4 MG CAP PO SCH (20:13)
[2022-12-16 06:14] LABS: Basophils # (auto) 0.07 K/uL (0-0.2); Basophils % (auto) 0.8 %; Eosinophils # (auto) 0.25 K/uL (0-0.50); Eosinophils % (auto) 2.9 %; Hematocrit (blood only) 33.5 % (42.0-52.0); Hemoglobin 11.2 g/dl (14.0-18.0); Immature Granulocytes # (auto) 0.08 K/uL (0.01-0.20); Immature Granulocytes % (auto) 0.9 %; Lymphocytes # (auto) 2.28 K/uL (1.2-3.4); Lymphocytes % (auto) 26.3 %; Mean Corpuscular Hemoglobin 26.2 pg (25.0-34.0); Mean Corpuscular Hgb Conc 33.4 g/dL (32.0-36.0); Mean Corpuscular Volume 78.3 fL (80.0-100.0); Mean Platelet Volume 9.7 fL (9.4-12.4); Monocytes # (auto) 0.85 K/uL (0.11-0.59); Monocytes % (auto) 9.8 %; Neutrophils # (auto) 5.13 K/uL (1.40-6.50); Neutrophils % (auto) 59.3 %; Platelet Count 209 K/uL (130-400); RDW Coefficient of Variation 16.6 % (11.5-14.5); RDW Standard Deviation 46.5 fL (36.4-46.3); Red Blood Count 4.28 M/uL (4.70-6.10); White Blood Count 8.66 K/ul (4.8-10.8)
[2022-12-16] MEDS: AMIODARONE 200 MG TAB PO SCH (08:14)
[2022-12-16] MEDS: SUCRALFATE 1 GM/10 ML UDC PO SCH (08:14)
[2022-12-16] MEDS: FOLIC ACID 1 MG TAB PO SCH (08:14)
[2022-12-16] MEDS: FUROSEMIDE 40 MG/4 ML VIAL IV SCH (08:14)
[2022-12-16] MEDS: PANTOprazole 40 MG TAB PO SCH (08:15)
[2022-12-16] MEDS: MAGNESIUM OXIDE 400 MG TAB PO SCH (08:15)
[2022-12-16] MEDS: ATORVASTATIN 40 MG TAB PO SCH (08:15)
[2022-12-16] MEDS: ASPIRIN 81 MG ECTAB PO SCH (08:15)
[2022-12-16] MEDS: POTASSIUM CHLORIDE CRTAB 20 MEQ TABCR PO SCH (08:15)
[2022-12-16] MEDS: FERROUS SULFATE 325 MG TAB PO SCH (08:16)
[2022-12-16] MEDS: VITAMIN B COMPLEX TAB PO SCH (08:16)
[2022-12-16] MEDS: carvediloL 25 MG TAB PO SCH (08:16)
[2022-12-16] MEDS: INSULIN ASPART PER UNIT CHARGE SC SCH (08:22)
--- NOTE | 2022-12-16 10:43 | Gastrointestinal Consultation ---
Date of Consultation December 16, 2022 Assessment & Plan (1) Esophageal dysmotility: Plan I independently reviewed barium swallow with Dr. Xiong of radiology. He is noted to have a small hiatus hernia but no evidence of any esophageal stricture of mass. Symptoms of solid food and liquid dysphagia c/w esophageal dysmotility. -Recommend safe swallowing strategies. -Chew food thoroughly. -No role for EGD given normal course/caliber of esophagus, especially given medical comorbidities. Thank you for allowing us to participate in the care of this patient. If you have any questions or concerns, please do not hesitate to contact us. History of Present Illness Reason for Consultation: Esophageal stricture Requesting Physician: Dr. Morgan Attending Physician: Diana Morgan MD History of Present Illness Patient is a 72 y.o. male admitted with chest pain, acute on chronic CHF and A fib with RVR scheduled for discharge yesterday, reporting symptoms of dysphagia to staff prior to D/C. He did undergo a barium swallow which demonstrated moderate esophageal dysmotility without luminal narrowing or stricture/mass. Despite this, GI was consulted as HVAC TECHNICIAN RESIDENTIAL had reported noting a stricture on imaging. Spoke with his daughter this morning and the patient has difficulty with both solids and liquids. Remains NPO awaiting GI input. Allergies Allergy/AdvReac Type Severity Reaction Status Date / Time Penicillins Allergy Unknown "DOES NOT Verified 12/02/22 12:51 KNOW- A CHILD" Home Medications Medication Instructions Recorded Confirmed Type atorvastatin 80 mg tablet 80 mg PO QAM 07/31/18 12/02/22 History ferrous sulfate 325 mg (65 mg 325 mg PO QAM 07/31/18 12/02/22 History iron) tablet (iron) folic acid 1 mg tablet 1 mg PO QAM 07/31/18 12/02/22 History nitroglycerin 0.4 mg sublingual 0.4 mg sublingual Q5M PRN chest 04/14/19 12/02/22 History tablet pain #25 tabs vitamin B complex (B 1 tab PO QAM 04/14/19 12/02/22 History Complex-Vitamin B12 tablet) magnesium oxide 250 mg PO BID #60 tabs 04/09/20 12/02/22 Rx blood sugar diagnostic (OneTouch #25 ea 12/16/20 12/02/22 Rx Verio test strips) lancets 28 gauge #100 ea 12/16/20 12/02/22 Rx carvedilol 25 mg tablet 25 mg PO BID #180 tabs 12/24/21 12/02/22 Rx aspirin 81 mg tablet,delayed 81 mg PO QAM 06/19/22 12/02/22 History release nystatin 100,000 unit/gram topical 1 applic topical BID PRN Rash 06/19/22 12/02/22 History powder glimepiride 1 mg tablet (Amaryl) 1 mg PO QAM #30 tabs 06/24/22 12/02/22 Rx potassium chloride 20 mEq 20 meq PO DAILY #30 tabs 06/24/22 12/02/22 Rx tablet,extended release tamsulosin 0.4 mg capsule 0.4 mg PO DAILY #90 caps 07/07/22 12/02/22 Rx amiodarone 200 mg tablet 200 mg PO DAILY #90 tabs 09/23/22 12/02/22 Rx metformin 500 mg tablet 1,000 mg PO BID #120 tabs 09/25/22 12/02/22 Rx compr.stocking,knee,long,x-lrg #12 ea 09/29/22 12/02/22 Rx furosemide 40 mg tablet 40 mg PO QAM #30 tabs 10/30/22 12/02/22 Rx rivaroxaban 20 mg tablet (Xarelto) 20 mg PO DAILY #90 tabs 11/24/22 12/02/22 Rx mupirocin 2 % topical ointment See Rx Instructions topical BID 12/02/22 12/02/22 Rx PRN skin wounds #15 grams Patient History Medical History (HFpEF) heart failure with preserved ejection fraction Anemia Anticoagulant long-term use Asthma A CHILD Atrial fibrillation Atrial fibrillation, new onset Benign neuroendocrine tumor of small intestine S/P BOWEL RESECTION BPH associated with nocturia CAD (coronary artery disease) Chronic deep vein thrombosis of leg Diverticular disease Hyperlipidemia Hypertension Hypomagnesemia Iron deficiency anemia Left leg DVT 2014 - POST OP BOWEL RESECTION - TREATED - NO ISSUES SINCE Lower extremity edema Myocardial Infarction 2013 Osteoarthritis Poor historian Post traumatic stress disorder Right leg DVT Right leg swelling Type 2 diabetes mellitus Surgical History History of bowel resection History of cardiac cath 2014 - [facility] [place] - [place] - 1 STENT - FOLLOWS W/ DR. PALACIOS History of cholecystectomy History of heart artery stent History of surgery on extremity LLE - Hx of inguinal hernia surgery (05/10/19) Open Incisional Hernia Repair with Mesh, Extensive Enterolysis, Repair of Enterotomy, Excision of Right Arm Lesion Dr. Figueroa 05/10/19 Family History Uncle Diabetes Mother Coronary heart disease Father Coronary heart disease Other Heart disease Denies family history of Ovarian cancer Prostate cancer Breast cancer Colorectal cancer Social History Smoking Status: Former smoker Second Hand Exposure: No; Do You Dip or Chew Tobacco: No; Hx Alcohol Use: No Hx Substance Use: No Preferred Language: [place] Communication Ability: Effective Hearing Ability: Normal Billet Assembler Required: No Beliefs That Will Affect Care: None marital status: Current Living Situation: Alone current occupational status: retired Feels Safe at Home: Yes Childhood Exposure to Second-Hand Smoke: No Diet: regular caffeine: Yes (soda) Dental Care, Regularly: Yes Physical Activity Frequency: Does not Exercise Seatbelt Use: sometimes Sunscreen Use: Yes Assistive Devices: Cane Review of Systems Constitutional: no problem reported Respiratory: no cough and no dyspnea Cardiovascular: no chest pain and no palpitations Gastrointestinal: as per Subjective / HPI Physical Exam Constitutional: WD/WN, vitals as above Cardiovascular: Rate/Rhythm: + irregularly irregular Gastrointestinal (Abdomen): Inspection/Auscultation: normal bowel sounds and + significant pannus Percussion/Palpation: abdomen soft; abdomen nontender Psychiatric: A+Ox3, euthymic affect Results & Data Vital Signs (Past 12 Hours) Vital Signs Temp Pulse Pulse Resp BP Pulse Ox O2 Del Method 12/16/22 08:00 93 H 12/16/22 08:15 36.3 C L 112 H 19 141/93 H 96 Room Air 12/16/22 07:14 93 H 12/16/22 02:57 36.5 C 98 H 18 104/72 96 Room Air 12/15/22 23:00 94 H 12/15/22 22:49 36.5 C 88 18 117/72 92 Room Air PG Care Time/CCT Total # of Minutes Spent Total Time Spent with Patient: Total time spent is greater than 50% in coordination of care (as documented) at patient's floor/unit and/or counseling patient: Coding Level of Care Code 27823 INT INP/OBS CARE 3/75MIN Diagnoses Esophageal dysmotility K22.4
--- NOTE | 2022-12-16 11:56 | Discharge Summary ---
Date of Service December 16, 2022 Admission HPI Per Admitting Provider 72-year-old male with a past medical history of atrial fibrillation, CHF, hypertension, hyperlipidemia, CAD, iron deficient anemia, depression, and type 2 diabetes who has presented to the hospital for dyspnea and chest pressure. Patient reports that for the past 48 hours or so, patient has had progressively worsening shortness of breath to the point that the patient began experiencing substernal chest pain which is what brought him to the emergency department. Patient came in stating that he felt like he was having a heart attack. He does have a history of previous [place] involving the LAD status post drug-eluting stent in 2011. Patient does take Lasix at home and is supposed to be taking 40 mg daily. He does see Padmini Lambert at the heart failure clinic with his last appointment being October 23 of this year. Patient has not missed any medication. Dry weight at previous appointment was assumed to be about 240 pounds but may actually be lower per heart failure clinic note. No tobacco or drug abuse. No other complaints at this time. ED course: Patient was brought back and seen by one of our providers, labs were significant for a mild white count of 11.9, hemoglobin at 11.8, creatinine at 1.5, glucose of 214, and negative high-sensitivity troponin at 12.6. X-ray of the chest was taken and is indicative of cardiomegaly with volume overload. In the ED, patient was given 40 of IV Lasix as well as 20 mg push of diltiazem. The hospitalist service was then consulted for admission to the hospital for further treatment recommendations. He has been switched to an amiodarone drip. Principal Diagnosis acute on chronic systolic HF Discharge Exam The patient is awake, alert and oriented 3, well developed and well nourished, normocephalic and atraumatic, lying in bed and in no acute distress. HEENT--PERRL, EOMI, mucous membranes and oropharynx mildly dry Neck--supple. No JVD. No bruits. Thyroid normal, trachea midline, no adenopathy. Heart--normal S1 and S2. No murmurs, rubs or gallops. Lungs--clear bilaterally, no respiratory distress, no accessory muscle use. Abdomen--normal bowel sounds and soft. Mild epigastric and left sided abdominal pain Extremities--no cyanosis or clubbing. No edema. Dermatologic--normal skin turgor, normal color, no abnormal lymph nodes, no rash. Neurologic--cranial nerves II through XII grossly intact. Rheumatologic--normal range of motion. Psychiatric--normal affect. Discharge Data Allergies Allergy/AdvReac Type Severity Reaction Status Date / Time Penicillins Allergy Unknown "DOES NOT Verified 12/02/22 12:51 KNOW- A CHILD" Consultations 12/14/22 05:47 ED Decision to Admit Stat 12/14/22 06:28 Consult Cardiology Routine 12/15/22 14:35 Consult Gastroenterology Routine Ordered Studies 12/15/22 14:00 FL barium swallow Routine Hospital Course (1) Acute on chronic systolic heart failure: EF 45% on echo earlier this spring rapid a.fib and dietary indiscretion potential culprits for his decompensation he has been having episodes of chest tightness at home - uncertain if this is GI related or ischemic in nature however, troponins x 2 negative while here volume status has improved since admission with lasix 40mg BID IV he is in room air and feeling better can reduce IV lasix to once daily check labs and re-eval in am (2) Atrial fibrillation with rapid ventricular response: presented in rapid a.fib despite coreg 25mg BID + amiodarone 200mg daily event monitor earlier this spring showed his a.fib is permanent thus, the amiodarone is only providing some rate control at this point cont coreg cont Xarelto let amiodarone run overnight, then stop in am and resume PO amiodarone seen by Dr Katz today -- he advised consideration of AV trini ablation with permanent pacemaker placement in the future this would allow Mr Davidson to stop chronic amiodarone usage and thereby avoid the ill effects from chronic amiodarone rates have improved while here cont telemetry (3) Dysphagia: present 2-3 weeks mainly liquids Barium swallow did not showed moderate stricture and hiatial hernia GI consulted, no interventions recommended Recommend to properly chew food and properly cut food into small pieces (4) Type 2 diabetes mellitus: last a1c 7.1% earlier this spring BSGs acceptable since admission cont novolog SSI hold oral agents from home (5) Iron deficiency anemia: 06/2022 - ferritin 55, transferrin sat <10% he remains microcytic repeat Fe Studies in am if still Fe deficient - in light of previous neuroendocrine tumor and use of chr onic anticoagulation - would need w/u for this (6) Hypomagnesemia: history of such due to chronic diuretics check level am cont PO supplementation (7) Hypertension: controlled cont coreg (8) Hyperlipidemia: (9) CAD (coronary artery disease): history of such with prior [place] s/p LAD stent in 2013 per records (10) Neuroendocrine tumor: s/p small bowel resection in the past details not known (11) History of bowel resection: due to #10 (12) Past myocardial infarction: 2013 LAD stent (13) BPH associated with nocturia: cont flomax Plan d/c home Total Time Total Time Spent Total Time Spent (In Minutes): 35 Discharge Plan Discharge Items Patient Disposition: Home - Self-Care Reason For Visit: ATRIAL FIB W/ RVR, CHF EXACERBATION Discharge Diagnosis: Acute CHF exacerbation, Afib wrvr Activity: Resume your previous activity Non-emergency contact: Primary Care Provider and Sock Examiner Call non-emergency contact if: you have any medication questions Follow-up/Referrals: Krish Nagel MD [Primary Care Provider] - 12/21/22 3:00 pm (Follow up scheduled 12/21/2022 @ 3 pm) Miky Otero MD [Physician] - 12/24/22 8:30 am (Follow up scheduled 12/24/22 @ 8:30 am) Padmini Lambert PA-C [Physician Sock Ironer] - 12/29/22 10:30 am Diet: Heart Healthy Addtl Attending Provider Instructions: please make appointment to follow up with your automated manufacturing instructor. Regarding your difficulty swallowing, chew your food thoroughly before swallowin g, sit upright when eating, cut up food in small pieces Pending Studies at Discharge: No Stand-Alone Forms: [employer], Smoking Cessation Medications and DC Order Prescriptions: Continued tamsulosin 0.4 mg capsule 0.4 mg PO DAILY Qty: 90 3RF metformin 500 mg tablet 1,000 mg PO BID Qty: 120 11RF furosemide 40 mg tablet 40 mg PO QAM Qty: 30 2RF Xarelto 20 mg tablet 20 mg PO DAILY Qty: 90 3RF Rx Instructions: must administer with evening meal nitroglycerin 0.4 mg tablet, sublingual 0.4 mg SL Q5M PRN (Reason: chest pain) Qty: 25 vitamin B complex [B Complex-Vitamin B12] tablet 1 tab PO QAM magnesium oxide 250 mg magnesium tablet 250 mg PO BID Qty: 60 0RF carvedilol 25 mg tablet 25 mg PO BID Qty: 180 3RF mupirocin 2 % ointment See Rx Instructions topical BID PRN (Reason: skin wounds) Qty: 15 2RF Rx Instructions: Apply small amount to open or scabbed areas on lower legs topically twice a day PRN; (DME) compr.stocking,knee,long,x-lrg Misc See Rx Instructions .Route Qty: 12 0RF Rx Instructions: On AM, Off PM Moderate compression 16-20 mmHg (DME) lancets 28 gauge misc See Rx Instructions .ROUTE .MEDSUPPLY Qty: 100 0RF Rx Instructions: test once daily (DME) OneTouch Verio test strips Strip See Rx Instructions .ROUTE .MEDSUPPLY Qty: 25 5RF Rx Instructions: test once daily glimepiride [Amaryl] 1 mg tablet 1 mg PO QAM Qty: 30 5RF Rx Instructions: administer with breakfast; for diabetes potassium chloride 20 mEq tablet extended release 20 meq PO DAILY Qty: 30 5RF amiodarone 200 mg tablet 200 mg PO DAILY Qty: 90 3RF atorvastatin 80 mg tablet 80 mg PO QAM ferrous sulfate [iron] 325 mg (65 mg iron) Tablet 325 mg PO QAM folic acid 1 mg Tablet 1 mg PO QAM aspirin 81 mg Tablet,Delayed Release (Dr/Ec) 81 mg PO QAM nystatin 100,000 unit/gram powder 1 applic topical BID PRN (Reason: Rash) Discharge Orders: Discharge Order (Routine); Ordered 12/16/22 Ordered By: Diana Morgan Admission Data Admit Date/Time: 12/14/22 05:39 Attending Provider: Diana Morgan Admit Provider: Rosalio Charles Primary Care Provider: Krish Nagel Other Providers: Rosalio Charles ; Miky Otero ; Wally Cummings Other Interventions: Discharge Summary Assessment (RN) Last Done: 12/16/22 10:58 Coding Level of Care Code 26869 INP/OBS DISCH >30 MIN Diagnoses Acute on chronic systolic heart failure I50.23 Atrial fibrillation with rapid ventricular response I48.91 Dysphagia R13.10 Type 2 diabetes mellitus E11.9 Iron deficiency anemia D50.9 Hypomagnesemia E83.42 Hypertension I10 Hyperlipidemia E78.5 CAD (coronary artery disease) I25.10 Neuroendocrine tumor D3A.8 History of bowel resection Z98.890; Z90.49 Past myocardial infarction I25.2 BPH associated with nocturia N40.1; R35.1 Time Spent (min) 35
--- NOTE | 2022-12-16 12:33 | Electrocardiogram Report ---
Test Reason : Blood Pressure : / mmHG Vent. Rate : 101 BPM Atrial Rate : 300 BPM P-R Int : 000 ms QRS Dur : 122 ms QT Int : 406 ms P-R-T Axes : 000 -38 052 degrees QTc Int : 526 ms Atrial fibrillation with rapid ventricular response Left axis deviation Non-specific intra-ventricular conduction delay Poor R wave progression, consider anterior [place] vs. lead placement vs. LVH Nonspecific ST abnormality Abnormal ECG When compared with ECG of 15-DEC-2022 05:10, Borderline criteria for Anterior infarct are no longer Present QT has lengthened Confirmed by Krish Katz ([id number]) on 12/16/2022 12:33:07 PM Referred By: Singh Nagel Confirmed By:Singh Katz
== END 2022-12-16 11:42 | disposition home or self-care (01) | DRG 291 ==
LOC: ED 04:47 → 1E 05:39 → SUATTDRO 05:39 → 1E 06:30 → 4W 12-15 20:16

== ENCOUNTER 2023-01-28 06:40 | Observation (INO) ==
[2023-01-28] MEDS ORDERED: WATER, STERILE FOR INJ 10 ML VIAL ONE (07:05)
[2023-01-28] MEDS ORDERED: VANCOMYCIN HCL 1000MG/20ML VIAL ONE (07:05)
[2023-01-28] MEDS ORDERED: LIDOCAINE 1% LOCAL 20 ML VIAL ONE (07:05)
[2023-01-28] MEDS ORDERED: BUPIVACAINE 0.25% PF 30 ML VIAL ONE (07:05)
[2023-01-28] MEDS ORDERED: FUROSEMIDE 40 MG/4 ML VIAL IV ONE ×2 (08:11→08:13)
--- NOTE | 2023-01-28 08:13 | Pre Anesthesia Assessment ---
Date of Service January 28, 2023 Pre Sedation Assessment Vital Signs Pulse Resp BP Pulse Ox O2 Del Method 01/28/23 07:14 109 H 26 H 147/100 H 92 Room Air Cardiovascular + tachycardic and + irregularly irregular Respiratory + tachypneic Pre-Sedation Airway Assessment Smoking Status: Former smoker Hx Sleep Apnea: No Hx Difficult Intubation: No Short, Thick Neck: Yes Thyromental Distance: < 3.5 Finger Breadths Oral Cavity: + Dental Abnormalities Mallampati Class: III ASA: ASA3 NPO Status Date of Last Intake of Fluids: 01/28/23 Time of Last Intake of Fluids: 19:00 Date of Last Intake of Solid Food: 01/28/23 Time of Last Intake of Solid Foods: 19:00 Procedure Planning Contraindications for Sedation: none Current Medications Reviewed: Yes Notes The planned sedation has been discussed with the patient. Informed Consent was obtained. I have identified the patient, determined the appropriateness of sedation and have assessed the patient immediately prior to the procedure. All medicine(s) and interventions are by my order.
--- NOTE | 2023-01-28 08:18 | History & Physical Report ---
Date of Service January 28, 2023 Assessment & Plan (1) Type 2 diabetes mellitus: (2) CHF (congestive heart failure): (3) Atrial fibrillation with rapid ventricular response: (4) Hypertension: (5) Hyperlipidemia: (6) CAD (coronary artery disease): (7) Acute on chronic heart failure with preserved ejection fraction (HFpEF): (8) Lower extremity edema: Plan Jesi Davidson is a 72-year-old male with a past medical history of atrial fibrillation, CHF, hypertension, hyperlipidemia, CAD, recurrent DVT, and type 2 diabetes who has presented to the hospital for dyspnea and chest pressure. 1. Atrial Fibrillation with Rapid Ventricular Response (RVR) Plan implant of BiV ICD today with eventual AV node ablation 2. Acute on Chronic Heart Failure with Preserved Ejection Fraction (HFpEF) Some dyspnea with activity, but stable overall. Some increased dyspnea this morning which has resolved. 3. Chest Discomfort, resolved None currently 4. CAD s/p prior AL and LAD PCI Continue aggressive secondary prevention. 5. Hypertension - BP reasonably controlled, continue current regimen 6. History of DVT ON chronic anticoagulation Admission and Anticipated Discharge Date Admission Date: December 14, 2022 History of Present Illness Chief Complaint: dyspnea Primary Care Provider: Krish Nagel MD Mr. Davidson is a pleasant 72-year-old gentleman with a history significant for multivessel CAD, LAD infarct status post drug-eluting stent, atrial fibrillation, dyslipidemia, and hypertension. He had left lower extremity DVT on 04/17/2015, and right lower extremity DVT in March of 2020. He was hospitalized in June of 2022 with atrial fibrillation and rapid ventricular response. He was also short of breath and felt to be hypervolemic. He was given intravenous diuretic and outpatient Lasix was increased from 20 mg up to 40 mg on discharge. Diltiazem was initiated in addition to chronic carvedilol 25 mg twice daily. He had already been on anticoagulation therapy. He was seen by Dr. Quiles and then Dr. Stanley. He was hospitalized in August 2022 with acute on chronic heart failure with midrange EF and A-fib with RVR. He was placed on amiodarone but cardioversion was recommended and he declined. He received IV diuretic and was enrolled in the heart failure program. He was hospitalized in December 2022 with acute on chronic heart failure, which was felt to be due to dietary indiscretion as well as missed doses of PO Lasix. He received IV diuretic with symptomatic improvement. He was discharged on his usual outpatient diuretic regimen. He was noted to be in atrial fibrillation during admission with suboptimal rate control. Dr. Katz saw him in consultation and discussed the possibility of AV node ablation and pacemaker implantation as an outpatient. He has had the following studies/procedures: 1. Cardiac catheterization 01/04/12 [facility] in [place]: Mid LAD occluded s/p 3.5 x 22 mm resolute integrity BANDAR. Distal circumflex, small in diameter, 80% tubular stenosis. Moderate caliber OM4 80%. Dominant RCA without significant CAD. EF 45% with mid to distal anterior hypokinesis. 2. Exercise Nuclear Perfusion 01/07/12: Mid LAD infarct. No exercise-induced ischemia. EF 65%. Exercised 5 minutes and achieved 88% MPHR. 3. Echo 01/04/12: Normal LV size with mildly reduced systolic function. EF 45-50%. Distal anterior and lateral hypokinesis. Akinetic apical septal and inferior segments. Type II diastolic dysfunction. No significant valvular abnormalities. 4. Echo 03/21/12: Normal LV size and systolic function. EF 60%. Distal LAD infarct. Mild concentric LVH. Mild left atrial dilation. No significant valvular abnormalities. 5. Echo 06/03/2015: Mildly dilated LV with normal systolic function. EF 55- 60%. Small distal LAD infarct with apical akinesis. No significant valvular abnormalities. 6. Echo 02/05/2017: Normal LV size and systolic function. EF 50-55%. Apical septal akinesis. No significant valvular abnormalities. Normal estimated RVSP. 7. Right lower extremity venous Doppler 03/15/2020: Extensive DVT within the right lower extremity. Appears acute. 8. Echo 04/22/2020: Normal LV size with low-normal systolic function. EF 50- 55%. 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 Moderate LVH. Moderate left atrial dilation. No significant valvular abnormalities. 9. Echo 06/19/2022 [facility]: Normal LV size, systolic function. EF 50-55%. Apical akinesis. Mild TR. Stable findings from 02/05/2017. 10. Echo 08/18/2022 [facility]: Normal LV size. EF 45%. Large apical infarct. Mild LVH. No visualized thrombus. Limited 2D echo. 11. Holter 08/13/2022: A-fib throughout. Average heart rate 90, ranging 63-1 54. No significant pause. Frequent PVCs. Ventricular triplets versus aberrant conduction. Patient events occurred during A-fib with normal heart rate. Allergies Allergy/AdvReac Type Severity Reaction Status Date / Time Penicillins Allergy Unknown "DOES NOT Verified 01/28/23 07:25 KNOW- A CHILD" Home Medications Medication Instructions Recorded Confirmed Type ferrous sulfate 325 mg (65 mg 325 mg PO QAM 07/31/18 01/28/23 History iron) tablet (iron) folic acid 1 mg tablet 1 mg PO QAM 07/31/18 01/28/23 History nitroglycerin 0.4 mg sublingual 0.4 mg sublingual Q5M PRN chest 04/14/19 01/28/23 History tablet pain #25 tabs vitamin B complex (B 1 tab PO QAM 04/14/19 01/28/23 History Complex-Vitamin B12 tablet) magnesium oxide 250 mg PO BID #60 tabs 04/09/20 01/28/23 Rx blood sugar diagnostic (OneTouch #25 ea 12/16/20 01/07/23 Rx Verio test strips) lancets 28 gauge #100 ea 12/16/20 01/07/23 Rx carvedilol 25 mg tablet 25 mg PO BID #180 tabs 12/24/21 01/28/23 Rx aspirin 81 mg tablet,delayed 81 mg PO QAM 06/19/22 01/28/23 History release nystatin 100,000 unit/gram topical 1 applic topical BID PRN Rash 06/19/22 01/28/23 History powder glimepiride 1 mg tablet (Amaryl) 1 mg PO QAM #30 tabs 06/24/22 01/28/23 Rx potassium chloride 20 mEq 20 meq PO DAILY #30 tabs 06/24/22 01/28/23 Rx tablet,extended release tamsulosin 0.4 mg capsule 0.4 mg PO DAILY #90 caps 07/07/22 01/28/23 Rx amiodarone 200 mg tablet 200 mg PO DAILY #90 tabs 09/23/22 01/28/23 Rx metformin 500 mg tablet 1,000 mg PO BID #120 tabs 09/25/22 01/28/23 Rx compr.stocking,knee,long,x-lrg #12 ea 09/29/22 01/07/23 Rx furosemide 40 mg tablet 40 mg PO QAM #30 tabs 10/30/22 01/28/23 Rx rivaroxaban 20 mg tablet (Xarelto) 20 mg PO DAILY #90 tabs 11/24/22 01/28/23 Rx mupirocin 2 % topical ointment See Rx Instructions topical BID 12/02/22 01/28/23 Rx PRN skin wounds #15 grams empagliflozin 10 mg tablet 10 mg PO DAILY #30 tabs 12/16/22 01/28/23 Rx (Jardiance) atorvastatin 80 mg tablet 80 mg PO QAM #90 tabs 01/09/23 01/28/23 Rx Past Med/Surg History Medical History (HFpEF) heart failure with preserved ejection fraction Anemia Anticoagulant long-term use Asthma Atrial fibrillation Atrial fibrillation, new onset Benign neuroendocrine tumor of small intestine BPH associated with nocturia CAD (coronary artery disease) Chronic deep vein thrombosis of leg Diverticular disease Hyperlipidemia Hypertension Hypomagnesemia Iron deficiency anemia Left leg DVT Lower extremity edema Myocardial Infarction Osteoarthritis Poor historian Post traumatic stress disorder Right leg DVT Right leg swelling Type 2 diabetes mellitus Surgical History History of bowel resection History of cardiac cath History of cholecystectomy History of heart artery stent History of surgery on extremity Hx of inguinal hernia surgery (05/10/19) Family History Uncle Diabetes Mother Coronary heart disease Father Coronary heart disease Other Heart disease Denies family history of Ovarian cancer Prostate cancer Breast cancer Colorectal cancer Social History Smoking Status: Former smoker Second Hand Exposure: No; Do You Dip or Chew Tobacco: No; Hx Alcohol Use: No Hx Substance Use: No Preferred Language: French Communication Ability: Effective Hearing Ability: Normal Technical Documentation Specialist Required: No Beliefs That Will Affect Care: None marital status: Current Living Situation: Alone current occupational status: retired Feels Safe at Home: Yes Childhood Exposure to Second-Hand Smoke: No Diet: regular caffeine: Yes (soda) Dental Care, Regularly: Yes Physical Activity Frequency: Does not Exercise Seatbelt Use: sometimes Sunscreen Use: Yes Assistive Devices: Cane Review of Systems Review of Systems: sweaty this morning. Dyspnea that has improved Physical Exam Physical Exam: Alert. Appropriate. Anicteric tachypnea with use of stomach muscles. lungs with distant breath sounds. No rales. No wheezing cardiac: irregularly irregular and tachycardic Results & Data Results & Data Vital Signs (Past 12 Hours) Vital Signs Pulse Resp BP Pulse Ox O2 Del Method 01/28/23 07:14 109 H 26 H 147/100 H 92 Room Air
[2023-01-28] MEDS ORDERED: MIDAZOLAM HCL 5 MG/ML 1 ML VIAL ONE (08:27)
[2023-01-28] MEDS ORDERED: fentaNYL citrate PF 100 MCG/2 ML VIAL ONE (08:27)
[2023-01-28] MEDS ORDERED: ceFAZolin 330 MG/ML 1 GM VIAL ONE (08:34)
[2023-01-28] MEDS ORDERED: ACETAMINOPHEN 325 MG TAB PO PRN (09:53)
[2023-01-28] MEDS ORDERED: oxyCODONE HCL IR 5 MG TAB (IMMEDIATE RELEASE) PO PRN (09:53)
--- NOTE | 2023-01-28 09:53 | Electrophysiology Report ---
Date of Service January 28, 2023 Electrophysiology Procedure Electrophysiology Procedure Report Procedure performed: Implantation of Biventricular pacemaker with left bundle pacing lead Staff senior business intelligence analyst: Krish Katz MD Indication: patient is a 73-year-old gentleman with a history of congestive heart failure, intermediate degree of LV dysfunction and permanent atrial fibrillation with poor rate control. In anticipation of an AV node ablation with resultant 100% ventricular pacing he was advised to undergo implantation of a pacemaker today. Biventricular device was selected as he will have 100% pacing with baseline LV dysfunction. Procedure in detail: The patient was informed of the risks benefits and alternatives to the intended procedure and he wished to proceed. He was taken to the electrophysiology suite in a fasting state. A preoperative antibiotic had been administered. The patient was monitored electrocardiographically throughout today's procedure and conscious sedation was administered per protocol. The left upper pectoral area is prepped and draped in usual sterile fashion. This area was anesthetized using subcutaneous administration of a xylocaine solution. An incision was made at this site and carried down to the prepectoralis fascia using sharp dissection. Electrocautery was also employed for dissection as well as for hemostasis. A device pocket was fashioned tissues above the pectoralis muscle. Subsequent to this maneuver the left axillary vein was accessed twice using modified Seldinger technique a sheath was placed over a guidewire and used facilitate passage of the guiding catheter for engagement of the coronary sinus. Once engaged limited coronary sinus venography was performed in order to identify suitable target vessel. Once identified standard guidewire techniques were employed to deliver the pacing lead to the target vessel. Adequate sensing threshold parameters were obtained in the absence of diaphragmatic stimulation at high output was confirmed prior to removal of the guiding catheter. The proximal portion lead was then sutured to the prepectoralis fascia using nonabsorbable suture. A sheath was placed over the remaining guidewire and used facilitate passage of the guiding catheter for mapping of the interventricular septum. Once appropriate location was identified a lead was advanced into the interventricular septum under fluoroscopic guidance. Adequate sensing threshold parameters were obtained prior to removal of the guiding catheter. The proximal portion lead was then sutured to prepectoralis fascia using nonabsorbable suture. The device pocket was irrigated with antibiotic solution. The leads were then attached to the device. The device and leads were then placed in the pocket and pocket was closed in 3 layers of absorbable suture. Steri-Strips and sterile dressing were applied. The device was tested noninvasively prior to conclusion the procedure. The patient tolerated procedure well there no immediate complications. Equipment used: New pulse generator: Umbrella Tipper Hand Medtronic. Model number:[id number] serial number [id number] Right atrial port was capped Coronary sinus lead: Umbrella Tipper Hand Medtronic. Model number: [id number] serial number [id number] V Right ventricular lead: Umbrella Tipper Hand [employer]tronic. Model number: [id number] serial number [id number] Measured data: coronary sinus lead: Pacing threshold in the LV 4 to can configuration was 1.25 volts at 0.4 milliseconds with a pacing impedance of 380 Ohms Right ventricular lead: R-waves measured 7.6 mV. Pacing threshold was 0.5 volts at 0.4 milliseconds with a pacing impedance of 980 Ohms Impression: Successful implantation of biventricular pacemaker with left bundle pacing lead [facility] Electrophysiology codes Pacing Procedure 1: Pacin Insert/Replace Pacer A & V Procedure 2: Pacin BiV electrode w/Pacer / ICD implant, add on code Miscellaneous Procedures Procedure 1: EP Miscellaneous: 89257 Contrast injection for venography PG Moderate Sedation Codes Moderate Sedation Codes Procedure 1: Sedation/Anesthesia: 20719 Mod Sedation by the same physician;Init15 Min Child Age 5 & Up Procedure 2: Sedation/Anesthesia: 76654 Mod Sedation by the same physician; Ea [id number] Minutes
--- NOTE | 2023-01-28 09:53 | Post Anesthesia Assessment ---
Date of Service January 28, 2023 Post Sedation Assessment Vital Signs Pulse Resp BP Pulse Ox O2 Del Method 01/28/23 07:14 109 H 26 H 147/100 H 92 Room Air Recovery Score Activity: Moves 4 extremities Respiration: Deep Breath/Cough Circulation: +/-20% PreAnes Value Consciousness: Fully Awake Oxygen Saturation: O2 needed for >90% Discharge Sedation Level of Care: Fast Track Phase II Post Sedation Plan On clinical assessment, the patient appears to have tolerated the sedation without complications. Patient is recovering as anticipated. Patient will continue to be monitored by nursing and may be discharged when s edation discharge criteria are met per below protocol. Upon Completions of procedure up to 15 minutes continue every 5 minute vital signs and the P.A.R. score; then discharge to a Phase I or Fast Track to Phase II per the following guidelines: * Discharge Patient to appropriate Phase II area if PAR is 8 or greater or return to pre- procedure baseline. The post - procedure orders will be as directed. * If PAR score is less than 8 or not return to pre-procedure baseline then patient will follow Phase I monitoring till PAR is reached for Phase II. The Phase I may be done in procedure room or may call to secure a Phase I area. * If naloxone or flumazenil are used for reversal, hold in Phase I for continued monitoring from when last reversal dose was given for a minimum of 60 minutes or longer pending the nurse and/or physician discretion of patient condition before discharge to Phase II. Please call the Sedation Physician to re-evaluate and complete post-note for discharge to Phase II area. Do NOT discharge from procedure sedation or Phase 1 until post- sedation evaluation note is complete by procedure /sedation MD Sedation Discharge Instructions to be given to the patient at discharge to home.
--- NOTE | 2023-01-28 15:11 | Electrocardiogram Report ---
Test Reason : Blood Pressure : / mmHG Vent. Rate : 106 BPM Atrial Rate : 150 BPM P-R Int : 000 ms QRS Dur : 130 ms QT Int : 302 ms P-R-T Axes : 000 -38 061 degrees QTc Int : 401 ms Atrial fibrillation Pacemaker spikes with non-capture Abnormal ECG When compared with ECG of 16-DEC-2022 06:31, Electronic ventricular pacemaker now present Confirmed by Franc Quiles ([id number]) on 01/28/2023 3:11:44 PM Referred By: Singh Katz Confirmed By:Franc Quiles
[2023-01-28] MEDS ORDERED: ceFAZolin 1000MG 1,000 MG/7.5 ML SYR IV ONE (16:30)
[2023-01-28] MEDS ORDERED: metFORMIN HCL 500 MG TAB PO SCH (17:00)
[2023-01-28] MEDS: carvediloL 25 MG TAB PO SCH (20:06)
[2023-01-28] MEDS: MAGNESIUM OXIDE 400 MG TAB PO SCH (20:07)
[2023-01-29] MEDS ORDERED: GLIMEPIRIDE 2 MG TAB PO SCH (07:30)
[2023-01-29] MEDS ORDERED: FUROSEMIDE 40 MG/4 ML VIAL IV ONE (08:28)
[2023-01-29] MEDS: carvediloL 25 MG TAB PO SCH (08:36)
[2023-01-29] MEDS: MAGNESIUM OXIDE 400 MG TAB PO SCH (08:36)
[2023-01-29] MEDS ORDERED: EMPAGLIFLOZIN 10 MG TAB PO SCH (09:00)
[2023-01-29] MEDS ORDERED: TAMSULOSIN HCL 0.4 MG CAP PO SCH (09:00)
[2023-01-29] MEDS ORDERED: AMIODARONE 200 MG TAB PO SCH (09:00)
[2023-01-29] MEDS ORDERED: FERROUS SULFATE 325 MG TAB PO SCH (09:00)
[2023-01-29] MEDS ORDERED: ATORVASTATIN 40 MG TAB PO SCH (09:00)
[2023-01-29] MEDS ORDERED: FOLIC ACID 1 MG TAB PO SCH (09:00)
[2023-01-29] MEDS ORDERED: FUROSEMIDE 40 MG TAB PO SCH (09:00)
[2023-01-29] MEDS ORDERED: ASPIRIN 81 MG ECTAB PO SCH (09:00)
[2023-01-29] MEDS ORDERED: POTASSIUM CHLORIDE CRTAB 20 MEQ TABCR PO SCH ×2 (09:00)
[2023-01-29 09:38] LABS: BUN Creatinine Ratio 18.1 (10-20); Calcium 9.4 mg/dl (8.6-10.3); Creatinine Clr Calc Pharmacy 50.1 ml/min; Est GFR (African American) 46.7 ml/min; Est GFR (Non-African American) 40.3 ml/min; Potassium 4.3 mmol/L (3.5-5.1)
--- NOTE | 2023-01-29 09:40 | Discharge Summary ---
Date of Service January 29, 2023 Admission HPI Per Admitting Provider Mr. Davidson is a pleasant 72-year-old gentleman with a history significant for multivessel CAD, LAD infarct status post drug-eluting stent, atrial fibrillation, dyslipidemia, and hypertension. He had left lower extremity DVT on 04/17/2015, and right lower extremity DVT in March of 2020. He was hospitalized in June of 2022 with atrial fibrillation and rapid ventricular response. He was also short of breath and felt to be hypervolemic. He was given intravenous diuretic and outpatient Lasix was increased from 20 mg up to 40 mg on discharge. Diltiazem was initiated in addition to chronic carvedilol 25 mg twice daily. He had already been on anticoagulation therapy. He was seen by Dr. Quiles and then Dr. Stanley. He was hospitalized in August 2022 with acute on chronic heart failure with midrange EF and A-fib with RVR. He was placed on amiodarone but cardioversion was recommended and he declined. He received IV diuretic and was enrolled in the heart failure program. He was hospitalized in December 2022 with acute on chronic heart failure, which was felt to be due to dietary indiscretion as well as missed doses of PO Lasix. He received IV diuretic with symptomatic improvement. He was discharged on his usual outpatient diuretic regimen. He was noted to be in atrial fibrillation during admission with suboptimal rate control. Dr. Katz saw him in consultation and discussed the possibility of AV node ablation and pacemaker implantation as an outpatient. He has had the following studies/procedures: 1. Cardiac catheterization 01/04/12 [facility] in [place]: Mid LAD occluded s/p 3.5 x 22 mm resolute integrity BANDAR. Distal circumflex, small in diameter, 80% tubular stenosis. Moderate caliber OM4 80%. Dominant RCA without significant CAD. EF 45% with mid to distal anterior hypokinesis. 2. Exercise Nuclear Perfusion 01/07/12: Mid LAD infarct. No exercise-induced ischemia. EF 65%. Exercised 5 minutes and achieved 88% MPHR. 3. Echo 01/04/12: Normal LV size with mildly reduced systolic function. EF 45-50%. Distal anterior and lateral hypokinesis. Akinetic apical septal and inferior segments. Type II diastolic dysfunction. No significant valvular abnormalities. 4. Echo 03/21/12: Normal LV size and systolic function. EF 60%. Distal LAD infarct. Mild concentric LVH. Mild left atrial dilation. No significant valvular abnormalities. 5. Echo 06/03/2015: Mildly dilated LV with normal systolic function. EF 55- 60%. Small distal LAD infarct with apical akinesis. No significant valvular abnormalities. 6. Echo 02/05/2017: Normal LV size and systolic function. EF 50-55%. Apical septal akinesis. No significant valvular abnormalities. Normal estimated RVSP. 7. Right lower extremity venous Doppler 03/15/2020: Extensive DVT within the right lower extremity. Appears acute. 8. Echo 04/22/2020: Normal LV size with low-normal systolic function. EF 50- 55%. 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 Moderate LVH. Moderate left atrial dilation. No significant valvular abnormalities. 9. Echo 06/19/2022 [facility]: Normal LV size, systolic function. EF 50-55%. Apical akinesis. Mild TR. Stable findings from 02/05/2017. 10. Echo 08/18/2022 [facility]: Normal LV size. EF 45%. Large apical infarct. Mild LVH. No visualized thrombus. Limited 2D echo. 11. Holter 08/13/2022: A-fib throughout. Average heart rate 90, ranging 63-1 54. No significant pause. Frequent PVCs. Ventricular triplets versus aberrant conduction. Patient events occurred during A-fib with normal heart rate. Discharge Data Allergies Allergy/AdvReac Type Severity Reaction Status Date / Time Penicillins Allergy Unknown "DOES NOT Verified 01/28/23 07:25 KNOW- A CHILD" Procedures Performed Operation Date: 01/28/23 08:00 Actual Procedures p Lead LV (No Priopr Implant) - Krish Katz MD Ordered Studies 01/28/23 07:15 EP Lab Images for PACS ONCE Discharge Plan Discharge Items Reason For Visit: BIV PACER Follow-up/Referrals: rKish Nagel MD [Primary Care Provider] - Medications and DC Order Prescriptions: No Action tamsulosin 0.4 mg capsule 0.4 mg PO DAILY Qty: 90 3RF metformin 500 mg tablet 1,000 mg PO BID Qty: 120 11RF furosemide 40 mg tablet 40 mg PO QAM Qty: 30 2RF Xarelto 20 mg tablet 20 mg PO DAILY Qty: 90 3RF Rx Instructions: must administer with evening meal Jardiance 10 mg tablet 10 mg PO DAILY Qty: 30 2RF atorvastatin 80 mg tablet 80 mg PO QAM Qty: 90 3RF nitroglycerin 0.4 mg tablet, sublingual 0.4 mg SL Q5M PRN (Reason: chest pain) Qty: 25 vitamin B complex [B Complex-Vitamin B12] tablet 1 tab PO QAM magnesium oxide 250 mg magnesium tablet 250 mg PO BID Qty: 60 0RF carvedilol 25 mg tablet 25 mg PO BID Qty: 180 3RF mupirocin 2 % ointment See Rx Instructions topical BID PRN (Reason: skin wounds) Qty: 15 2RF Rx Instructions: Apply small amount to open or scabbed areas on lower legs topically twice a day PRN; (DME) compr.stocking,knee,long,x-lrg Misc See Rx Instructions .Route Qty: 12 0RF Rx Instructions: On AM, Off PM Moderate compression 16-20 mmHg (DME) lancets 28 gauge misc See Rx Instructions .ROUTE .MEDSUPPLY Qty: 100 0RF Rx Instructions: test once daily (DME) OneTouch Verio test strips Strip See Rx Instructions .ROUTE .MEDSUPPLY Qty: 25 5RF Rx Instructions: test once daily glimepiride [Amaryl] 1 mg tablet 1 mg PO QAM Qty: 30 5RF Rx Instructions: administer with breakfast; for diabetes potassium chloride 20 mEq tablet extended release 20 meq PO DAILY Qty: 30 5RF amiodarone 200 mg tablet 200 mg PO DAILY Qty: 90 3RF ferrous sulfate [iron] 325 mg (65 mg iron) Tablet 325 mg PO QAM folic acid 1 mg Tablet 1 mg PO QAM aspirin 81 mg Tablet,Delayed Release (Dr/Ec) 81 mg PO QAM nystatin 100,000 unit/gram powder 1 applic topical BID PRN (Reason: Rash) Admission Data Admit Date/Time: 01/28/23 08:31 Attending Provider: Krish Katz Admit Provider: Krish Katz Primary Care Provider: Krish Nagel Coding Diagnoses
--- NOTE | 2023-01-29 11:57 | XRay Report ---
XR chest 2V PA/lateral HISTORY: Left-sided pacemaker placement. EXACT TIME ORDERED Evaluate for pneumothorax and l COMPARISON: Chest 12/14/2022. FINDINGS: Interval placement of a left-sided pacemaker. The leads appear intact. No pneumothorax. No pleural effusions. The cardiac silhouette is mildly enlarged. No focal lung consolidations to suggest a pneumonia. No evidence for pulmonary edema. Prior cholecystectomy. Degenerative changes within the shoulders. IMPRESSION: Interval placement of a left-sided pacemaker. No pneumothorax. ACT 112: Negative or not required by law. Electronically signed by: Jian Denney M.D. 01/29/2023 11:56 AM
== END 2023-01-29 15:02 | disposition home or self-care (01) ==
LOC: EP 06:40 → 2E 06:40

== ENCOUNTER 2023-03-04 06:36 | Observation (INO) ==
[2023-03-04] MEDS ORDERED: LIDOCAINE 1% LOCAL 20 ML VIAL ONE (06:55)
--- NOTE | 2023-03-04 07:56 | History & Physical Report ---
Date of Service March 04, 2023 Assessment & Plan (1) Atrial fibrillation with rapid ventricular response: Plan 1. Atrial fibrillation: PLan AV node ablation 2. BiV Pacemaker 3. Cardiomyopathy History of Present Illness Chief Complaint: atrial fibrillation Primary Care Provider: Krish Nagel MD Patient with a history of atrial fibrillation and RVR. Prior attempt at AV node ablation was no successful. Returns for repeat procedure today Allergies Allergy/AdvReac Type Severity Reaction Status Date / Time Penicillins Allergy Unknown "DOES NOT Verified 03/03/23 13:56 KNOW- A CHILD" Home Medications Medication Instructions Recorded Confirmed Type ferrous sulfate 325 mg (65 mg 325 mg PO QAM 07/31/18 03/03/23 History iron) tablet (iron) folic acid 1 mg tablet 1 mg PO QAM 07/31/18 03/03/23 History nitroglycerin 0.4 mg sublingual 0.4 mg sublingual Q5M PRN chest 04/14/19 03/03/23 History tablet pain #25 tabs vitamin B complex (B 1 tab PO QAM 04/14/19 03/03/23 History Complex-Vitamin B12 tablet) magnesium oxide 250 mg PO BID #60 tabs 04/09/20 03/03/23 Rx blood sugar diagnostic (OneTouch #25 ea 12/16/20 03/03/23 Rx Verio test strips) lancets 28 gauge #100 ea 12/16/20 03/03/23 Rx carvedilol 25 mg tablet 25 mg PO BID #180 tabs 12/24/21 03/03/23 Rx aspirin 81 mg tablet,delayed 81 mg PO QAM 06/19/22 03/03/23 History release nystatin 100,000 unit/gram topical 1 applic topical BID PRN Rash 06/19/22 03/03/23 History powder glimepiride 1 mg tablet (Amaryl) 1 mg PO QAM #30 tabs 06/24/22 03/03/23 Rx potassium chloride 20 mEq 20 meq PO DAILY #30 tabs 06/24/22 03/03/23 Rx tablet,extended release tamsulosin 0.4 mg capsule 0.4 mg PO DAILY #90 caps 07/07/22 03/03/23 Rx amiodarone 200 mg tablet 200 mg PO DAILY #90 tabs 09/23/22 03/03/23 Rx metformin 500 mg tablet 1,000 mg PO BID #120 tabs 09/25/22 03/03/23 Rx compr.stocking,knee,long,x-lrg #12 ea 09/29/22 03/03/23 Rx furosemide 40 mg tablet 40 mg PO QAM #30 tabs 10/30/22 03/03/23 Rx rivaroxaban 20 mg tablet (Xarelto) 20 mg PO DAILY #90 tabs 11/24/22 03/03/23 Rx mupirocin 2 % topical ointment See Rx Instructions topical BID 12/02/22 03/03/23 Rx PRN skin wounds #15 grams empagliflozin 10 mg tablet 10 mg PO DAILY #30 tabs 12/16/22 03/03/23 Rx (Jardiance) atorvastatin 80 mg tablet 80 mg PO QAM #90 tabs 01/09/23 03/03/23 Rx Past Med/Surg History Medical History (HFpEF) heart failure with preserved ejection fraction Anemia Anticoagulant long-term use Asthma Atrial fibrillation Atrial fibrillation, new onset Benign neuroendocrine tumor of small intestine BPH associated with nocturia CAD (coronary artery disease) Chronic deep vein thrombosis of leg Diverticular disease Hyperlipidemia Hypertension Hypomagnesemia Iron deficiency anemia Left leg DVT Lower extremity edema Myocardial Infarction Osteoarthritis Poor historian Post traumatic stress disorder Right leg DVT Right leg swelling Type 2 diabetes mellitus Surgical History History of bowel resection History of cardiac cath History of cholecystectomy History of heart artery stent History of surgery on extremity Hx of inguinal hernia surgery (05/10/19) Family History Uncle Diabetes Mother Coronary heart disease Father Coronary heart disease Other Heart disease Denies family history of Ovarian cancer Prostate cancer Breast cancer Colorectal cancer Social History Smoking Status: Never smoker Second Hand Exposure: No; Do You Dip or Chew Tobacco: No; Hx Alcohol Use: Yes Alcohol type: beer Hx Substance Use: No Preferred Language: Indonesian Communication Ability: Effective Hearing Ability: Normal Shot Bagger Required: No Beliefs That Will Affect Care: None marital status: Current Living Situation: Alone current occupational status: retired Feels Safe at Home: Yes Childhood Exposure to Second-Hand Smoke: No Diet: regular caffeine: Yes (soda) Dental Care, Regularly: Yes Physical Activity Frequency: Does not Exercise Seatbelt Use: sometimes Sunscreen Use: Yes Assistive Devices: Cane Review of Systems Review of Systems: per HPI Physical Exam Physical Exam: Alert. Answered all questions appropriately Normal respiratory effort Rhythm irregular and fast Mild lower extremity edema Results & Data Results & Data Vital Signs (Past 12 Hours) Vital Signs Pulse Resp Pulse Ox O2 Del Method 03/04/23 07:09 121 H 18 98 Room Air
--- NOTE | 2023-03-04 07:57 | Pre Anesthesia Assessment ---
Date of Service March 04, 2023 Pre Sedation Assessment Vital Signs Pulse Resp Pulse Ox O2 Del Method 03/04/23 07:09 121 H 18 98 Room Air Cardiovascular + tachycardic and + irregularly irregular Respiratory + respiratory effort normal Pre-Sedation Airway Assessment Smoking Status: Never smoker Hx Sleep Apnea: No Hx Difficult Intubation: No Short, Thick Neck: No Thyromental Distance: > or= 3.5 Finger Breadths Oral Cavity: + WNL Mallampati Class: III ASA: ASA3 NPO Status Date of Last Intake of Fluids: 03/03/23 Time of Last Intake of Fluids: 22:00 Date of Last Intake of Solid Food: 03/03/23 Time of Last Intake of Solid Foods: 18:00 Procedure Planning Contraindications for Sedation: none Current Medications Reviewed: Yes Notes The planned sedation has been discussed with the patient. Informed Consent was obtained. I have identified the patient, determined the appropriateness of sedation and have assessed the patient immediately prior to the procedure. All medicine(s) and interventions are by my order.
[2023-03-04 08:00] LABS: Basophils # (auto) 0.08 K/uL (0.00-0.20); Basophils % (auto) 0.8 %; Eosinophils # (auto) 0.33 K/uL (0.00-0.50); Eosinophils % (auto) 3.1 %; Hematocrit (blood only) 39.1 % (42.0-52.0); Hemoglobin 12.6 g/dl (14.0-18.0); Immature Granulocytes # (auto) 0.12 K/uL (0.01-0.20); Immature Granulocytes % (auto) 1.1 %; Lymphocytes # (auto) 2.04 K/uL (1.20-3.40); Lymphocytes % (auto) 19.4 %; Mean Corpuscular Hgb Conc 32.2 g/dL (32.0-36.0); Mean Corpuscular Volume 80.6 fL (80.0-100.0); Mean Platelet Volume 9.4 fL (9.4-12.4); Monocytes # (auto) 0.93 K/uL (0.11-0.59); Monocytes % (auto) 8.9 %; Neutrophils % (auto) 66.7 %; Platelet Count 244 K/uL (130-400); RDW Coefficient of Variation 15.6 % (11.5-14.5); RDW Standard Deviation 44.9 fL (36.4-46.3); Red Blood Count 4.85 M/uL (4.70-6.10)
[2023-03-04] MEDS ORDERED: MIDAZOLAM HCL 5 MG/ML 1 ML VIAL ONE (08:04)
[2023-03-04] MEDS ORDERED: fentaNYL citrate PF 100 MCG/2 ML VIAL ONE (08:04)
[2023-03-04 08:16] LABS: Calcium 9.7 mg/dl (8.6-10.3); Creatinine Clr Calc Pharmacy 58.8 ml/min; Est GFR (African American) 57.4 ml/min; Est GFR (Non-African American) 49.5 ml/min; Potassium 4.2 mmol/L (3.5-5.1)
--- NOTE | 2023-03-04 09:03 | Electrophysiology Report ---
Date of Service March 04, 2023 Electrophysiology Procedure Electrophysiology Procedure Report The patient was brought to the laboratory being n.p.o. after midnight, identified in the laboratory and prepped and draped in standard sterile manner for an AV node ablation. The device was programmed to a VVI mode of 30 beats. The right groin was anesthetized with lidocaine local anesthetic and an SR 0 ablation sheath was advanced over guidewire into the right atrium. An ablation catheter was advanced through the sheath to the AV junction. Mapping of the region was performed using the ablation catheter. Ablation was performed using a temperature controlled system with a setting of 70 W maximum and 55 C maximum and a duration of 10 seconds initially followed by 2 ablation applications of 60 seconds. During the first application transient complete heart block ensued. She was observed for 30 minutes following the procedure with no return of AV conduction. After the ablation the catheter was removed under fluoroscopic guidance, the sheath was removed and venous pressure was applied. The catheter site was bandaged. The device was programmed back to final settings. [facility] [place] Electrophysiology codes Indication for Procedure (1) Atrial fibrillation with rapid ventricular response: EP Procedure 1: Electrophysiology: 00217 Bundle of His recording Procedure 2: Electrophysiology: 21645 Ablation AV Node w/wo pace Pacing Procedure 1: Pacin Pacer multi program PG Moderate Sedation Codes Moderate Sedation Codes Procedure 1: Sedation/Anesthesia: 13435 Mod Sedation by the same physician;Init15 Min Child Age 5 & Up Procedure 2: Sedation/Anesthesia: 22316 Mod Sedation by the same physician; Ea [id number] Minutes
[2023-03-04] MEDS ORDERED: ACETAMINOPHEN 325 MG TAB PO PRN (09:45)
[2023-03-04] MEDS ORDERED: RIVAROXABAN 20 MG TAB PO SCH (16:30)
[2023-03-04] MEDS: carvediloL 25 MG TAB PO SCH (21:30)
[2023-03-04] MEDS: MAGNESIUM OXIDE 400 MG TAB PO SCH (21:31)
[2023-03-04] MEDS: metFORMIN HCL 500 MG TAB PO SCH (21:33)
[2023-03-05] MEDS ORDERED: GLIMEPIRIDE 2 MG TAB PO SCH (07:30)
[2023-03-05] MEDS: MAGNESIUM OXIDE 400 MG TAB PO SCH (08:19)
[2023-03-05] MEDS: carvediloL 25 MG TAB PO SCH (08:20)
[2023-03-05] MEDS: metFORMIN HCL 500 MG TAB PO SCH (08:20)
[2023-03-05] MEDS ORDERED: EMPAGLIFLOZIN 10 MG TAB PO SCH (09:00)
[2023-03-05] MEDS ORDERED: TAMSULOSIN HCL 0.4 MG CAP PO SCH (09:00)
[2023-03-05] MEDS ORDERED: ATORVASTATIN 40 MG TAB PO SCH (09:00)
[2023-03-05] MEDS ORDERED: FERROUS SULFATE 325 MG TAB PO SCH (09:00)
[2023-03-05] MEDS ORDERED: ASPIRIN 81 MG ECTAB PO SCH (09:00)
[2023-03-05] MEDS ORDERED: FOLIC ACID 1 MG TAB PO SCH (09:00)
[2023-03-05] MEDS ORDERED: FUROSEMIDE 40 MG TAB PO SCH (09:00)
[2023-03-05] MEDS ORDERED: POTASSIUM CHLORIDE CRTAB 20 MEQ TABCR PO SCH (09:00)
--- NOTE | 2023-03-05 09:20 | Discharge Summary ---
Date of Service March 05, 2023 Admission HPI Per Admitting Provider Patient with a history of atrial fibrillation and RVR. Prior attempt at AV node ablation was no successful. Returns for repeat procedure today Principal Diagnosis Atrial fibrillation Discharge Exam Alert and oriented x3. Answered all questions appropriately. Normal respiratory effort Regular heart rhythm Discharge Data Allergies Allergy/AdvReac Type Severity Reaction Status Date / Time Penicillins Allergy Unknown "DOES NOT Verified 03/03/23 13:56 KNOW- A CHILD" Procedures Performed Operation Date: 03/04/23 08:00 Actual Procedures p AV Node Ablation - Jose Angel Stanley MD Ordered Studies 03/04/23 07:00 EP Lab Images for PACS ONCE Hospital Course (1) Atrial fibrillation with rapid ventricular response: On the day of admission patient underwent AV node ablation via right femoral vein approach. He was kept overnight for observation. The following morning device interrogation revealed good function of the device as well as the absence of conducted atrial fibrillation. Patient was discharged with a programmed lower rate limit of 90 beats per minute. Total Time Total Time Spent Total Time Spent (In Minutes): 20 Discharge Plan Discharge Items Patient Disposition: Home - Self-Care Reason For Visit: ABLATION Discharge Diagnosis: Atrial fibrilation Activity: Resume your previous activity Lifting: No more than 10 pounds Lifting Comment: NO lifting >10# or straining for 5 days Bathing: No limitations Exercise/Sports: Rest today Driving/Machine Use: Resume 1 day after discharge Non-emergency contact: Cardiac Monitor Call non-emergency contact if: you have any medication questions and your symptoms worsen Follow-up/Referrals: Krish Nagel MD [Primary Care Provider] - 03/11/23 2:00 pm Diet: Carb Consistent or DM2 and Heart Healthy Addtl Attending Provider Instructions: none Pending Studies at Discharge: No Stand-Alone Forms: My [employer], Smoking Cessation Medications and DC Order Prescriptions: Continued tamsulosin 0.4 mg capsule 0.4 mg PO DAILY Qty: 90 3RF metformin 500 mg tablet 1,000 mg PO BID Qty: 120 11RF furosemide 40 mg tablet 40 mg PO QAM Qty: 30 2RF Xarelto 20 mg tablet 20 mg PO DAILY Qty: 90 3RF Rx Instructions: must administer with evening meal Jardiance 10 mg tablet 10 mg PO DAILY Qty: 30 2RF atorvastatin 80 mg tablet 80 mg PO QAM Qty: 90 3RF nitroglycerin 0.4 mg tablet, sublingual 0.4 mg SL Q5M PRN (Reason: chest pain) Qty: 25 vitamin B complex [B Complex-Vitamin B12] tablet 1 tab PO QAM magnesium oxide 250 mg magnesium tablet 250 mg PO BID Qty: 60 0RF carvedilol 25 mg tablet 25 mg PO BID Qty: 180 3RF mupirocin 2 % ointment See Rx Instructions topical BID PRN (Reason: skin wounds) Qty: 15 2RF Rx Instructions: Apply small amount to open or scabbed areas on lower legs topically twice a day PRN; (DME) compr.stocking,knee,long,x-lrg Misc See Rx Instructions .Route Qty: 12 0RF Rx Instructions: On AM, Off PM Moderate compression 16-20 mmHg (DME) lancets 28 gauge misc See Rx Instructions .ROUTE .MEDSUPPLY Qty: 100 0RF Rx Instructions: test once daily (DME) OneTouch Verio test strips Strip See Rx Instructions .ROUTE .MEDSUPPLY Qty: 25 5RF Rx Instructions: test once daily glimepiride [Amaryl] 1 mg tablet 1 mg PO QAM Qty: 30 5RF Rx Instructions: administer with breakfast; for diabetes potassium chloride 20 mEq tablet extended release 20 meq PO DAILY Qty: 30 5RF ferrous sulfate [iron] 325 mg (65 mg iron) Tablet 325 mg PO QAM folic acid 1 mg Tablet 1 mg PO QAM aspirin 81 mg Tablet,Delayed Release (Dr/Ec) 81 mg PO QAM nystatin 100,000 unit/gram powder 1 applic topical BID PRN (Reason: Rash) Discontinued amiodarone 200 mg tablet 200 mg PO DAILY Qty: 90 3RF Discharge Orders: Discharge Order (Routine); Ordered 03/05/23 Ordered By: Krish Tran/Other Patient Handouts: High Blood Sugar (Hyperglycemia), Hypoglycemia (Low Blood Sugar), Managing Type 2 Diabetes Admission Data Admit Date/Time: 03/04/23 09:45 Attending Provider: Jose Angel Stanley Admit Provider: Jose Angel Stanley Primary Care Provider: Krish Nagel Other Interventions: Discharge Summary Assessment (RN) Last Done: 03/05/23 09:51 Coding Level of Care Code 07331 IN/OBS DISCH 30 MIN/LESS Diagnoses Atrial fibrillation with rapid ventricular response I48.91
--- NOTE | 2023-03-05 13:40 | Post Anesthesia Assessment ---
Date of Service March 04, 2023 Post Sedation Assessment Vital Signs Temp Pulse Pulse Resp BP Pulse Ox O2 Del Method 03/05/23 09:51 36.8 C 91 H 18 124/78 94 03/05/23 09:00 91 H 03/05/23 07:20 36.8 C 91 H 18 124/78 94 Room Air 03/05/23 02:47 36.3 C L 92 H 16 109/66 96 Room Air 03/04/23 23:00 91 H 03/04/23 23:15 36.6 C 89 18 115/75 94 Room Air 03/04/23 19:00 36.7 C 85 20 157/88 H 96 Room Air 03/04/23 15:41 36.3 C L 92 H 18 133/80 99 Room Air 03/04/23 14:04 36.4 C L 93 H 18 147/92 H 98 Room Air Recovery Score Activity: Moves 4 extremities Respiration: Deep Breath/Cough Circulation: +/-20% PreAnes Value Consciousness: Fully Awake Oxygen Saturation: > 92% On Room Air Post Anesthesia Score: 10 Discharge Sedation Level of Care: Fast Track Phase II Post Sedation Plan On clinical assessment, the patient appears to have tolerated the sedation without complications. Patient is recovering as anticipated. Patient will continue to be monitored by nursing and may be discharged when sedation discharge criteria are met per below protocol. Upon Completions of procedure up to 15 minutes continue every 5 minute vital signs and the P.A.R. score; then discharge to a Phase I or Fast Track to Phase II per the following guidelines: * Discharge Patient to appropriate Phase II area if PAR is 8 or greater or return to pre- procedure baseline. The post - procedure orders will be as directed. * If PAR score is less than 8 or not return to pre-procedure baseline then patient will follow Phase I monitoring till PAR is reached for Phase II. The Phase I may be done in procedure room or may call to secure a Phase I area. * If naloxone or flumazenil are used for reversal, hold in Phase I for continued monitoring from when last reversal dose was given for a minimum of 60 minutes or longer pending the nurse and/or physician discretion of patient condition before discharge to Phase II. Please call the Sedation Physician to re-evaluate and complete post-note for discharge to Phase II area. Do NOT discharge from procedure sedation or Phase 1 until post- sedation evaluation note is complete by procedure /sedation MD Sedation Discharge Instructions to be given to the patient at discharge to home.
--- NOTE | 2023-03-08 14:39 | Electrocardiogram Report ---
Test Reason : Blood Pressure : / mmHG Vent. Rate : 089 BPM Atrial Rate : 150 BPM P-R Int : 000 ms QRS Dur : 164 ms QT Int : 442 ms P-R-T Axes : 096 -36 015 degrees QTc Int : 537 ms Ventricular-paced rhythm Left axis deviation Abnormal ECG When compared with ECG of 28-JAN-2023 14:26, No significant change Confirmed by Miky Otero ([id number]) on 03/08/2023 2:39:32 PM Referred By: Jose Angel Stanley Confirmed By:Miky Otero
== END 2023-03-05 11:20 | disposition home or self-care (01) ==
LOC: 2S 06:36 → EP 06:36